=== PATIENT | male | born 1955 | race Caucasian/White ===

== ENCOUNTER → 2016-08-29 | Outpatient (CLI) | payer MEDICARE ==
[~2016-08-29] MED LIST: ALL100 PO; ALLO100T PO; AMOX500C3 PO; ASPI81TA28 PO; EPIPEN0.3 M1 IM; EPLE25TA3 PO; EPP3/2 IM; FRS/40 PO; FRS/80 PO; IPRA1AER2 INH; LSX80 PO; METO2.5T PO; METO25TA3 PO; MULTTAB5 PO; OXGN; OXYC1TAB3 PO; PANT40TA PO; POTA20TA13 PO; POTA20TA16 PO; PRT/40 PO; SENNTAB23 PO; SERT100T PO; SPIR25TA89 PO; SPIR50TA2 PO; TPRSR/25 PO; WARF5TAB7 PO; ZLF/100 PO; ZRX25 PO
[2016-08-29 18:08] LABS: BLOOD UREA NITROGEN 20 mg/dl (7-18); BUN/CREATININE RATIO 20.2 (10-20); CALCIUM 8.6 mg/dl (8.5-10.1); CARBON DIOXIDE 25 mmol/L (21-32); CHLORIDE 100 mmol/L (98-107); GLUCOSE 94 mg/dl (70-99); MAGNESIUM 2.3 mg/dl (1.8-2.4); POTASSIUM 3.7 mmol/L (3.5-5.1); SODIUM 136 mmol/L (136-145)
== END | disposition home or self-care (01) ==
LOC: C.LABPBG 11:38
PROVIDERS: ATTEND Internal Medicine Cardiovascular Disease
DX: I50.32 Chronic diastolic (congestive) heart failure (principal); I48.91 Unspecified atrial fibrillation; I71.2 Thoracic aortic aneurysm, without rupture; I27.2 Other secondary pulmonary hypertension; Q23.1 Congenital insufficiency of aortic valve; Z79.01 Long term (current) use of anticoagulants; Z51.81 Encounter for therapeutic drug level monitoring; E87.6 Hypokalemia

== ENCOUNTER 2016-10-23 11:53 | Emergency (ER) | payer MEDICARE ==
[~2016-10-23] VITALS: Ht 172.7 cm; Wt 114.0 kg
[~2016-10-23 11:53] MED LIST changes: -ALL100 PO; -AMOX500C3 PO; -ASPI81TA28 PO; -EPLE25TA3 PO; -EPP3/2 IM; -FRS/80 PO; -IPRA1AER2 INH; -LSX80 PO; -MULTTAB5 PO; -OXGN; -OXYC1TAB3 PO; -POTA20TA13 PO; -PRT/40 PO; -SENNTAB23 PO; -TPRSR/25 PO; -WARF5TAB7 PO; -ZLF/100 PO; -ZRX25 PO
[2016-10-23 12:02] VITALS: TEMP 36.7; Ht 172.7 cm; Wt 114.0 kg
[2016-10-23] MEDS ORDERED: OXYCODONE HCL IR 5 MG TAB (IMMEDIATE RELEASE) PO STA (12:31)
--- NOTE | 2016-10-23 13:00 | DIAGNOSTIC IMAGING REPORT ---
RIGHT SHOULDER MIN 2 VIEWS ROUTINE CLINICAL HISTORY: Right shoulder pain. Fall. COMPARISON: Chest CT August 06, 2015. FINDINGS: Alignment of the right acromioclavicular and glenohumeral joints is anatomic. There is no acute fracture. There is moderate AC joint arthrosis. Irregularity of the greater tuberosity is degenerative. There are several healed right rib fractures and an old right clavicular fracture. IMPRESSION: No acute fracture or dislocation of the right shoulder. Electronically signed by: Carlos Ngo M.D. 10/23/2016 12:58 PM Dictated Date/Time: 10/23/2016 12:56 PM
--- NOTE | 2016-10-23 13:26 | DIAGNOSTIC IMAGING REPORT ---
CT OF THE HEAD WITHOUT CONTRAST CLINICAL HISTORY: Trauma. COMPARISON STUDY: CT January 09, 2012. TECHNIQUE: Helical axial images of the head were obtained without IV contrast. Automated exposure control was utilized for the study. FINDINGS: No acute intracranial hemorrhage, midline shift or mass effect is present. Ventricular system is unremarkable for age. Basilar cisterns are patent. There are no extra-axial collections. No calvarial fracture is present. There is mild mucosal thickening of the sinuses. IMPRESSION: 1. No acute intracranial findings. 2. No calvarial fracture. Electronically signed by: Carlos Ngo M.D. 10/23/2016 1:25 PM Dictated Date/Time: 10/23/2016 1:23 PM
--- NOTE | 2016-10-23 13:40 | DIAGNOSTIC IMAGING REPORT ---
CT OF THE CERVICAL SPINE WITHOUT CONTRAST CLINICAL HISTORY: Neck pain. Fall. COMPARISON STUDY: No previous studies for comparison. TECHNIQUE: Helical axial images of the cervical spine were obtained without IV contrast. Sagittal and coronal reconstructions were viewed. FINDINGS: The craniocervical junction is intact. No acute cervical spine fracture is identified. The central canal and neural foramen are suboptimally assessed by CT. There is moderate to severe multilevel facet arthrosis. There is also mild multilevel disc space narrowing with moderate anterior osteophytosis of the cervical spine. There is no prevertebral edema. A healed right clavicular fracture is noted as well as an old fracture of the posterior right first rib. IMPRESSION: No acute cervical spine fracture or subluxation. Electronically signed by: Carlos Ngo M.D. 10/23/2016 1:39 PM Dictated Date/Time: 10/23/2016 1:35 PM
[2016-10-23] MEDS ORDERED: OXYC1TAB3 PO (14:24)
--- NOTE | 2016-10-23 14:26 | EMERGENCY ROOM VISIT NOTE ---
ED Visit Note First contact with patient: 12:06 CHIEF COMPLAINT: Neck and right shoulder pain after a fall yesterday HISTORY OF PRESENT ILLNESS: Patient is a 60-year-old white male who presents emergency department for evaluation of neck and shoulder pain after he fell yesterday. Patient reports that he had just washed his truck and was getting out of the vehicle in his garage. His shoes were wet and he slipped on the wet garage floor, falling backwards, striking the neck/upper back on the edge of the truck, then hitting the running board and then landing on the concrete garage floor. He did not strike his head and he did not lose consciousness. He was able to get up and went inside. He notes pain in the midline of his neck , that radiates slightly towards the right shoulder and right shoulder blade region. He denies any generalized headache. No lightheadedness, dizziness or vision changes, but he has been feeling slightly nauseous. He notes pain in the right shoulder that is worse with movement, particularly when he tries to work above shoulder height. He notes occasional tingling or weakness into the right hand, which he attributes to the pain. He did not take any medication for discomfort. He rates his pain a 6/10. He denies any anterior chest pain. No shortness of breath. He denies any rib pain or pain with deep breathing or coughing. No low back pain. He denies any difficulty urinating or hematuria. He has an extensive cardiovascular history and is chronically anticoagulated on Coumadin. His INR was 2.5 2 days ago. REVIEW OF SYSTEMS:Review of systems as per HPI. All other systems reviewed were negative. 10 systems reviewed. PMH: Electronic medical records are reviewed and summarized as above/below. See Problem List. SOCIAL HISTORY: Patient lives at home with his . Nonsmoker. PHYSICAL EXAM: Vital Signs: Reviewed Nurse's notes. GENERAL: Patient is a pleasant, well-appearing 60-year-old white male who is awake and alert and in no acute distress. HEENT: Head - normocephalic and atraumatic. Pupils are equal, round, and reactive to light. Extraocular eye muscles are intact and sclera are anicteric. Ears - bilaterally patent canals with no evidence of hemotympanum. Mouth - moist buccal mucosa with no trauma to the teeth or signs of malocclusion. Neck: The neck is supple. There is slight swelling noted over the lower aspect of the cervical spinous processes in the midline. This area slightly tender to palpation. No obvious step-offs or deformities. There is no JVD or tracheal deviation. Full cervical spine range of motion. He has some reproducible muscular tenderness in the right trapezius and in the right rhomboid distribution. Chest: There are no signs of deformities, contusions or abrasions to the chest wall. There is no obvious crepitus or paradoxical chest rise. Ribs are nontender. Heart: Irregular rate and rhythm. Mechanical heart valve sounds appreciated. Lungs: Breath sounds equal and clear to auscultation without wheezes, rales, or rhonchi heard. Abdomen: Soft, completely nontender, nondistended, with good bowel sounds. There is no sign of trauma such as contusions, abrasions or penetrations. There are no palpable pulsatile masses or hepatosplenomegaly. There is no guarding, rigidity, or rebound noted. Extremities: No obvious trauma, deformities, contusions, or edema. There are easily palpable peripheral pulses. Examination of the right shoulder does not show any obvious deformity. No ecchymosis or abrasions. He is tender over the distal clavicle and the acromioclavicular joint and over the proximal humerus, but possibly can be internally and externally rotated fully. He can abduct to 90, forward flex greater than 90 but has some discomfort. Neuro: The patient is awake and alert and easily able to follow commands. Muscle strength is 5 out of 5 in all 4 extremities. Equal oracle database manager strength bilaterally. Upper extremity DTRs are equal and symmetrical. Back: The entire thoracic, lumbar, and sacral spine were palpated. No discomfort over the thoracic spine and lumbar spine. There are no obvious step- offs or deformities noted. There are no obvious signs of trauma such as contusions abrasions penetrations noted to the back. ED course: The patient was seen and assessed as above. He was medicated with oxycodone 10 mg orally. Given his head/neck injury and Coumadin therapy, head and cervical spine CTs were obtained. Right shoulder x-rays were also performed. There is no evidence for acute intracranial bleed, skull fracture or cervical spine injury. No obvious fractures or dislocation of the right shoulder. The patient was reassured. He does not have any evidence for cervical spinal fracture or unstable ligamentous injury. He was encouraged to apply ice to the areas of soreness, and to perform gentle stretching and range of motion exercises as tolerated. He was given oxycodone to use for pain. They were educated on the worrisome signs or symptoms of a worsening headache injury for which they should return to the emergency department. Otherwise follow-up with family doctor or with orthopedics if his symptoms are not improving. The patient rated his discomfort a 4/10 at discharge. RIGHT SHOULDER MIN 2 VIEWS ROUTINE CLINICAL HISTORY: Right shoulder pain. Fall. COMPARISON: Chest CT August 06, 2015. FINDINGS: Alignment of the right acromioclavicular and glenohumeral joints is anatomic. There is no acute fracture. There is moderate AC joint arthrosis. Irregularity of the greater tuberosity is degenerative. There are several healed right rib fractures and an old right clavicular fracture. IMPRESSION: No acute fracture or dislocation of the right shoulder. CT OF THE CERVICAL SPINE WITHOUT CONTRAST CLINICAL HISTORY: Neck pain. Fall. COMPARISON STUDY: No previous studies for comparison. TECHNIQUE: Helical axial images of the cervical spine were obtained without IV contrast. Sagittal and coronal reconstructions were viewed. FINDINGS: The craniocervical junction is intact. No acute cervical spine fracture is identified. The central canal and neural foramen are suboptimally assessed by CT. There is moderate to severe multilevel facet arthrosis. There is also mild multilevel disc space narrowing with moderate anterior osteophytosis of the cervical spine. There is no prevertebral edema. A healed right clavicular fracture is noted as well as an old fracture of the posterior right first rib. IMPRESSION: No acute cervical spine fracture or subluxation. CT OF THE HEAD WITHOUT CONTRAST CLINICAL HISTORY: Trauma. COMPARISON STUDY: CT January 09, 2012. TECHNIQUE: Helical axial images of the head were obtained without IV contrast. Automated exposure control was utilized for the study. FINDINGS: No acute intracranial hemorrhage, midline shift or mass effect is present. Ventricular system is unremarkable for age. Basilar cisterns are patent. There are no extra-axial collections. No calvarial fracture is present. There is mild mucosal thickening of the sinuses. IMPRESSION: 1. No acute intracranial findings. 2. No calvarial fracture. 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 Surgical Problems: (1) Hx of CABG Status: Chronic (2) Mechanical heart valve present Status: Chronic Current/Historical Medications Scheduled Allopurinol (Zyloprim), 100 MG PO BID Amoxicillin (Amoxil), 4 TABS PO PRIOR TO DENTAL PROC Aspirin (Aspirin Ec), 81 MG PO QAM Eplerenone (Eplerenone), PO BID Furosemide (Lasix), 120 MG PO QAM Ipratropium-Albuterol (Combivent Respimat), 1 PUFF INH QAM Metolazone (Zaroxolyn), 2.5 MG PO DAILY Metoprolol Succ (Toprol Xl) (Toprol-Xl), 25 MG PO BID Multiple Vitamins W/ Minerals (Centrum), 1 TABLET PO QAM Oxygen (Oxygen), 2 LITERS NA HS Pantoprazole (Protonix), 40 MG PO DAILY Potassium Ext Rel (Klor-Con), 3 TAB PO QID Sennosides-Docusate Sodium (Stool Softener), 1 TAB PO QAM Sertraline Hcl (Zoloft), 100 MG PO QAM Warfarin Sod (Jantoven), 5 MG PO QPM Scheduled PRN , 0.3 MG IM UD PRN for ALLERGIC REACTION Furosemide (Lasix), 80 MG PO UD PRN for FLUID RET Oxycodone Ir (Roxicodone Ir), 1-2 TAB PO Q4H PRN for Severe Pain Allergies Coded Allergies: BEE STING (Verified Allergy, Severe, ANAPHYLAXIS, 05/09/16) NO KNOWN DRUG ALLERGIES (Verified Allergy, Unknown, ., 05/09/16) Vital Signs Date Time Temp Pulse Resp B/P Pulse Ox O2 Delivery O2 Flow Rate FiO2 10/23/16 14:40 88 16 147/69 96 10/23/16 12:02 36.7 88 16 168/61 96 Room Air Medications Administered Medications (Trade) Dose Ordered Sig/Adeline Route Start Time Stop Time Status Last Admin Dose Admin Oxycodone HCl (Roxicodone Immediate Rel Tab) 10 mg NOW STAT PO 10/23/16 12:31 10/23/16 12:33 DC 10/23/16 12:57 10 MG Departure Information Impression Primary Impression: Neck pain Additional Impressions: Right shoulder pain Fall Prescriptions Oxycodone Ir (Roxicodone Ir) 5 Mg Tab 1-2 TAB PO Q4H Y for Severe Pain, #20 TAB For Initial Treatment Prov: Sarah Romo PA 10/23/16 Referrals Sharon Winkler MD (PCP) Patient Instructions My [facility] Additional Instructions DO NOT drive, drink alcohol, operate machinery, or perform dangerous activities today. You were given medications in the ER that can affect your ability to safely function or operate a vehicle. Oxycodone (OxyIR) 5mg: Take 1-2 pills every four hours for breakthrough pain. Avoid alcohol, operating machinery or dangerous equipment, working on ladders or roofs, DRIVING, or situations where being under the influence may be dangerous. It is recommended to use an cwiz-ajq-nqcojmi stool softener such as Colace, 100mg twice daily while taking this medication to avoid constipation. Acetaminophen(Tylenol) may be used for fever or pain. Use 1000mg every six hours as needed. Avoid using more than 3000mg in a 24 hour period. This medication can be taken if you need to drive, work, or perform activities which may be dangerous when taking narcotic pain medication. Rest and avoid heavy lifting until your symptoms resolve and then gradually return to full activity. A good rule of thumb is if it hurts your back to perform a certain activity, then it should be avoided until you are healthy again. Ice to areas of pain. Continue current medications. FOLLOW UP INSTRUCTIONS: You should have a follow up with your family doctor or team physician in 3-5 days regarding your injury. If you had X-rays or CT scanning performed, our Radiologists will review the studies. If important additional findings are discovered you will be notified within 24-48 hours. Return to the emergency department immediately if you -Developed any chest pain or shortness of breath -Have a headache that suddenly gets worse. -Are very drowsy or cannot be woken up from sleep. -Can't recognize people or places. -Have repeated vomiting. -Behave unusually, seemed confused, or start acting irritable. -Have a seizure (arms and legs start jerking uncontrollably). -Have weak or numb arms or legs. -Are unsteady on your feet -Experience slurred speech or difficulty speaking. Problem Qualifiers
[2016-10-23 14:40] VITALS: BP 147/69; PULSE 88; O2SAT 96
--- NOTE | 2016-10-23 14:45 | EMERGENCY ROOM VISIT NOTE ---
ED Visit Note First contact with patient: 12:06 I have personally evaluated this patient examined her and reviewed the pertinent labs and data. I have discussed the case with Vidhya Romo, the physician fleet administrative assistant and agree with the plan. Please refer to the PA note This patient comes in after suffering a mechanical fall yesterday. He slipped after getting off of his truck and fell back and has some pain in the left lateral neck into the shoulder. Given the fact that he is on Coumadin, we did do a CAT scan of his head and neck been they're unremarkable. On my exam, the patient is awake and alert has a normal neurologic exam and looks well. He's had no abdominal pain or chest pain. He has full range of motion the shoulder and the neck. He will be discharged home and follow-up with his regular doctor.
[2017-01-01] MEDS ORDERED: MULTTAB5 PO (00:09)
[2017-01-01] MEDS ORDERED: SENNTAB23 PO (07:49)
[2017-01-01] MEDS ORDERED: AMOX500C3 PO (07:55)
[2017-01-01] MEDS ORDERED: OXGN (08:58)
[2017-01-01] MEDS ORDERED: WARF5TAB7 PO ×2 (14:20→18:52)
[2017-01-01] MEDS ORDERED: EPLE25TA3 PO ×2 (16:35→18:52)
[2017-01-01] MEDS ORDERED: IPRA1AER2 INH (18:08)
[2017-01-01] MEDS ORDERED: FRS/80 PO (18:08)
[2017-01-01] MEDS ORDERED: ASPI81TA28 PO (18:10)
[2017-01-01] MEDS ORDERED: PRT/40 PO (18:52)
== END 2016-10-23 14:41 | disposition home or self-care (01) ==
LOC: C.EDB 11:54 → C.EDD 14:41
DX: M54.2 Cervicalgia (principal); M25.511 Pain in right shoulder; W01.0XXA Fall on same level from slipping, tripping and stumbling without subsequent striking against object, initial encounter; I48.91 Unspecified atrial fibrillation; I10 Essential (primary) hypertension; I51.9 Heart disease, unspecified; J44.9 Chronic obstructive pulmonary disease, unspecified; Z95.0 Presence of cardiac pacemaker; Z95.1 Presence of aortocoronary bypass graft; Z95.2 Presence of prosthetic heart valve; Z79.01 Long term (current) use of anticoagulants; Z79.82 Long term (current) use of aspirin; Z79.899 Other long term (current) drug therapy; Z91.030 Bee allergy status

== ENCOUNTER → 2016-10-27 | Outpatient (CLI) | payer MEDICARE ==
[~2016-10-27] MED LIST changes: +ALL100 PO; +AMOX500C3 PO; +ASPI81TA28 PO; +EPLE25TA3 PO; +EPP3/2 IM; +FRS/80 PO; +IPRA1AER2 INH; +LSX80 PO; +MULTTAB5 PO; +OXGN; +OXYC1TAB3 PO; +POTA20TA13 PO; +PRT/40 PO; +SENNTAB23 PO; -SPIR25TA89 PO; -SPIR50TA2 PO; +TPRSR/25 PO; +WARF5TAB7 PO; +ZLF/100 PO; +ZRX25 PO
[2016-10-27 17:26] LABS: BLOOD UREA NITROGEN 22 mg/dl (7-18); BUN/CREATININE RATIO 24.4 (10-20); CALCIUM 8.5 mg/dl (8.5-10.1); CARBON DIOXIDE 27 mmol/L (21-32); CHLORIDE 99 mmol/L (98-107); GLUCOSE 124 mg/dl (70-99); POTASSIUM 3.2 mmol/L (3.5-5.1); SODIUM 134 mmol/L (136-145)
== END | disposition home or self-care (01) ==
LOC: C.LABPBG 11:28
PROVIDERS: ATTEND Internal Medicine Cardiovascular Disease
DX: E87.6 Hypokalemia (principal)

== ENCOUNTER → 2016-11-23 | Outpatient (CLI) | payer MEDICARE ==
[~2016-11-23] MED LIST changes: +PANT40TA2 PO; -PRT/40 PO
[2016-11-23 17:56] LABS: BLOOD UREA NITROGEN 27 mg/dl (7-18); BUN/CREATININE RATIO 24.4 (10-20); CARBON DIOXIDE 29 mmol/L (21-32); CHLORIDE 98 mmol/L (98-107); GLUCOSE 111 mg/dl (70-99); SODIUM 134 mmol/L (136-145)
== END | disposition home or self-care (01) ==
LOC: C.LABPBG 14:21
PROVIDERS: ATTEND Physician Assistant
DX: E87.6 Hypokalemia (principal)

== ENCOUNTER 2017-01-01 18:13 | Emergency (ER) | payer MEDICARE ==
[~2017-01-01] VITALS: Ht 170.2 cm; Wt 117.3 kg
[~2017-01-01 18:13] MED LIST changes: -ALL100 PO; -EPP3/2 IM; -LSX80 PO; -PANT40TA2 PO; -POTA20TA13 PO; -TPRSR/25 PO; -ZLF/100 PO; -ZRX25 PO
[2017-01-01 18:21] VITALS: TEMP 36.8; Ht 170.2 cm; Wt 117.3 kg
[2017-01-01] MEDS ORDERED: POTA20TA13 PO (18:52)
[2017-01-01] MEDS ORDERED: EPLE25TA3 PO (18:52)
[2017-01-01] MEDS ORDERED: TPRSR/25 PO (18:52)
[2017-01-01] MEDS ORDERED: EPP3/2 IM (18:52)
[2017-01-01] MEDS ORDERED: LSX80 PO (18:52)
[2017-01-01] MEDS ORDERED: PANT40TA2 PO (18:52)
[2017-01-01] MEDS ORDERED: ZLF/100 PO (18:52)
[2017-01-01] MEDS ORDERED: ALL100 PO (18:52)
[2017-01-01] MEDS ORDERED: WARF5TAB7 PO (18:52)
[2017-01-01] MEDS ORDERED: ZRX25 PO (18:52)
--- NOTE | 2017-01-01 18:59 | DIAGNOSTIC IMAGING REPORT ---
LEFT FOOT 3 VIEWS HISTORY: left foot injury COMPARISON: None. FINDINGS: There is no fracture or dislocation. Dorsal soft tissue swelling. Chronic calcification within the Achilles tendon with a calcaneal spur. No radiopaque foreign bodies. IMPRESSION: Dorsal soft tissue swelling within the forefoot. No fractures. Electronically signed by: Choco Villavicencio M.D. 01/01/2017 6:58 PM Dictated Date/Time: 01/01/2017 6:54 PM
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
--- NOTE | 2017-01-01 19:35 | EMERGENCY ROOM VISIT NOTE ---
ED Visit Note First contact with patient: 18:29 I have personally seen and evaluated the patient with the physician greenhouse assistant. I agree with the diagnostic/management decisions and have personally been involved in these decisions and agree with the diagnosis.
[2017-01-01 19:51] VITALS: BP 147/87; PULSE 74; O2SAT 99
== END 2017-01-01 19:51 | disposition home or self-care (01) ==
LOC: C.EDB 18:15 → C.EDD 19:51
DX: S99.922A Unspecified injury of left foot, initial encounter (principal); S90.32XA Contusion of left foot, initial encounter; M79.672 Pain in left foot; M79.89 Other specified soft tissue disorders; W22.8XXA Striking against or struck by other objects, initial encounter; Z79.01 Long term (current) use of anticoagulants; I48.2 Chronic atrial fibrillation; I10 Essential (primary) hypertension; Z95.1 Presence of aortocoronary bypass graft; Z79.899 Other long term (current) drug therapy

== ENCOUNTER → 2017-01-26 | Outpatient (CLI) | payer MEDICARE ==
[~2017-01-26] MED LIST changes: +ALL100 PO; -ALLO100T PO; -EPIPEN0.3 M1 IM; +EPP3/2 IM; -FRS/40 PO; +LSX80 PO; -METO2.5T PO; -METO25TA3 PO; -OXYC1TAB3 PO; -PANT40TA PO; +POTA20TA13 PO; -POTA20TA16 PO; +PRT/40 PO; -SERT100T PO; +TPRSR/25 PO; +ZLF/100 PO; +ZRX25 PO
[2017-01-26 12:33] LABS: BLOOD UREA NITROGEN 17 mg/dl (7-18); BUN/CREATININE RATIO 18.6 (10-20); CALCIUM 9.3 mg/dl (8.5-10.1); CARBON DIOXIDE 28 mmol/L (21-32); CHLORIDE 101 mmol/L (98-107); CREATININE 0.93 mg/dl (0.60-1.40); GLUCOSE 144 mg/dl (70-99); POTASSIUM 4.6 mmol/L (3.5-5.1); SODIUM 135 mmol/L (136-145)
[2017-01-26 12:38] LABS: MEAN CELL VOLUME 79.1 fL (80-100); MEAN CORPUSCULAR HEMOGLOBIN 25.4 pg (25-34); MEAN CORPUSCULAR HGB CONC 32.1 g/dl (32-36); MEAN PLATELET VOLUME 9.6 fL (7.4-10.4); PLATELET COUNT 218 K/uL (130-400); RED BLOOD COUNT 4.93 M/uL (4.7-6.1); WHITE BLOOD COUNT 10.05 K/uL (4.8-10.8)
== END | disposition home or self-care (01) ==
LOC: C.LABPBG 09:45
PROVIDERS: ATTEND Internal Medicine Cardiovascular Disease
DX: I50.32 Chronic diastolic (congestive) heart failure (principal); Z79.01 Long term (current) use of anticoagulants

== ENCOUNTER → 2017-02-17 | Outpatient (CLI) | payer MEDICARE ==
[2017-02-17 17:03] LABS: HEMATOCRIT 39.7 % (42-52); MEAN CELL VOLUME 80.9 fL (80-100); MEAN CORPUSCULAR HEMOGLOBIN 25.1 pg (25-34); MEAN PLATELET VOLUME 9.5 fL (7.4-10.4); PLATELET COUNT 261 K/uL (130-400); RED BLOOD COUNT 4.91 M/uL (4.7-6.1); WHITE BLOOD COUNT 9.49 K/uL (4.8-10.8)
[2017-02-17 17:23] LABS: BLOOD UREA NITROGEN 20 mg/dl (7-18); BUN/CREATININE RATIO 19.9 (10-20); CALCIUM 9.3 mg/dl (8.5-10.1); CARBON DIOXIDE 30 mmol/L (21-32); CHLORIDE 102 mmol/L (98-107); GLUCOSE 90 mg/dl (70-99); POTASSIUM 3.8 mmol/L (3.5-5.1); SODIUM 138 mmol/L (136-145)
[2017-02-17 17:28] LABS: COMPLETE YES; EOSINOPHIL % 7.1 %; LYMPH ABS # 1.18 K/uL (1.2-3.4); LYMPHOCYTE % 12.4 %; MYELOCYTE % 0.9 %; NEUTROPHILS % 74.3 %; POLYCHROMASIA 1+
[2017-02-18 07:20] LABS: ESTIMATED AVERAGE GLUCOSE 120 mg/dl; HA1C FLAG Normal (Normal)
== END | disposition home or self-care (01) ==
LOC: C.LABPBG 13:34
PROVIDERS: ATTEND Family Medicine
DX: I50.32 Chronic diastolic (congestive) heart failure (principal); D64.9 Anemia, unspecified; R73.9 Hyperglycemia, unspecified; E87.6 Hypokalemia

== ENCOUNTER → 2017-05-23 | Outpatient (CLI) | payer MEDICARE ==
[2017-05-23 12:54] LABS: BLOOD UREA NITROGEN 17 mg/dl (7-18); CALCIUM 9.3 mg/dl (8.5-10.1); CARBON DIOXIDE 29 mmol/L (21-32); CHLORIDE 94 mmol/L (98-107); CREATININE 1.08 mg/dl (0.60-1.40); GLUCOSE 107 mg/dl (70-99); POTASSIUM 2.9 mmol/L (3.5-5.1); SODIUM 132 mmol/L (136-145)
== END | disposition home or self-care (01) ==
LOC: C.LABPBG 09:49
PROVIDERS: ATTEND Physician Assistant
DX: I50.32 Chronic diastolic (congestive) heart failure (principal)

== ENCOUNTER → 2017-06-20 | Outpatient (CLI) | payer MEDICARE ==
[~2017-06-20] MED LIST changes: +PANT40TA2 PO; -PRT/40 PO
[2017-06-20 17:51] LABS: BLOOD UREA NITROGEN 24 mg/dl (7-18); CREATININE 0.91 mg/dl (0.60-1.40); GLUCOSE 124 mg/dl (70-99)
[2017-06-20 17:52] LABS: BUN/CREATININE RATIO 26.1 (10-20); CALCIUM 9.1 mg/dl (8.5-10.1); CARBON DIOXIDE 27 mmol/L (21-32); CHLORIDE 95 mmol/L (98-107); POTASSIUM 3.1 mmol/L (3.5-5.1); SODIUM 133 mmol/L (136-145)
== END | disposition home or self-care (01) ==
LOC: C.LABPBG 12:20
PROVIDERS: ATTEND Internal Medicine Cardiovascular Disease
DX: E87.6 Hypokalemia (principal)

== ENCOUNTER → 2017-07-26 | Outpatient (CLI) | payer MEDICARE ==
[2017-07-26 17:54] LABS: BLOOD UREA NITROGEN 26 mg/dl (7-18); CALCIUM 8.9 mg/dl (8.5-10.1); CARBON DIOXIDE 29 mmol/L (21-32); CREATININE 0.92 mg/dl (0.60-1.40); GLUCOSE 114 mg/dl (70-99); POTASSIUM 3.4 mmol/L (3.5-5.1); SODIUM 128 mmol/L (136-145)
== END | disposition home or self-care (01) ==
LOC: C.LABPBG 11:33
PROVIDERS: ATTEND Internal Medicine Cardiovascular Disease
DX: Z51.81 Encounter for therapeutic drug level monitoring (principal); I50.32 Chronic diastolic (congestive) heart failure; Z79.01 Long term (current) use of anticoagulants

== ENCOUNTER → 2017-08-21 | Outpatient (CLI) | payer MEDICARE ==
[2017-08-21 18:02] LABS: BLOOD UREA NITROGEN 23 mg/dl (7-18); CALCIUM 9.5 mg/dl (8.5-10.1); CARBON DIOXIDE 26 mmol/L (21-32); CREATININE 0.85 mg/dl (0.60-1.40); GLUCOSE 105 mg/dl (70-99); POTASSIUM 3.4 mmol/L (3.5-5.1); SODIUM 133 mmol/L (136-145)
== END | disposition home or self-care (01) ==
LOC: C.LABPBG 14:05
PROVIDERS: ATTEND Internal Medicine Cardiovascular Disease
DX: I50.32 Chronic diastolic (congestive) heart failure (principal)

== ENCOUNTER → 2017-08-24 | Outpatient (CLI) | payer MEDICARE ==
[2017-08-24 14:40] LABS: HEMATOCRIT 39.1 % (42-52); HEMOGLOBIN 12.2 g/dL (14.0-18.0); MEAN CELL VOLUME 76.5 fL (80-100); MEAN CORPUSCULAR HEMOGLOBIN 23.9 pg (25-34); MEAN CORPUSCULAR HGB CONC 31.2 g/dl (32-36); MEAN PLATELET VOLUME 8.9 fL (7.4-10.4); PLATELET COUNT 245 K/uL (130-400); RED CELL DISTRIBUTION WIDTH CV 17.2 % (11.5-14.5); RED CELL DISTRIBUTION WIDTH SD 47.7 fL (36.4-46.3); WHITE BLOOD COUNT 11.12 K/uL (4.8-10.8)
== END | disposition home or self-care (01) ==
LOC: C.LAB1850 13:59
PROVIDERS: ATTEND Physician Assistant
DX: D64.9 Anemia, unspecified (principal)

== ENCOUNTER → 2017-09-08 | Outpatient (CLI) | payer MEDICARE ==
[2017-09-08 13:06] LABS: BASO % 0.9 %; BASO ABS # 0.09 K/uL (0-0.2); EOS % 6.4 %; EOS ABS # 0.62 K/uL (0-0.5); HEMATOCRIT 40.5 % (42-52); IG# 0.09 K/uL (0.00-0.02); LYMPH % 14.8 %; LYMPH ABS # 1.44 K/uL (1.2-3.4); MEAN CORPUSCULAR HGB CONC 32.1 g/dl (32-36); MEAN PLATELET VOLUME 9.6 fL (7.4-10.4); MONO ABS # 0.97 K/uL (0.11-0.59); NEUT ABS # 6.49 K/uL (1.4-6.5); PLATELET COUNT 195 K/uL (130-400); RED CELL DISTRIBUTION WIDTH CV 22.1 % (11.5-14.5)
== END | disposition home or self-care (01) ==
LOC: C.LABPBG 09:26
PROVIDERS: ATTEND Family Medicine
DX: D50.9 Iron deficiency anemia, unspecified (principal)

== ENCOUNTER → 2017-10-26 | Outpatient (CLI) | payer MEDICARE ==
[2017-10-26 13:03] LABS: HEMATOCRIT 43.8 % (42-52); HEMOGLOBIN 15.5 g/dL (14.0-18.0); MEAN CELL VOLUME 85.4 fL (80-100); MEAN CORPUSCULAR HEMOGLOBIN 30.2 pg (25-34); MEAN CORPUSCULAR HGB CONC 35.4 g/dl (32-36); MEAN PLATELET VOLUME 9.1 fL (7.4-10.4); PLATELET COUNT 178 K/uL (130-400); RED CELL DISTRIBUTION WIDTH CV 20.5 % (11.5-14.5); RED CELL DISTRIBUTION WIDTH SD 63.7 fL (36.4-46.3); WHITE BLOOD COUNT 8.39 K/uL (4.8-10.8)
[2017-10-26 13:24] LABS: BLOOD UREA NITROGEN 24 mg/dl (7-18); CALCIUM 8.9 mg/dl (8.5-10.1); CARBON DIOXIDE 28 mmol/L (21-32); CHOLESTEROL 129 mg/dl (0-200); CREATININE 0.81 mg/dl (0.60-1.40); GLUCOSE 116 mg/dl (70-99); POTASSIUM 2.9 mmol/L (3.5-5.1); SODIUM 132 mmol/L (136-145)
[2017-10-26 13:28] LABS: LDL CHOLESTEROL CALCULATED 69 mg/dl
== END | disposition home or self-care (01) ==
LOC: C.LABPBG 09:28
PROVIDERS: ATTEND Internal Medicine Cardiovascular Disease
DX: I48.91 Unspecified atrial fibrillation (principal); D64.9 Anemia, unspecified; I50.32 Chronic diastolic (congestive) heart failure

== ENCOUNTER → 2017-11-07 | Outpatient (CLI) | payer MEDICARE ==
[2017-11-07 17:03] LABS: BLOOD UREA NITROGEN 24 mg/dl (7-18); CALCIUM 8.9 mg/dl (8.5-10.1); CARBON DIOXIDE 29 mmol/L (21-32); CREATININE 0.99 mg/dl (0.60-1.40); GLUCOSE 94 mg/dl (70-99); POTASSIUM 3.2 mmol/L (3.5-5.1); SODIUM 129 mmol/L (136-145)
== END | disposition home or self-care (01) ==
LOC: C.LABPBG 11:43
PROVIDERS: ATTEND Internal Medicine Cardiovascular Disease
DX: E87.6 Hypokalemia (principal)

== ENCOUNTER → 2018-03-06 | Outpatient (CLI) | payer MEDICARE ==
[2018-03-06 16:53] LABS: BLOOD UREA NITROGEN 17 mg/dl (7-18); CALCIUM 8.9 mg/dl (8.5-10.1); CARBON DIOXIDE 30 mmol/L (21-32); CREATININE 0.86 mg/dl (0.60-1.40); GLUCOSE 75 mg/dl (70-99); POTASSIUM 2.8 mmol/L (3.5-5.1); SODIUM 133 mmol/L (136-145)
== END | disposition home or self-care (01) ==
LOC: C.LABPBG 12:10
PROVIDERS: ATTEND Internal Medicine Cardiovascular Disease
DX: I50.32 Chronic diastolic (congestive) heart failure (principal); I48.91 Unspecified atrial fibrillation; I27.20 Pulmonary hypertension, unspecified; E87.6 Hypokalemia; I35.9 Nonrheumatic aortic valve disorder, unspecified

== ENCOUNTER → 2018-03-20 | Outpatient (CLI) | payer MEDICARE ==
[2018-03-20 17:14] LABS: BLOOD UREA NITROGEN 18 mg/dl (7-18); CALCIUM 9.6 mg/dl (8.5-10.1); CARBON DIOXIDE 30 mmol/L (21-32); CREATININE 0.94 mg/dl (0.60-1.40); GLUCOSE 84 mg/dl (70-99); POTASSIUM 3.3 mmol/L (3.5-5.1); SODIUM 135 mmol/L (136-145)
== END | disposition home or self-care (01) ==
LOC: C.LABPBG 11:50
PROVIDERS: ATTEND Physician Assistant
DX: I50.32 Chronic diastolic (congestive) heart failure (principal)

== ENCOUNTER 2018-08-16 09:43 | Inpatient (IN) ==
[2018-08-16 10:34] LABS: Basophils # (auto) 0.03 K/uL (0-0.2); Basophils % (auto) 0.2 %; Eosinophils # (auto) 0.11 K/uL (0-0.5); Eosinophils % (auto) 0.7 %; Hematocrit (blood only) 39.3 % (42-52); Hemoglobin 14.2 g/dL (14.0-18.0); Immature Granulocytes # (auto) 0.21 K/uL (0.00-0.02); Immature Granulocytes % (auto) 1.3 %; Lymphocytes # (auto) 0.83 K/uL (1.2-3.4); Lymphocytes % (auto) 5.2 %; Mean Corpuscular Hgb Conc 36.1 g/dL (32-36); Monocytes % (auto) 6.9 %; Neutrophils # (auto) 13.56 K/uL (1.4-6.5); Neutrophils % (auto) 85.7 %; Platelet Count 154 K/uL (130-400); RDW Coefficient of Variation 16.9 % (11.5-14.5); RDW Standard Deviation 52.1 fL (36.4-46.3); Red Blood Count 4.57 M/uL (4.7-6.1); White Blood Count 15.84 K/uL (4.8-10.8)
--- NOTE | 2018-08-16 10:40 | XRay Report ---
SINGLE VIEW CHEST CLINICAL HISTORY: Diarrheal illness. FINDINGS: An AP, portable, upright chest radiograph is compared to study dated 07/19/2018 and correla bernadine with chest CT dated 08/06/2015. The examination is degraded by portable technique and patient rotat ion. A 2-lead cardiac pacemaker is unchanged in position. The patient is status post midline sternoto my and cardiac valve surgery. The heart is enlarged and there is atherosclerotic calcification of the thoracic aorta. There is pulmonary vascular congestion and interstitial edema. There is a layering r ight pleural effusion with right basilar consolidation. No large pleural effusion is seen on the left . No pneumothorax is identified. The skeletal structures are osteopenic. The bony thorax is grossly i ntact. IMPRESSION: 1. Cardiomegaly with evidence of congestive failure and interstitial edema. 2. Right pleural effusion with associated right basilar consolidation. This likely represents atelect asis. Correlate clinically for evidence of superimposed pneumonia. Electronically signed by: Phil Santos M.D. 08/16/2018 10:39 AM
[2018-08-16 10:48] LABS: Partial Thromboplastin Ratio 1.6; Partial Thromboplastin Time 42.1 Seconds (21.0-31.0); Prothrombin Time 68.4 Seconds (9.0-12.0)
[2018-08-16 10:51] LABS: Albumin Level 2.9 gm/dl (3.4-5.0); BUN Creatinine Ratio 35.5 (10-20); Calcium 8.8 mg/dl (8.5-10.1); Creatinine Clr Calc Pharmacy 129.5 ml/min; Est GFR (Non-African American) 100.1; INR 7.6 (0.9-1.1); Potassium 3.8 mmol/L (3.5-5.1)
[2018-08-16] MEDS ORDERED: PHYTONADIONE 5 MG TAB PO STA (10:51)
[2018-08-16 10:53] LABS: Albumin Globulin Ratio 0.7 (0.9-2); Bilirubin,Total 1.8 mg/dl (0.2-1); Globulin 4.1 gm/dl (2.5-4.0)
[2018-08-16 11:41] LABS: Creatine Kinase MB 11.3 ng/ml (0.5-3.6); Troponin I 0.021 ng/ml (0-0.045)
[2018-08-16] MEDS ORDERED: metroNIDAZOLE 250 MG TAB PO STA (12:35)
[2018-08-16] MEDS ORDERED: IOVERSOL 100ml IV PRN (13:15)
--- NOTE | 2018-08-16 13:30 | CT Scan Report ---
CT abd pelvis IV con only CLINICAL HISTORY: Rectal bleeding COMPARISON STUDY: 07/05/2018 TECHNIQUE: The patient was scanned in a dynamic helical fashion during intravenous administration of 94 cc Optiray 320. A dose lowering technique was utilized adhering to the principles of ALARA. CT DOSE: 1199.85 mGycm FINDINGS: Lower chest: There is a moderate right pleural effusion. Right lower lobe airspace opacities, likely representing compressive atelectatic change. Liver: The liver has a nodular contour suggesting underlying cirrhosis. Gallbladder: There is suspected mild gallbladder wall thickening. No calculi are visualized. Spleen: Spleen is mildly enlarged measuring 13 cm in length. Pancreas: Unremarkable. Adrenal glands: There are bilateral adrenal myelolipoma is. Left lesion measures 40 mm. The right les ion measures 41 mm. Kidneys: There is a 31 mm right renal cyst. There is no hydronephrosis. Bowel: There are no transition zones indicate bowel obstruction. There is no evidence of acute divert iculitis. The appendix was not visualized with certainty. There are no findings to indicate acute reji endicitis. Peritoneum: There is mild ascites. There is no free air. There is rectus diastases. Vasculature: The abdominal aorta is normal in course and caliber. Adenopathy: Mildly enlarged aortocaval lymph nodes remain stable. There are also prominent retrocrura l lymph nodes, unchanged the preceding study. Pelvic viscera: The bladder, and pelvic viscera are unremarkable. Skeletal structures: No destructive osseous lesions are seen. IMPRESSION: 1. Persistent moderate right pleural effusion with right basilar airspace opacities, likely atelectat ic 2. Cirrhotic morphology of the liver 3. Mild ascites 4. Mild splenomegaly 5. Bilateral adrenal myelolipomas 6. No evidence of bowel obstruction. No evidence of free air 7. No evidence of acute diverticulitis. No evidence of acute appendicitis. 8. Mild retroperitoneal adenopathy unchanged the prior study Electronically signed by: Doron Sykes M.D. 08/16/2018 1:28 PM
--- NOTE | 2018-08-16 14:47 | History & Physical Report ---
Date of Service August 16, 2018 Assessment & Plan (1) C. difficile colitis: 62 y/o M hx CAD, diastolic CHF, pacer, chronic hyponatremia, recurrent cellulitis and chronic foot ulcer, paroxysmal AF, HTN, HLD, FARTUN, mechanical aortic valve on Coumadin. The pt was recently admitted for LE cellulitis and had completed a course of Levaquin and then Keflex one week ago. The pt presents with diarrhea which began 3 days ago in addition to bright blood in his stool beginning one day ago. He denies a fever, nausea or vomiting. It is noted that he is a poor historian however and he appears to be having some difficulty with word finding. Initial labs are notable for worsening hyponatremia and a sodium of 122, leukocytosis, an INR of 7.6. Stool is (+) for C diff. A CT abdomen did not show any significant acute findings. 1) C diff with bright blood MS. Placed on oral vanc. We are hoping that the blood is a result of diarrhea/colitis and Coumadin use. If this does not resolve, GI should be called. He does not have anemia on admission. Hb will be trended overnight. The pt's INR is 7.6 and he received 10mg K in the ER. 2) Hyponatremia - Placed on fluid restriction and NS. BMP will be trended Q4H. As this appears to be worsening and he has a history of CHF, he may be a candidate for Tolvaptan. we can contact nephrology if the Na does not show improvement in the short-term. 3) Altered speech - mild confusion. May be mutifactorial due to infection and hyponatremia. We will obtain a CT head as he is at risk of embolic and hemorrhagic CVA. 4) CHF - volume status bears monitoring as he is receiving IVF - he will remain on Bumex, eplerenone, and metoprolol. 5) Mechanical valve, AF, and is high risk for DVT - pt should be bridged with heparin if bleeding stops and his INR is subtherapeutic. 6) AF - rate controlled - paced rhythm 7) COPD - cont Combivent 8) LE ulcer - currently treated with topical wound care - wound care requested. 9) CPAP provided for FARTUN Full code - Coumadin anticoagulation Total time for this admit including review of labs, meds, records, imaging - discussion with pt, , ER attending - 49 min History of Present Illness Chief Complaint: LGI bleeding, diarrhea - C diff (+), hyponatremia Primary Care Provider: Sharon Winkler MD 62 y/o M hx CAD, diastolic CHF, pacer, chronic hyponatremia, recurrent cellulitis and chronic foot ulcer, paroxysmal AF, HTN, HLD, FARTUN, mechanical aortic valve on Coumadin. The pt was recently admitted for LE cellulitis and had completed a course of Levaquin and then Keflex one week ago. The pt presents with diarrhea which began 3 days ago in addition to bright blood in his stool beginning one day ago. He denies a fever, nausea or vomiting. It is noted that he is a poor historian however and he appears to be having some difficulty with word finding. Initial labs are notable for worsening hyponatremia and a sodium of 122, leukocytosis, an INR of 7.6. Stool is (+) for C diff. A CT abdomen did not show any significant acute findings. PMH: 1) Recurrent cellulitis and nonhealing foot wound 2) Chronic hyponatremia - (baseline Na ~130) 3) Chronic diastolic CHF 4) COPD 5) Mechanical aortic valve 6) Chronic pleural effusions 7) HTN 8) HLD 9) Morbidly obese 10) CAD 11) Paroxysmal AF - ablation x 2 12) Thoracic aortic dissection 13) FARTUN - CPAP 14) Cirrhosis per imaging - not treated 15) LBBB Surgical: 1) Thoracic aortic aneurysm repair 2) Aortic valve replacement 3) CABG 4) Pacemaker placement Social: Does not drink or smoke. Retired from [employer] business. Family: Was not familiar with parental history - 2 brothers with AF Allergies Allergy/AdvReac Type Severity Reaction Status Date / Time bee venom protein (honey bee) Allergy Severe ANAPHYLAXIS Verified 08/16/18 11:09 No Known Drug Allergies Allergy Unknown . Verified 08/16/18 11:09 Home Medications Home Medications Medication Instructions Recorded Confirmed Type allopurinol 100 mg tablet 100 mg PO BID 04/25/18 08/16/18 History aspirin 81 mg tablet,delayed 81 mg PO QAM 04/25/18 08/16/18 History release epinephrine 0.3 mg/0.3 mL 0.3 mg IM Q10M PRN 04/25/18 08/16/18 History injection, auto-injector eplerenone 50 mg tablet 50 mg PO BID tab 04/25/18 08/16/18 History multivitamin tablet 1 tab PO QAM 04/25/18 08/16/18 History pantoprazole 40 mg tablet,delayed 40 mg PO QAM 04/25/18 08/16/18 History release potassium chloride ER 20 mEq 60 meq PO TIDM tab 04/25/18 08/16/18 History tablet,extended release sertraline 100 mg tablet 100 mg PO QAM 04/25/18 08/16/18 History amoxicillin 500 mg capsule 2,000 mg PO DAILY PRN cap 06/20/18 08/16/18 History gabapentin 100 mg PO TIDM 07/05/18 08/16/18 History warfarin 2.5 mg PO 4XWK 07/05/18 08/16/18 History ipratropium-albuterol [Combivent 1 puff INHALATION QID 07/18/18 08/16/18 History Respimat] bumetanide 2 mg tablet 3 mg PO BID tab 08/09/18 08/16/18 History metolazone 2.5 mg tablet 2.5 mg PO WK tab 08/09/18 08/16/18 History metoprolol succinate ER 25 mg 50 mg PO BID tab 08/09/18 08/16/18 History tablet,extended release 24 hr warfarin [Coumadin] 5 mg PO 3XWK 08/16/18 08/16/18 History Past Med/Surg History Medical History Venous insufficiency (Chronic) Non-pressure chronic ulcer of left ankle with fat layer exposed (Acute) Dissection of aorta (Chronic) COPD (chronic obstructive pulmonary disease) (Chronic) Acute diastolic CHF (congestive heart failure) (Acute) Acute respiratory distress Anticoagulated on Coumadin (Acute) Cellulitis and abscess of leg (Acute) Epistaxis (Acute) Finger avulsion (Acute) GI bleeding 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) A-fib (Chronic) Anxiety (Chronic) CHF (congestive heart failure) (Chronic) COPD (chronic obstructive pulmonary disease) (Chronic) Hypertension (Chronic) Recent surgical procedure on lower extremity (Resolved) Surgical History Hx of CABG (Chronic) Mechanical heart valve present (Chronic) H/O aortic aneurysm repair (Resolved) H/O aortic valve repair (Resolved) Family History Other Cancer Diabetes Heart disease Lung disease Social History marital status: Current Living Situation: Spouse Other Information That Helps Us Care for You: No Feels Safe at Home: Yes Safety Concerns: Feels Safe At This Time Smoking Status: Never smoker Second Hand Exposure: No Hx Alcohol Use: No Hx Substance Use: No Beliefs That Will Affect Care: None Preferred Language: Estonian Communication Ability: Effective Review of Systems Poor historian - supplemented by Gen: Denies fevers, night sweats, rigors, fatigue, malaise, weight loss/gain ENT: Denies congestion, throat pain, hearing loss Eyes: Denies acute visual changes CV: Denies CP, palpitations Pulmonary: Denies SOB, cough, wheezing GI: Diarrhea and bright blood as per HPI Neuro: Denies acute or unilateral weakness, acute gait impairment, headache or acute visual changes - believes he has developed some stuttering speech over past 2 days which is consistent with exam Musculoskeletal: Denies joint pain, inflammation Endocrine: Denies polydipsia, polyuria Skin: Chronic LE stasis changes - LLE ulcer above heal which is chronic Physical Exam 2 Vital Signs (Past 24 Hours): Last Vital Signs Pulse 82 08/16/18 12:00 Resp 20 08/16/18 12:00 BP 124/71 08/16/18 12:00 Pulse Ox 96 08/16/18 11:06 Physical Exam: General: AAO - may be slightly confused - responds to command and questions and is fully alert ENT: No erythema or exudates, no thrush Eyes: CHRIS, EOMI Head and neck: Normocephalic, atraumatic, No JVD, neck is supple. Chest/heart: Nontender, S1,2, faint click Lungs: CTA - no air at lower bases Abdomen: Nontender, nondistended, BS+ Neuro: no motor deficits - may be exhibiting some confusion and difficulty initiating speech or with word finding Musculoskeletal: No joint inflammation, muscle tenderness, FROM Skin: Ulcer with clean margins on LLE - stg 3-4 - hyperpigmentation of LEs Extremities: Edema and stasis changes of LE Results & Data Diagnostic Findings CT abdomen: 1. Persistent moderate right pleural effusion with right basilar airspace opacities, likely atelectatic 2. Cirrhotic morphology of the liver 3. Mild ascites 4. Mild splenomegaly 5. Bilateral adrenal myelolipomas 6. No evidence of bowel obstruction. No evidence of free air 7. No evidence of acute diverticulitis. No evidence of acute appendicitis. 8. Mild retroperitoneal adenopathy unchanged the prior study EKG: AF LBBB - no change from prior
--- NOTE | 2018-08-16 15:08 | Emergency Department Note ---
Entered by Homa Cruz acting as a scribe for Donnell Sr MD History of Present Illness General Chief complaint: Rectal Bleed Stated complaint: PASSING BLOOD Time Seen by Provider: 08/16/18 09:54 Source: patient History of Present Illness Provider complaint: blood in stool Onset (ago): week(s) (yesterday) Location: buttocks Pain Consistency: + other (persistent) Quality: + other (blood in stool) Associated symptoms: + other (Associated symptoms: diarrhea. Denies: pain) The patient is a 62 year old male who presents to the Emergency Room with complaints of blood in stool beginning yesterday. He reports persistent diarrhea over the past few weeks, with episodes about once every hour. The patient denies any pain. His notes he fell last week. The patient takes Warfarin. His notes the patient was referred to the ED by a PA at Dr. Talley's office following an appointment this morning. Home Medications Home Medications Medication Instructions Recorded Confirmed Type allopurinol 100 mg tablet 100 mg PO BID 04/25/18 08/16/18 History aspirin 81 mg tablet,delayed 81 mg PO QAM 04/25/18 08/16/18 History release epinephrine 0.3 mg/0.3 mL 0.3 mg IM Q10M PRN 04/25/18 08/16/18 History injection, auto-injector eplerenone 50 mg tablet 50 mg PO BID tab 04/25/18 08/16/18 History multivitamin tablet 1 tab PO QAM 04/25/18 08/16/18 History pantoprazole 40 mg tablet,delayed 40 mg PO QAM 04/25/18 08/16/18 History release potassium chloride ER 20 mEq 60 meq PO TIDM tab 04/25/18 08/16/18 History tablet,extended release sertraline 100 mg tablet 100 mg PO QAM 04/25/18 08/16/18 History amoxicillin 500 mg capsule 2,000 mg PO DAILY PRN cap 06/20/18 08/16/18 History gabapentin 100 mg PO TIDM 07/05/18 08/16/18 History warfarin 2.5 mg PO 4XWK 07/05/18 08/16/18 History ipratropium-albuterol [Combivent 1 puff INHALATION QID 07/18/18 08/16/18 History Respimat] bumetanide 2 mg tablet 3 mg PO BID tab 08/09/18 08/16/18 History metolazone 2.5 mg tablet 2.5 mg PO WK tab 08/09/18 08/16/18 History metoprolol succinate ER 25 mg 50 mg PO BID tab 08/09/18 08/16/18 History tablet,extended release 24 hr warfarin [Coumadin] 5 mg PO 3XWK 08/16/18 08/16/18 History Allergies Allergy/AdvReac Type Severity Reaction Status Date / Time bee venom protein (honey bee) Allergy Severe ANAPHYLAXIS Verified 08/16/18 11:09 No Known Drug Allergies Allergy Unknown . 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) A-fib (Chronic) Anxiety (Chronic) CHF (congestive heart failure) (Chronic) COPD (chronic obstructive pulmonary disease) (Chronic) Hypertension (Chronic) Recent surgical procedure on lower extremity (Resolved) Surgical History Hx of CABG (Chronic) Mechanical heart valve present (Chronic) H/O aortic aneurysm repair (Resolved) H/O aortic valve repair (Resolved) Family History Other Cancer Diabetes Heart disease Lung disease Social History marital status: Current Living Situation: Spouse Other Information That Helps Us Care for You: No Feels Safe at Home: Yes Safety Concerns: Feels Safe At This Time Smoking Status: Never smoker Second Hand Exposure: No Hx Alcohol Use: No Hx Substance Use: No Beliefs That Will Affect Care: None Preferred Language: Vietnamese Communication Ability: Effective Review of Systems See HPI for pertinent positives & negatives. and A total of 10 systems reviewed and were otherwise negative Physical Exam Vital Signs Vital Signs - 24 hr 08/16/18 09:46 08/16/18 10:00 08/16/18 11:06 Sepsis Recent Fever Within 48 Hours No Sepsis New/Unexplained Change in Mental Status No Sepsis Action Taken by Nursing No Action Required Pulse Rate 78 Pulse Rate [Apical] 76 Respiratory Rate 20 18 Respiratory Effort / Characteristics Respiratory Depth Respiratory Pattern Blood Pressure 121/69 Blood Pressure [Left Arm] 107/65 Blood Pressure Mean 86 Blood Pressure Mean [Left Arm] 79 Blood Pressure Position [Left Arm] Sitting Pulse Oximetry 94 96 96 Oxygen Delivery Method Room Air Room Air 08/16/18 11:30 08/16/18 12:00 08/16/18 13:25 Sepsis Recent Fever Within 48 Hours Sepsis New/Unexplained Change in Mental Status Sepsis Action Taken by Nursing Pulse Rate 77 82 Pulse Rate [Apical] Respiratory Rate 19 20 Respiratory Effort / Characteristics Non-Labored Spontaneous Respiratory Depth Normal Respiratory Pattern Regular Blood Pressure 123/70 124/71 Blood Pressure [Left Arm] Blood Pressure Mean 87 88 Blood Pressure Mean [Left Arm] Blood Pressure Position [Left Arm] Pulse Oximetry Oxygen Delivery Method Room Air GENERAL: Awake, alert, well-appearing, in no distress HENT: Normocephalic, atraumatic. Oropharynx unremarkable. EYES: Normal conjunctiva. Sclera non-icteric. NECK: Supple. No nuchal rigidity. FROM. No masses. RESPIRATORY: Clear to auscultation. No wheezes. No rales. Normal respiratory effort. CARDIAC: Normal rate. Normal rhythm. No murmurs. No rubs. Extremities warm and well perfused. Pulses equal. No JVD. GI: Soft, non-distended. No tenderness to palpation. No rebound or guarding. No masses. RECTAL: Deferred. MUSCULOSKELETAL: Atraumatic. Chest examination reveals no tenderness. The back is symmetrical on inspection without obvious abnormality. There is no CVA tenderness to palpation. No joint edema. LOWER EXTREMITIES: Calves are equal size bilaterally and non-tender. No edema. No discoloration. RECTAL: Positive for bright red blood. NEURO: Normal sensorium. No sensory or motor deficits noted. SKIN: Chronic bruise present right side of abdomen. Chronic venous stasis change present bilateral legs. Course 0955: Past medical records reviewed. The patient was evaluated in room B5, and a complete history and physical examination were performed. 1052: I reevaluated the patient and discussed his test results. 1145: Upon reevaluation, the patient is resting. They verbalized agreement with the treatment plan. 1256: I reviewed the patient's case with Dr. Tenorio, [facility] hospitalist. He will evaluate the patient for further management. Consultations Consultation #1: I reviewed the patient's case with Dr. Tenorio [facility] hospitalist. He will evaluate the patient for further management. Time: 10:56 Administered Medications Ioversol (Optiray 320 100ml) 94 ml IV ONCE PRN PRN Reason: Interaction Checking Stop: 08/20/18 13:14 Last Admin: 08/16/18 13:16 Dose: 94 ml Discontinued Medications Metronidazole (Flagyl) 500 mg PO NOW STA Stop: 08/16/18 12:36 Last Admin: 08/16/18 13:38 Dose: 500 mg Phytonadione (Mephyton) 10 mg PO NOW STA Stop: 08/16/18 10:52 Last Admin: 08/16/18 11:13 Dose: 10 mg Medical Decision Making Differential Diagnosis Etiologies such as esophagitis, variceal bleed, Boerhaaves, Shoals-Cage tear , gastritis, peptic ulcer disease, AVM, inflammatory bowel disease, ischemia, diverticulosis, colitis, malignancy, coagulopathy, thrombocytopenia, fissure, hemorrhoid, epistaxis , as well as others were entertained. Medical Records Attestation: I reviewed the patient's medical records. Home Medications Current Medication List: was personally reviewed by me Laboratory Data Attestation: I reviewed the patient's lab results. Result diagrams: 08/16/18 10:10 08/16/18 10:10 Lab Results 08/16/18 08/16/18 08/16/18 Range/Units 10:10 10:10 10:10 WBC 15.84 H (4.8-10.8) K/uL RBC 4.57 L (4.7-6.1) M/uL Hgb 14.2 (14.0-18.0) g/dL Hct 39.3 L (42-52) % MCV 86.0 (80-100) fL MCH 31.1 (25-34) pg MCHC 36.1 H (32-36) g/dL RDW Std Deviation 52.1 H (36.4-46.3) fL RDW Coeff of Nic 16.9 H (11.5-14.5) % Plt Count 154 (130-400) K/uL MPV 9.0 (7.4-10.4) fL Immature Gran % (Auto) 1.3 % Neut % (Auto) 85.7 % Lymph % (Auto) 5.2 % [place] % (Auto) 6.9 % Eos % (Auto) 0.7 % Baso % (Auto) 0.2 % Immature Gran # (Auto) 0.21 H (0.00-0.02) K/uL Neut # (Auto) 13.56 H (1.4-6.5) K/uL Lymph # (Auto) 0.83 L (1.2-3.4) K/uL [place] # (Auto) 1.10 H (0.11-0.59) K/uL Eos # (Auto) 0.11 (0-0.5) K/uL Baso # (Auto) 0.03 (0-0.2) K/uL PT 68.4 H (9.0-12.0) Seconds INR 7.6 H* (0.9-1.1) APTT 42.1 H (21.0-31.0) Seconds PTT Ratio 1.6 Sodium 122 L (136-145) mmol/L Potassium 3.8 (3.5-5.1) mmol/L Chloride 90 L (98-107) mmol/L Carbon Dioxide 19 L (21-32) mmol/L Anion Gap 13.0 H (3-11) BUN 26 H (7-18) mg/dl Creatinine 0.73 (0.6-1.4) mg/dl Est Cr Clr Drug Dosing 129.5 ml/min Est GFR ( Amer) 116.0 Est GFR (Non-Af Amer) 100.1 BUN/Creatinine Ratio 35.5 H (10-20) Glucose 95 (70-99) mg/dl Calcium 8.8 (8.5-10.1) mg/dl Total Bilirubin 1.8 H (0.2-1) mg/dl AST 46 H (15-37) U/L ALT 30 (12-78) U/L Alkaline Phosphatase 127 H (45-117) U/L Total Creatine Kinase (39-308) U/L CK-MB (CK-2) (0.5-3.6) ng/ml CK/CKMB % Calc (0-3.0) Troponin I (0-0.045) ng/ml Total Protein 7.0 (6.4-8.2) gm/dl Albumin 2.9 L (3.4-5.0) gm/dl Globulin 4.1 H (2.5-4.0) gm/dl Albumin/Globulin Ratio 0.7 L (0.9-2) Stl C. diff Tox B Gene (Neg) Blood Type Antibody Screen 08/16/18 08/16/18 08/16/18 Range/Units 10:10 10:10 10:50 WBC (4.8-10.8) K/uL RBC (4.7-6.1) M/uL Hgb (14.0-18.0) g/dL Hct (42-52) % MCV (80-100) fL MCH (25-34) pg MCHC (32-36) g/dL RDW Std Deviation (36.4-46.3) fL RDW Coeff of Nic (11.5-14.5) % Plt Count (130-400) K/uL MPV (7.4-10.4) fL Immature Gran % (Auto) % Neut % (Auto) % Lymph % (Auto) % [place] % (Auto) % Eos % (Auto) % Baso % (Auto) % Immature Gran # (Auto) (0.00-0.02) K/uL Neut # (Auto) (1.4-6.5) K/uL Lymph # (Auto) (1.2-3.4) K/uL [place] # (Auto) (0.11-0.59) K/uL Eos # (Auto) (0-0.5) K/uL Baso # (Auto) (0-0.2) K/uL PT (9.0-12.0) Seconds INR (0.9-1.1) APTT (21.0-31.0) Seconds PTT Ratio Sodium (136-145) mmol/L Potassium (3.5-5.1) mmol/L Chloride (98-107) mmol/L Carbon Dioxide (21-32) mmol/L Anion Gap (3-11) BUN (7-18) mg/dl Creatinine (0.6-1.4) mg/dl Est Cr Clr Drug Dosing ml/min Est GFR ( Amer) Est GFR (Non-Af Amer) BUN/Creatinine Ratio (10-20) Glucose (70-99) mg/dl Calcium (8.5-10.1) mg/dl Total Bilirubin (0.2-1) mg/dl AST (15-37) U/L ALT (12-78) U/L Alkaline Phosphatase (45-117) U/L Total Creatine Kinase 137 (39-308) U/L CK-MB (CK-2) 11.3 H (0.5-3.6) ng/ml CK/CKMB % Calc 8.2 H (0-3.0) Troponin I 0.021 (0-0.045) ng/ml Total Protein (6.4-8.2) gm/dl Albumin (3.4-5.0) gm/dl Globulin (2.5-4.0) gm/dl Albumin/Globulin Ratio (0.9-2) Stl C. diff Tox B Gene Pos C.diff Toxin B A* (Neg) Blood Type A Negative Antibody Screen NEGATIVE Imaging Data Radiologist's Impression: Radiology results as stated below per my review and the radiologist's interpretation: SINGLE VIEW CHEST CLINICAL HISTORY: Diarrheal illness. FINDINGS: An AP, portable, upright chest radiograph is compared to study dated 07/19/2018 and correlated with chest CT dated 08/06/2015. The examination is degraded by portable technique and patient rotation. A 2-lead cardiac pacemaker is unchanged in position. The patient is status post midline sternotomy and cardiac valve surgery. The heart is enlarged and there is atherosclerotic calcification of the thoracic aorta. There is pulmonary vascular congestion and interstitial edema. There is a layering right pleural effusion with right basilar consolidation. No large pleural effusion is seen on the left. No pneumothorax is identified. The skeletal structures are osteopenic. The bony thorax is grossly intact. IMPRESSION: 1. Cardiomegaly with evidence of congestive failure and interstitial edema. 2. Right pleural effusion with associated right basilar consolidation. This likely represents atelectasis. Correlate clinically for evidence of superimposed pneumonia. Electronically signed by: Phil Santos M.D. 08/16/2018 10:39 AM ECG Data Attestation: I personally reviewed and interpreted this ECG as follows: Indication: other (passing blood) Rate (beats per minute): 79 Rhythm: normal sinus Findings: + LBBB and + PVC; no ST depression and no left axis deviation Blood Pressure Blood Pressure Findings: Normal blood pressure Blood Pressure Disposition: did not require urgent referral MDM Narrative This is a 62-year-old male who presents emergency department complaining of bloody diarrhea. The patient was on a recent bout of antibiotics and does have an elevation in his white blood cell count of 15,000. I strongly suspect that he has C. difficile. He was started on oral Flagyl here in the emergency department. I am concerned that the patient will not be able to keep up his fluids and in addition will note that he is hyponatremic which is been trending down. He was also found to have an INR 7.1. For this reason he was given vitamin K. I will note that the patient does have a stable hemoglobin. I did discuss the case with the hospitalist service who agreed to admit the patient. Patient was in agreement with the treatment plan. Impression & Plan GI bleeding Discharge Plan Visit Data Chief Complaint: Rectal Bleed Stated Complaint: PASSING BLOOD ED Provider: Donnell Sr Discharge Problem: GI bleeding Patient Disposition: Being Evaluated by Hospitalist Forms Stand Alone Forms: My [facility]Contact Prescriptions Prescriptions: No Action allopurinol 100 mg tablet 100 mg PO BID RF: 0 aspirin [Adult Low Dose Aspirin] 81 mg tablet,delayed release (DR/EC) 81 mg PO QAM RF: 0 epinephrine 0.3 mg/0.3 mL auto-injector 0.3 mg IM Q10M PRN (Reason: Allergic Reaction) RF: 0 eplerenone 50 mg tablet 50 mg PO BID RF: 0 multivitamin [Daily Multi-Vitamin] tablet 1 tab PO QAM RF: 0 pantoprazole 40 mg tablet,delayed release (DR/EC) 40 mg PO QAM RF: 0 potassium chloride 20 mEq tablet extended release 60 meq PO TIDM RF: 0 sertraline 100 mg tablet 100 mg PO QAM RF: 0 amoxicillin 500 mg capsule 2,000 mg PO DAILY PRN (Reason: DENTAL) RF: 0 bumetanide 2 mg tablet 3 mg PO BID RF: 0 metolazone 2.5 mg tablet 2.5 mg PO WK RF: 0 ipratropium-albuterol [Combivent Respimat] 20-100 mcg/actuation mist 1 puff Inhalation QID RF: 0 warfarin [Coumadin] 2.5 mg Tablet 5 mg PO 3XWK RF: 0 warfarin 2.5 mg Tablet 2.5 mg PO 4XWK RF: 0 gabapentin 100 mg capsule 100 mg PO TIDM RF: 0 metoprolol succinate 25 mg tablet extended release 24 hr 50 mg PO BID RF: 0 Referrals Referrals: Sharon Winkler MD [Primary Care Provider] - The scribe's documentation has been prepared under my direction and personally reviewed by me in its entirety. I confirm that the note above accurately reflects all work, treatment, procedures, and medical decision making performed by me.
--- NOTE | 2018-08-16 16:47 | CT Scan Report ---
HEAD CT NONCONTRAST CT DOSE: 1074.96 mGy.cm HISTORY: Stroke symptoms. TECHNIQUE: Multiaxial CT images of the head were performed without the use of intravenous contrast. A utomated exposure control was utilized for this study. A dose lowering technique was utilized adheri ng to the principles of ALARA. Comparison: Head CT 10/23/2016. Findings: The paranasal sinuses and mastoid air cells are clear. The calvarium and skull base are int act. The ventricles and sulci are within normal limits. There is no mass, hematoma, midline shift, or acute infarct. Of note, there is residual contrast within the brain from the recent same day abdomen and pelvis CT. Therefore, this results in suboptimal evaluation for intracranial hemorrhage or strok e. Impression: No definite acute intracranial abnormality. Electronically signed by: Choco Villavicencio M.D. 08/16/2018 4:46 PM
[2018-08-16] MEDS ORDERED: ONDANSETRON INJ 2 MG/ML 2 ML VIAL IV PRN (16:58)
[2018-08-16] MEDS ORDERED: ACETAMINOPHEN 325 MG TAB PO PRN (16:58)
[2018-08-16] MEDS ORDERED: ALUMINUM/MAGNESIUM SUSP 30 ML UDC PO PRN (16:58)
[2018-08-16] MEDS ORDERED: ZOLPIDEM TARTRATE 5 MG TAB PO PRN (16:58)
[2018-08-16] MEDS: SODIUM CHLORIDE 0.9% 1000ML 1,000 ML IV SCH (17:42)
[2018-08-16 17:50] LABS: BUN Creatinine Ratio 28.8 (10-20); Calcium 9.2 mg/dl (8.5-10.1); Creatinine Clr Calc Pharmacy 112.5 ml/min; Est GFR (African American) 109.5; Est GFR (Non-African American) 94.5; Potassium 3.9 mmol/L (3.5-5.1)
[2018-08-16] MEDS: RASPBERRY SYRUP 5 ML UDP PO SCH (18:25)
[2018-08-16] MEDS: VANCOMYCIN HCL 250 MG/5 ML SOLN PO SCH (18:25)
[2018-08-16] MEDS: POTASSIUM CHLORIDE 20 MEQ TABCR PO SCH (18:26)
[2018-08-16] MEDS: GABAPENTIN 100 MG CAP PO SCH (18:26)
[2018-08-16] MEDS: IPRATROPIUM BROMIDE/ALBUTEROL respimat INH INH SCH ×2 (18:27→19:42)
[2018-08-16] MEDS: BUMETANIDE 1 MG TAB PO SCH (19:42)
[2018-08-16] MEDS: METOPROLOL SUCC 50MG EXT REL TAB PO SCH (19:42)
[2018-08-16] MEDS: ALLOPURINOL 100 MG TAB PO SCH (19:43)
[2018-08-16 22:03] LABS: BUN Creatinine Ratio 32.5 (10-20); Calcium 8.8 mg/dl (8.5-10.1); Est GFR (African American) 114.8
[2018-08-17] MEDS: VANCOMYCIN HCL 250 MG/5 ML SOLN PO SCH ×5 (00:03→23:50)
[2018-08-17] MEDS: RASPBERRY SYRUP 5 ML UDP PO SCH ×5 (00:03→23:50)
[2018-08-17 01:13] LABS: BUN Creatinine Ratio 31.2 (10-20); Calcium 8.9 mg/dl (8.5-10.1); Creatinine Clr Calc Pharmacy 122.8 ml/min; Est GFR (African American) 113.5; Est GFR (Non-African American) 97.9; Potassium 3.9 mmol/L (3.5-5.1)
[2018-08-17] MEDS: SODIUM CHLORIDE 0.9% 1000ML 1,000 ML IV SCH (06:14)
[2018-08-17 07:17] LABS: Hematocrit (blood only) 41.7 % (42-52); Hemoglobin 14.9 g/dL (14.0-18.0); Mean Corpuscular Hgb Conc 35.7 g/dL (32-36); Mean Corpuscular Volume 88.3 fL (80-100); Mean Platelet Volume 9.1 fL (7.4-10.4); Platelet Count 163 K/uL (130-400); RDW Coefficient of Variation 17.3 % (11.5-14.5); Red Blood Count 4.72 M/uL (4.7-6.1); White Blood Count 24.35 K/uL (4.8-10.8)
[2018-08-17 07:21] LABS: Prothrombin Time 45.9 Seconds (9.0-12.0)
[2018-08-17 07:26] LABS: BUN Creatinine Ratio 27.9 (10-20); Creatinine Clr Calc Pharmacy 112.5 ml/min; Est GFR (African American) 109.5; Est GFR (Non-African American) 94.5; Magnesium 1.9 mg/dl (1.8-2.4); Potassium 4.1 mmol/L (3.5-5.1)
[2018-08-17 07:40] LABS: Anisocytosis Present; Basophils # (auto) 0.02 K/uL (0-0.2); Basophils % (auto) 0.1 %; Eosinophils # (auto) 0.08 K/uL (0-0.5); Eosinophils % (auto) 0.3 %; Immature Granulocytes # (auto) 0.14 K/uL (0.00-0.02); Immature Granulocytes % (auto) 0.6 %; Lymphocytes # (auto) 0.83 K/uL (1.2-3.4); Lymphocytes % (auto) 3.4 %; Monocytes # (auto) 1.46 K/uL (0.11-0.59); Neutrophils # (auto) 21.82 K/uL (1.4-6.5); Neutrophils % (auto) 89.6 %; Polychromasia 1+; Spherocytes 1+
[2018-08-17] MEDS: IPRATROPIUM BROMIDE/ALBUTEROL respimat INH INH SCH ×4 (08:04→21:31)
[2018-08-17] MEDS: PANTOprazole 40 MG TAB PO SCH (08:04)
[2018-08-17] MEDS: SERTRALINE HCL 100 MG TABLET PO SCH (08:04)
[2018-08-17] MEDS: POTASSIUM CHLORIDE 20 MEQ TABCR PO SCH ×3 (08:04→17:14)
[2018-08-17] MEDS: GABAPENTIN 100 MG CAP PO SCH ×3 (08:04→17:15)
[2018-08-17] MEDS: BUMETANIDE 1 MG TAB PO SCH ×2 (08:04→17:15)
[2018-08-17] MEDS: ALLOPURINOL 100 MG TAB PO SCH ×2 (08:05→21:29)
[2018-08-17] MEDS: METOPROLOL SUCC 50MG EXT REL TAB PO SCH ×2 (08:27→21:29)
[2018-08-17 13:23] LABS: BUN Creatinine Ratio 24.4 (10-20); Calcium 8.8 mg/dl (8.5-10.1); Est GFR (African American) 106.5; Est GFR (Non-African American) 91.9; Potassium 3.9 mmol/L (3.5-5.1)
[2018-08-17] MEDS: EPLERONONE 25 MG PO SCH (21:29)
--- NOTE | 2018-08-17 23:04 | Hospitalist Progress Note ---
Date of Service August 17, 2018 Assessment & Plan (1) C. difficile colitis: 62 y/o M hx CAD, diastolic CHF, pacer, chronic hyponatremia, recurrent cellulitis and chronic foot ulcer, paroxysmal AF, HTN, HLD, FARTUN, mechanical aortic valve on Coumadin. The pt was recently admitted for LE cellulitis and had completed a course of Levaquin and then Keflex one week ago. The pt presents with diarrhea which began 3 days ago in addition to bright blood in his stool beginning one day ago. He denies a fever, nausea or vomiting. It is noted that he is a poor historian however and he appears to be having some difficulty with word finding. Initial labs are notable for worsening hyponatremia and a sodium of 122, leukocytosis, an INR of 7.6. Stool is (+) for C diff. A CT abdomen did not show any significant acute findings. 1) C diff with bright blood [place]. His bowel movement have improved. Will continue to monitor. Placed on oral vanc. Continue on oral vanc. will recheck INR in AM 2) Hyponatremia Likely related to his diarrea. Patient placed on IVF. will continue for 2 liters. May consider to restart fluids in AM. 3) Altered speech - mild confusion. Likely acute metabolic encephalopathy present on admission. This appears to have resolved, likely secondary to problem 1 and 2. 4) CHF - volume status bears monitoring as he is receiving IVF - he will remain on Bumex, eplerenone, and metoprolol. 5) Mechanical valve, AF, and is high risk for DVT - pt should be bridged with heparin if bleeding stops and his INR is subtherapeutic. 6) AF - rate controlled - paced rhythm 7) COPD - cont Combivent 8) LE ulcer - currently treated with topical wound care - wound care requested. 9) CPAP provided for FARTUN Full code - Coumadin anticoagulation Spent 40 minutes in management of patient. Subjective Patient was seen in AM. Patient reports only having one bowel movement which was liquid. He denies any blood in his stools today. Patient denies any fever chills, nausea, vomiting. Physical Exam 2 Vital Signs (Past 24 Hours): Last Vital Signs Temp 36.3 C L 08/17/18 15:31 Pulse 77 08/17/18 15:31 Resp 18 08/17/18 15:31 BP 115/69 08/17/18 15:31 Pulse Ox 96 01/18/19 15:31 Physical Exam: General: Patient is awake and alert ENT: No erythema or exudates, no thrush Eyes: CHRIS, EOMI Head and neck: Normocephalic, atraumatic, No JVD, neck is supple. Chest/heart: Nontender, S1,2, faint click Lungs: CTA - no air at lower bases Abdomen: Nontender, nondistended, BS+ Neuro: no motor deficits -Patient is no longer experiencing confusion. He is able to communicate well. Musculoskeletal: No joint inflammation, muscle tenderness, FROM Skin: Ulcer with clean margins on LLE - stg 3-4 - hyperpigmentation of LEs Extremities: Edema and stasis changes of LE
[2018-08-18] MEDS: RASPBERRY SYRUP 5 ML UDP PO SCH ×4 (06:11→23:03)
[2018-08-18] MEDS: VANCOMYCIN HCL 250 MG/5 ML SOLN PO SCH ×4 (06:11→23:03)
[2018-08-18] MEDS: POTASSIUM CHLORIDE 20 MEQ TABCR PO SCH ×3 (08:08→17:40)
[2018-08-18] MEDS: GABAPENTIN 100 MG CAP PO SCH ×3 (08:09→17:41)
[2018-08-18] MEDS: BUMETANIDE 1 MG TAB PO SCH ×2 (08:09→17:39)
[2018-08-18] MEDS: IPRATROPIUM BROMIDE/ALBUTEROL respimat INH INH SCH ×4 (08:09→20:46)
[2018-08-18] MEDS: EPLERONONE 25 MG PO SCH ×2 (08:10→20:46)
[2018-08-18] MEDS: METOPROLOL SUCC 50MG EXT REL TAB PO SCH ×2 (08:10→20:45)
[2018-08-18] MEDS: PANTOprazole 40 MG TAB PO SCH (08:10)
[2018-08-18] MEDS: ALLOPURINOL 100 MG TAB PO SCH ×2 (08:11→20:45)
[2018-08-18] MEDS: SERTRALINE HCL 100 MG TABLET PO SCH (08:11)
[2018-08-18 11:35] LABS: Prothrombin Time 75.9 Seconds (9.0-12.0)
[2018-08-18 11:41] LABS: BUN Creatinine Ratio 21.2 (10-20); Calcium 8.4 mg/dl (8.5-10.1); Creatinine Clr Calc Pharmacy 113.9 ml/min; Est GFR (African American) 110.1; Potassium 3.8 mmol/L (3.5-5.1)
[2018-08-18 11:42] LABS: INR 8.5 (0.9-1.1)
[2018-08-18 12:02] LABS: Basophils # (auto) 0.04 K/uL (0-0.2); Basophils % (auto) 0.3 %; Eosinophils # (auto) 0.28 K/uL (0-0.5); Eosinophils % (auto) 2.1 %; Hematocrit (blood only) 39.3 % (42-52); Hemoglobin 13.7 g/dL (14.0-18.0); Immature Granulocytes # (auto) 0.18 K/uL (0.00-0.02); Immature Granulocytes % (auto) 1.3 %; Lymphocytes # (auto) 0.94 K/uL (1.2-3.4); Mean Corpuscular Hgb Conc 34.9 g/dL (32-36); Mean Corpuscular Volume 88.9 fL (80-100); Monocytes # (auto) 0.72 K/uL (0.11-0.59); Monocytes % (auto) 5.3 %; Neutrophils # (auto) 11.32 K/uL (1.4-6.5); Platelet Count 136 K/uL (130-400); RDW Coefficient of Variation 17.6 % (11.5-14.5); RDW Standard Deviation 55.8 fL (36.4-46.3); Red Blood Count 4.42 M/uL (4.7-6.1); White Blood Count 13.48 K/uL (4.8-10.8)
[2018-08-19] MEDS: VANCOMYCIN HCL 250 MG/5 ML SOLN PO SCH ×4 (06:39→23:14)
[2018-08-19] MEDS: RASPBERRY SYRUP 5 ML UDP PO SCH ×4 (06:39→23:14)
[2018-08-19] MEDS: METOPROLOL SUCC 50MG EXT REL TAB PO SCH ×2 (09:44→19:36)
[2018-08-19] MEDS: GABAPENTIN 100 MG CAP PO SCH ×3 (09:44→17:30)
[2018-08-19] MEDS: SERTRALINE HCL 100 MG TABLET PO SCH (09:44)
[2018-08-19] MEDS: PANTOprazole 40 MG TAB PO SCH (09:44)
[2018-08-19] MEDS: POTASSIUM CHLORIDE 20 MEQ TABCR PO SCH ×3 (09:45→17:31)
[2018-08-19] MEDS: ALLOPURINOL 100 MG TAB PO SCH ×2 (09:45→19:36)
[2018-08-19] MEDS: BUMETANIDE 1 MG TAB PO SCH ×2 (09:45→17:29)
[2018-08-19] MEDS: IPRATROPIUM BROMIDE/ALBUTEROL respimat INH INH SCH ×4 (09:46→19:36)
[2018-08-19] MEDS: EPLERONONE 25 MG PO SCH ×2 (09:47→19:36)
[2018-08-19 15:14] LABS: Basophils # (auto) 0.07 K/uL (0-0.2); Basophils % (auto) 0.7 %; Eosinophils # (auto) 0.39 K/uL (0-0.5); Eosinophils % (auto) 3.9 %; Hematocrit (blood only) 40.8 % (42-52); Immature Granulocytes # (auto) 0.37 K/uL (0.00-0.02); Immature Granulocytes % (auto) 3.7 %; Lymphocytes # (auto) 1.08 K/uL (1.2-3.4); Lymphocytes % (auto) 10.8 %; Mean Corpuscular Hgb Conc 34.3 g/dL (32-36); Mean Corpuscular Volume 90.3 fL (80-100); Mean Platelet Volume 9.4 fL (7.4-10.4); Monocytes # (auto) 1.08 K/uL (0.11-0.59); Monocytes % (auto) 10.8 %; Neutrophils # (auto) 6.99 K/uL (1.4-6.5); Neutrophils % (auto) 70.1 %; Platelet Count 145 K/uL (130-400); RDW Coefficient of Variation 17.8 % (11.5-14.5); Red Blood Count 4.52 M/uL (4.7-6.1); White Blood Count 9.98 K/uL (4.8-10.8)
[2018-08-19 15:22] LABS: BUN Creatinine Ratio 17.9 (10-20); Calcium 8.4 mg/dl (8.5-10.1); Creatinine Clr Calc Pharmacy 127.8 ml/min; Est GFR (African American) 115.4; Est GFR (Non-African American) 99.6; Potassium 3.8 mmol/L (3.5-5.1); Prothrombin Time > 100.0 Seconds (9.0-12.0)
[2018-08-19 15:24] LABS: INR > 11.0 (0.9-1.1)
[2018-08-19] MEDS ORDERED: PHYTONADIONE 5 MG TAB PO STA (15:41)
[2018-08-19 16:08] LABS: Albumin Level 2.9 gm/dl (3.4-5.0); Bilirubin Direct 0.8 mg/dl (0-0.2); Bilirubin,Total 1.4 mg/dl (0.2-1); Total Protein 7.2 gm/dl (6.4-8.2)
--- NOTE | 2018-08-19 16:25 | Hospitalist Progress Note ---
Date of Service August 18, 2018 Assessment & Plan (1) C. difficile colitis: 62 y/o M hx CAD, diastolic CHF, pacer, chronic hyponatremia, recurrent cellulitis and chronic foot ulcer, paroxysmal AF, HTN, HLD, FARTUN, mechanical aortic valve on Coumadin. The pt was recently admitted for LE cellulitis and had completed a course of Levaquin and then Keflex one week ago. The pt presents with diarrhea which began 3 days ago in addition to bright blood in his stool beginning one day ago. He denies a fever, nausea or vomiting. It is noted that he is a poor historian however and he appears to be having some difficulty with word finding. Initial labs are notable for worsening hyponatremia and a sodium of 122, leukocytosis, an INR of 7.6. Stool is (+) for C diff. A CT abdomen did not show any significant acute findings. 1) C diff with bright blood [place]. His bowel movement have improved. Will continue to monitor. Placed on oral vanc. Continue on oral vanc. WBC is improving. Will recheck in AM. 2) Hyponatremia Likely related to his diarrea. Patient placed on IVF. Obtained 2 liters. IVF is stopped. will recheck sodium. 126-127 in past day. 3) Altered speech - mild confusion. Likely acute metabolic encephalopathy present on admission. This appears to have resolved, likely secondary to problem 1 and 2. 4) CHF - volume status bears monitoring as he is receiving IVF - he will remain on Bumex, eplerenone, and metoprolol. 5) Mechanical valve, AF, and is high risk for DVT - pt should be bridged with heparin if bleeding stops and his INR is subtherapeutic. 6) AF - rate controlled - paced rhythm 7) COPD - cont Combivent 8) LE ulcer - currently treated with topical wound care - wound care requested. 9) CPAP provided for FARTUN Full code - Coumadin anticoagulation Spent 25 minutes in management of patient Subjective Patient was seen in AM. Patient continues to have loose stools. Discussed with nurse who states that he is having explosive diarrhea Patient hwoever states that his stools are improved. Patient denies any fever chills, nausea, vomiting. Physical Exam 2 Vital Signs (Past 24 Hours): Last Vital Signs Temp 36.7 C L 08/18/18 15:58 Pulse 76 08/18/18 15:58 Resp 20 08/18/18 15:58 BP 131/73 08/18/18 15:58 Pulse Ox 93 08/18/18 15:58 Physical Exam: General: Patient is awake and alert ENT: No erythema or exudates, no thrush Eyes: CHRIS, EOMI Head and neck: Normocephalic, atraumatic, No JVD, neck is supple. Chest/heart: Nontender, S1,2, faint click Lungs: CTA - no air at lower bases Abdomen: Nontender, nondistended, BS+ Neuro: no motor deficits -Patient is no longer experiencing confusion. He is able to communicate well. Musculoskeletal: No joint inflammation, muscle tenderness, FROM Skin: Ulcer with clean margins on LLE - stg 3-4 - hyperpigmentation of LEs Extremities: Edema and stasis changes of LE
--- NOTE | 2018-08-19 22:43 | Hospitalist Progress Note ---
Date of Service August 19, 2018 Assessment & Plan (1) C. difficile colitis: 62 y/o M hx CAD, diastolic CHF, pacer, chronic hyponatremia, recurrent cellulitis and chronic foot ulcer, paroxysmal AF, HTN, HLD, FARTUN, mechanical aortic valve on Coumadin. The pt was recently admitted for LE cellulitis and had completed a course of Levaquin and then Keflex one week ago. The pt presents with diarrhea which began 3 days ago in addition to bright blood in his stool beginning one day ago. He denies a fever, nausea or vomiting. It is noted that he is a poor historian however and he appears to be having some difficulty with word finding. Initial labs are notable for worsening hyponatremia and a sodium of 122, leukocytosis, an INR of 7.6. Stool is (+) for C diff. A CT abdomen did not show any significant acute findings. 1) C diff with bright blood IA. His bowel movement have improved. Will continue to monitor. Placed on oral vanc. Continue on oral vanc. WBC is improving. WBC is 9. 2) Hyponatremia Likely related to his diarrea. Patient received 2 liters of NSS. Na is now 128. Likely related to diarrhea. Possible liver cirrhosis may also be playing a role. 3) Altered speech - mild confusion. Likely acute metabolic encephalopathy present on admission. This appears to have resolved, likely secondary to problem 1 and 2. Patient continues to have some slurred speech, possible bells palsy on left. 4)Possible cirrhosis: INR remains elevated. Will give Vit K 5 mg PO. Will continue to hold warfarin. CT scan imaging is showing signs of liver cirrhosis. will do hepatitis panel, consult GI. recheck INR. check ammonia 5) CHF - volume status bears monitoring as he is receiving IVF - he will remain on Bumex, eplerenone, and metoprolol. 6) Mechanical valve, AF, and is high risk for DVT - pt should be bridged with heparin if bleeding stops and his INR is subtherapeutic. 7) AF - rate controlled - paced rhythm 8) COPD - cont Combivent 9) LE ulcer - currently treated with topical wound care - wound care requested. 10) CPAP provided for FARTUN Full code - Coumadin anticoagulation Spent 45 minutes in management of patient Subjective Patient reports that he continues to have loose stools, but they are less explosive and less frequent. He reports having about 3 BM at the time of the visit (16:30) Patient denies any blood in his stools. 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 His has noticed confusion and slurred speach for past 2 weeks at least. Physical Exam 2 Vital Signs (Past 24 Hours): Last Vital Signs Temp 36.4 C L 08/19/18 19:33 Pulse 73 08/19/18 19:33 Resp 18 08/19/18 15:45 BP 132/75 08/19/18 19:33 Pulse Ox 100 08/19/18 15:45 Physical Exam: General: Patient is awake and alert ENT: No erythema or exudates, no thrush Eyes: CHRIS, EOMI Head and neck: Normocephalic, atraumatic, No JVD, neck is supple. Chest/heart: Nontender, S1,2, faint click Lungs: CTA - no air at lower bases Abdomen: Nontender, distended,, BS+ Neuro: no motor deficits -left sided facial weakness (upper and lower quadrant) Musculoskeletal: No joint inflammation, muscle tenderness, FROM Skin: Ulcer with clean margins on LLE - stg 3-4 - hyperpigmentation of LEs Extremities: Edema and stasis changes of LE
[2018-08-20] MEDS: RASPBERRY SYRUP 5 ML UDP PO SCH ×4 (06:21→23:37)
[2018-08-20] MEDS: VANCOMYCIN HCL 250 MG/5 ML SOLN PO SCH ×4 (06:22→23:37)
[2018-08-20 06:46] LABS: Hemoglobin 14.3 g/dL (14.0-18.0); Mean Corpuscular Hgb Conc 34.9 g/dL (32-36); Mean Corpuscular Volume 89.9 fL (80-100); Mean Platelet Volume 9.2 fL (7.4-10.4); Platelet Count 157 K/uL (130-400); RDW Coefficient of Variation 17.9 % (11.5-14.5); RDW Standard Deviation 57.5 fL (36.4-46.3); Red Blood Count 4.56 M/uL (4.7-6.1); White Blood Count 10.52 K/uL (4.8-10.8)
--- NOTE | 2018-08-20 06:53 | Ultrasound Report ---
US liver HISTORY: 62 years-old Male elevated inr elevated bili acutely elevated LFTs COMPARISON: CT abdomen and pelvis 08/16/2018 TECHNIQUE: Multiple real-time sonographic images of the abdominal right upper quadrant were obtained assessing grayscale appearance and color flow FINDINGS: Visualized pancreas is unremarkable. Cirrhotic morphology of the liver with heterogeneously echogenic parenchyma. No focal hepatic mass lesions identified. No intrahepatic biliary ductal dilation. Small volume of right upper quadrant abdominal ascites. Common bile duct is normal, 4.5 mm. Echogenic focus with, to artifact involves the fundal gallbladder. Gallbladder wall is mildly thicken ed, 4 mm. No shadowing cholelithiasis. Sonographic Mcneal sign reported as negative. Cyst of the interpolar right kidney redemonstrated. Right adrenal myolipoma redemonstrated, 4.2 cm in greatest dimension. Right pleural effusion incidentally noted. IMPRESSION: 1. Cirrhotic morphology of the liver. 2. Adenomyomatosis of the fundal gallbladder. 3. No cholelithiasis or sonographic evidence of acute cholecystitis. 4. Mild ascites with right pleural effusion. 5. Right adrenal myolipoma. The above report was generated using voice recognition software. It may contain grammatical, syntax o r spelling errors. Electronically signed by: Guevara Georges M.D. 08/20/2018 6:52 AM
[2018-08-20 07:15] LABS: Albumin Level 3.1 gm/dl (3.4-5.0); BUN Creatinine Ratio 14.4 (10-20); Calcium 8.5 mg/dl (8.5-10.1); Creatinine Clr Calc Pharmacy 129.9 ml/min; Est GFR (Non-African American) 100.1; Potassium 4.7 mmol/L (3.5-5.1)
[2018-08-20 07:17] LABS: Albumin Globulin Ratio 0.7 (0.9-2); Bilirubin,Total 1.8 mg/dl (0.2-1); Globulin 4.2 gm/dl (2.5-4.0); Total Protein 7.3 gm/dl (6.4-8.2)
[2018-08-20 07:19] LABS: Prothrombin Time 77.3 Seconds (9.0-12.0)
[2018-08-20 07:23] LABS: INR 8.6 (0.9-1.1)
[2018-08-20 07:38] LABS: Basophils # (auto) 0.09 K/uL (0-0.2); Basophils % (auto) 0.9 %; Echinocytes 1+; Eosinophils # (auto) 0.35 K/uL (0-0.5); Eosinophils % (auto) 3.3 %; Immature Granulocytes # (auto) 0.63 K/uL (0.00-0.02); Lymphocytes # (auto) 1.16 K/uL (1.2-3.4); Monocytes # (auto) 0.94 K/uL (0.11-0.59); Monocytes % (auto) 8.9 %; Neutrophils # (auto) 7.35 K/uL (1.4-6.5); Neutrophils % (auto) 69.9 %
[2018-08-20] MEDS ORDERED: PHYTONADIONE 5 MG TAB PO STA (08:22)
[2018-08-20 08:58] LABS: Hepatitis B Surface Antigen Neg (Neg)
[2018-08-20] MEDS: POTASSIUM CHLORIDE 20 MEQ TABCR PO SCH ×3 (09:08→16:30)
[2018-08-20] MEDS: GABAPENTIN 100 MG CAP PO SCH ×3 (09:09→16:30)
[2018-08-20] MEDS: SERTRALINE HCL 100 MG TABLET PO SCH (09:09)
[2018-08-20] MEDS: METOPROLOL SUCC 50MG EXT REL TAB PO SCH ×2 (09:09→20:51)
[2018-08-20] MEDS: ALLOPURINOL 100 MG TAB PO SCH ×2 (09:09→20:52)
[2018-08-20] MEDS: BUMETANIDE 1 MG TAB PO SCH ×2 (09:09→16:30)
[2018-08-20] MEDS: EPLERONONE 25 MG PO SCH ×2 (09:10→20:50)
[2018-08-20] MEDS: IPRATROPIUM BROMIDE/ALBUTEROL respimat INH INH SCH ×4 (09:10→20:49)
[2018-08-20] MEDS: PANTOprazole 40 MG TAB PO SCH (09:10)
[2018-08-20 09:27] LABS: Hepatitis C IgG 13Yrs+Old_Rflx Neg (Neg)
--- NOTE | 2018-08-20 14:16 | Hospitalist Progress Note ---
Date of Service August 20, 2018 Assessment & Plan (1) C. difficile colitis: no abdominal pain, still with diarrhea but no further bleeding will continue Vancomycin PO, will need 14 days total treatment advance to regular diet add Questran to try to bulk up stools (2) Chronic diastolic heart failure: patient does examine volume overload but this is his baseline seen in the past, he always has some peripheral edema needs to be on fluid restriction, resume 1500mL restriction continue Bumex, Eplerenone (3) Hyponatremia: chronic problem going back several months since patient is volume overloaded, suspect this is due to heart failure, also some cirrhosis recommend volume restriction of 1500mL / day follow sodium level (4) Cirrhosis: based off of imaging on CT and liver US certainly has risk factors with heavy drinking in the past and long standing heart failure will ask Dr. Myers to see patient explained to patient and his family that the management for cirrhosis will be medications, outpatient will need to make sure he is up to day on EGD for varices screening Hepatitis B and C negative continue Bumex (had some ascites on CT) minimal elevation in Bilirubin, AST, Alk phos Cr and platelet count normal, ammonia only 30 INR elevated still at 8, unsure of reason given vitamin K (5) Supratherapeutic INR: unclear etiology, diet was stable as outpatient no new medications will repeat tomorrow, gave vitamin K today, 5mg PO no signs of bleeding (6) COPD (chronic obstructive pulmonary disease): stable, no wheezing (7) Atrial fibrillation: chronic, paced (8) Pleural effusion: chronic issue, was exudative in the past (April) has not been tapped again certainly would think this could be related to CHF and cirrhosis no plans for tap at this time per Dr. Castellanos (9) Hx of CABG: no chest pain (10) Mechanical heart valve present: on Coumadin, INR elevated at 8 Subjective patient sitting up in chair, tolerating liquids for lunch, requests solid food says he is still having diarrhea but definitely no more bleeding reviewed labs, INR still high at 8, but down from 11 Hb and Cr stable, minimal elevation in LFT discussed the imaging findings suggesting cirrhosis with patient and his family he again admits to a remote history of heavy drinking discussed that cirrhosis likely combination of alcohol abuse in the past but also heart failure he and family would like to see gastroenterology discussed that I would consult Dr. Myers to see him, but management would be outpatient Review of Systems All systems reviewed & are unremarkable except as noted in HPI & below Cardiovascular: + dyspnea on exertion and + edema Gastrointestinal: + diarrhea/loose stools; no abdominal pain, no nausea, no vomiting and no blood in stools Physical Exam 2 Vital Signs (Past 24 Hours): Last Vital Signs Temp 36.3 C L 08/20/18 06:45 Pulse 75 08/20/18 06:45 Resp 18 08/20/18 06:45 BP 132/85 08/20/18 06:45 Pulse Ox 97 08/20/18 06:45 Constitutional: WD/WN, vitals as above Eyes: PERRL, conjunctivae normal, anicteric sclerae ENMT: external ear and nose normal, oropharynx normal Neck: trachea midline, no thyromegaly Respiratory: normal respiratory effort; no respiratory distress Auscultation: + diminished lung sounds (right base); no crackles, no rales and no wheezes Cardiovascular: Rate/Rhythm: regular rate and regular rhythm Heart Sounds: normal S1 and normal S2 Extremities: + pedal edema (pitting, right > left) Gastrointestinal (Abdomen): normal bowel sounds, soft, nontender, no hepatosplenomegaly Musculoskeletal: no cyanosis or clubbing, extremities motor strength 5/5 Skin: no rashes, warm and dry (chronic venous stasis changes in legs) Neurologic: patellar DTR's 2+ bilat, sensation intact and PERRL, EOMI, accommodation nl, no face palsy, no dysarthria Psychiatric: A+Ox3, euthymic affect Lymphatic: no cervical or axillary lymphadenopathy Results & Data Laboratory Results Laboratory Results - last 24 hr 08/16/18 08/19/18 08/19/18 10:50 14:50 14:50 WBC 9.98 RBC 4.52 L Hgb 14.0 Hct 40.8 L MCV 90.3 MCH 31.0 MCHC 34.3 RDW Std Deviation 58.0 H RDW Coeff of Nic 17.8 H Plt Count 145 MPV 9.4 Immature Gran % (Auto) 3.7 Neut % (Auto) 70.1 Lymph % (Auto) 10.8 Catron % (Auto) 10.8 Eos % (Auto) 3.9 Baso % (Auto) 0.7 Immature Gran # (Auto) 0.37 H Neut # (Auto) 6.99 H Lymph # (Auto) 1.08 L Catron # (Auto) 1.08 H Eos # (Auto) 0.39 Baso # (Auto) 0.07 Echinocytes PT > 100.0 H INR > 11.0 H* Sodium Potassium Chloride Carbon Dioxide Anion Gap BUN Creatinine Est Cr Clr Drug Dosing Est GFR ( Amer) Est GFR (Non-Af Amer) BUN/Creatinine Ratio Glucose Calcium Total Bilirubin Direct Bilirubin AST ALT Alkaline Phosphatase Ammonia Total Protein Albumin Globulin Albumin/Globulin Ratio Hep Bs Antigen Hepatitis C Antibody Norovirus RNA (PCR) NOT DETECTED 08/19/18 08/20/18 08/20/18 14:50 06:35 06:36 WBC RBC Hgb Hct MCV MCH MCHC RDW Std Deviation RDW Coeff of Nic Plt Count MPV Immature Gran % (Auto) Neut % (Auto) Lymph % (Auto) Catron % (Auto) Eos % (Auto) Baso % (Auto) Immature Gran # (Auto) Neut # (Auto) Lymph # (Auto) Catron # (Auto) Eos # (Auto) Baso # (Auto) Echinocytes PT 77.3 H INR 8.6 H* Sodium 128 L Potassium 3.8 Chloride 96 L Carbon Dioxide 19 L Anion Gap 13.0 H BUN 13 Creatinine 0.74 Est Cr Clr Drug Dosing 127.8 Est GFR ( Amer) 115.4 Est GFR (Non-Af Amer) 99.6 BUN/Creatinine Ratio 17.9 Glucose 90 Calcium 8.4 L Total Bilirubin 1.4 H Direct Bilirubin 0.8 H AST 42 H ALT 30 Alkaline Phosphatase 118 H Ammonia 30.0 Total Protein 7.2 Albumin 2.9 L Globulin Albumin/Globulin Ratio Hep Bs Antigen Hepatitis C Antibody Norovirus RNA (PCR) 08/20/18 08/20/18 08/20/18 06:36 06:36 06:36 WBC 10.52 RBC 4.56 L Hgb 14.3 Hct 41.0 L MCV 89.9 MCH 31.4 MCHC 34.9 RDW Std Deviation 57.5 H RDW Coeff of Nic 17.9 H Plt Count 157 MPV 9.2 Immature Gran % (Auto) 6.0 Neut % (Auto) 69.9 Lymph % (Auto) 11.0 Catron % (Auto) 8.9 Eos % (Auto) 3.3 Baso % (Auto) 0.9 Immature Gran # (Auto) 0.63 H Neut # (Auto) 7.35 H Lymph # (Auto) 1.16 L Catron # (Auto) 0.94 H Eos # (Auto) 0.35 Baso # (Auto) 0.09 Echinocytes 1+ PT INR Sodium 126 L Potassium 4.7 D Chloride 95 L Carbon Dioxide 23 Anion Gap 8.0 BUN 11 Creatinine 0.73 Est Cr Clr Drug Dosing 129.9 Est GFR ( Amer) 116.0 Est GFR (Non-Af Amer) 100.1 BUN/Creatinine Ratio 14.4 Glucose 80 Calcium 8.5 Total Bilirubin 1.8 H Direct Bilirubin AST 43 H ALT 29 Alkaline Phosphatase 120 H Ammonia Total Protein 7.3 Albumin 3.1 L Globulin 4.2 H Albumin/Globulin Ratio 0.7 L Hep Bs Antigen Neg Hepatitis C Antibody Neg Norovirus RNA (PCR) Medications Administered Current Inpatient Medications Acetaminophen (Tylenol) 650 mg PO Q4H PRN PRN Reason: Pain or Fever Stop: 09/15/18 16:57 Al Hydrox/Mg Hydrox/Simethicone (Maalox) 15 ml PO Q4H PRN PRN Reason: Dyspepsia Stop: 09/15/18 16:57 Albuterol (Combivent Respimat) 1 puffs INH QID [facility] Stop: 09/15/18 16:59 Last Admin: 08/20/18 12:36 Dose: 1 puffs Allopurinol (Zyloprim) 100 mg PO BID [facility] Stop: 09/15/18 20:59 Last Admin: 08/20/18 09:09 Dose: 100 mg Bumetanide (Bumex) 3 mg PO BID17 [facility] Stop: 09/15/18 20:59 Last Admin: 08/20/18 09:09 Dose: 3 mg Cholestyramine Resin (Questran) 4 gm PO BID@1000,2200 [facility] Stop: 09/19/18 21:59 Gabapentin (Neurontin) 100 mg PO TIDM [facility] Stop: 09/15/18 16:59 Last Admin: 08/20/18 12:35 Dose: 100 mg Metoprolol Succinate (Toprol Xl) 50 mg PO BID [facility] Stop: 09/15/18 20:59 Last Admin: 08/20/18 09:09 Dose: 50 mg Epleronone 25 Mg - Non-Formulary Patient's Own Med 2 ea PO BID [facility] Stop: 09/16/18 20:59 Last Admin: 08/20/18 09:10 Dose: 2 tab Ondansetron HCl (Zofran) 4 mg IV Q6H PRN PRN Reason: Nausea Stop: 09/15/18 16:57 Pantoprazole Sodium (Protonix) 40 mg PO QAM [facility] Stop: 09/16/18 08:59 Last Admin: 08/20/18 09:10 Dose: 40 mg Potassium Chloride (Klor-Con M20) 60 meq PO TIDM [facility] Stop: 09/15/18 16:59 Last Admin: 08/20/18 12:35 Dose: 60 meq Raspberry (Raspberry) 5 ml PO Q6 [facility] Stop: 08/30/18 17:59 Last Admin: 08/20/18 12:33 Dose: 5 ml Sertraline HCl (Zoloft) 100 mg PO QAM [facility] Stop: 09/16/18 08:59 Last Admin: 08/20/18 09:09 Dose: 100 mg Vancomycin HCl (Vancomycin Hcl) 250 mg PO Q6 [facility] Stop: 08/26/18 17:59 Last Admin: 08/20/18 12:34 Dose: 250 mg Zolpidem Tartrate (Ambien) 5 mg PO HS PRN PRN Reason: Sleep Stop: 09/15/18 16:57 _ (1) COPD (chronic obstructive pulmonary disease) COPD type: unspecified COPD Chronic bronchitis type: Emphysema type: Qualified Code(s): J44.9 - Chronic obstructive pulmonary disease, unspecified (2) Atrial fibrillation Atrial fibrillation type: chronic Qualified Code(s): I48.2 - Chronic atrial fibrillation
[2018-08-20] MEDS: CHOLESTYRAMINE LIGHT 4 GM PKT PO SCH (20:52)
[2018-08-21] MEDS: VANCOMYCIN HCL 250 MG/5 ML SOLN PO SCH ×4 (05:50→23:34)
[2018-08-21] MEDS: RASPBERRY SYRUP 5 ML UDP PO SCH ×4 (05:50→23:34)
[2018-08-21 07:16] LABS: Hematocrit (blood only) 38.6 % (42-52); Hemoglobin 13.5 g/dL (14.0-18.0); Mean Corpuscular Volume 89.6 fL (80-100); Mean Platelet Volume 8.9 fL (7.4-10.4); Platelet Count 145 K/uL (130-400); RDW Coefficient of Variation 17.7 % (11.5-14.5); RDW Standard Deviation 57.3 fL (36.4-46.3); Red Blood Count 4.31 M/uL (4.7-6.1); White Blood Count 9.17 K/uL (4.8-10.8)
[2018-08-21 07:23] LABS: Prothrombin Time 28.7 Seconds (9.0-12.0)
[2018-08-21 07:52] LABS: Basophils # (auto) 0.07 K/uL (0-0.2); Basophils % (auto) 0.8 %; Echinocytes 2+; Eosinophils % (auto) 3.3 %; Immature Granulocytes % (auto) 5.5 %; Lymphocytes # (auto) 0.86 K/uL (1.2-3.4); Lymphocytes % (auto) 9.4 %; Monocytes # (auto) 1.12 K/uL (0.11-0.59); Monocytes % (auto) 12.2 %; Neutrophils # (auto) 6.32 K/uL (1.4-6.5); Neutrophils % (auto) 68.8 %
[2018-08-21 07:54] LABS: Albumin Level 2.9 gm/dl (3.4-5.0); BUN Creatinine Ratio 14.2 (10-20); Calcium 8.6 mg/dl (8.5-10.1); Creatinine Clr Calc Pharmacy 145.9 ml/min; Est GFR (African American) 121.7
[2018-08-21 07:57] LABS: Albumin Globulin Ratio 0.7 (0.9-2); Globulin 4.1 gm/dl (2.5-4.0)
[2018-08-21] MEDS: IPRATROPIUM BROMIDE/ALBUTEROL respimat INH INH SCH ×4 (08:44→20:22)
[2018-08-21] MEDS: SERTRALINE HCL 100 MG TABLET PO SCH (08:45)
[2018-08-21] MEDS: BUMETANIDE 1 MG TAB PO SCH ×3 (08:45→18:42)
[2018-08-21] MEDS: PANTOprazole 40 MG TAB PO SCH (08:45)
[2018-08-21] MEDS: GABAPENTIN 100 MG CAP PO SCH ×3 (08:45→17:21)
[2018-08-21] MEDS: POTASSIUM CHLORIDE 20 MEQ TABCR PO SCH ×3 (08:45→17:20)
[2018-08-21] MEDS: METOPROLOL SUCC 50MG EXT REL TAB PO SCH ×2 (08:45→20:24)
[2018-08-21] MEDS: ALLOPURINOL 100 MG TAB PO SCH ×2 (08:46→20:25)
[2018-08-21] MEDS: EPLERONONE 25 MG PO SCH ×2 (08:46→20:24)
--- NOTE | 2018-08-21 09:37 | Consultation Report ---
DATE OF CONSULTATION: 08/20/2018 RACE: ATTENDING PHYSICIAN: Dr. Steven Tenorio. CONSULTING PHYSICIAN: Dr. Erich Myers. REASON FOR CONSULTATION: Elevated liver enzymes. HISTORY OF PRESENT ILLNESS: Semaj Maldonado is a 62-year-old male who presented to the Department of Emergency Medicine on 08/16/2018 with extensive past medical history who had previously been admitted in June for lower extremity cellulitis and was subsequently found to have significant diarrhea over the 3 days prior to his admission. Upon arrival to the Department of Emergency Medicine, he underwent C. diff testing and was noted to be positive. A CT scan of the abdomen and pelvis did not show any other acute GI symptomatology. During the course of his hospitalization, he has been noted to have elevated liver panel with an elevated bilirubin of 1.8 today, an AST of 43, ALT of 29, and an alkaline phosphatase 120. Review of the patient's medical record does show that these elevations in his liver panel date back to at least April of 2018 and review of the patient's outpatient medical record shows elevations of his AST to December of 2015. He has had negative Hep B and hep C testing in the past. Right upper quadrant ultrasound on this hospitalization from this morning shows cirrhotic liver morphology as well as mild ascites with a right pleural effusion. The patient does have an extensive history of heavy alcohol use in the past, though states that he does not drink more than 1-2 drinks per week at this time. He does have a history of heart failure as well for which he sees Dr. Colmenares. He is on diuretic therapy per Dr. Colmenares for heart failure and is currently on vancomycin therapy for his C. diff. At the time that I saw the patient, he states that his stools have been more formed over the last few days and he is having less bowel movements and has had no bright red blood per rectum as he had previously had multiple episodes of bleeding with bowel movements, most likely related to his C. diff colitis. He has had a colonoscopy as recently as April of 2016, which showed 2 sessile polyps in the sigmoid and descending colons and some nonbleeding internal hemorrhoids. Recommendation was for the patient to have a repeat colonoscopy in 5 years for routine screening. He has never undergone an upper endoscopy. Currently, he denies any abdominal pain. He denies any fevers, chills, nausea, vomiting, hematemesis, melena or hematochezia. He further denies any jaundice, acholic stools, dark urine, or pruritus. He does state that he has been told his liver panel has been abnormal in the past, though has never been told that he has had cirrhosis in the past. His most recent echocardiogram from October of 2017 showed a left ventricular ejection fraction of 50% to 55%. He has no further complaints. PAST MEDICAL HISTORY: Extensive and includes recurrent cellulitis and nonhealing foot wound, chronic hyponatremia, diastolic heart failure, COPD, mechanical aortic valve, chronic pleural effusions, hypertension, hyperlipidemia, morbidly obese, coronary artery disease, paroxysmal atrial fibrillation status post ablation x2, history of a thoracic aortic dissection, obstructive sleep apnea on home CPAP, cirrhosis, left bundle branch block, C. diff colitis. PAST SURGICAL HISTORY: Includes thoracic aortic aneurysm repair, aortic valve replacement, CABG, pacemaker placement. ALLERGIES: BEE VENOM. There are no known drug allergies. MEDICATIONS: At present include Tylenol 650 mg p.o. q. 4 hours p.r.n. pain or fever, allopurinol 100 mg p.o. b.i.d., Maalox 15 mL p.o. q.4h. p.r.n. dyspepsia, Bumex 3 mg p.o. b.i.d., cholestyramine 4 grams p.o. b.i.d., gabapentin 100 mg p.o. t.i.d., DuoNeb 1 puff via inhaler q.i.d., metoprolol 50 mg p.o. b.i.d., Zofran 4 mg IV q.6h. p.r.n. nausea, Protonix 40 mg p.o. q.a.m., Zoloft 100 mg p.o. q.a.m., vancomycin 250 mg p.o. q. 6 hours, Ambien 5 mg p.o. at bedtime p.r.n. for sleep. SOCIAL HISTORY: The patient lives with his . Denies any tobacco or illicit drug use. Does have an occasional alcoholic beverage. FAMILY HISTORY: Negative for GI malignancy or inflammatory bowel disease. REVIEW OF SYSTEMS: Negative x12 system review other than pertinent positives listed in the HPI. PHYSICAL EXAMINATION: VITAL SIGNS: Temp 36.5, pulse 83, respirations 19, blood pressure 120/78, pulse ox 96% on room air. GENERAL: He is awake, cooperative, in no acute distress. He is chronic ill appearing. HEAD: Normocephalic, atraumatic. EYES: Pupils equal, round. Extraocular muscles are intact. Sclerae nonicteric. NECK: Soft, supple. No JVD or lymphadenopathy. CHEST: Decreased breath sounds bilateral bases. CARDIOVASCULAR SYSTEM: Regular rate and rhythm. ABDOMEN: Soft. Slightly distended. There are positive bowel sounds. There is no appreciable hepatosplenomegaly, though it is difficult to evaluate with an obese abdomen. EXTREMITIES: No clubbing, cyanosis, or edema. SKIN: Soft and pink. PSYCHIATRIC: Normal mood and affect. LABORATORY STUDIES AND IMAGING STUDIES: Reviewed in the HPI. IMPRESSION: A 62-year-old male with acute C. 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 PLAN: 1. In regards to patient's C. diff. I would recommend that he be continued on vancomycin 250 mg p.o. q. 6 hours to complete his therapy for at least 10 days. I would also recommend continuing the Questran 4 grams p.o. b.i.d. to aid in finding the C. diff toxin and to firm up his stools. 2. In regards to his cirrhosis with ascites and hepatic hydrothorax on the right side, I would recommend that he be on a 2 gram sodium reduced diet. I would also normally treat the patient with a combination of Lasix and Aldactone; however, due to the patient's heart failure, I would need to discuss this with Dr. Colmenares prior to initiating therapy. He is currently on Bumex already. Therefore, I will discuss the addition of Aldactone in this patient's therapy with him and make further recommendations at that time. He will need an upper endoscopy in the future for variceal screening and will need to undergo both a right upper quadrant ultrasound and an alpha-fetoprotein level every 6 months for hepatocellular carcinoma screening and will need further workup as an outpatient, though it is not urgent that it be done at this time. I will follow his clinical course and make further recommendations as needed. Once again, thank you for allowing me to participate in the care of this patient. If you have any further questions, please do not hesitate in contacting me.
[2018-08-21] MEDS: CHOLESTYRAMINE LIGHT 4 GM PKT PO SCH ×2 (09:58→22:02)
--- NOTE | 2018-08-21 10:20 | Gastroenterology Progress Note ---
Date of Service August 21, 2018 Assessment & Plan (1) C. difficile colitis: -Continue Vancomycin 250 mg four times daily for a total of 10 days. -Continue Cholestyramine to help form the stools. Present on Admission?: Yes (2) Cirrhosis: -Patient will need continued outpatient follow-up and HCC screening -Monitor respiratory status. Continue diuretics at present dosing (Bumex 3 mg po BID). If hepatic hydrothorax worsens, consider adding Aldactone & a thoracentesis, though patient seems to be improving -Continue 2 gm Na diet Present on Admission?: Yes Supervising Physician Co-Signing Physician Notes Agree with SADIE Lovett as above Abd: Soft, NT, slightly distended, +BS Continue current therapy Will need to followup with us as an outpatient for group home management of cirrhosis Subjective Patient is a 62 yo male with C diff, liver cirrhosis & hepatic hydrothorax. He reports he is feeling well this morning. He reports that his stool has begun to form up. He reports decreased frequency of bowel movements. He is presently on Vanco & Cholestyramine. He reports his breathing has significantly improved. He denies any physical complaints this morning. Constitutional: no fever and no chills Respiratory: + cough and + dyspnea on exertion Cardiovascular: no chest pain Gastrointestinal: no abdominal pain diarrhea improving to formed stool Physical Exam 2 Vital Signs (Past 24 Hours): Last Vital Signs Temp 36.3 C L 08/21/18 07:00 Pulse 68 08/21/18 07:00 Resp 16 08/21/18 07:00 BP 125/67 08/21/18 07:00 Pulse Ox 93 08/21/18 07:00 Constitutional: WD/WN, vitals as above Eyes: PERRL, conjunctivae normal, anicteric sclerae Respiratory: Auscultation: + crackles Cardiovascular: Rate/Rhythm: regular rate and regular rhythm Gastrointestinal (Abdomen): normal bowel sounds, soft, nontender, no hepatosplenomegaly _ (1) Cirrhosis Ascites presence: without ascites Hepatic cirrhosis type: unspecified hepatic cirrhosis Qualified Code(s): K74.60 - Unspecified cirrhosis of liver
--- NOTE | 2018-08-21 13:01 | Hospitalist Progress Note ---
Date of Service August 21, 2018 Assessment & Plan (1) C. difficile colitis: no abdominal pain, still with diarrhea but no further bleeding will continue Vancomycin PO, will need 10 days total treatment advance to regular diet, tolerating well, no nausea/vomiting add Questran to try to bulk up stools can follow up with GI outpatient (2) Chronic diastolic heart failure: patient does examine volume overload but this is his baseline seen in the past, he always has some peripheral edema needs to be on fluid restriction, resume 1500mL restriction continue Bumex, Eplerenone appears to have a little less edema today (3) Hyponatremia: chronic problem going back several months since patient is volume overloaded, suspect this is due to heart failure, also some cirrhosis recommend volume restriction of 1500mL / day sodium up to 130 today with fluid restriction will repeat tomorrow to assure stability (4) Cirrhosis: based off of imaging on CT and liver US certainly has risk factors with heavy drinking in the past and long standing heart failure will ask Dr. Myers to see patient explained to patient and his family that the management for cirrhosis will be medications, outpatient will need to make sure he is up to day on EGD for varices screening Hepatitis B and C negative continue Bumex (had some ascites on CT) minimal elevation in Bilirubin, AST, Alk phos, all stable today, not going up significantly Cr and platelet count normal, ammonia only 30 when it was checked INR down to 3.0 long talk with patient and family about importance of medication compliance explained that he is compensated reasonably well with his cirrhosis (5) Supratherapeutic INR: unclear etiology, diet was stable as outpatient no new medications perhaps due to cirrhotic changes? INR down to 3.0 today will resume coumadin at lower dose of 2.5mg daily follow INR (6) COPD (chronic obstructive pulmonary disease): stable, no wheezing (7) Atrial fibrillation: chronic, paced (8) Pleural effusion: chronic issue, was exudative in the past (April) has not been tapped again certainly would think this could be related to CHF and cirrhosis no plans for tap at this time per Dr. Castellanos could consider Aldactone if this continues to be an issue (9) Hx of CABG: no chest pain (10) Mechanical heart valve present: on Coumadin, INR 3.0 today plan to d/c to home with home health tomorrow Subjective patient feeling better, ambulated in the coates today with therapy says he feels fatigued from not doing anything for a week still with diarrhea, less frequent, no blood still reviewed labs, Na up to 130, Cr stable (<1) appreciated gastroenterology consult, discussed with Arely Michael updated patient and his son at the bedside discussed going home tomorrow afternoon, they agreed with plan son requested to get follow up appointments with PCP and gastroenterology prior to discharge Review of Systems All systems reviewed & are unremarkable except as noted in HPI & below Cardiovascular: + dyspnea on exertion and + edema Gastrointestinal: + diarrhea/loose stools Physical Exam 2 Vital Signs (Past 24 Hours): Last Vital Signs Temp 36.3 C L 08/21/18 07:00 Pulse 68 08/21/18 07:00 Resp 16 08/21/18 07:00 BP 125/67 08/21/18 07:00 Pulse Ox 93 08/21/18 07:00 Constitutional: WD/WN, vitals as above Eyes: PERRL, conjunctivae normal, anicteric sclerae ENMT: external ear and nose normal, oropharynx normal Neck: trachea midline, no thyromegaly Respiratory: normal respiratory effort; no respiratory distress Auscultation: + diminished lung sounds (right base); no crackles, no rales and no wheezes Cardiovascular: Rate/Rhythm: regular rate and regular rhythm Heart Sounds: normal S1 and normal S2 Extremities: + pedal edema (pitting, right > left) Gastrointestinal (Abdomen): normal bowel sounds, soft, nontender, no hepatosplenomegaly Musculoskeletal: no cyanosis or clubbing, extremities motor strength 5/5 Skin: no rashes, warm and dry (chronic venous stasis changes in legs) Neurologic: patellar DTR's 2+ bilat, sensation intact and PERRL, EOMI, accommodation nl, no face palsy, no dysarthria Psychiatric: A+Ox3, euthymic affect Lymphatic: no cervical or axillary lymphadenopathy Results & Data Laboratory Results Laboratory Results - last 24 hr 08/20/18 08/21/18 08/21/18 06:36 07:04 07:04 WBC 9.17 RBC 4.31 L Hgb 13.5 L Hct 38.6 L MCV 89.6 MCH 31.3 MCHC 35.0 RDW Std Deviation 57.3 H RDW Coeff of Nic 17.7 H Plt Count 145 MPV 8.9 Immature Gran % (Auto) 5.5 Neut % (Auto) 68.8 Lymph % (Auto) 9.4 [place] % (Auto) 12.2 Eos % (Auto) 3.3 Baso % (Auto) 0.8 Immature Gran # (Auto) 0.50 H Neut # (Auto) 6.32 Lymph # (Auto) 0.86 L [place] # (Auto) 1.12 H Eos # (Auto) 0.30 Baso # (Auto) 0.07 Echinocytes 2+ PT INR Sodium 130 L Potassium 4.0 Chloride 99 Carbon Dioxide 22 Anion Gap 9.0 BUN 9 Creatinine 0.65 Est Cr Clr Drug Dosing 145.9 Est GFR ( Amer) 121.7 Est GFR (Non-Af Amer) 105.0 BUN/Creatinine Ratio 14.2 Glucose 80 Calcium 8.6 Total Bilirubin 2.0 H AST 44 H ALT 29 Alkaline Phosphatase 117 Total Protein 7.0 Albumin 2.9 L Globulin 4.1 H Albumin/Globulin Ratio 0.7 L Hepatitis A IgM Ab NON-REACTIVE Hep B Core IgM Ab NON-REACTIVE 08/21/18 07:04 WBC RBC Hgb Hct MCV MCH MCHC RDW Std Deviation RDW Coeff of Nic Plt Count MPV Immature Gran % (Auto) Neut % (Auto) Lymph % (Auto) [place] % (Auto) Eos % (Auto) Baso % (Auto) Immature Gran # (Auto) Neut # (Auto) Lymph # (Auto) [place] # (Auto) Eos # (Auto) Baso # (Auto) Echinocytes PT 28.7 H INR 3.0 H Sodium Potassium Chloride Carbon Dioxide Anion Gap BUN Creatinine Est Cr Clr Drug Dosing Est GFR ( Amer) Est GFR (Non-Af Amer) BUN/Creatinine Ratio Glucose Calcium Total Bilirubin AST ALT Alkaline Phosphatase Total Protein Albumin Globulin Albumin/Globulin Ratio Hepatitis A IgM Ab Hep B Core IgM Ab Medications Administered Current Inpatient Medications Acetaminophen (Tylenol) 650 mg PO Q4H PRN PRN Reason: Pain or Fever Stop: 09/15/18 16:57 Al Hydrox/Mg Hydrox/Simethicone (Maalox) 15 ml PO Q4H PRN PRN Reason: Dyspepsia Stop: 09/15/18 16:57 Albuterol (Combivent Respimat) 1 puffs INH QID [facility] Stop: 09/15/18 16:59 Last Admin: 08/21/18 12:21 Dose: 1 puffs Allopurinol (Zyloprim) 100 mg PO BID [facility] Stop: 09/15/18 20:59 Last Admin: 08/21/18 08:46 Dose: 100 mg Bumetanide (Bumex) 3 mg PO BID17 [facility] Stop: 09/15/18 20:59 Last Admin: 08/21/18 08:45 Dose: 3 mg Cholestyramine Resin (Questran) 4 gm PO BID@1000,2200 [facility] Stop: 09/19/18 21:59 Last Admin: 08/21/18 09:58 Dose: 4 gm Gabapentin (Neurontin) 100 mg PO TIDM [facility] Stop: 09/15/18 16:59 Last Admin: 08/21/18 12:20 Dose: 100 mg Metoprolol Succinate (Toprol Xl) 50 mg PO BID [facility] Stop: 09/15/18 20:59 Last Admin: 08/21/18 08:45 Dose: 50 mg Epleronone 25 Mg - Non-Formulary Patient's Own Med 2 ea PO BID [facility] Stop: 09/16/18 20:59 Last Admin: 08/21/18 08:46 Dose: 1 tab Ondansetron HCl (Zofran) 4 mg IV Q6H PRN PRN Reason: Nausea Stop: 09/15/18 16:57 Pantoprazole Sodium (Protonix) 40 mg PO QAM [facility] Stop: 09/16/18 08:59 Last Admin: 08/21/18 08:45 Dose: 40 mg Potassium Chloride (Klor-Con M20) 60 meq PO TIDM [facility] Stop: 09/15/18 16:59 Last Admin: 08/21/18 12:19 Dose: 60 meq Raspberry (Raspberry) 5 ml PO Q6 [facility] Stop: 08/30/18 17:59 Last Admin: 08/21/18 12:19 Dose: 5 ml Sertraline HCl (Zoloft) 100 mg PO QAM [facility] Stop: 09/16/18 08:59 Last Admin: 08/21/18 08:45 Dose: 100 mg Vancomycin HCl (Vancomycin Hcl) 250 mg PO Q6 [facility] Stop: 08/26/18 17:59 Last Admin: 08/21/18 12:19 Dose: 250 mg Warfarin Sodium (Coumadin) 2.5 mg PO DAILY@1600 [facility] Stop: 09/20/18 15:59 Zolpidem Tartrate (Ambien) 5 mg PO HS PRN PRN Reason: Sleep Stop: 09/15/18 16:57 _ (1) Cirrhosis Hepatic cirrhosis type: unspecified hepatic cirrhosis Ascites presence: without ascites Qualified Code(s): K74.60 - Unspecified cirrhosis of liver (2) COPD (chronic obstructive pulmonary disease) COPD type: unspecified COPD Chronic bronchitis type: Emphysema type: Qualified Code(s): J44.9 - Chronic obstructive pulmonary disease, unspecified (3) Atrial fibrillation Atrial fibrillation type: chronic Qualified Code(s): I48.2 - Chronic atrial fibrillation
[2018-08-21] MEDS ORDERED: CHLOROTHIAZIDE SODIUM 250 MG in DEXTROSE 5% 50 ML IV ONE (17:14)
[2018-08-21] MEDS: WARFARIN SOD 2.5 MG TAB PO SCH (17:20)
--- NOTE | 2018-08-21 18:56 | Cardiology Consultation ---
Date of Consultation August 21, 2018 Assessment & Plan (1) Acute on chronic diastolic CHF (congestive heart failure): He appears significantly hypervolemic and is symptomatic. Will increase Bumex to 4 mg twice daily. Diuril 250 mg IV x1 now. He had been on large doses of Lasix as an outpatient but was using metolazone quite regularly and having more issues with hyponatremia and hypokalemia although noncompliance with potassium supplementation was likely playing a role. Strict I&Os recommended. Daily weights. Agree with fluid restriction. Low-sodium diet, less than 2000 mg daily. In the past, he did not tolerate spironolactone but has tolerated eplerenone, which has been used for potassium sparing diuretic affect. (2) Atrial fibrillation: Heart rate has been well controlled. Continue rate control strategy with metoprolol succinate 50 mg twice daily. Continue anticoagulation for stroke risk reduction if no contraindications. (3) Hypertension: Blood pressure well controlled. Continue current regimen. (4) Hyponatremia: Agree with fluid restriction. (5) Pleural effusion: [place] to be hepatic hydrothorax as per GI. Diuresis as above. (6) Cirrhosis: As per GI. (7) Mechanical heart valve present: Asymptomatic in this regard. Continue to monitor over time as an outpatient. Continue anticoagulation for stroke risk reduction. Disposition: Cardiology will continue to follow. Highly complex medical issues. Plan of care discussed with Dr. Wilde of the primary hospitalist service. Thank you for allowing me to participate in the care of your patient. Please call for any other questions or concerns. Sincerely, Tiago Colmenares M.D. History of Present Illness Reason for Consultation: Acute on chronic CHF Requesting Physician: Dr. Wilde Attending Physician: Fabio Wilde, History of Present Illness Mr. Maldondao is a pleasant 62-year-old gentleman with a history significant for bicuspid aortic valve with regurgitation status post mechanical aortic valve replacement, thoracic aortic aneurysm status post repair with a Salisbury-Kojo graft, atrial fibrillation status post ablation x2, dual chamber pacemaker placement ( [place]), diastolic CHF, and obstructive sleep apnea with CPAP at night. In 2008, he underwent thoracic aortic aneurysm repair with a Salisbury-Kojo graft and apparently had a complication requiring a return to the operating room. A pacemaker was also placed in 2008. His cardiology care was provided in [place], [place]. He reports having 2 ablation therapies for atrial fibrillation and has been on multiple anti rhythmic therapy such as amiodarone, flecainide, sotalol, and then once again amiodarone restarted on 10/15/2014 and discontinued in August of 2015 due to elevated transaminase levels. He has had multiple electrical cardioversions as well. He was hospitalized on 08/16/2018 with concern for hematochezia. He was ultimately found to have C diff. His diarrhea has improved but he continues to have approximately 3 episodes per day. He has not noted any further hematochezia. He was first seen today in the hallway walking with his . He had to stop every 20 feet or so to catch his breath. He said that he feels as though he is back to ground 0 in regards to his heart failure and overall health. During his first hospitalization for which cardiology care here was obtained, he was diuresed greater than 13 L due to significant hypervolemia and he feels similar to that time. He has noted increased lower extremity edema and also abdominal distention during this hospitalization. He does not believe that he has been urinating as much and admits that he was consuming large amounts of fluids. He was placed on a fluid restriction within the past day. He states that he has been maintaining a low-sodium diet. He admits to dyspnea with exertion. He also has orthopnea but denies PND. He denies chest pain, palpitations, syncope, near-syncope, nausea, abdominal pain, vomiting, fevers, or chills. He has been seen by GI. He has been diagnosed with cirrhosis and outpatient evaluation has been recommended. He has been diagnosed with hepatic hydrothorax and diuresis was recommended by GI. Review of systems: As above. Review of systems otherwise negative/ unremarkable. Social history: Denies tobacco or drug abuse. Occasional alcohol. He is and has 3 children. 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 He lives [place] [address] on [address] [facility] in [place], [place]. His is at the bedside. Family history: Two brothers with atrial fibrillation. Two daughters have been evaluated for bicuspid aortic valve, but his son has declined. No known premature CAD Allergies Allergy/AdvReac Type Severity Reaction Status Date / Time bee venom protein (honey bee) Allergy Severe ANAPHYLAXIS Verified 08/16/18 11:09 No Known Drug Allergies Allergy Unknown . Verified 08/16/18 11:09 Home Medications Home Medications Medication Instructions Recorded Confirmed Type allopurinol 100 mg tablet 100 mg PO BID 04/25/18 08/16/18 History aspirin 81 mg tablet,delayed 81 mg PO QAM 04/25/18 08/16/18 History release epinephrine 0.3 mg/0.3 mL 0.3 mg IM Q10M PRN 04/25/18 08/16/18 History injection, auto-injector eplerenone 50 mg tablet 50 mg PO BID tab 04/25/18 08/16/18 History multivitamin tablet 1 tab PO QAM 04/25/18 08/16/18 History pantoprazole 40 mg tablet,delayed 40 mg PO QAM 04/25/18 08/16/18 History release potassium chloride ER 20 mEq 60 meq PO TIDM tab 04/25/18 08/16/18 History tablet,extended release sertraline 100 mg tablet 100 mg PO QAM 04/25/18 08/16/18 History amoxicillin 500 mg capsule 2,000 mg PO DAILY PRN cap 06/20/18 08/16/18 History gabapentin 100 mg PO TIDM 07/05/18 08/16/18 History warfarin 2.5 mg PO 4XWK 07/05/18 08/16/18 History ipratropium-albuterol [Combivent 1 puff INHALATION QID 07/18/18 08/16/18 History Respimat] bumetanide 2 mg tablet 3 mg PO BID tab 08/09/18 08/16/18 History metolazone 2.5 mg tablet 2.5 mg PO WK tab 08/09/18 08/16/18 History metoprolol succinate ER 25 mg 50 mg PO BID tab 08/09/18 08/16/18 History tablet,extended release 24 hr warfarin [Coumadin] 5 mg PO 3XWK 08/16/18 08/16/18 History Patient History Medical History Venous insufficiency (Chronic) Non-pressure chronic ulcer of left ankle with fat layer exposed (Acute) Dissection of aorta (Chronic) COPD (chronic obstructive pulmonary disease) (Chronic) Acute diastolic CHF (congestive heart failure) (Acute) Acute respiratory distress Anticoagulated on Coumadin (Acute) Cellulitis and abscess of leg (Acute) Epistaxis (Acute) Finger avulsion (Acute) GI bleeding (Acute) 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) A-fib (Chronic) Anxiety (Chronic) CHF (congestive heart failure) (Chronic) COPD (chronic obstructive pulmonary disease) (Chronic) Hypertension (Chronic) Recent surgical procedure on lower extremity (Resolved) Surgical History Hx of CABG (Chronic) Mechanical heart valve present (Chronic) H/O aortic aneurysm repair (Resolved) H/O aortic valve repair (Resolved) Family History Other Cancer Diabetes Heart disease Lung disease Social History marital status: Current Living Situation: Spouse Other Information That Helps Us Care for You: No Feels Safe at Home: Yes Safety Concerns: Feels Safe At This Time Smoking Status: Never smoker Second Hand Exposure: No Hx Alcohol Use: No Hx Substance Use: No Beliefs That Will Affect Care: None Communication Ability: Effective Physical Exam 2 Vital Signs (Past 24 Hours): Last Vital Signs Temp 36.3 C L 08/21/18 16:00 Pulse 78 08/21/18 16:00 Resp 18 08/21/18 16:00 BP 132/87 08/21/18 16:00 Pulse Ox 95 08/21/18 16:00 Intake & Output 08/19/18 08/20/18 08/21/18 08/22/18 06:59 06:59 06:59 06:59 Intake Total 970 / 970 540 / 540 1500 / 1500 799 / 799 Output Total 705 / 705 1551 / 1551 529 / 529 575 / 575 Balance 265 / 265 -1011 / -1011 971 / 971 224 / 224 Weight 113.4 kg 113.5 kg Physical Exam: Gen.: No acute distress. Alert and oriented. HEENT: Anicteric sclera. Neck: JVD to the mandible sitting upright. No bruits. Normal carotid upstrokes bilaterally. Cardiac: PMI was nonpalpable. No ventricular heave. Irregularly irregular. Normal S1. [place] S2. 2/6 systolic ejection murmur. No rubs or gallops. Pulmonary: Diffuse bilateral expiratory wheezing. Abdomen: Distended. Nontender. Normoactive bowel sounds. No bruits noted. 1+ body wall abdominal pitting edema. Extremities: 2+ radial pulses bilaterally. 2+ posterior tibialis pulses bilaterally. 2+ tense pitting edema bilateral lower extremities to the hips. No cyanosis. Psychiatric: Affect appears appropriate. Results & Data Laboratory Results Laboratory Results - last 24 hr 08/20/18 08/21/18 08/21/18 06:36 07:04 07:04 WBC 9.17 RBC 4.31 L Hgb 13.5 L Hct 38.6 L MCV 89.6 MCH 31.3 MCHC 35.0 RDW Std Deviation 57.3 H RDW Coeff of Nic 17.7 H Plt Count 145 MPV 8.9 Immature Gran % (Auto) 5.5 Neut % (Auto) 68.8 Lymph % (Auto) 9.4 [place] % (Auto) 12.2 Eos % (Auto) 3.3 Baso % (Auto) 0.8 Immature Gran # (Auto) 0.50 H Neut # (Auto) 6.32 Lymph # (Auto) 0.86 L [place] # (Auto) 1.12 H Eos # (Auto) 0.30 Baso # (Auto) 0.07 Echinocytes 2+ PT INR Sodium 130 L Potassium 4.0 Chloride 99 Carbon Dioxide 22 Anion Gap 9.0 BUN 9 Creatinine 0.65 Est Cr Clr Drug Dosing 145.9 Est GFR ( Amer) 121.7 Est GFR (Non-Af Amer) 105.0 BUN/Creatinine Ratio 14.2 Glucose 80 Calcium 8.6 Total Bilirubin 2.0 H AST 44 H ALT 29 Alkaline Phosphatase 117 Total Protein 7.0 Albumin 2.9 L Globulin 4.1 H Albumin/Globulin Ratio 0.7 L Hepatitis A IgM Ab NON-REACTIVE Hep B Core IgM Ab NON-REACTIVE 08/21/18 07:04 WBC RBC Hgb Hct MCV MCH MCHC RDW Std Deviation RDW Coeff of Nic Plt Count MPV Immature Gran % (Auto) Neut % (Auto) Lymph % (Auto) [place] % (Auto) Eos % (Auto) Baso % (Auto) Immature Gran # (Auto) Neut # (Auto) Lymph # (Auto) [place] # (Auto) Eos # (Auto) Baso # (Auto) Echinocytes PT 28.7 H INR 3.0 H Sodium Potassium Chloride Carbon Dioxide Anion Gap BUN Creatinine Est Cr Clr Drug Dosing Est GFR ( Amer) Est GFR (Non-Af Amer) BUN/Creatinine Ratio Glucose Calcium Total Bilirubin AST ALT Alkaline Phosphatase Total Protein Albumin Globulin Albumin/Globulin Ratio Hepatitis A IgM Ab Hep B Core IgM Ab Diagnostic Findings ECG personally reviewed: ECG 08/16/2018 at 10:02 a.m.: Atrial fibrillation PVCs. LBBB. Chest x-ray 08/16/2018: Right pleural effusion with associated right basilar consolidation, likely representing atelectasis per Radiology. Interstitial D me a per Radiology. He has had the following studies/procedures: 1. Thoracic aortic aneurysm repair with Salisbury-Kojo graft February of 2009. Reported complication requiring immediate return to the OR. 2. Aortic valve replacement with mechanical aortic valve on 10/15/2014. 3. Echo 12/10/2014: Normal LV systolic function. EF 55-60%. Acceptable gradient across the mechanical aortic valve with trace regurgitation. Mild MR. Tissue Doppler suggests elevated left atrial pressure. 4. Electrical cardioversion 02/10/2015: Successful in converting him to sinus rhythm from atrial fibrillation. 5. Echo 04/17/2015: Normal LV systolic function. EF 60%. Appropriately functioning bioprosthetic aortic valve. Mild biatrial dilation. 6. Echo 08/27/2015: Normal LV wall motion with low-normal systolic function. EF 55%. Moderate to severe LVH. Mildly dilated RV with normal function. Moderate left atrial dilation. Mechanical aortic valve with mild regurgitation (cannot rule out perivalvular leak). No significant . RVSP 73 mmHg. 7. Echo 08/31/2015: EF 50-55%. RVSP 46 mmHg (after significant diuresis) 8. Echo 11/20/2017: Mildly dilated LV. Low-normal LV systolic function. EF 50 -55%. Normal wall motion. Mild LVH. Mild RV dilation with mildly reduced systolic function. Mild biatrial dilation. Appropriately functioning mechanical aortic valve. RVSP 38. Medications Administered Current Inpatient Medications Acetaminophen (Tylenol) 650 mg PO Q4H PRN PRN Reason: Pain or Fever Stop: 09/15/18 16:57 Al Hydrox/Mg Hydrox/Simethicone (Maalox) 15 ml PO Q4H PRN PRN Reason: Dyspepsia Stop: 09/15/18 16:57 Albuterol (Combivent Respimat) 1 puffs INH QID [facility] Stop: 09/15/18 16:59 Last Admin: 08/21/18 17:25 Dose: 1 puffs Allopurinol (Zyloprim) 100 mg PO BID [facility] Stop: 09/15/18 20:59 Last Admin: 08/21/18 08:46 Dose: 100 mg Bumetanide (Bumex) 4 mg PO BID17 [facility] Stop: 09/20/18 17:44 Last Admin: 08/21/18 18:42 Dose: 4 mg Cholestyramine Resin (Questran) 4 gm PO BID@1000,2200 [facility] Stop: 09/19/18 21:59 Last Admin: 08/21/18 09:58 Dose: 4 gm Gabapentin (Neurontin) 100 mg PO TIDM [facility] Stop: 09/15/18 16:59 Last Admin: 08/21/18 17:21 Dose: 100 mg Metoprolol Succinate (Toprol Xl) 50 mg PO BID [facility] Stop: 09/15/18 20:59 Last Admin: 08/21/18 08:45 Dose: 50 mg Epleronone 25 Mg - Non-Formulary Patient's Own Med 2 ea PO BID [facility] Stop: 09/16/18 20:59 Last Admin: 08/21/18 08:46 Dose: 1 tab Ondansetron HCl (Zofran) 4 mg IV Q6H PRN PRN Reason: Nausea Stop: 09/15/18 16:57 Pantoprazole Sodium (Protonix) 40 mg PO QAM [facility] Stop: 09/16/18 08:59 Last Admin: 08/21/18 08:45 Dose: 40 mg Potassium Chloride (Klor-Con M20) 60 meq PO TIDM [facility] Stop: 09/15/18 16:59 Last Admin: 08/21/18 17:20 Dose: 60 meq Raspberry (Raspberry) 5 ml PO Q6 [facility] Stop: 08/30/18 17:59 Last Admin: 08/21/18 18:43 Dose: 5 ml Sertraline HCl (Zoloft) 100 mg PO QAM [facility] Stop: 09/16/18 08:59 Last Admin: 08/21/18 08:45 Dose: 100 mg Vancomycin HCl (Vancomycin Hcl) 250 mg PO Q6 [facility] Stop: 08/26/18 17:59 Last Admin: 08/21/18 18:43 Dose: 250 mg Warfarin Sodium (Coumadin) 2.5 mg PO DAILY@1600 [facility] Stop: 09/20/18 15:59 Last Admin: 08/21/18 17:20 Dose: 2.5 mg Zolpidem Tartrate (Ambien) 5 mg PO HS PRN PRN Reason: Sleep Stop: 09/15/18 16:57 _ (1) Atrial fibrillation Atrial fibrillation type: chronic Qualified Code(s): I48.2 - Chronic atrial fibrillation (2) Hypertension Hypertension type: essential hypertension Qualified Code(s): I10 - Essential (primary) hypertension (3) Cirrhosis Hepatic cirrhosis type: unspecified hepatic cirrhosis Ascites presence: without ascites Qualified Code(s): K74.60 - Unspecified cirrhosis of liver
[2018-08-22] MEDS: VANCOMYCIN HCL 250 MG/5 ML SOLN PO SCH ×3 (06:11→16:55)
[2018-08-22] MEDS: RASPBERRY SYRUP 5 ML UDP PO SCH ×3 (06:11→16:54)
[2018-08-22 06:32] LABS: Hematocrit (blood only) 37.8 % (42-52); Hemoglobin 12.8 g/dL (14.0-18.0); Mean Corpuscular Hgb Conc 33.9 g/dL (32-36); Mean Corpuscular Volume 89.8 fL (80-100); Mean Platelet Volume 9.1 fL (7.4-10.4); Platelet Count 147 K/uL (130-400); RDW Coefficient of Variation 17.8 % (11.5-14.5); RDW Standard Deviation 57.3 fL (36.4-46.3); Red Blood Count 4.21 M/uL (4.7-6.1); White Blood Count 7.64 K/uL (4.8-10.8)
[2018-08-22 06:50] LABS: INR 2.2 (0.9-1.1); Prothrombin Time 21.2 Seconds (9.0-12.0)
[2018-08-22 07:07] LABS: Albumin Level 2.8 gm/dl (3.4-5.0); BUN Creatinine Ratio 17.1 (10-20); Calcium 8.2 mg/dl (8.5-10.1); Creatinine Clr Calc Pharmacy 165.5 ml/min; Est GFR (African American) 128.5; Est GFR (Non-African American) 110.8; Potassium 3.4 mmol/L (3.5-5.1)
[2018-08-22 07:08] LABS: Albumin Globulin Ratio 0.8 (0.9-2); Bilirubin,Total 2.2 mg/dl (0.2-1); Globulin 3.6 gm/dl (2.5-4.0); Total Protein 6.4 gm/dl (6.4-8.2)
[2018-08-22] MEDS: BUMETANIDE 1 MG TAB PO SCH ×2 (08:25→16:52)
[2018-08-22] MEDS: IPRATROPIUM BROMIDE/ALBUTEROL respimat INH INH SCH ×4 (08:25→20:29)
[2018-08-22] MEDS: ALLOPURINOL 100 MG TAB PO SCH ×2 (08:26→20:28)
[2018-08-22] MEDS: EPLERONONE 25 MG PO SCH ×2 (08:26→20:28)
[2018-08-22] MEDS: POTASSIUM CHLORIDE 20 MEQ TABCR PO SCH ×3 (08:26→16:52)
[2018-08-22] MEDS: GABAPENTIN 100 MG CAP PO SCH ×3 (08:26→16:53)
[2018-08-22] MEDS: METOPROLOL SUCC 50MG EXT REL TAB PO SCH ×2 (08:27→20:28)
[2018-08-22] MEDS: PANTOprazole 40 MG TAB PO SCH (08:27)
[2018-08-22] MEDS: SERTRALINE HCL 100 MG TABLET PO SCH (08:27)
--- NOTE | 2018-08-22 09:52 | Cardiology Progress Note ---
Date of Service August 22, 2018 Assessment & Plan (1) Acute on chronic diastolic CHF (congestive heart failure): Volume status has improved and he has also improved symptomatically but remains significantly hypervolemic. Continue Bumex 4 mg twice daily. Diuril 250 mg IV x1 this morning. He responded well to last evening's dose. He had been on large doses of Lasix as an outpatient but was using metolazone quite regularly and having more issues with hyponatremia and hypokalemia although noncompliance with potassium supplementation was likely playing a role. Strict I&Os recommended. Daily weights. Agree with fluid restriction. Low-sodium diet, less than 2000 mg daily. In the past, he did not tolerate spironolactone but has tolerated eplerenone, which has been used for potassium sparing diuretic affect. (2) Atrial fibrillation: Heart rate has been well controlled. Continue rate control strategy with metoprolol succinate 50 mg twice daily. Continue anticoagulation for stroke risk reduction if no contraindications. INR was supratherapeutic upon presentation but warfarin was restarted yesterday. (3) Hypertension: Blood pressure remains well controlled. Continue current medications. (4) Hyponatremia: Agree with fluid restriction. 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 Diuresis as above. (6) Cirrhosis: As per GI. (7) Mechanical heart valve present: Asymptomatic in this regard. Continue to monitor over time as an outpatient. Continue anticoagulation for stroke risk reduction. Disposition: He likely has several days of diuresis necessary prior to discharge. Cardiology will continue to follow. Subjective He feels much better today. His breathing has improved significantly. He denies any orthopnea. He is able to lift his legs onto his bed, which was difficult for him yesterday. His abdomen is less distended and he feels as though his edema has improved. His breathing is not yet back to baseline. He denies chest pain, palpitations, syncope, near syncope. He denies bleeding such as melena, hematochezia, or hematuria. He continues to have intermittent diarrhea. Review of systems: As above. Physical Exam 2 Vital Signs (Past 24 Hours): Last Vital Signs Temp 36.5 C 08/22/18 07:46 Pulse 75 08/22/18 07:46 Resp 18 08/22/18 07:46 BP 105/56 L 08/22/18 07:46 Pulse Ox 96 08/22/18 07:46 Intake & Output 08/20/18 08/21/18 08/22/18 08/23/18 06:59 06:59 06:59 06:59 Intake Total 540 / 540 1500 / 1500 1299 / 1299 Output Total 1551 / 1551 529 / 529 2075 / 2075 Balance -1011 / -1011 971 / 971 -776 / -776 Weight 113.4 kg 112.4 kg Physical Exam: Gen.: No acute distress. Alert and oriented. HEENT: Anicteric sclera. Neck: JVD to the mandible sitting upright. Cardiac: Irregularly irregular. Normal S1. [place] S2. 1/6 systolic ejection murmur. Pulmonary: Clear to auscultation bilaterally without wheezes, rales, or rhonchi. Decreased breath sounds at the right base. Abdomen: Abdomen is less distended. Nontender. Normoactive bowel sounds. No bruits noted. Trace to 1+ body wall edema. Extremities: 1-2+ bilateral lower extremity pitting edema to the hips. Edema is less tense today. No cyanosis. Psychiatric: Affect appears appropriate. Results & Data Laboratory Results Laboratory Results - last 24 hr 08/22/18 08/22/18 08/22/18 06:04 06:04 06:04 WBC 7.64 RBC 4.21 L Hgb 12.8 L Hct 37.8 L MCV 89.8 MCH 30.4 MCHC 33.9 RDW Std Deviation 57.3 H RDW Coeff of Nic 17.8 H Plt Count 147 MPV 9.1 PT 21.2 H INR 2.2 H Sodium 132 L Potassium 3.4 L Chloride 100 Carbon Dioxide 23 Anion Gap 9.0 BUN 10 Creatinine 0.57 L Est Cr Clr Drug Dosing 165.5 Est GFR ( Amer) 128.5 Est GFR (Non-Af Amer) 110.8 BUN/Creatinine Ratio 17.1 Glucose 84 Calcium 8.2 L Total Bilirubin 2.2 H AST 41 H ALT 25 Alkaline Phosphatase 104 Total Protein 6.4 Albumin 2.8 L Globulin 3.6 Albumin/Globulin Ratio 0.8 L Medications Administered Current Inpatient Medications Acetaminophen (Tylenol) 650 mg PO Q4H PRN PRN Reason: Pain or Fever Stop: 09/15/18 16:57 Al Hydrox/Mg Hydrox/Simethicone (Maalox) 15 ml PO Q4H PRN PRN Reason: Dyspepsia Stop: 09/15/18 16:57 Albuterol (Combivent Respimat) 1 puffs INH QID [facility] Stop: 09/15/18 16:59 Last Admin: 08/22/18 08:25 Dose: 1 puffs Allopurinol (Zyloprim) 100 mg PO BID [facility] Stop: 09/15/18 20:59 Last Admin: 08/22/18 08:26 Dose: 100 mg Bumetanide (Bumex) 4 mg PO BID17 [facility] Stop: 09/20/18 17:44 Last Admin: 08/22/18 08:25 Dose: 4 mg Cholestyramine Resin (Questran) 4 gm PO BID@1000,2200 [facility] Stop: 09/19/18 21:59 Last Admin: 08/21/18 22:02 Dose: 4 gm Gabapentin (Neurontin) 100 mg PO TIDM [facility] Stop: 09/15/18 16:59 Last Admin: 08/22/18 08:26 Dose: 100 mg Chlorothiazide Sodium 250 mg/ (Dextrose) 59 mls @ 200 mls/hr IV ONE ONE Stop: 08/22/18 10:05 Metoprolol Succinate (Toprol Xl) 50 mg PO BID [facility] Stop: 09/15/18 20:59 Last Admin: 08/22/18 08:27 Dose: 50 mg Epleronone 25 Mg - Non-Formulary Patient's Own Med 2 ea PO BID [facility] Stop: 09/16/18 20:59 Last Admin: 08/22/18 08:26 Dose: 2 tab Ondansetron HCl (Zofran) 4 mg IV Q6H PRN PRN Reason: Nausea Stop: 09/15/18 16:57 Pantoprazole Sodium (Protonix) 40 mg PO QAM [facility] Stop: 09/16/18 08:59 Last Admin: 08/22/18 08:27 Dose: 40 mg Potassium Chloride (Klor-Con M20) 60 meq PO TIDM [facility] Stop: 09/15/18 16:59 Last Admin: 08/22/18 08:26 Dose: 60 meq Potassium Chloride (Klor-Con M10) 40 meq PO NOW ONE Stop: 08/22/18 09:51 Raspberry (Raspberry) 5 ml PO Q6 [facility] Stop: 08/30/18 17:59 Last Admin: 08/22/18 06:11 Dose: 5 ml Sertraline HCl (Zoloft) 100 mg PO QAM [facility] Stop: 09/16/18 08:59 Last Admin: 08/22/18 08:27 Dose: 100 mg Vancomycin HCl (Vancomycin Hcl) 250 mg PO Q6 [facility] Stop: 08/26/18 17:59 Last Admin: 08/22/18 06:11 Dose: 250 mg Warfarin Sodium (Coumadin) 2.5 mg PO DAILY@1600 [facility] Stop: 09/20/18 15:59 Last Admin: 08/21/18 17:20 Dose: 2.5 mg Zolpidem Tartrate (Ambien) 5 mg PO HS PRN PRN Reason: Sleep Stop: 09/15/18 16:57 _ (1) Atrial fibrillation Atrial fibrillation type: chronic Qualified Code(s): I48.2 - Chronic atrial fibrillation (2) Hypertension Hypertension type: essential hypertension Qualified Code(s): I10 - Essential (primary) hypertension (3) Cirrhosis Hepatic cirrhosis type: unspecified hepatic cirrhosis Ascites presence: without ascites Qualified Code(s): K74.60 - Unspecified cirrhosis of liver
[2018-08-22] MEDS: CHOLESTYRAMINE LIGHT 4 GM PKT PO SCH ×2 (10:02→21:55)
[2018-08-22] MEDS ORDERED: POTASSIUM CHLORIDE 10 MEQ TABCR PO ONE (10:15)
[2018-08-22] MEDS ORDERED: CHLOROTHIAZIDE SODIUM 250 MG in DEXTROSE 5% 50 ML IV ONE (10:30)
--- NOTE | 2018-08-22 13:33 | Hospitalist Progress Note ---
Date of Service August 22, 2018 Assessment & Plan (1) C. difficile colitis: no abdominal pain, still with diarrhea but no further bleeding will continue Vancomycin PO, will need 10 days total treatment admitted 08/16, today would be 6th day advance to regular diet, tolerating well, no nausea/vomiting add Questran to try to bulk up stools can follow up with GI outpatient (2) Chronic diastolic heart failure: acute on chronic diastolic heart failure cardiology now seeing increase Bumex to 4mg BID and use Diuril IV daily excellent response, Cr holding at 0.5 likely here another two days for diuresis needs to be on fluid restriction, resume 1500mL restriction continue Eplerenone edema improving slowly, follow weights, today his weight is 112kg (3) Hyponatremia: chronic problem going back several months since patient is volume overloaded, suspect this is due to heart failure, also some cirrhosis recommend volume restriction of 1500mL / day sodium up to 132 today with fluid restriction this confirms that it was all due to volume overload (4) Cirrhosis: based off of imaging on CT and liver US certainly has risk factors with heavy drinking in the past and long standing heart failure will ask Dr. Myers to see patient explained to patient and his family that the management for cirrhosis will be medications, outpatient will need to make sure he is up to day on EGD for varices screening Hepatitis B and C negative continue Bumex (had some ascites on CT) minimal elevation in Bilirubin, AST, Alk phos, all stable today, trending down slightly Cr and platelet count normal, ammonia only 30 when it was checked INR down to 2.2 long talk with patient and family about importance of medication compliance explained that he is compensated reasonably well with his cirrhosis (5) Supratherapeutic INR: unclear etiology, diet was stable as outpatient no new medications perhaps due to cirrhotic changes? INR down to 2.2 today continue coumadin at lower dose of 2.5mg daily, started on 08/21 follow INR daily (6) COPD (chronic obstructive pulmonary disease): stable, no wheezing (7) Atrial fibrillation: chronic, paced (8) Pleural effusion: chronic issue, was exudative in the past (April) has not been tapped again certainly would think this could be related to CHF and cirrhosis no plans for tap at this time per Dr. Castellanos (9) Hx of CABG: no chest pain (10) Mechanical heart valve present: on Coumadin, INR 2.2 today, repeat tomorrow hold on planned discharge need to diurese further with Diuril IV repeat labs in the AM likely home on Thursday 08/24 Subjective patient says he feels a lot better since getting Diuril last night and increasing bumex to 4mg BID urinated a lot over night, swelling down in legs but still a lot of edema left his breathing is markedly better diarrhea slowing down, still loose and not solid, no blood reviewed labs, INR 2.2 Na up to 132, K 3.4 and Cr is 0.[address] Colmenares, will plan to keep inpatient to diruese further hopeful to d/c home in 48 hours Review of Systems All systems reviewed & are unremarkable except as noted in HPI & below Respiratory: + dyspnea on exertion (less than yesterday) Cardiovascular: + edema; no chest pain and no dyspnea at rest Gastrointestinal: + diarrhea/loose stools; no abdominal pain, no nausea, no vomiting and no blood in stools Physical Exam 2 Vital Signs (Past 24 Hours): Last Vital Signs Temp 36.5 C 08/22/18 07:46 Pulse 75 08/22/18 07:46 Resp 18 08/22/18 07:46 BP 105/56 L 08/22/18 07:46 Pulse Ox 96 08/22/18 07:46 Constitutional: WD/WN, vitals as above Eyes: PERRL, conjunctivae normal, anicteric sclerae ENMT: external ear and nose normal, oropharynx normal Neck: trachea midline, no thyromegaly Respiratory: normal respiratory effort; no respiratory distress Auscultation: + diminished lung sounds (right base); no crackles, no rales and no wheezes Cardiovascular: Rate/Rhythm: regular rate and regular rhythm Heart Sounds: normal S1 and normal S2 Extremities: + pedal edema (pitting, overall improved but still marked edema, especially in thighs) Gastrointestinal (Abdomen): normal bowel sounds, soft, nontender, no hepatosplenomegaly Musculoskeletal: no cyanosis or clubbing, extremities motor strength 5/5 Skin: no rashes, warm and dry (chronic venous stasis changes in legs) Neurologic: patellar DTR's 2+ bilat, sensation intact and PERRL, EOMI, accommodation nl, no face palsy, no dysarthria Psychiatric: A+Ox3, euthymic affect Lymphatic: no cervical or axillary lymphadenopathy Results & Data Laboratory Results Laboratory Results - last 24 hr 08/22/18 08/22/18 08/22/18 06:04 06:04 06:04 WBC 7.64 RBC 4.21 L Hgb 12.8 L Hct 37.8 L MCV 89.8 MCH 30.4 MCHC 33.9 RDW Std Deviation 57.3 H RDW Coeff of Nic 17.8 H Plt Count 147 MPV 9.1 PT 21.2 H INR 2.2 H Sodium 132 L Potassium 3.4 L Chloride 100 Carbon Dioxide 23 Anion Gap 9.0 BUN 10 Creatinine 0.57 L Est Cr Clr Drug Dosing 165.5 Est GFR ( Amer) 128.5 Est GFR (Non-Af Amer) 110.8 BUN/Creatinine Ratio 17.1 Glucose 84 Calcium 8.2 L Total Bilirubin 2.2 H AST 41 H ALT 25 Alkaline Phosphatase 104 Total Protein 6.4 Albumin 2.8 L Globulin 3.6 Albumin/Globulin Ratio 0.8 L Medications Administered Current Inpatient Medications Acetaminophen (Tylenol) 650 mg PO Q4H PRN PRN Reason: Pain or Fever Stop: 09/15/18 16:57 Al Hydrox/Mg Hydrox/Simethicone (Maalox) 15 ml PO Q4H PRN PRN Reason: Dyspepsia Stop: 09/15/18 16:57 Albuterol (Combivent Respimat) 1 puffs INH QID [facility] Stop: 09/15/18 16:59 Last Admin: 08/22/18 08:25 Dose: 1 puffs Allopurinol (Zyloprim) 100 mg PO BID [facility] Stop: 09/15/18 20:59 Last Admin: 08/22/18 08:26 Dose: 100 mg Bumetanide (Bumex) 4 mg PO BID17 [facility] Stop: 09/20/18 17:44 Last Admin: 08/22/18 08:25 Dose: 4 mg Cholestyramine Resin (Questran) 4 gm PO BID@1000,2200 [facility] Stop: 09/19/18 21:59 Last Admin: 08/22/18 10:02 Dose: 4 gm Gabapentin (Neurontin) 100 mg PO TIDM [facility] Stop: 09/15/18 16:59 Last Admin: 08/22/18 12:59 Dose: 100 mg Metoprolol Succinate (Toprol Xl) 50 mg PO BID [facility] Stop: 09/15/18 20:59 Last Admin: 08/22/18 08:27 Dose: 50 mg Epleronone 25 Mg - Non-Formulary Patient's Own Med 2 ea PO BID [facility] Stop: 09/16/18 20:59 Last Admin: 08/22/18 08:26 Dose: 2 tab Ondansetron HCl (Zofran) 4 mg IV Q6H PRN PRN Reason: Nausea Stop: 09/15/18 16:57 Pantoprazole Sodium (Protonix) 40 mg PO QAM [facility] Stop: 09/16/18 08:59 Last Admin: 08/22/18 08:27 Dose: 40 mg Potassium Chloride (Klor-Con M20) 60 meq PO TIDM [facility] Stop: 09/15/18 16:59 Last Admin: 08/22/18 13:06 Dose: Not Given Raspberry (Raspberry) 5 ml PO Q6 [facility] Stop: 08/30/18 17:59 Last Admin: 08/22/18 12:59 Dose: 5 ml Sertraline HCl (Zoloft) 100 mg PO QAM [facility] Stop: 09/16/18 08:59 Last Admin: 08/22/18 08:27 Dose: 100 mg Vancomycin HCl (Vancomycin Hcl) 250 mg PO Q6 [facility] Stop: 08/26/18 17:59 Last Admin: 08/22/18 13:05 Dose: 250 mg Warfarin Sodium (Coumadin) 2.5 mg PO DAILY@1600 [facility] Stop: 09/20/18 15:59 Last Admin: 08/21/18 17:20 Dose: 2.5 mg Zolpidem Tartrate (Ambien) 5 mg PO HS PRN PRN Reason: Sleep Stop: 09/15/18 16:57 _ (1) Cirrhosis Hepatic cirrhosis type: unspecified hepatic cirrhosis Ascites presence: without ascites Qualified Code(s): K74.60 - Unspecified cirrhosis of liver (2) COPD (chronic obstructive pulmonary disease) COPD type: unspecified COPD Chronic bronchitis type: Emphysema type: Qualified Code(s): J44.9 - Chronic obstructive pulmonary disease, unspecified (3) Atrial fibrillation Atrial fibrillation type: chronic Qualified Code(s): I48.2 - Chronic atrial fibrillation
[2018-08-22] MEDS: WARFARIN SOD 2.5 MG TAB PO SCH (16:50)
[2018-08-23] MEDS: VANCOMYCIN HCL 250 MG/5 ML SOLN PO SCH ×5 (00:01→23:29)
[2018-08-23] MEDS: RASPBERRY SYRUP 5 ML UDP PO SCH ×5 (00:01→23:29)
[2018-08-23 06:43] LABS: INR 2.1 (0.9-1.1); Prothrombin Time 20.7 Seconds (9.0-12.0)
[2018-08-23 06:59] LABS: BUN Creatinine Ratio 17.9 (10-20); Calcium 8.1 mg/dl (8.5-10.1); Creatinine Clr Calc Pharmacy 134.8 ml/min; Est GFR (African American) 118.1; Est GFR (Non-African American) 101.9; Magnesium 1.8 mg/dl (1.8-2.4); Potassium 3.7 mmol/L (3.5-5.1)
[2018-08-23] MEDS: BUMETANIDE 1 MG TAB PO SCH ×2 (07:36→17:31)
[2018-08-23] MEDS: POTASSIUM CHLORIDE 20 MEQ TABCR PO SCH ×3 (07:36→17:32)
[2018-08-23] MEDS: GABAPENTIN 100 MG CAP PO SCH ×3 (07:36→17:32)
[2018-08-23] MEDS: EPLERONONE 25 MG PO SCH ×2 (07:37→20:36)
[2018-08-23] MEDS: IPRATROPIUM BROMIDE/ALBUTEROL respimat INH INH SCH ×4 (07:37→20:36)
[2018-08-23] MEDS: METOPROLOL SUCC 50MG EXT REL TAB PO SCH ×2 (07:38→20:36)
[2018-08-23] MEDS: PANTOprazole 40 MG TAB PO SCH (07:38)
[2018-08-23] MEDS: ALLOPURINOL 100 MG TAB PO SCH ×2 (07:39→20:36)
[2018-08-23] MEDS: SERTRALINE HCL 100 MG TABLET PO SCH (07:39)
[2018-08-23] MEDS: CHOLESTYRAMINE LIGHT 4 GM PKT PO SCH ×2 (11:10→20:36)
[2018-08-23] MEDS ORDERED: CHLOROTHIAZIDE SODIUM 250 MG in DEXTROSE 5% 50 ML IV ONE (14:15)
--- NOTE | 2018-08-23 14:31 | Cardiology Progress Note ---
Date of Service August 23, 2018 Assessment & Plan (1) Acute on chronic diastolic CHF (congestive heart failure): Volume status has improved and he has also improved symptomatically but remains significantly hypervolemic. Continue Bumex 4 mg twice daily. Diuril 250 mg IV now and then daily for the next few days. He had been on large doses of Lasix as an outpatient but was using metolazone quite regularly and having more issues with hyponatremia and hypokalemia although noncompliance with potassium supplementation was likely playing a role. Strict I&Os recommended. Daily weights. Agree with fluid restriction. Low-sodium diet, less than 2000 mg daily. In the past, he did not tolerate spironolactone but has tolerated eplerenone, which has been used for potassium sparing diuretic affect. (2) Atrial fibrillation: Heart rate has been well controlled. Continue rate control strategy with metoprolol succinate 50 mg twice daily. Continue anticoagulation for stroke risk reduction if no contraindications. INR was supratherapeutic upon presentation but warfarin was restarted yesterday. Goal INR 2.5-3.5. (discussed with Dr. Wilde) (3) Hypertension: Blood pressure remains well controlled. Continue current medications. (4) Hyponatremia: Agree with fluid restriction. 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 Diuresis as above. (6) Cirrhosis: As per GI. (7) Mechanical heart valve present: Asymptomatic in this regard. Continue to monitor over time as an outpatient. Continue anticoagulation for stroke risk reduction. Resume ASA 81 mg po qam. Disposition: He likely has several days of diuresis necessary prior to discharge. Cardiology will continue to follow. Plan of care discussed with Dr. Wilde of primary service. Subjective He feels better today than he did yesterday. He denies orthopnea, PND, chest pain, palpitations, or bleeding. He continues to have edema. He went for a walk in the hallway and felt less dyspnea than he did yesterday however he still had to stop to catch his breath. Review of systems: As above. Physical Exam 2 Vital Signs (Past 24 Hours): Last Vital Signs Temp 36.3 C L 08/22/18 23:53 Pulse 78 08/22/18 23:53 Resp 20 08/22/18 23:53 BP 128/68 08/22/18 23:53 Pulse Ox 93 08/22/18 23:53 Intake & Output 08/21/18 08/22/18 08/23/18 08/24/18 06:59 06:59 06:59 06:59 Intake Total 1500 / 1500 1299 / 1299 759 / 759 580 / 580 Output Total 529 / 529 2075 / 2075 3650 / 3650 425 / 425 Balance 971 / 971 -776 / -776 -2891 / -2891 155 / 155 Weight 112.4 kg 112.2 kg Physical Exam: Gen.: No acute distress. Alert and oriented. HEENT: Anicteric sclera. Neck: JVD to the mandible sitting upright. Cardiac: Irregularly irregular. Normal S1. [place] S2. 2/6 Systolic ejection murmur. Pulmonary: Clear to auscultation bilaterally without wheezes, rales, or rhonchi. Abdomen: Soft, nontender, nondistended, with normoactive bowel sounds. No bruits noted. 1+ body wall edema. Extremities: 2+ pitting edema to the hips bilaterally. No cyanosis. Psychiatric: Affect appears appropriate. Results & Data Laboratory Results Laboratory Results - last 24 hr 08/23/18 08/23/18 06:06 06:06 PT 20.7 H INR 2.1 H Sodium 130 L Potassium 3.7 Chloride 95 L Carbon Dioxide 26 Anion Gap 9.0 BUN 13 Creatinine 0.70 Est Cr Clr Drug Dosing 134.8 Est GFR ( Amer) 118.1 Est GFR (Non-Af Amer) 101.9 BUN/Creatinine Ratio 17.9 Glucose 77 Calcium 8.1 L Magnesium 1.8 Medications Administered Current Inpatient Medications Acetaminophen (Tylenol) 650 mg PO Q4H PRN PRN Reason: Pain or Fever Stop: 09/15/18 16:57 Al Hydrox/Mg Hydrox/Simethicone (Maalox) 15 ml PO Q4H PRN PRN Reason: Dyspepsia Stop: 09/15/18 16:57 Albuterol (Combivent Respimat) 1 puffs INH QID [facility] Stop: 09/15/18 16:59 Last Admin: 08/23/18 11:12 Dose: 1 puffs Allopurinol (Zyloprim) 100 mg PO BID [facility] Stop: 09/15/18 20:59 Last Admin: 08/23/18 07:39 Dose: 100 mg Bumetanide (Bumex) 4 mg PO BID17 [facility] Stop: 09/20/18 17:44 Last Admin: 08/23/18 07:36 Dose: 4 mg Cholestyramine Resin (Questran) 4 gm PO BID@1000,2200 [facility] Stop: 09/19/18 21:59 Last Admin: 08/23/18 11:10 Dose: 4 gm Gabapentin (Neurontin) 100 mg PO TIDM [facility] Stop: 09/15/18 16:59 Last Admin: 08/23/18 11:11 Dose: 100 mg Chlorothiazide Sodium 250 mg/ (Dextrose) 59 mls @ 200 mls/hr IV 1415 ONE Stop: 08/23/18 14:32 Metoprolol Succinate (Toprol Xl) 50 mg PO BID [facility] Stop: 09/15/18 20:59 Last Admin: 08/23/18 07:38 Dose: 50 mg Epleronone 25 Mg - Non-Formulary Patient's Own Med 2 ea PO BID [facility] Stop: 09/16/18 20:59 Last Admin: 08/23/18 07:37 Dose: 2 tab Ondansetron HCl (Zofran) 4 mg IV Q6H PRN PRN Reason: Nausea Stop: 09/15/18 16:57 Pantoprazole Sodium (Protonix) 40 mg PO QAM [facility] Stop: 09/16/18 08:59 Last Admin: 08/23/18 07:38 Dose: 40 mg Potassium Chloride (Klor-Con M20) 60 meq PO TIDM [facility] Stop: 09/15/18 16:59 Last Admin: 08/23/18 11:10 Dose: 60 meq Raspberry (Raspberry) 5 ml PO Q6 [facility] Stop: 08/30/18 17:59 Last Admin: 08/23/18 11:11 Dose: 5 ml Sertraline HCl (Zoloft) 100 mg PO QAM [facility] Stop: 09/16/18 08:59 Last Admin: 08/23/18 07:39 Dose: 100 mg Vancomycin HCl (Vancomycin Hcl) 250 mg PO Q6 [facility] Stop: 08/26/18 17:59 Last Admin: 08/23/18 11:11 Dose: 250 mg Warfarin Sodium (Coumadin) 2.5 mg PO DAILY@1600 [facility] Stop: 09/20/18 15:59 Last Admin: 08/22/18 16:50 Dose: 2.5 mg Zolpidem Tartrate (Ambien) 5 mg PO HS PRN PRN Reason: Sleep Stop: 09/15/18 16:57 _ (1) Atrial fibrillation Atrial fibrillation type: chronic Qualified Code(s): I48.2 - Chronic atrial fibrillation (2) Hypertension Hypertension type: essential hypertension Qualified Code(s): I10 - Essential (primary) hypertension (3) Cirrhosis Hepatic cirrhosis type: unspecified hepatic cirrhosis Ascites presence: without ascites Qualified Code(s): K74.60 - Unspecified cirrhosis of liver
[2018-08-23] MEDS: WARFARIN SOD 2.5 MG TAB PO SCH (15:29)
[2018-08-23] MEDS: ASPIRIN 81 MG ECTAB PO SCH (15:30)
--- NOTE | 2018-08-23 16:18 | Hospitalist Progress Note ---
Date of Service August 23, 2018 Assessment & Plan (1) C. difficile colitis: no abdominal pain, still with diarrhea but no further bleeding will continue Vancomycin PO admitted 08/16, today would be day would extend treatment to 14 days since he is still having loose stools tolerating regular diet, no nausea/vomiting continue Questran to try to bulk up stools can follow up with GI outpatient (2) Chronic diastolic heart failure: acute on chronic diastolic heart failure cardiology now seeing continue Bumex 4mg BID and use Diuril 250mg IV daily excellent response, Cr holding at 0.7 likely here until next week for diuresis needs to be on fluid restriction, resume 1500mL restriction continue Eplerenone edema improving slowly, unsure how accurate weights have been, still 112kg weight one week ago was 112.8kg and today is 112.2, does not make sense (3) Hyponatremia: chronic problem going back several months since patient is volume overloaded, suspect this is due to heart failure, also some cirrhosis recommend volume restriction of 1500mL / day sodium stable at 130 with fluid restriction this confirms that it was all due to volume overload (4) Cirrhosis: based off of imaging on CT and liver US certainly has risk factors with heavy drinking in the past and long standing heart failure will ask Dr. Myers to see patient explained to patient and his family that the management for cirrhosis will be medications, outpatient will need to make sure he is up to day on EGD for varices screening Hepatitis B and C negative continue Bumex (had some ascites on CT) minimal elevation in Bilirubin, AST, Alk phos, all stable today, trending down slightly Cr and platelet count normal, ammonia only 30 when it was checked INR 2.1 long talk with patient and family about importance of medication compliance explained that he is compensated reasonably well with his cirrhosis (5) Supratherapeutic INR: unclear etiology, diet was stable as outpatient no new medications perhaps due to cirrhotic changes? INR down to 2.1 today continue coumadin at lower dose of 2.5mg daily, started on 08/21 follow INR daily (6) COPD (chronic obstructive pulmonary disease): stable, no wheezing (7) Atrial fibrillation: chronic, paced (8) Pleural effusion: chronic issue, was exudative in the past (April) has not been tapped again certainly would think this could be related to CHF and cirrhosis no plans for tap at this time per Dr. Castellanos (9) Hx of CABG: no chest pain (10) Mechanical heart valve present: on Coumadin, INR 2.1 today, repeat tomorrow, need to get to 2.5 if not therapeutic tomorrow then give Lovenox hold on planned discharge need to diurese further with Diuril IV likely here through next week Subjective patient says he is making more urine in response to Bumex and Diuril however, reviewing chart there is not much evidence of diuresis weight has been consistently 112kg, even though he was negative 2.5 liters yesterday diarrhea is better, no blood, some solid components but still loose no abdominal pain, eating really well, every meal, no nausea or vomiting discussed case with Dr. Colmenares today, he feels that patient needs to stay in hospital until next week need to diurese to near dry weight to prevent him from coming back to hospital reviewed labs, Cr holding with increased diuretics, K is 3.7 INR 2.1 but needs to be 2.5 with his valve Review of Systems All systems reviewed & are unremarkable except as noted in HPI & below Respiratory: + dyspnea on exertion (less than the day before) Cardiovascular: + edema Gastrointestinal: + diarrhea/loose stools Physical Exam 2 Vital Signs (Past 24 Hours): Last Vital Signs Temp 36.5 C 08/23/18 14:49 Pulse 79 08/23/18 14:49 Resp 20 08/23/18 14:49 BP 123/65 08/23/18 14:49 Pulse Ox 99 08/23/18 14:49 Constitutional: WD/WN, vitals as above Eyes: PERRL, conjunctivae normal, anicteric sclerae ENMT: external ear and nose normal, oropharynx normal Neck: trachea midline, no thyromegaly Respiratory: normal respiratory effort; no respiratory distress Auscultation: + diminished lung sounds (right base); no crackles, no rales and no wheezes Cardiovascular: Rate/Rhythm: regular rate and regular rhythm Heart Sounds: normal S1 and normal S2 Extremities: + pedal edema (still with 2+ pitting edema in thighs and lower legs) Gastrointestinal (Abdomen): normal bowel sounds, soft, nontender, no hepatosplenomegaly Musculoskeletal: no cyanosis or clubbing, extremities motor strength 5/5 Skin: no rashes, warm and dry (chronic venous stasis changes in legs) Neurologic: patellar DTR's 2+ bilat, sensation intact and PERRL, EOMI, accommodation nl, no face palsy, no dysarthria Psychiatric: A+Ox3, euthymic affect Lymphatic: no cervical or axillary lymphadenopathy Results & Data Laboratory Results Laboratory Results - last 24 hr 08/23/18 08/23/18 06:06 06:06 PT 20.7 H INR 2.1 H Sodium 130 L Potassium 3.7 Chloride 95 L Carbon Dioxide 26 Anion Gap 9.0 BUN 13 Creatinine 0.70 Est Cr Clr Drug Dosing 134.8 Est GFR ( Amer) 118.1 Est GFR (Non-Af Amer) 101.9 BUN/Creatinine Ratio 17.9 Glucose 77 Calcium 8.1 L Magnesium 1.8 Medications Administered Current Inpatient Medications Acetaminophen (Tylenol) 650 mg PO Q4H PRN PRN Reason: Pain or Fever Stop: 09/15/18 16:57 Al Hydrox/Mg Hydrox/Simethicone (Maalox) 15 ml PO Q4H PRN PRN Reason: Dyspepsia Stop: 09/15/18 16:57 Albuterol (Combivent Respimat) 1 puffs INH QID [facility] Stop: 09/15/18 16:59 Last Admin: 08/23/18 11:12 Dose: 1 puffs Allopurinol (Zyloprim) 100 mg PO BID [facility] Stop: 09/15/18 20:59 Last Admin: 08/23/18 07:39 Dose: 100 mg Aspirin (Ecotrin Ectab) 81 mg PO QAM [facility] Stop: 09/22/18 14:44 Last Admin: 08/23/18 15:30 Dose: 81 mg Bumetanide (Bumex) 4 mg PO BID17 [facility] Stop: 09/20/18 17:44 Last Admin: 08/23/18 07:36 Dose: 4 mg Cholestyramine Resin (Questran) 4 gm PO BID@1000,2200 [facility] Stop: 09/19/18 21:59 Last Admin: 08/23/18 11:10 Dose: 4 gm Gabapentin (Neurontin) 100 mg PO TIDM [facility] Stop: 09/15/18 16:59 Last Admin: 08/23/18 11:11 Dose: 100 mg Chlorothiazide Sodium 250 mg/ (Dextrose) 59 mls @ 200 mls/hr IV QAM [facility] Stop: 09/23/18 08:59 Metoprolol Succinate (Toprol Xl) 50 mg PO BID [facility] Stop: 09/15/18 20:59 Last Admin: 08/23/18 07:38 Dose: 50 mg Epleronone 25 Mg - Non-Formulary Patient's Own Med 2 ea PO BID [facility] Stop: 09/16/18 20:59 Last Admin: 08/23/18 07:37 Dose: 2 tab Ondansetron HCl (Zofran) 4 mg IV Q6H PRN PRN Reason: Nausea Stop: 09/15/18 16:57 Pantoprazole Sodium (Protonix) 40 mg PO QAM [facility] Stop: 09/16/18 08:59 Last Admin: 08/23/18 07:38 Dose: 40 mg Potassium Chloride (Klor-Con M20) 60 meq PO TIDM [facility] Stop: 09/15/18 16:59 Last Admin: 08/23/18 11:10 Dose: 60 meq Raspberry (Raspberry) 5 ml PO Q6 [facility] Stop: 08/30/18 17:59 Last Admin: 08/23/18 11:11 Dose: 5 ml Sertraline HCl (Zoloft) 100 mg PO QAM [facility] Stop: 09/16/18 08:59 Last Admin: 08/23/18 07:39 Dose: 100 mg Vancomycin HCl (Vancomycin Hcl) 250 mg PO Q6 [facility] Stop: 08/26/18 17:59 Last Admin: 08/23/18 11:11 Dose: 250 mg Warfarin Sodium (Coumadin) 2.5 mg PO DAILY@1600 [facility] Stop: 09/20/18 15:59 Last Admin: 08/23/18 15:29 Dose: 2.5 mg Zolpidem Tartrate (Ambien) 5 mg PO HS PRN PRN Reason: Sleep Stop: 09/15/18 16:57 _ (1) Atrial fibrillation Atrial fibrillation type: chronic Qualified Code(s): I48.2 - Chronic atrial fibrillation (2) Cirrhosis Ascites presence: without ascites Hepatic cirrhosis type: unspecified hepatic cirrhosis Qualified Code(s): K74.60 - Unspecified cirrhosis of liver (3) COPD (chronic obstructive pulmonary disease) COPD type: unspecified COPD Chronic bronchitis type: Emphysema type: Qualified Code(s): J44.9 - Chronic obstructive pulmonary disease, unspecified
[2018-08-24] MEDS: VANCOMYCIN HCL 250 MG/5 ML SOLN PO SCH ×3 (05:45→17:41)
[2018-08-24] MEDS: RASPBERRY SYRUP 5 ML UDP PO SCH ×3 (05:45→17:41)
[2018-08-24 06:50] LABS: INR 2.2 (0.9-1.1); Prothrombin Time 20.9 Seconds (9.0-12.0)
[2018-08-24 07:01] LABS: BUN Creatinine Ratio 18.1 (10-20); Calcium 8.7 mg/dl (8.5-10.1); Est GFR (African American) 120.2; Est GFR (Non-African American) 103.7; Potassium 3.9 mmol/L (3.5-5.1)
[2018-08-24] MEDS: GABAPENTIN 100 MG CAP PO SCH ×3 (07:48→16:49)
[2018-08-24] MEDS: BUMETANIDE 1 MG TAB PO SCH ×2 (07:48→16:46)
[2018-08-24] MEDS: IPRATROPIUM BROMIDE/ALBUTEROL respimat INH INH SCH ×4 (07:48→20:25)
[2018-08-24] MEDS: POTASSIUM CHLORIDE 20 MEQ TABCR PO SCH ×3 (07:48→16:48)
[2018-08-24] MEDS: PANTOprazole 40 MG TAB PO SCH (07:49)
[2018-08-24] MEDS: SERTRALINE HCL 100 MG TABLET PO SCH (07:49)
[2018-08-24] MEDS: METOPROLOL SUCC 50MG EXT REL TAB PO SCH ×2 (07:49→20:25)
[2018-08-24] MEDS: ALLOPURINOL 100 MG TAB PO SCH ×2 (07:49→20:39)
[2018-08-24] MEDS: ASPIRIN 81 MG ECTAB PO SCH (07:49)
[2018-08-24] MEDS ORDERED: CHLOROTHIAZIDE SODIUM 250 MG in DEXTROSE 5% 50 ML IV SCH (09:00)
[2018-08-24] MEDS: ENOXAPARIN INJ 120 MG/0.8 ML SYR SQ SCH ×2 (10:20→20:33)
[2018-08-24] MEDS: CHOLESTYRAMINE LIGHT 4 GM PKT PO SCH ×2 (10:22→21:50)
[2018-08-24] MEDS: EPLERONONE 25 MG PO SCH ×2 (12:51→20:40)
--- NOTE | 2018-08-24 15:54 | Cardiology Progress Note ---
Date of Service August 24, 2018 Assessment & Plan (1) Acute on chronic diastolic CHF (congestive heart failure): He continues to be hypervolemic. He is diuresing quite nicely today. For some reason his weight is not decreasing. He states he is compliant with fluid restriction. Continue Bumex 4 mg twice daily. Diuril 250 mg IV will be increased to twice daily. Monitor renal function electro lites closely. He had been on large doses of Lasix as an outpatient but was using metolazone quite regularly and having more issues with hyponatremia and hypokalemia although noncompliance with potassium supplementation was likely playing a role. Strict I&Os recommended. Daily weights. Agree with fluid restriction. Low-sodium diet, less than 2000 mg daily. In the past, he did not tolerate spironolactone but has tolerated eplerenone, which has been used for potassium sparing diuretic affect. (2) Atrial fibrillation: Heart rate has been well controlled. Continue rate control strategy with metoprolol succinate 50 mg twice daily. Continue anticoagulation for stroke risk reduction if no contraindications. INR was supratherapeutic upon presentation but warfarin was restarted yesterday. Goal INR 2.5-3.5. Will increase Coumadin to 3 mg daily as his INR is subtherapeutic. He received a dose of Lovenox as per primary service. (3) Hypertension: Blood pressure is well controlled. No changes made today. (4) Hyponatremia: Agree with fluid restriction. 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 Diuresis as above. (6) Cirrhosis: As per GI. (7) Mechanical heart valve present: Asymptomatic in this regard. Continue to monitor over time as an outpatient. Continue anticoagulation for stroke risk reduction. Resume ASA 81 mg po qam. Disposition: He will likely require several more days of diuretic therapy. I will be away from the hospital for the next 2 days. Please call on-call erosion control coordinator, Dr. Ny, for any questions or concerns. Plan of care has been discussed with Dr. Wilde of the primary hospitalist service. Subjective He continues to feel better on a daily basis however his weight is not decreasing. He denies chest pain, shortness of breath at rest, orthopnea, PND, syncope, near syncope, palpitations. He believes his edema is improving. He did not yet ambulate the hallways today. There was noted today by Ms. Alejandra Mane MCCRACKEN that not all of his urine is being collected as there was some spillage. He admits that yesterday he may have gone a few times without being able to collected due to the urgency of the situation. He states that he is maintaining his fluid restriction. Review of systems: As above. Physical Exam 2 Vital Signs (Past 24 Hours): Last Vital Signs Temp 36.5 C 08/24/18 14:31 Pulse 76 08/24/18 14:31 Resp 20 08/24/18 14:31 BP 128/71 08/24/18 14:31 Pulse Ox 96 08/24/18 14:31 Intake & Output 08/22/18 08/23/18 08/24/18 08/25/18 06:59 06:59 06:59 06:59 Intake Total 1299 / 1299 759 / 759 979 / 979 519 / 519 Output Total 2074 / 2074 3650 / 3650 1850 / 1850 2600 / 2600 Balance -776 / -776 -2891 / -2891 -871 / -871 -2080 / -2080 Weight 112.4 kg 112.7 kg Physical Exam: Gen.: No acute distress. Alert and oriented. HEENT: Anicteric sclera. Neck: JVD to the mandible sitting upright. Cardiac: Irregularly irregular but rate controlled. Normal S1. [place] S2. 1/6 systolic murmur. Pulmonary: Clear to auscultation bilaterally without wheezes, rales, or rhonchi. Abdomen: Soft, nontender, nondistended, with normoactive bowel sounds. No bruits noted. Trace to 1+ body wall edema. Extremities: 2+ bilateral lower extremity pitting edema to the hips. No cyanosis. Psychiatric: Affect appears appropriate. Results & Data Laboratory Results Laboratory Results - last 24 hr 08/24/18 08/24/18 05:55 05:55 PT 20.9 H INR 2.2 H Sodium 130 L Potassium 3.9 Chloride 98 Carbon Dioxide 25 Anion Gap 7.0 BUN 12 Creatinine 0.67 Est Cr Clr Drug Dosing 141.0 Est GFR ( Amer) 120.2 Est GFR (Non-Af Amer) 103.7 BUN/Creatinine Ratio 18.1 Glucose 82 Calcium 8.7 Medications Administered Current Inpatient Medications Acetaminophen (Tylenol) 650 mg PO Q4H PRN PRN Reason: Pain or Fever Stop: 09/15/18 16:57 Al Hydrox/Mg Hydrox/Simethicone (Maalox) 15 ml PO Q4H PRN PRN Reason: Dyspepsia Stop: 09/15/18 16:57 Albuterol (Combivent Respimat) 1 puffs INH QID [facility] Stop: 09/15/18 16:59 Last Admin: 08/24/18 12:03 Dose: 1 puffs Allopurinol (Zyloprim) 100 mg PO BID [facility] Stop: 09/15/18 20:59 Last Admin: 08/24/18 07:49 Dose: 100 mg Aspirin (Ecotrin Ectab) 81 mg PO QAM [facility] Stop: 09/22/18 14:44 Last Admin: 08/24/18 07:49 Dose: 81 mg Bumetanide (Bumex) 4 mg PO BID17 [facility] Stop: 09/20/18 17:44 Last Admin: 08/24/18 07:48 Dose: 4 mg Cholestyramine Resin (Questran) 4 gm PO BID@1000,2200 [facility] Stop: 09/19/18 21:59 Last Admin: 08/24/18 10:22 Dose: 4 gm Enoxaparin Sodium (Lovenox) 111 mg SQ Q12H [facility] Stop: 09/23/18 08:59 Last Admin: 08/24/18 10:20 Dose: 111 mg Gabapentin (Neurontin) 100 mg PO TIDM [facility] Stop: 09/15/18 16:59 Last Admin: 08/24/18 12:02 Dose: 100 mg Chlorothiazide Sodium 250 mg/ (Dextrose) 59 mls @ 200 mls/hr IV BID17 [facility] Stop: 09/23/18 16:59 Metoprolol Succinate (Toprol Xl) 50 mg PO BID [facility] Stop: 09/15/18 20:59 Last Admin: 08/24/18 07:49 Dose: 50 mg Epleronone 25 Mg - Non-Formulary Patient's Own Med 2 ea PO BID [facility] Stop: 09/16/18 20:59 Last Admin: 08/24/18 12:51 Dose: Not Given Ondansetron HCl (Zofran) 4 mg IV Q6H PRN PRN Reason: Nausea Stop: 09/15/18 16:57 Pantoprazole Sodium (Protonix) 40 mg PO QAM [facility] Stop: 09/16/18 08:59 Last Admin: 08/24/18 07:49 Dose: 40 mg Potassium Chloride (Klor-Con M20) 60 meq PO TIDM [facility] Stop: 09/15/18 16:59 Last Admin: 08/24/18 12:02 Dose: 60 meq Raspberry (Raspberry) 5 ml PO Q6 [facility] Stop: 08/30/18 17:59 Last Admin: 08/24/18 12:01 Dose: 5 ml Sertraline HCl (Zoloft) 100 mg PO QAM [facility] Stop: 09/16/18 08:59 Last Admin: 08/24/18 07:49 Dose: 100 mg Vancomycin HCl (Vancomycin Hcl) 250 mg PO Q6 [facility] Stop: 08/26/18 17:59 Last Admin: 08/24/18 12:01 Dose: 250 mg Warfarin Sodium (Coumadin) 2.5 mg PO DAILY@1600 [facility] Stop: 09/20/18 15:59 Last Admin: 08/23/18 15:29 Dose: 2.5 mg Zolpidem Tartrate (Ambien) 5 mg PO HS PRN PRN Reason: Sleep Stop: 09/15/18 16:57 _ (1) Atrial fibrillation Atrial fibrillation type: chronic Qualified Code(s): I48.2 - Chronic atrial fibrillation (2) Hypertension Hypertension type: essential hypertension Qualified Code(s): I10 - Essential (primary) hypertension (3) Cirrhosis Hepatic cirrhosis type: unspecified hepatic cirrhosis Ascites presence: without ascites Qualified Code(s): K74.60 - Unspecified cirrhosis of liver
--- NOTE | 2018-08-24 15:59 | Hospitalist Progress Note ---
Date of Service August 24, 2018 Assessment & Plan (1) C. difficile colitis: no abdominal pain, still with diarrhea but no further bleeding will continue Vancomycin PO admitted 08/16, today would be 8th day would extend treatment to 14 days since he is still having loose stools tolerating regular diet, no nausea/vomiting continue Questran to try to bulk up stools some solid components to stool can follow up with GI outpatient (2) Chronic diastolic heart failure: acute on chronic diastolic heart failure cardiology now seeing continue Bumex 4mg BID and increase Diuril 250mg IV BID excellent response, Cr holding, below 1 likely here until next week for diuresis needs to be on fluid restriction, resume 1500mL restriction continue Eplerenone edema improving negative 4400mL today, but weight going up? (3) Hyponatremia: chronic problem going back several months since patient is volume overloaded, suspect this is due to heart failure, also some cirrhosis recommend volume restriction of 1500mL / day sodium stable at 130 with fluid restriction this confirms that it was all due to volume overload (4) Cirrhosis: based off of imaging on CT and liver US certainly has risk factors with heavy drinking in the past and long standing heart failure will ask Dr. Myers to see patient explained to patient and his family that the management for cirrhosis will be medications, outpatient will need to make sure he is up to day on EGD for varices screening Hepatitis B and C negative continue Bumex (had some ascites on CT) minimal elevation in Bilirubin, AST, Alk phos, all stable today, trending down slightly Cr and platelet count normal, ammonia only 30 when it was checked INR 2.1 long talk with patient and family about importance of medication compliance explained that he is compensated reasonably well with his cirrhosis (5) Supratherapeutic INR: unclear etiology, diet was stable as outpatient no new medications perhaps due to cirrhotic changes? INR up slightly to 2.2 today continue coumadin at lower dose of 2.5mg daily, started on 08/21 follow INR daily (6) COPD (chronic obstructive pulmonary disease): stable, no wheezing (7) Atrial fibrillation: chronic, paced (8) Pleural effusion: chronic issue, was exudative in the past (April) has not been tapped again certainly would think this could be related to CHF and cirrhosis no plans for tap at this time per Dr. Castellanos (9) Hx of CABG: no chest pain (10) Mechanical heart valve present: on Coumadin, INR 2.2 today, repeat tomorrow, need to get to 2.5 start Lovenox 1mg/kg q12 need to diurese further with Diuril IV likely here through next week Subjective patient continues to make a lot of urine, concerned that measurements were not accurate got better results today, negative 4400mL weight actually going up slightly which makes no sense, will continue to monitor discussed twice today with Dr. Colmenares, he will increase Diuril to twice a day patient says his diarrhea is better, some solid components, definitely no blood reviewed labs, INR up to 2.2 but goal is 2.5, started on Lovenox due to valve Cr is stable, < 1, electrolytes stable, Hb stable updated patient's at the bedside patient says he feels like legs are less edematous, able to walk much further without getting short of breath Review of Systems All systems reviewed & are unremarkable except as noted in HPI & below Respiratory: + dyspnea on exertion (can walk much further prior to getting SOB) ; no cough Cardiovascular: + dyspnea on exertion and + edema; no chest pain Gastrointestinal: + diarrhea/loose stools; no abdominal pain, no nausea and no vomiting Physical Exam 2 Vital Signs (Past 24 Hours): Last Vital Signs Temp 36.5 C 08/24/18 14:31 Pulse 76 08/24/18 14:31 Resp 20 08/24/18 14:31 BP 128/71 08/24/18 14:31 Pulse Ox 96 08/24/18 14:31 Constitutional: WD/WN, vitals as above Eyes: PERRL, conjunctivae normal, anicteric sclerae ENMT: external ear and nose normal, oropharynx normal Neck: trachea midline, no thyromegaly Respiratory: normal respiratory effort; no respiratory distress Auscultation: + diminished lung sounds (right base); no crackles, no rales and no wheezes Cardiovascular: Rate/Rhythm: regular rate and regular rhythm Heart Sounds: normal S1 and normal S2 Extremities: + pedal edema (slightly less edema today ) Gastrointestinal (Abdomen): normal bowel sounds, soft, nontender, no hepatosplenomegaly Musculoskeletal: no cyanosis or clubbing, extremities motor strength 5/5 Skin: no rashes, warm and dry (chronic venous stasis changes in legs) Neurologic: patellar DTR's 2+ bilat, sensation intact and PERRL, EOMI, accommodation nl, no face palsy, no dysarthria Psychiatric: A+Ox3, euthymic affect Lymphatic: no cervical or axillary lymphadenopathy Results & Data Laboratory Results Laboratory Results - last 24 hr 08/24/18 08/24/18 05:55 05:55 PT 20.9 H INR 2.2 H Sodium 130 L Potassium 3.9 Chloride 98 Carbon Dioxide 25 Anion Gap 7.0 BUN 12 Creatinine 0.67 Est Cr Clr Drug Dosing 141.0 Est GFR ( Amer) 120.2 Est GFR (Non-Af Amer) 103.7 BUN/Creatinine Ratio 18.1 Glucose 82 Calcium 8.7 Medications Administered Current Inpatient Medications Acetaminophen (Tylenol) 650 mg PO Q4H PRN PRN Reason: Pain or Fever Stop: 09/15/18 16:57 Al Hydrox/Mg Hydrox/Simethicone (Maalox) 15 ml PO Q4H PRN PRN Reason: Dyspepsia Stop: 09/15/18 16:57 Albuterol (Combivent Respimat) 1 puffs INH QID [facility] Stop: 09/15/18 16:59 Last Admin: 08/24/18 12:03 Dose: 1 puffs Allopurinol (Zyloprim) 100 mg PO BID [facility] Stop: 09/15/18 20:59 Last Admin: 08/24/18 07:49 Dose: 100 mg Aspirin (Ecotrin Ectab) 81 mg PO QAM [facility] Stop: 09/22/18 14:44 Last Admin: 08/24/18 07:49 Dose: 81 mg Bumetanide (Bumex) 4 mg PO BID17 [facility] Stop: 09/20/18 17:44 Last Admin: 08/24/18 07:48 Dose: 4 mg Cholestyramine Resin (Questran) 4 gm PO BID@1000,2200 [facility] Stop: 09/19/18 21:59 Last Admin: 08/24/18 10:22 Dose: 4 gm Enoxaparin Sodium (Lovenox) 111 mg SQ Q12H [facility] Stop: 09/23/18 08:59 Last Admin: 08/24/18 10:20 Dose: 111 mg Gabapentin (Neurontin) 100 mg PO TIDM [facility] Stop: 09/15/18 16:59 Last Admin: 08/24/18 12:02 Dose: 100 mg Chlorothiazide Sodium 250 mg/ (Dextrose) 59 mls @ 200 mls/hr IV BID17 [facility] Stop: 09/23/18 16:59 Metoprolol Succinate (Toprol Xl) 50 mg PO BID [facility] Stop: 09/15/18 20:59 Last Admin: 08/24/18 07:49 Dose: 50 mg Epleronone 25 Mg - Non-Formulary Patient's Own Med 2 ea PO BID [facility] Stop: 09/16/18 20:59 Last Admin: 08/24/18 12:51 Dose: Not Given Ondansetron HCl (Zofran) 4 mg IV Q6H PRN PRN Reason: Nausea Stop: 09/15/18 16:57 Pantoprazole Sodium (Protonix) 40 mg PO QAM [facility] Stop: 09/16/18 08:59 Last Admin: 08/24/18 07:49 Dose: 40 mg Potassium Chloride (Klor-Con M20) 60 meq PO TIDM [facility] Stop: 09/15/18 16:59 Last Admin: 08/24/18 12:02 Dose: 60 meq Raspberry (Raspberry) 5 ml PO Q6 [facility] Stop: 08/30/18 17:59 Last Admin: 08/24/18 12:01 Dose: 5 ml Sertraline HCl (Zoloft) 100 mg PO QAM [facility] Stop: 09/16/18 08:59 Last Admin: 08/24/18 07:49 Dose: 100 mg Vancomycin HCl (Vancomycin Hcl) 250 mg PO Q6 [facility] Stop: 08/26/18 17:59 Last Admin: 08/24/18 12:01 Dose: 250 mg Warfarin Sodium (Coumadin) 3 mg PO DAILY@1600 [facility] Stop: 09/23/18 15:59 Zolpidem Tartrate (Ambien) 5 mg PO HS PRN PRN Reason: Sleep Stop: 09/15/18 16:57 _ (1) Atrial fibrillation Atrial fibrillation type: chronic Qualified Code(s): I48.2 - Chronic atrial fibrillation (2) Cirrhosis Ascites presence: without ascites Hepatic cirrhosis type: unspecified hepatic cirrhosis Qualified Code(s): K74.60 - Unspecified cirrhosis of liver (3) COPD (chronic obstructive pulmonary disease) COPD type: unspecified COPD Chronic bronchitis type: Emphysema type: Qualified Code(s): J44.9 - Chronic obstructive pulmonary disease, unspecified
[2018-08-24] MEDS: WARFARIN SOD 3 MG TAB PO SCH (16:45)
[2018-08-24] MEDS: CHLOROTHIAZIDE SODIUM 250 MG in DEXTROSE 5% 50 ML IV SCH (16:47)
[2018-08-25] MEDS: RASPBERRY SYRUP 5 ML UDP PO SCH ×5 (00:12→23:22)
[2018-08-25] MEDS: VANCOMYCIN HCL 250 MG/5 ML SOLN PO SCH ×5 (00:12→23:22)
[2018-08-25 06:55] LABS: BUN Creatinine Ratio 18.6 (10-20); Calcium 8.7 mg/dl (8.5-10.1); Est GFR (African American) 114.8; Potassium 3.1 mmol/L (3.5-5.1)
[2018-08-25] MEDS: ASPIRIN 81 MG ECTAB PO SCH (09:28)
[2018-08-25] MEDS: IPRATROPIUM BROMIDE/ALBUTEROL respimat INH INH SCH ×4 (09:28→20:46)
[2018-08-25] MEDS: GABAPENTIN 100 MG CAP PO SCH ×3 (09:28→17:29)
[2018-08-25] MEDS: BUMETANIDE 1 MG TAB PO SCH ×2 (09:29→17:29)
[2018-08-25] MEDS: PANTOprazole 40 MG TAB PO SCH (09:29)
[2018-08-25] MEDS: METOPROLOL SUCC 50MG EXT REL TAB PO SCH ×2 (09:30→20:50)
[2018-08-25] MEDS: ALLOPURINOL 100 MG TAB PO SCH ×2 (09:30→20:50)
[2018-08-25] MEDS: POTASSIUM CHLORIDE 20 MEQ TABCR PO SCH ×4 (09:30→20:47)
[2018-08-25] MEDS: SERTRALINE HCL 100 MG TABLET PO SCH (09:32)
[2018-08-25] MEDS: EPLERONONE 25 MG PO SCH ×2 (09:33→20:49)
[2018-08-25] MEDS: ENOXAPARIN INJ 120 MG/0.8 ML SYR SQ SCH ×2 (09:34→20:48)
[2018-08-25] MEDS: CHLOROTHIAZIDE SODIUM 250 MG in DEXTROSE 5% 50 ML IV SCH (09:42)
[2018-08-25] MEDS: CHOLESTYRAMINE LIGHT 4 GM PKT PO SCH ×2 (11:04→20:51)
--- NOTE | 2018-08-25 14:45 | Hospitalist Progress Note ---
Date of Service August 25, 2018 Assessment & Plan (1) C. difficile colitis: no abdominal pain, still with diarrhea but no further bleeding will continue Vancomycin PO admitted 08/16, today would be 9 day would extend treatment to 14 days since he was slow to respond tolerating regular diet, no nausea/vomiting continue Questran to try to bulk up stools some solid components to stool can follow up with GI outpatient (2) Chronic diastolic heart failure: acute on chronic diastolic heart failure cardiology now seeing continue Bumex 4mg BID and increase Diuril 250mg IV BID excellent response, Cr holding, below 1 likely here until next week for diuresis will hold Diuril dose this evening due to marked hypokalemia needs to be on fluid restriction, resume 1500mL restriction continue Eplerenone edema improving negative 3000mL today, weight going down by 2Kg (3) Hypokalemia: will treat by increasing 60 TID supplementation to QID hold evening dose of Diuril (4) Hyponatremia: chronic problem going back several months since patient is volume overloaded, suspect this is due to heart failure, also some cirrhosis recommend volume restriction of 1500mL / day sodium stable with fluid restriction this confirms that it was all due to volume overload (5) Cirrhosis: based off of imaging on CT and liver US certainly has risk factors with heavy drinking in the past and long standing heart failure will ask Dr. Myers to see patient explained to patient and his family that the management for cirrhosis will be medications, outpatient will need to make sure he is up to day on EGD for varices screening Hepatitis B and C negative continue Bumex (had some ascites on CT) minimal elevation in Bilirubin, AST, Alk phos, all stable today, trending down slightly Cr and platelet count normal, ammonia only 30 when it was checked INR 3.2 long talk with patient and family about importance of medication compliance explained that he is compensated reasonably well with his cirrhosis (6) Supratherapeutic INR: unclear etiology, diet was stable as outpatient no new medications perhaps due to cirrhotic changes? INR up to 3.2 today continue coumadin at lower dose of 2.5mg daily, started on 08/21 follow INR daily (7) COPD (chronic obstructive pulmonary disease): stable, no wheezing (8) Atrial fibrillation: chronic, paced (9) Pleural effusion: chronic issue, was exudative in the past (April) has not been tapped again certainly would think this could be related to CHF and cirrhosis no plans for tap at this time per Dr. Castellanos (10) Hx of CABG: no chest pain (11) Mechanical heart valve present: on Coumadin, INR 2.2 today, repeat tomorrow, need to get to 2.5 start Lovenox 1mg/kg q12 need to diurese further with Diuril IV likely here through next week Subjective patient's weight actually going down by over 2kg today, making a lot more urine with the Diuril BID eating well, stools becoming more solid no GI bleeding no chest pain, no dyspnea on exertion like he was having reviewed labs, Cr stable but K down to 3.1, increased supplementation repeat K was down to 2.5 gave RN verbal too hold the evening dose of Diuril Review of Systems All systems reviewed & are unremarkable except as noted in HPI & below Respiratory: + dyspnea on exertion, + pain on inspiration and + pain with cough Cardiovascular: + edema (pitting in thighs) Gastrointestinal: + diarrhea/loose stools Physical Exam 2 Vital Signs (Past 24 Hours): Last Vital Signs Temp 36.5 C 08/25/18 11:20 Pulse 78 08/25/18 11:20 Resp 18 08/25/18 11:20 BP 130/78 08/25/18 11:20 Pulse Ox 99 08/25/18 11:20 Constitutional: WD/WN, vitals as above Eyes: PERRL, conjunctivae normal, anicteric sclerae ENMT: external ear and nose normal, oropharynx normal Neck: trachea midline, no thyromegaly Respiratory: normal respiratory effort; no respiratory distress Auscultation: no crackles, no rales and no wheezes Cardiovascular: Rate/Rhythm: regular rate and regular rhythm Heart Sounds: normal S1 and normal S2 Extremities: + pedal edema (less edema today) Gastrointestinal (Abdomen): normal bowel sounds, soft, nontender, no hepatosplenomegaly Musculoskeletal: no cyanosis or clubbing, extremities motor strength 5/5 Skin: no rashes, warm and dry (chronic venous stasis changes in legs) Neurologic: patellar DTR's 2+ bilat, sensation intact and PERRL, EOMI, accommodation nl, no face palsy, no dysarthria Psychiatric: A+Ox3, euthymic affect Lymphatic: no cervical or axillary lymphadenopathy Results & Data Laboratory Results Laboratory Results - last 24 hr 08/25/18 06:03 Sodium 131 L Potassium 3.1 L D Chloride 95 L Carbon Dioxide 27 Anion Gap 9.0 BUN 14 Creatinine 0.75 Est Cr Clr Drug Dosing 126.0 Est GFR ( Amer) 114.8 Est GFR (Non-Af Amer) 99.0 BUN/Creatinine Ratio 18.6 Glucose 82 Calcium 8.7 Medications Administered Current Inpatient Medications Acetaminophen (Tylenol) 650 mg PO Q4H PRN PRN Reason: Pain or Fever Stop: 09/15/18 16:57 Al Hydrox/Mg Hydrox/Simethicone (Maalox) 15 ml PO Q4H PRN PRN Reason: Dyspepsia Stop: 09/15/18 16:57 Albuterol (Combivent Respimat) 1 puffs INH QID [facility] Stop: 09/15/18 16:59 Last Admin: 08/25/18 13:24 Dose: 1 puffs Allopurinol (Zyloprim) 100 mg PO BID [facility] Stop: 09/15/18 20:59 Last Admin: 08/25/18 09:30 Dose: 100 mg Aspirin (Ecotrin Ectab) 81 mg PO QAM [facility] Stop: 09/22/18 14:44 Last Admin: 08/25/18 09:28 Dose: 81 mg Bumetanide (Bumex) 4 mg PO BID17 [facility] Stop: 09/20/18 17:44 Last Admin: 08/25/18 09:29 Dose: 4 mg Cholestyramine Resin (Questran) 4 gm PO BID@1000,2200 [facility] Stop: 09/19/18 21:59 Last Admin: 08/25/18 11:04 Dose: 4 gm Enoxaparin Sodium (Lovenox) 111 mg SQ Q12H [facility] Stop: 09/23/18 08:59 Last Admin: 08/25/18 09:34 Dose: 111 mg Gabapentin (Neurontin) 100 mg PO TIDM [facility] Stop: 09/15/18 16:59 Last Admin: 08/25/18 13:23 Dose: 100 mg Chlorothiazide Sodium 250 mg/ (Dextrose) 59 mls @ 200 mls/hr IV BID17 [facility] Stop: 09/23/18 16:59 Last Infusion: 08/25/18 11:39 Dose: Infused Metoprolol Succinate (Toprol Xl) 50 mg PO BID [facility] Stop: 09/15/18 20:59 Last Admin: 08/25/18 09:30 Dose: 50 mg Epleronone 25 Mg - Non-Formulary Patient's Own Med 2 ea PO BID [facility] Stop: 09/16/18 20:59 Last Admin: 08/25/18 09:33 Dose: 2 tab Ondansetron HCl (Zofran) 4 mg IV Q6H PRN PRN Reason: Nausea Stop: 09/15/18 16:57 Pantoprazole Sodium (Protonix) 40 mg PO QAM [facility] Stop: 09/16/18 08:59 Last Admin: 08/25/18 09:29 Dose: 40 mg Potassium Chloride (Klor-Con M20) 60 meq PO QID [facility] Stop: 09/24/18 08:59 Last Admin: 08/25/18 13:23 Dose: 60 meq Raspberry (Raspberry) 5 ml PO Q6 [facility] Stop: 08/30/18 17:59 Last Admin: 08/25/18 13:23 Dose: 5 ml Sertraline HCl (Zoloft) 100 mg PO QAM [facility] Stop: 09/16/18 08:59 Last Admin: 08/25/18 09:32 Dose: 100 mg Vancomycin HCl (Vancomycin Hcl) 250 mg PO Q6 [facility] Stop: 08/26/18 17:59 Last Admin: 08/25/18 13:22 Dose: 250 mg Warfarin Sodium (Coumadin) 3 mg PO DAILY@1600 [facility] Stop: 09/23/18 15:59 Last Admin: 08/24/18 16:45 Dose: 3 mg Zolpidem Tartrate (Ambien) 5 mg PO HS PRN PRN Reason: Sleep Stop: 09/15/18 16:57 _ (1) Atrial fibrillation Atrial fibrillation type: chronic Qualified Code(s): I48.2 - Chronic atrial fibrillation (2) Cirrhosis Ascites presence: without ascites Hepatic cirrhosis type: unspecified hepatic cirrhosis Qualified Code(s): K74.60 - Unspecified cirrhosis of liver (3) COPD (chronic obstructive pulmonary disease) COPD type: unspecified COPD Chronic bronchitis type: Emphysema type: Qualified Code(s): J44.9 - Chronic obstructive pulmonary disease, unspecified
[2018-08-25 14:50] LABS: INR 3.2 (0.9-1.1); Prothrombin Time 30.3 Seconds (9.0-12.0)
[2018-08-25] MEDS ORDERED: Nursing to Pharmacy Communication ONE (15:04)
[2018-08-25] MEDS: WARFARIN SOD 3 MG TAB PO SCH (16:12)
[2018-08-26] MEDS: VANCOMYCIN HCL 250 MG/5 ML SOLN PO SCH ×4 (05:18→23:10)
[2018-08-26] MEDS: RASPBERRY SYRUP 5 ML UDP PO SCH ×4 (05:18→23:10)
[2018-08-26 06:30] LABS: INR 3.4 (0.9-1.1); Prothrombin Time 32.2 Seconds (9.0-12.0)
[2018-08-26 06:47] LABS: BUN Creatinine Ratio 17.2 (10-20); Calcium 8.9 mg/dl (8.5-10.1); Creatinine Clr Calc Pharmacy 128.1 ml/min; Est GFR (Non-African American) 100.1; Potassium 3.8 mmol/L (3.5-5.1)
[2018-08-26] MEDS: METOPROLOL SUCC 50MG EXT REL TAB PO SCH ×2 (08:11→19:58)
[2018-08-26] MEDS: PANTOprazole 40 MG TAB PO SCH (08:11)
[2018-08-26] MEDS: SERTRALINE HCL 100 MG TABLET PO SCH (08:11)
[2018-08-26] MEDS: BUMETANIDE 1 MG TAB PO SCH ×2 (08:11→16:19)
[2018-08-26] MEDS: ASPIRIN 81 MG ECTAB PO SCH (08:12)
[2018-08-26] MEDS: GABAPENTIN 100 MG CAP PO SCH ×3 (08:12→16:20)
[2018-08-26] MEDS: ALLOPURINOL 100 MG TAB PO SCH ×2 (08:12→19:59)
[2018-08-26] MEDS: POTASSIUM CHLORIDE 20 MEQ TABCR PO SCH ×4 (08:13→19:57)
[2018-08-26] MEDS: EPLERONONE 25 MG PO SCH ×2 (08:13→19:58)
[2018-08-26] MEDS: IPRATROPIUM BROMIDE/ALBUTEROL respimat INH INH SCH ×4 (08:14→19:56)
[2018-08-26] MEDS: CHLOROTHIAZIDE SODIUM 250 MG in DEXTROSE 5% 50 ML IV SCH ×2 (08:21→16:30)
[2018-08-26] MEDS: CHOLESTYRAMINE LIGHT 4 GM PKT PO SCH (09:58)
--- NOTE | 2018-08-26 13:41 | Hospitalist Progress Note ---
Date of Service August 26, 2018 Assessment & Plan (1) C. 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 continue Bumex 4mg BID and continue Diuril 250mg IV BID excellent response, Cr holding, below 1 likely here until mid week for diuresis needs to be on fluid restriction, continue 1500mL restriction even on discharge continue Eplerenone edema improving every day making 4-5 liters of urine a day weight same as yesterday at 110kg, unsure if accurate (3) Hypokalemia: continue KCl 60 QID K is 3.8 repeat tomorrow (4) Hyponatremia: chronic problem going back several months since patient is volume overloaded, suspect this is due to heart failure, also some cirrhosis recommend volume restriction of 1500mL / day sodium stable with fluid restriction this confirms that it was all due to volume overload (5) Cirrhosis: based off of imaging on CT and liver US certainly has risk factors with heavy drinking in the past and long standing heart failure will ask Dr. Myers to see patient explained to patient and his family that the management for cirrhosis will be medications, outpatient will need to make sure he is up to day on EGD for varices screening Hepatitis B and C negative continue Bumex (had some ascites on CT) minimal elevation in Bilirubin, AST, Alk phos, all stable today, trending down slightly Cr and platelet count normal, ammonia only 30 when it was checked INR 3.4 long talk with patient and family about importance of medication compliance explained that he is compensated reasonably well with his cirrhosis he should follow up with Dr. Myers / Arely Michael in 2 weeks (6) Supratherapeutic INR: present on admission unclear etiology, diet was stable as outpatient no new medications perhaps due to cirrhotic changes? INR up to 3.4 today lower Coumadin to 2mg daily from 3mg daily follow INR daily (7) COPD (chronic obstructive pulmonary disease): stable, no wheezing (8) Atrial fibrillation: chronic, paced (9) Pleural effusion: chronic issue, was exudative in the past (April) has not been tapped again certainly would think this could be related to CHF and cirrhosis no plans for tap at this time per Dr. Castellanos (10) Hx of CABG: no chest pain (11) Mechanical heart valve present: on Coumadin, INR 3.4 today need to diurese further with Diuril IV likely here through mid week discuss with Dr. Colmenares tomorrow, determine timing of discharge and follow up make sure patient takes Vancomycin until 08/30 for C diff should follow up with Dr. Myers for both the C diff and cirrhosis should follow up with heart failure clinic within one week of discharge Subjective patient feeling well, breathing well, no dyspnea on exertion stools are completely formed, no more diarrhea eating well edema slowly improving, making a lot of clear urine on Diuril, 2L out already today reviewed labs, K up to 3.8, Cr is stable discussed discharge timing, he clearly has more edema to lose in his thighs and buttocks will have cardiology see him tomorrow could theoretically continue Bumex outpatient and fluid restriction would need close follow up with heart failure clinic INR is 3.4, up from 3.2, will decrease Coumadin dose Review of Systems All systems reviewed & are unremarkable except as noted in HPI & below Cardiovascular: + edema Gastrointestinal: no abdominal pain, no nausea, no vomiting, no constipation, no diarrhea/loose stools and no blood in stools Physical Exam 2 Vital Signs (Past 24 Hours): Last Vital Signs Temp 36.3 C L 08/26/18 07:14 Pulse 72 08/26/18 07:14 Resp 16 08/26/18 07:14 BP 118/66 08/26/18 07:14 Pulse Ox 94 08/26/18 07:14 Constitutional: WD/WN, vitals as above Eyes: PERRL, conjunctivae normal, anicteric sclerae ENMT: external ear and nose normal, oropharynx normal Neck: trachea midline, no thyromegaly Respiratory: normal respiratory effort; no respiratory distress Auscultation: + diminished lung sounds (right base); no crackles, no rales and no wheezes Cardiovascular: Rate/Rhythm: regular rate and regular rhythm Heart Sounds: normal S1 and normal S2 Extremities: + pedal edema (less edema today) Gastrointestinal (Abdomen): normal bowel sounds, soft, nontender, no hepatosplenomegaly Musculoskeletal: no cyanosis or clubbing, extremities motor strength 5/5 Skin: no rashes, warm and dry (chronic venous stasis changes in legs) Neurologic: patellar DTR's 2+ bilat, sensation intact and PERRL, EOMI, accommodation nl, no face palsy, no dysarthria Psychiatric: A+Ox3, euthymic affect Lymphatic: no cervical or axillary lymphadenopathy Results & Data Laboratory Results Laboratory Results - last 24 hr 08/25/18 08/25/18 08/26/18 14:06 14:06 05:54 PT 30.3 H INR 3.2 H Sodium 131 L Potassium 2.5 L* D 3.8 D Chloride 97 L Carbon Dioxide 29 Anion Gap 5.0 BUN 13 Creatinine 0.73 Est Cr Clr Drug Dosing 128.1 Est GFR ( Amer) 116.0 Est GFR (Non-Af Amer) 100.1 BUN/Creatinine Ratio 17.2 Glucose 94 Calcium 8.9 08/26/18 05:54 PT 32.2 H INR 3.4 H Sodium Potassium Chloride Carbon Dioxide Anion Gap BUN Creatinine Est Cr Clr Drug Dosing Est GFR ( Amer) Est GFR (Non-Af Amer) BUN/Creatinine Ratio Glucose Calcium Medications Administered Current Inpatient Medications Acetaminophen (Tylenol) 650 mg PO Q4H PRN PRN Reason: Pain or Fever Stop: 09/15/18 16:57 Al Hydrox/Mg Hydrox/Simethicone (Maalox) 15 ml PO Q4H PRN PRN Reason: Dyspepsia Stop: 09/15/18 16:57 Albuterol (Combivent Respimat) 1 puffs INH QID [facility] Stop: 09/15/18 16:59 Last Admin: 08/26/18 12:12 Dose: 1 puffs Allopurinol (Zyloprim) 100 mg PO BID [facility] Stop: 09/15/18 20:59 Last Admin: 08/26/18 08:12 Dose: 100 mg Aspirin (Ecotrin Ectab) 81 mg PO QAM [facility] Stop: 09/22/18 14:44 Last Admin: 08/26/18 08:12 Dose: 81 mg Bumetanide (Bumex) 4 mg PO BID17 [facility] Stop: 09/20/18 17:44 Last Admin: 08/26/18 08:11 Dose: 4 mg Cholestyramine Resin (Questran) 4 gm PO BID@1000,2200 [facility] Stop: 09/19/18 21:59 Last Admin: 08/26/18 09:58 Dose: 4 gm Gabapentin (Neurontin) 100 mg PO TIDM [facility] Stop: 09/15/18 16:59 Last Admin: 08/26/18 12:11 Dose: 100 mg Chlorothiazide Sodium 250 mg/ (Dextrose) 59 mls @ 200 mls/hr IV BID17 [facility] Stop: 09/23/18 16:59 Last Infusion: 08/26/18 08:39 Dose: Infused Metoprolol Succinate (Toprol Xl) 50 mg PO BID [facility] Stop: 09/15/18 20:59 Last Admin: 08/26/18 08:11 Dose: 50 mg Epleronone 25 Mg - Non-Formulary Patient's Own Med 2 ea PO BID [facility] Stop: 09/16/18 20:59 Last Admin: 08/26/18 08:13 Dose: 2 tab Ondansetron HCl (Zofran) 4 mg IV Q6H PRN PRN Reason: Nausea Stop: 09/15/18 16:57 Pantoprazole Sodium (Protonix) 40 mg PO QAM [facility] Stop: 09/16/18 08:59 Last Admin: 08/26/18 08:11 Dose: 40 mg Potassium Chloride (Klor-Con M20) 60 meq PO QID [facility] Stop: 09/24/18 08:59 Last Admin: 08/26/18 12:10 Dose: 60 meq Raspberry (Raspberry) 5 ml PO Q6 [facility] Stop: 08/30/18 17:59 Last Admin: 08/26/18 12:10 Dose: 5 ml Sertraline HCl (Zoloft) 100 mg PO QAM [facility] Stop: 09/16/18 08:59 Last Admin: 08/26/18 08:11 Dose: 100 mg Vancomycin HCl (Vancomycin Hcl) 250 mg PO Q6 [facility] Stop: 08/26/18 17:59 Last Admin: 08/26/18 12:10 Dose: 250 mg Warfarin Sodium (Coumadin) 2 mg PO DAILY@1600 [facility] Stop: 09/25/18 15:59 Zolpidem Tartrate (Ambien) 5 mg PO HS PRN PRN Reason: Sleep Stop: 02/16/19 16:57 _ (1) Cirrhosis Hepatic cirrhosis type: unspecified hepatic cirrhosis Ascites presence: without ascites Qualified Code(s): K74.60 - Unspecified cirrhosis of liver (2) COPD (chronic obstructive pulmonary disease) COPD type: unspecified COPD Chronic bronchitis type: Emphysema type: Qualified Code(s): J44.9 - Chronic obstructive pulmonary disease, unspecified (3) Atrial fibrillation Atrial fibrillation type: chronic Qualified Code(s): I48.2 - Chronic atrial fibrillation
[2018-08-26] MEDS ORDERED: SODIUM CHLORIDE 0.65% NA SOLN 45 ML (OCEAN) PRN (14:53)
[2018-08-26] MEDS: WARFARIN SOD 2 MG TAB PO SCH (16:20)
[2018-08-27] MEDS: RASPBERRY SYRUP 5 ML UDP PO SCH ×4 (06:01→23:40)
[2018-08-27] MEDS: VANCOMYCIN HCL 250 MG/5 ML SOLN PO SCH ×4 (06:01→23:40)
[2018-08-27 07:11] LABS: Hematocrit (blood only) 39.5 % (42-52); Hemoglobin 13.4 g/dL (14.0-18.0); Mean Corpuscular Hgb Conc 33.9 g/dL (32-36); Mean Corpuscular Volume 92.1 fL (80-100); Platelet Count 140 K/uL (130-400); RDW Coefficient of Variation 17.7 % (11.5-14.5); RDW Standard Deviation 58.7 fL (36.4-46.3); Red Blood Count 4.29 M/uL (4.7-6.1); White Blood Count 7.48 K/uL (4.8-10.8)
[2018-08-27 07:28] LABS: INR 4.1 (0.9-1.1); Prothrombin Time 38.6 Seconds (9.0-12.0)
[2018-08-27 07:40] LABS: BUN Creatinine Ratio 19.9 (10-20); Calcium 8.6 mg/dl (8.5-10.1); Est GFR (African American) 120.9; Est GFR (Non-African American) 104.3; Potassium 3.4 mmol/L (3.5-5.1)
[2018-08-27] MEDS: GABAPENTIN 100 MG CAP PO SCH ×3 (07:59→16:39)
[2018-08-27] MEDS: BUMETANIDE 1 MG TAB PO SCH ×2 (07:59→16:38)
[2018-08-27] MEDS: ASPIRIN 81 MG ECTAB PO SCH (08:00)
[2018-08-27] MEDS: IPRATROPIUM BROMIDE/ALBUTEROL respimat INH INH SCH ×4 (08:00→20:47)
[2018-08-27] MEDS: ALLOPURINOL 100 MG TAB PO SCH ×2 (08:01→20:48)
[2018-08-27] MEDS: POTASSIUM CHLORIDE 20 MEQ TABCR PO SCH ×4 (08:01→20:46)
[2018-08-27] MEDS: PANTOprazole 40 MG TAB PO SCH (08:01)
[2018-08-27] MEDS: SERTRALINE HCL 100 MG TABLET PO SCH (08:01)
[2018-08-27] MEDS: METOPROLOL SUCC 50MG EXT REL TAB PO SCH ×2 (08:01→20:48)
[2018-08-27] MEDS: EPLERONONE 25 MG PO SCH ×2 (08:02→20:47)
[2018-08-27] MEDS: CHLOROTHIAZIDE SODIUM 250 MG in DEXTROSE 5% 50 ML IV SCH ×2 (09:13→16:36)
--- NOTE | 2018-08-27 15:18 | Cardiology Progress Note ---
Date of Service August 27, 2018 Assessment & Plan (1) Acute on chronic diastolic CHF (congestive heart failure): He remains hypervolemic but has improved significantly and is diuresing well. Continue Bumex 4 mg twice daily with Diuril 250 mg IV twice daily. He had been on large doses of Lasix as an outpatient but was using metolazone quite regularly and having more issues with hyponatremia and hypokalemia although noncompliance with potassium supplementation was likely playing a role. Strict I&Os recommended. Daily weights. Agree with fluid restriction. Low-sodium diet, less than 2000 mg daily. In the past, he did not tolerate spironolactone but has tolerated eplerenone, which has been used for potassium sparing diuretic affect. (2) Atrial fibrillation: Heart rate has been well controlled. Continue rate control strategy with metoprolol succinate 50 mg twice daily. Continue anticoagulation for stroke risk reduction if no contraindications. Goal INR is 2.5-3.5. INR supratherapeutic today. (3) Hypertension: Blood pressure Remains well controlled. Continue current regimen. (4) Hyponatremia: Agree with fluid restriction. 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 Diuresis as above. (6) Cirrhosis: As per GI. (7) Mechanical heart valve present: Asymptomatic in this regard. Continue to monitor over time as an outpatient. Continue anticoagulation for stroke risk reduction. Continue ASA 81 mg po qam. Disposition: He is diuresing well but remains hypervolemic. Continue current plan. He will still likely require a few more days of diuresis. I will be away from the hospital tomorrow but [facility] Flanagan round on him from a heart failure perspective. Subjective He feels much better. His edema has improved over the weekend. He is able to walk in the hallway now without stopping for dyspnea. He denies shortness of breath, orthopnea, chest pain, palpitations, syncope, or melena, hematochezia, hematuria. He does have some intermittent small amounts of epistaxis. Review of systems: As above. Physical Exam 2 Vital Signs (Past 24 Hours): Last Vital Signs Temp 36.3 C L 08/27/18 07:33 Pulse 69 08/27/18 07:33 Resp 18 08/27/18 07:33 BP 111/65 08/27/18 07:33 Pulse Ox 98 01/28/19 07:33 Intake & Output 08/25/18 08/26/18 08/27/18 08/28/18 06:59 06:59 06:59 06:59 Intake Total 698 / 698 701 / 701 973 / 973 639 / 639 Output Total 4850 / 4850 3251 / 3251 4000 / 4000 1750 / 1750 Balance -4152 / -4152 -2550 / -2550 -3027 / -3027 -1111 / -1111 Weight 110.4 kg 110 kg 109.5 kg Physical Exam: Gen.: No acute distress. Alert and oriented. HEENT: Anicteric sclera. Neck: JVD detention to the mandible sitting upright. Cardiac: Irregularly irregular. Normal S1-S2. No audible murmurs, rubs, or gallops. Pulmonary: Decreased breath sounds right base. Clear to auscultation bilaterally without wheezes, rales, or rhonchi. Trace body wall edema. Abdomen: Soft, nontender, nondistended, with normoactive bowel sounds. No bruits noted. Extremities: 1 to 2+ bilateral lower extremity pitting edema to the hips. No cyanosis. Psychiatric: Affect appears appropriate. Results & Data Laboratory Results Laboratory Results - last 24 hr 08/27/18 08/27/18 08/27/18 06:54 06:54 06:54 WBC 7.48 RBC 4.29 L Hgb 13.4 L Hct 39.5 L MCV 92.1 MCH 31.2 MCHC 33.9 RDW Std Deviation 58.7 H RDW Coeff of Nic 17.7 H Plt Count 140 MPV 9.0 PT 38.6 H INR 4.1 H Sodium 128 L Potassium 3.4 L Chloride 93 L Carbon Dioxide 30 Anion Gap 5.0 BUN 13 Creatinine 0.66 Est Cr Clr Drug Dosing 141.0 Est GFR ( Amer) 120.9 Est GFR (Non-Af Amer) 104.3 BUN/Creatinine Ratio 19.9 Glucose 71 Calcium 8.6 Medications Administered Current Inpatient Medications Acetaminophen (Tylenol) 650 mg PO Q4H PRN PRN Reason: Pain or Fever Stop: 09/15/18 16:57 Al Hydrox/Mg Hydrox/Simethicone (Maalox) 15 ml PO Q4H PRN PRN Reason: Dyspepsia Stop: 09/15/18 16:57 Albuterol (Combivent Respimat) 1 puffs INH QID [facility] Stop: 09/15/18 16:59 Last Admin: 08/27/18 12:08 Dose: 1 puffs Allopurinol (Zyloprim) 100 mg PO BID [facility] Stop: 09/15/18 20:59 Last Admin: 08/27/18 08:01 Dose: 100 mg Aspirin (Ecotrin Ectab) 81 mg PO QAM [facility] Stop: 09/22/18 14:44 Last Admin: 08/27/18 08:00 Dose: 81 mg Bumetanide (Bumex) 4 mg PO BID17 [facility] Stop: 09/20/18 17:44 Last Admin: 08/27/18 07:59 Dose: 4 mg Gabapentin (Neurontin) 100 mg PO TIDM [facility] Stop: 09/15/18 16:59 Last Admin: 08/27/18 12:09 Dose: 100 mg Chlorothiazide Sodium 250 mg/ (Dextrose) 59 mls @ 200 mls/hr IV BID17 [facility] Stop: 09/23/18 16:59 Last Infusion: 08/27/18 10:00 Dose: Infused Metoprolol Succinate (Toprol Xl) 50 mg PO BID [facility] Stop: 09/15/18 20:59 Last Admin: 08/27/18 08:01 Dose: 50 mg Epleronone 25 Mg - Non-Formulary Patient's Own Med 2 ea PO BID [facility] Stop: 09/16/18 20:59 Last Admin: 08/27/18 08:02 Dose: 2 tab Ondansetron HCl (Zofran) 4 mg IV Q6H PRN PRN Reason: Nausea Stop: 09/15/18 16:57 Pantoprazole Sodium (Protonix) 40 mg PO QAM [facility] Stop: 09/16/18 08:59 Last Admin: 08/27/18 08:01 Dose: 40 mg Potassium Chloride (Klor-Con M20) 60 meq PO QID [facility] Stop: 09/24/18 08:59 Last Admin: 08/27/18 12:09 Dose: 60 meq Raspberry (Raspberry) 5 ml PO Q6 [facility] Stop: 08/30/18 17:59 Last Admin: 08/27/18 12:07 Dose: 5 ml Sertraline HCl (Zoloft) 100 mg PO QAM [facility] Stop: 09/16/18 08:59 Last Admin: 08/27/18 08:01 Dose: 100 mg Sodium Chloride ([place] Nasal) 2 sprays NA Q2H PRN PRN Reason: Dryness Stop: 09/25/18 14:52 Last Admin: 08/26/18 16:21 Dose: 2 sprays Vancomycin HCl (Vancomycin Hcl) 250 mg PO Q6 [facility] Stop: 08/30/18 17:59 Last Admin: 08/27/18 12:08 Dose: 250 mg Warfarin Sodium (Coumadin) 2 mg PO DAILY@1600 [facility] Stop: 09/25/18 15:59 Last Admin: 08/26/18 16:20 Dose: 2 mg Zolpidem Tartrate (Ambien) 5 mg PO HS PRN PRN Reason: Sleep Stop: 09/15/18 16:57 _ (1) Atrial fibrillation Atrial fibrillation type: chronic Qualified Code(s): I48.2 - Chronic atrial fibrillation (2) Hypertension Hypertension type: essential hypertension Qualified Code(s): I10 - Essential (primary) hypertension (3) Cirrhosis Hepatic cirrhosis type: unspecified hepatic cirrhosis Ascites presence: without ascites Qualified Code(s): K74.60 - Unspecified cirrhosis of liver
[2018-08-27] MEDS: WARFARIN SOD 2 MG TAB PO SCH (16:36)
--- NOTE | 2018-08-27 21:47 | Hospitalist Progress Note ---
Date of Service August 27, 2018 Assessment & Plan (1) C. 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 Continue Bumex 4 mg twice daily with Diuril 250 mg IV twice daily. As per cardiology noncompliance with potassium supplementation was likely playing a role in hypokalemia. Strict I&Os recommended. Daily weights. Continue low-sodium diet, less than 2000 mg daily. excellent response, Cr holding, below 1 likely here until mid week for diuresis continue 1500mL restriction even on discharge continue Eplerenone edema improving every day making 4-5 liters of urine a day weight same as yesterday at 110kg, unsure if accurate Lost about 12 liters daily. (3) Hypokalemia: continue KCl 60 QID K is 3.4 repeat tomorrow (4) Hyponatremia: chronic problem going back several months since patient is volume overloaded, suspect this is due to heart failure, also some cirrhosis recommend volume restriction of 1500mL / day sodium stable with fluid restriction this confirms that it was all due to volume overload (5) Cirrhosis: based off of imaging on CT and liver US certainly has risk factors with heavy drinking in the past and long standing heart failure Dr. Myers has seen patient. explained to patient and his family that the management for cirrhosis will be medications, outpatient will need to make sure he is up to day on EGD for varices screening Hepatitis B and C negative continue Bumex (had some ascites on CT) minimal elevation in Bilirubin, AST, Alk phos, all stable today, trending down slightly Cr and platelet count normal, ammonia only 30 when it was checked INR 3.4 long talk with patient and family about importance of medication compliance explained that he is compensated reasonably well with his cirrhosis he should follow up with Dr. Myers / Arely Michael in 2 weeks (6) Supratherapeutic INR: present on admission unclear etiology, diet was stable as outpatient no new medications perhaps due to cirrhotic changes? INR up to 4.1 today will hold warfarin today. follow INR daily (7) COPD (chronic obstructive pulmonary disease): stable, no wheezing (8) Atrial fibrillation: chronic, paced (9) Pleural effusion: chronic issue, was exudative in the past (April) has not been tapped again certainly would think this could be related to CHF and cirrhosis no plans for tap at this time per Dr. Castellanos (10) Hx of CABG: no chest pain (11) Mechanical heart valve present: INR as noted above. need to diurese further with Diuril IV likely here through mid week make sure patient takes Vancomycin until 08/30 for C diff should follow up with Dr. Myers for both the C diff and cirrhosis should follow up with heart failure clinic within one week of discharge Spent 40 minutes in management of patient Subjective Patient currently is breathing well, with no dyspnea on exertion. Patient is having small stools he states are shaped as tadpools. He is no longer having diarrhea and is eating well. Patient notices a decrease in his edema. reviewed labs, K up to 3.8, Cr is stable Respiratory: + dyspnea on exertion, + pain on inspiration and + pain with cough Cardiovascular: + edema Physical Exam 2 Vital Signs (Past 24 Hours): Last Vital Signs Temp 36.2 C L 08/27/18 15:21 Pulse 75 08/27/18 20:51 Resp 18 08/27/18 15:21 BP 110/66 08/27/18 20:51 Pulse Ox 97 08/27/18 15:21 Physical Exam: Constitutional: WD/WN, vitals as above Eyes: PERRL, conjunctivae normal, anicteric sclerae ENMT: external ear and nose normal, oropharynx normal Neck: trachea midline, no thyromegaly Respiratory: normal respiratory effort; no respiratory distress Auscultation: + diminished lung sounds (right base); no crackles, no rales and no wheezes Cardiovascular: Rate/Rhythm: regular rate and regular rhythm Heart Sounds: normal S1 and normal S2 Extremities: + pedal edema (less edema today) Gastrointestinal (Abdomen): normal bowel sounds, soft, nontender, no hepatosplenomegaly Musculoskeletal: no cyanosis or clubbing, extremities motor strength 5/5 Skin: no rashes, warm and dry (chronic venous stasis changes in legs) Neurologic: patellar DTR's 2+ bilat, sensation intact and PERRL, EOMI, accommodation nl, no face palsy, no dysarthria Psychiatric: A+Ox3, euthymic affect Lymphatic: no cervical or axillary lymphadenopathy _ (1) Atrial fibrillation Atrial fibrillation type: chronic Qualified Code(s): I48.2 - Chronic atrial fibrillation (2) Cirrhosis Ascites presence: without ascites Hepatic cirrhosis type: unspecified hepatic cirrhosis Qualified Code(s): K74.60 - Unspecified cirrhosis of liver (3) COPD (chronic obstructive pulmonary disease) COPD type: unspecified COPD Chronic bronchitis type: Emphysema type: Qualified Code(s): J44.9 - Chronic obstructive pulmonary disease, unspecified
[2018-08-28] MEDS: VANCOMYCIN HCL 250 MG/5 ML SOLN PO SCH ×4 (05:34→23:35)
[2018-08-28] MEDS: RASPBERRY SYRUP 5 ML UDP PO SCH ×4 (05:34→23:35)
[2018-08-28] MEDS: GABAPENTIN 100 MG CAP PO SCH ×3 (07:43→17:00)
[2018-08-28] MEDS: METOPROLOL SUCC 50MG EXT REL TAB PO SCH ×2 (07:43→19:54)
[2018-08-28] MEDS: SERTRALINE HCL 100 MG TABLET PO SCH (07:43)
[2018-08-28] MEDS: PANTOprazole 40 MG TAB PO SCH (07:43)
[2018-08-28] MEDS: IPRATROPIUM BROMIDE/ALBUTEROL respimat INH INH SCH ×4 (07:43→19:56)
[2018-08-28] MEDS: ALLOPURINOL 100 MG TAB PO SCH ×2 (07:43→19:55)
[2018-08-28] MEDS: ASPIRIN 81 MG ECTAB PO SCH (07:44)
[2018-08-28] MEDS: POTASSIUM CHLORIDE 20 MEQ TABCR PO SCH ×4 (07:44→19:54)
[2018-08-28] MEDS: BUMETANIDE 1 MG TAB PO SCH ×2 (07:44→17:01)
[2018-08-28] MEDS: EPLERONONE 25 MG PO SCH ×2 (07:45→19:53)
[2018-08-28] MEDS: CHLOROTHIAZIDE SODIUM 250 MG in DEXTROSE 5% 50 ML IV SCH ×2 (07:57→16:59)
[2018-08-28 08:01] LABS: INR 3.6 (0.9-1.1); Prothrombin Time 33.9 Seconds (9.0-12.0)
[2018-08-28 09:09] LABS: BUN Creatinine Ratio 21.9 (10-20); Calcium 9.2 mg/dl (8.5-10.1); Est GFR (African American) 118.8; Est GFR (Non-African American) 102.5; Potassium 4.1 mmol/L (3.5-5.1)
--- NOTE | 2018-08-28 10:11 | Cardiology Progress Note ---
Date of Service August 28, 2018 Assessment & Plan (1) Acute on chronic diastolic CHF (congestive heart failure): He remains hypervolemic but has improved significantly and continues to diurese well. Continue Bumex 4 mg twice daily with Diuril 250 mg IV twice daily with a net goal of negative 2-3 L per day. His renal function remains normal at this time. He had been on large doses of Lasix as an outpatient but was using metolazone quite regularly and having more issues with hyponatremia and hypokalemia although noncompliance with potassium supplementation was likely playing a role. Strict I&Os recommended. Daily weights. Agree with fluid restriction, < 1500ml/day. Low-sodium diet, less than 2000 mg daily. In the past, he did not tolerate spironolactone but has tolerated eplerenone, which has been used for potassium sparing diuretic affect. (2) Atrial fibrillation: Heart rate has been well controlled. Continue rate control strategy with metoprolol succinate 50 mg twice daily. Continue anticoagulation for stroke risk reduction if no contraindications. Goal INR is 2.5-3.5. INR supratherapeutic today. (3) Hypertension: Blood pressure Remains well controlled. Continue current regimen. (4) Hyponatremia: Agree with fluid restriction. 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 Diuresis as above. (6) Cirrhosis: As per GI. (7) Mechanical heart valve present: Asymptomatic in this regard. Continue to monitor over time as an outpatient. Continue anticoagulation for stroke risk reduction. Continue ASA 81 mg po daily. Disposition: He is diuresing well but remains hypervolemic. Continue current plan. He will still likely require a few more days of diuresis. Dr. Colmenares will return tomorrow. He will continue to follow with the heart failure program. Anticipate aggressive follow up care post-discharge. Subjective He continues to improve each day. His edema has improved but remains significant. He is able to walk in the hallway now without stopping for dyspnea. He denies shortness of breath, orthopnea, chest pain, palpitations, syncope, or melena, hematochezia, hematuria. He also states his stools have been more formed. Review of systems: As above. Physical Exam 2 Vital Signs (Past 24 Hours): Last Vital Signs Temp 36.2 C L 08/28/18 07:15 Pulse 75 01/29/19 07:15 Resp 16 08/28/18 07:15 BP 111/68 08/28/18 07:15 Pulse Ox 96 08/28/18 07:15 Physical Exam: Constitutional: Alert, cooperative and in no distress. HEENT: Unremarkable Neck: Mild JVD midway to the jawline sitting upright, carotid pulses are normal and equal bilaterally without bruits. Pulmonary: Bilateral crackles at the bases, otherwise clear to auscultation bilaterally. Cardiac: Regular rhythm with no murmur, gallop or rub. Abdomen: Soft, nontender with normal bowel sounds. Extremities: +2 distal pulses intact. 2+ edema extending up through the thighs bilaterally Neurologic: No focal findings. Gait is steady. Skin: No rash, ecchymoses or petechiae. _ (1) Atrial fibrillation Atrial fibrillation type: chronic Qualified Code(s): I48.2 - Chronic atrial fibrillation (2) Cirrhosis Ascites presence: without ascites Hepatic cirrhosis type: unspecified hepatic cirrhosis Qualified Code(s): K74.60 - Unspecified cirrhosis of liver (3) Hypertension Hypertension type: essential hypertension Qualified Code(s): I10 - Essential (primary) hypertension
[2018-08-28] MEDS: WARFARIN SOD 2 MG TAB PO SCH (16:46)
--- NOTE | 2018-08-28 22:37 | Hospitalist Progress Note ---
Date of Service August 28, 2018 Assessment & Plan (1) C. 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 Continue Bumex 4 mg twice daily with Diuril 250 mg IV twice daily. As per cardiology noncompliance with potassium supplementation was likely playing a role in hypokalemia. Strict I&Os recommended. Daily weights. Continue low-sodium diet, less than 2000 mg daily. excellent response, Cr holding, below 1 likely here until mid week for diuresis continue 1500mL restriction even on discharge continue Eplerenone edema improving every day making 4-5 liters of urine a day weight same as yesterday at 110kg, unsure if accurate Lost about 15 liters daily. (3) Hypokalemia: continue KCl 60 QID K is 4.1 (4) Hyponatremia: chronic problem going back several months since patient is volume overloaded, suspect this is due to heart failure, also some cirrhosis recommend volume restriction of 1500mL / day sodium stable with fluid restriction this confirms that it was all due to volume overload (5) Cirrhosis: based off of imaging on CT and liver US certainly has risk factors with heavy drinking in the past and long standing heart failure Dr. Myers has seen patient. explained to patient and his family that the management for cirrhosis will be medications, outpatient will need to make sure he is up to day on EGD for varices screening Hepatitis B and C negative continue Bumex (had some ascites on CT) minimal elevation in Bilirubin, AST, Alk phos, all stable today, trending down slightly Cr and platelet count normal, ammonia only 30 when it was checked long talk with patient and family about importance of medication compliance explained that he is compensated reasonably well with his cirrhosis he should follow up with Dr. Myers / Arely Michael in 2 weeks (6) Supratherapeutic INR: present on admission unclear etiology, diet was stable as outpatient no new medications perhaps due to cirrhotic changes? INR is 3.6 will hold warfarin today. follow INR daily (7) COPD (chronic obstructive pulmonary disease): stable, no wheezing (8) Atrial fibrillation: chronic, paced (9) Pleural effusion: chronic issue, was exudative in the past (April) has not been tapped again certainly would think this could be related to CHF and cirrhosis no plans for tap at this time per Dr. Castellanos (10) Hx of CABG: no chest pain (11) Mechanical heart valve present: INR as noted above. need to diurese further with Diuril IV likely here through mid week make sure patient takes Vancomycin until 08/30 for C diff should follow up with Dr. Myers for both the C diff and cirrhosis should follow up with heart failure clinic within one week of discharge Spent 35 minutes in management of patient Subjective Patient currently is breathing well, with no dyspnea on exertion. Patient states that he is no longer having diarrhea and is eating well. Patient continues to notice a decrease in his edema. Respiratory: + dyspnea on exertion, + pain on inspiration and + pain with cough Cardiovascular: + edema Physical Exam 2 Vital Signs (Past 24 Hours): Last Vital Signs Temp 36.1 C L 08/28/18 15:10 Pulse 74 08/28/18 15:10 Resp 20 08/28/18 15:10 BP 115/68 08/28/18 15:10 Pulse Ox 93 08/28/18 15:10 Physical Exam: Constitutional: WD/WN, vitals as above Eyes: PERRL, conjunctivae normal, anicteric sclerae ENMT: external ear and nose normal, oropharynx normal Neck: trachea midline, no thyromegaly Respiratory: normal respiratory effort; no respiratory distress Auscultation: + diminished lung sounds (right base); no crackles, no rales and no wheezes Cardiovascular: Rate/Rhythm: regular rate and regular rhythm Heart Sounds: normal S1 and normal S2 Extremities: + pedal edema (less edema today) Gastrointestinal (Abdomen): normal bowel sounds, soft, nontender, no hepatosplenomegaly Musculoskeletal: no cyanosis or clubbing, extremities motor strength 5/5 Skin: no rashes, warm and dry (chronic venous stasis changes in legs) Neurologic: patellar DTR's 2+ bilat, sensation intact and PERRL, EOMI, accommodation nl, no face palsy, no dysarthria Psychiatric: A+Ox3, euthymic affect Lymphatic: no cervical or axillary lymphadenopathy _ (1) Atrial fibrillation Atrial fibrillation type: chronic Qualified Code(s): I48.2 - Chronic atrial fibrillation (2) Cirrhosis Ascites presence: without ascites Hepatic cirrhosis type: unspecified hepatic cirrhosis Qualified Code(s): K74.60 - Unspecified cirrhosis of liver (3) COPD (chronic obstructive pulmonary disease) COPD type: unspecified COPD Chronic bronchitis type: Emphysema type: Qualified Code(s): J44.9 - Chronic obstructive pulmonary disease, unspecified
[2018-08-29] MEDS: VANCOMYCIN HCL 250 MG/5 ML SOLN PO SCH ×4 (05:06→23:50)
[2018-08-29] MEDS: RASPBERRY SYRUP 5 ML UDP PO SCH ×4 (05:06→23:50)
[2018-08-29 07:21] LABS: INR 2.5 (0.9-1.1); Prothrombin Time 24.1 Seconds (9.0-12.0)
[2018-08-29] MEDS: CHLOROTHIAZIDE SODIUM 250 MG in DEXTROSE 5% 50 ML IV SCH ×2 (07:39→16:19)
[2018-08-29] MEDS: IPRATROPIUM BROMIDE/ALBUTEROL respimat INH INH SCH ×4 (07:43→19:49)
[2018-08-29] MEDS: BUMETANIDE 1 MG TAB PO SCH ×2 (07:43→16:19)
[2018-08-29] MEDS: GABAPENTIN 100 MG CAP PO SCH ×3 (07:43→16:21)
[2018-08-29] MEDS: EPLERONONE 25 MG PO SCH ×2 (07:44→19:50)
[2018-08-29] MEDS: METOPROLOL SUCC 50MG EXT REL TAB PO SCH ×2 (07:44→19:50)
[2018-08-29] MEDS: POTASSIUM CHLORIDE 20 MEQ TABCR PO SCH ×5 (07:44→19:49)
[2018-08-29] MEDS: ASPIRIN 81 MG ECTAB PO SCH (07:44)
[2018-08-29] MEDS: PANTOprazole 40 MG TAB PO SCH (07:44)
[2018-08-29] MEDS: ALLOPURINOL 100 MG TAB PO SCH ×2 (07:45→19:52)
[2018-08-29] MEDS: SERTRALINE HCL 100 MG TABLET PO SCH (07:45)
--- NOTE | 2018-08-29 09:13 | Cardiology Progress Note ---
Date of Service August 29, 2018 Assessment & Plan (1) Acute on chronic diastolic CHF (congestive heart failure): He continues to improve and is diuresing quite nicely. Continue Bumex 4 mg twice daily with Diuril 250 mg IV twice daily. Continue eplerenone. Strict I&Os recommended. Daily weights. Agree with fluid restriction, < 1500ml/day. Low-sodium diet, less than 2000 mg daily. (2) Atrial fibrillation: He is tolerating rate control strategy. Continue metoprolol succinate 50 mg twice daily. Continue Coumadin with a goal INR 2.5-3.5. (3) Hypertension: Continue current medications. Blood pressure has been reasonably controlled. (4) Hyponatremia: Agree with fluid restriction. Hyponatremia is likely secondary to CHF and cirrhosis. 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 Heart failure could also be playing a role. Diuresis as above. (6) Cirrhosis: As per GI. (7) Mechanical heart valve present: Asymptomatic in this regard. Continue to monitor over time as an outpatient. Continue anticoagulation for stroke risk reduction. Continue ASA 81 mg po daily. Disposition: Continue intravenous diuretic therapy. He would like to go home by the weekend and therefore we have discussed potential discharge on Monday. Cardiology will continue to follow. Subjective He was able to walk around the nursing station over 2 times and denies any shortness of breath. He denies orthopnea, shortness of breath at rest, syncope , near-syncope, palpitations, or bleeding. He believes his edema continues to improve. He would like to go home by the weekend. Review of systems: As above. Physical Exam 2 Vital Signs (Past 24 Hours): Last Vital Signs Temp 36.3 C L 08/29/18 07:07 Pulse 69 08/29/18 07:07 Resp 20 08/29/18 07:07 BP 108/65 08/29/18 07:07 Pulse Ox 94 08/29/18 07:07 Intake & Output 08/27/18 08/28/18 08/29/18 08/30/18 06:59 06:59 06:59 06:59 Intake Total 973 / 973 1338 / 1338 1278 / 1278 59 / 59 Output Total 4000 / 4000 4225 / 4225 2300 / 2300 Balance -3027 / -3027 -2887 / -2887 -1022 / -1022 Weight 110 kg 109.7 kg 109 kg Physical Exam: Gen.: No acute distress. Alert and oriented. HEENT: Anicteric sclera. Neck: Mild JVD. Cardiac: Irregularly irregular. Normal S1-S2. 2/6 systolic ejection murmur. Pulmonary: Clear to auscultation bilaterally without wheezes, rales, or rhonchi. Abdomen: Soft, nontender, nondistended, with normoactive bowel sounds. No bruits noted. Extremities: 1+ bilateral lower extremity edema to the hips. No cyanosis. Psychiatric: Affect appears appropriate. Results & Data Laboratory Results Laboratory Results - last 24 hr 08/29/18 06:40 PT 24.1 H INR 2.5 H Medications Administered Current Inpatient Medications Acetaminophen (Tylenol) 650 mg PO Q4H PRN PRN Reason: Pain or Fever Stop: 09/15/18 16:57 Al Hydrox/Mg Hydrox/Simethicone (Maalox) 15 ml PO Q4H PRN PRN Reason: Dyspepsia Stop: 09/15/18 16:57 Albuterol (Combivent Respimat) 1 puffs INH QID [facility] Stop: 09/15/18 16:59 Last Admin: 08/29/18 07:43 Dose: 1 puffs Allopurinol (Zyloprim) 100 mg PO BID [facility] Stop: 09/15/18 20:59 Last Admin: 08/29/18 07:45 Dose: 100 mg Aspirin (Ecotrin Ectab) 81 mg PO QAM [facility] Stop: 09/22/18 14:44 Last Admin: 08/29/18 07:44 Dose: 81 mg Bumetanide (Bumex) 4 mg PO BID17 [facility] Stop: 09/20/18 17:44 Last Admin: 08/29/18 07:43 Dose: 4 mg Gabapentin (Neurontin) 100 mg PO TIDM [facility] Stop: 09/15/18 16:59 Last Admin: 08/29/18 07:43 Dose: 100 mg Chlorothiazide Sodium 250 mg/ (Dextrose) 59 mls @ 200 mls/hr IV BID17 [facility] Stop: 09/23/18 16:59 Last Infusion: 08/29/18 08:19 Dose: Infused Metoprolol Succinate (Toprol Xl) 50 mg PO BID [facility] Stop: 09/15/18 20:59 Last Admin: 08/29/18 07:44 Dose: 50 mg Epleronone 25 Mg - Non-Formulary Patient's Own Med 2 ea PO BID [facility] Stop: 09/16/18 20:59 Last Admin: 08/29/18 07:44 Dose: 2 tab Ondansetron HCl (Zofran) 4 mg IV Q6H PRN PRN Reason: Nausea Stop: 09/15/18 16:57 Pantoprazole Sodium (Protonix) 40 mg PO QAM [facility] Stop: 09/16/18 08:59 Last Admin: 08/29/18 07:44 Dose: 40 mg Potassium Chloride (Klor-Con M20) 60 meq PO QID [facility] Stop: 09/24/18 08:59 Last Admin: 08/29/18 07:44 Dose: 60 meq Raspberry (Raspberry) 5 ml PO Q6 [facility] Stop: 08/30/18 17:59 Last Admin: 08/29/18 05:06 Dose: 5 ml Sertraline HCl (Zoloft) 100 mg PO QAM [facility] Stop: 09/16/18 08:59 Last Admin: 08/29/18 07:45 Dose: 100 mg Sodium Chloride ([place] Nasal) 2 sprays NA Q2H PRN PRN Reason: Dryness Stop: 09/25/18 14:52 Last Admin: 08/26/18 16:21 Dose: 2 sprays Vancomycin HCl (Vancomycin Hcl) 250 mg PO Q6 [facility] Stop: 08/30/18 17:59 Last Admin: 08/29/18 05:06 Dose: 250 mg Warfarin Sodium (Coumadin) 2 mg PO DAILY@1600 [facility] Stop: 09/25/18 15:59 Last Admin: 08/28/18 16:46 Dose: Not Given Zolpidem Tartrate (Ambien) 5 mg PO HS PRN PRN Reason: Sleep Stop: 09/15/18 16:57 _ (1) Atrial fibrillation Atrial fibrillation type: chronic Qualified Code(s): I48.2 - Chronic atrial fibrillation (2) Hypertension Hypertension type: essential hypertension Qualified Code(s): I10 - Essential (primary) hypertension (3) Cirrhosis Hepatic cirrhosis type: unspecified hepatic cirrhosis Ascites presence: without ascites Qualified Code(s): K74.60 - Unspecified cirrhosis of liver
[2018-08-29] MEDS ORDERED: WARFARIN SOD 2.5 MG TAB PO ONE (11:02)
[2018-08-30] MEDS: VANCOMYCIN HCL 250 MG/5 ML SOLN PO SCH ×2 (05:42→12:03)
[2018-08-30] MEDS: RASPBERRY SYRUP 5 ML UDP PO SCH ×2 (05:43→12:03)
[2018-08-30 06:40] LABS: Hematocrit (blood only) 37.4 % (42-52); Hemoglobin 12.8 g/dL (14.0-18.0); Mean Corpuscular Hgb Conc 34.2 g/dL (32-36); Mean Corpuscular Volume 92.1 fL (80-100); Mean Platelet Volume 9.4 fL (7.4-10.4); Platelet Count 144 K/uL (130-400); RDW Standard Deviation 59.6 fL (36.4-46.3); Red Blood Count 4.06 M/uL (4.7-6.1); White Blood Count 7.42 K/uL (4.8-10.8)
[2018-08-30 06:47] LABS: INR 2.2 (0.9-1.1); Prothrombin Time 21.4 Seconds (9.0-12.0)
[2018-08-30 07:16] LABS: BUN Creatinine Ratio 28.1 (10-20); Calcium 9.2 mg/dl (8.5-10.1); Creatinine Clr Calc Pharmacy 127.2 ml/min; Est GFR (Non-African American) 100.1; Potassium 4.3 mmol/L (3.5-5.1)
[2018-08-30] MEDS: METOPROLOL SUCC 50MG EXT REL TAB PO SCH ×2 (07:50→21:12)
[2018-08-30] MEDS: GABAPENTIN 100 MG CAP PO SCH ×3 (07:50→16:48)
[2018-08-30] MEDS: ALLOPURINOL 100 MG TAB PO SCH ×2 (07:50→21:10)
[2018-08-30] MEDS: PANTOprazole 40 MG TAB PO SCH (07:51)
[2018-08-30] MEDS: BUMETANIDE 1 MG TAB PO SCH ×2 (07:51→16:46)
[2018-08-30] MEDS: POTASSIUM CHLORIDE 20 MEQ TABCR PO SCH ×4 (07:51→21:11)
[2018-08-30] MEDS: ASPIRIN 81 MG ECTAB PO SCH (07:51)
[2018-08-30] MEDS: SERTRALINE HCL 100 MG TABLET PO SCH (07:52)
[2018-08-30] MEDS: EPLERONONE 25 MG PO SCH ×2 (07:52→21:12)
[2018-08-30] MEDS: IPRATROPIUM BROMIDE/ALBUTEROL respimat INH INH SCH ×4 (07:53→21:13)
[2018-08-30] MEDS: CHLOROTHIAZIDE SODIUM 250 MG in DEXTROSE 5% 50 ML IV SCH ×2 (07:53→16:53)
--- NOTE | 2018-08-30 09:28 | Cardiology Progress Note ---
Date of Service August 30, 2018 Assessment & Plan (1) Acute on chronic diastolic CHF (congestive heart failure): He is diuresing well each day. Unfortunately, his weights do not correlate well with negative fluid balance. He assures us that he is maintaining the fluid restriction. Continue Bumex 4 mg twice daily with Diuril 250 mg IV twice daily. Continue eplerenone. Strict I&Os recommended. Daily weights. Agree with fluid restriction, < 1500ml/day. Low-sodium diet, less than 2000 mg daily. Upon discharge, recommend Bumex 4 mg twice daily with metolazone as needed. Close follow-up with heart failure program on discharge. (2) Atrial fibrillation: He is tolerating rate control strategy. Continue metoprolol succinate 50 mg twice daily. Continue Coumadin with a goal INR 2.5-3.5. Coumadin is being managed by hospitalist service. (3) Hypertension: Continue current medications. Blood pressure has been reasonably controlled. (4) Hyponatremia: Agree with fluid restriction. Hyponatremia is likely secondary to CHF and cirrhosis. (5) Pleural effusion: [place] to be hepatic hydrothorax as per GI. Heart failure could also be playing a role. Diuresis as above. (6) Cirrhosis: As per GI. (7) Mechanical heart valve present: Asymptomatic in this regard. Continue to monitor over time as an outpatient. Continue anticoagulation for stroke risk reduction. Continue ASA 81 mg po daily. Disposition: Continue intravenous diuretic therapy. He would like to go home by the weekend and therefore we have discussed potential discharge on Monday. Cardiology will continue to follow. Patient care discussed with Dr. Lacey of the hospitalist service. Subjective He denies shortness of breath. He states that he feels "great. " He walks in the hallway without dyspnea. He denies orthopnea. He denies syncope, near- syncope, palpitations, chest pain. He states that he is keeping with a fluid restriction. We discussed with nursing staff fluid restriction when he goes home and she will make him a copy of the current guide that they are using to manage his fluid intake while hospitalized so that he can use this as a template at home. He also was encouraged to use his [facility] mug, which has mL markings so that he can accurately measure at home. Review of systems: As above. Physical Exam 2 Vital Signs (Past 24 Hours): Last Vital Signs Temp 36.4 C L 08/30/18 07:12 Pulse 77 08/30/18 07:12 Resp 20 08/30/18 07:12 BP 117/67 08/30/18 07:12 Pulse Ox 93 08/30/18 07:12 Intake & Output 08/28/18 08/29/18 08/30/18 08/31/18 06:59 06:59 06:59 06:59 Intake Total 1338 / 1338 1278 / 1278 1318 / 1318 59 59 Output Total 4225 / 4225 2300 / 2300 3300 / 3300 Balance -2887 / -2887 -1021 / -102 -1981 / 59 Weight 109.7 kg 109 kg 108.9 kg Physical Exam: Gen.: No acute distress. Alert and oriented. HEENT: Anicteric sclera. Neck: Mild JVD. Cardiac: irregularly irregular. Normal S1. [place] S2. 1/6 systolic murmur. No rubs, or gallops. Pulmonary: Clear to auscultation bilaterally without wheezes, rales, or rhonchi. Abdomen: Soft, nontender, nondistended, with normoactive bowel sounds. No bruits noted. Extremities: 1+ bilateral lower extremity edema. No cyanosis. Psychiatric: Affect appears appropriate. Results & Data Laboratory Results Laboratory Results - last 24 hr 08/30/18 08/30/18 08/30/18 06:29 06:29 06:29 WBC 7.42 RBC 4.06 L Hgb 12.8 L Hct 37.4 L MCV 92.1 MCH 31.5 MCHC 34.2 RDW Std Deviation 59.6 H RDW Coeff of Nic 18.0 H Plt Count 144 MPV 9.4 PT 21.4 H INR 2.2 H Sodium 127 L Potassium 4.3 Chloride 92 L Carbon Dioxide 28 Anion Gap 7.0 BUN 20 H Creatinine 0.73 Est Cr Clr Drug Dosing 127.2 Est GFR ( Amer) 116.0 Est GFR (Non-Af Amer) 100.1 BUN/Creatinine Ratio 28.1 H Glucose 94 Calcium 9.2 Medications Administered Current Inpatient Medications Acetaminophen (Tylenol) 650 mg PO Q4H PRN PRN Reason: Pain or Fever Stop: 09/15/18 16:57 Al Hydrox/Mg Hydrox/Simethicone (Maalox) 15 ml PO Q4H PRN PRN Reason: Dyspepsia Stop: 09/15/18 16:57 Albuterol (Combivent Respimat) 1 puffs INH QID [facility], [facility]1983 Stop: 09/15/18 16:59 Last Admin: 08/30/18 07:53 Dose: 1 puffs Allopurinol (Zyloprim) 100 mg PO BID [facility]1983 Stop: 09/15/18 20:59 Last Admin: 08/30/18 07:50 Dose: 100 mg Aspirin (Ecotrin Ectab) 81 mg PO QAM [facility]1983 Stop: 09/22/18 14:44 Last Admin: 08/30/18 07:51 Dose: 81 mg Bumetanide (Bumex) 4 mg PO BID17 [facility]1983 Stop: 09/20/18 17:44 Last Admin: 08/30/18 07:51 Dose: 4 mg Gabapentin (Neurontin) 100 mg PO TIDM [facility]1983 Stop: 09/15/18 16:59 Last Admin: 08/30/18 07:50 Dose: 100 mg Chlorothiazide Sodium 250 mg/ (Dextrose) 59 mls @ 200 mls/hr IV BID17 [facility]1983 Stop: 09/23/18 16:59 Last Infusion: 08/30/18 08:11 Dose: Infused Metoprolol Succinate (Toprol Xl) 50 mg PO BID [facility]1983 Stop: 09/15/18 20:59 Last Admin: 08/30/18 07:50 Dose: 50 mg Epleronone 25 Mg - Non-Formulary Patient's Own Med 2 ea PO BID [facility] Stop: 09/16/18 20:59 Last Admin: 08/30/18 07:52 Dose: 2 tab Ondansetron HCl (Zofran) 4 mg IV Q6H PRN PRN Reason: Nausea Stop: 09/15/18 16:57 Pantoprazole Sodium (Protonix) 40 mg PO QAM [facility] Stop: 09/16/18 08:59 Last Admin: 08/30/18 07:51 Dose: 40 mg Potassium Chloride (Klor-Con M20) 60 meq PO QID [facility] Stop: 09/24/18 08:59 Last Admin: 08/30/18 07:51 Dose: 60 meq Raspberry (Raspberry) 5 ml PO Q6 [facility] Stop: 08/30/18 17:59 Last Admin: 08/30/18 05:43 Dose: 5 ml Sertraline HCl (Zoloft) 100 mg PO QAM [facility] Stop: 09/16/18 08:59 Last Admin: 08/30/18 07:52 Dose: 100 mg Sodium Chloride ([place] Nasal) 2 sprays NA Q2H PRN PRN Reason: Dryness Stop: 09/25/18 14:52 Last Admin: 08/26/18 16:21 Dose: 2 sprays Vancomycin HCl (Vancomycin Hcl) 250 mg PO Q6 [facility] Stop: 08/30/18 17:59 Last Admin: 08/30/18 05:42 Dose: 250 mg Warfarin Sodium (Coumadin) 2 mg PO DAILY@1600 [facility] Stop: 09/25/18 15:59 Last Admin: 08/28/18 16:46 Dose: Not Given Zolpidem Tartrate (Ambien) 5 mg PO HS PRN PRN Reason: Sleep Stop: 09/15/18 16:57 _ (1) Atrial fibrillation Atrial fibrillation type: chronic Qualified Code(s): I48.2 - Chronic atrial fibrillation (2) Hypertension Hypertension type: essential hypertension Qualified Code(s): I10 - Essential (primary) hypertension (3) Cirrhosis Hepatic cirrhosis type: unspecified hepatic cirrhosis Ascites presence: without ascites Qualified Code(s): K74.60 - Unspecified cirrhosis of liver
--- NOTE | 2018-08-30 10:39 | Hospitalist Progress Note ---
Date of Service August 29, 2018 Assessment & Plan (1) C. 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 Continue Bumex 4 mg twice daily with Diuril 250 mg IV twice daily. As per cardiology noncompliance with potassium supplementation was likely playing a role in hypokalemia. Strict I&Os recommended. Daily weights. Continue low-sodium diet, less than 2000 mg daily. excellent response, Cr holding, below 1 likely here until mid week for diuresis continue 1500mL restriction even on discharge continue Eplerenone edema improving every day making 4-5 liters of urine a day weight at 109kg Lost about 18 liters in total. (3) Hypokalemia: continue KCl 60 QID K is 4.1 (4) Hyponatremia: chronic problem going back several months since patient is volume overloaded, suspect this is due to heart failure, also some cirrhosis recommend volume restriction of 1500mL / day sodium stable with fluid restriction this confirms that it was all due to volume overload (5) Cirrhosis: based off of imaging on CT and liver US certainly has risk factors with heavy drinking in the past and long standing heart failure Dr. Myers has seen patient. explained to patient and his family that the management for cirrhosis will be medications, outpatient will need to make sure he is up to day on EGD for varices screening Hepatitis B and C negative continue Bumex (had some ascites on CT) minimal elevation in Bilirubin, AST, Alk phos, all stable today, trending down slightly Cr and platelet count normal, ammonia only 30 when it was checked long talk with patient and family about importance of medication compliance explained that he is compensated reasonably well with his cirrhosis he should follow up with Dr. Myers / Arely Michael in 2 weeks (6) Supratherapeutic INR: present on admission unclear etiology, diet was stable as outpatient no new medications perhaps due to cirrhotic changes? INR is at goal. will resume warfarin today. follow INR daily (7) COPD (chronic obstructive pulmonary disease): stable, no wheezing (8) Atrial fibrillation: chronic, paced (9) Pleural effusion: chronic issue, was exudative in the past (April) has not been tapped again certainly would think this could be related to CHF and cirrhosis no plans for tap at this time per Dr. Castellanos (10) Hx of CABG: no chest pain (11) Mechanical heart valve present: INR as noted above. need to diurese further with Diuril IV make sure patient takes Vancomycin until 08/30 for C diff should follow up with Dr. Myers for both the C diff and cirrhosis should follow up with heart failure clinic within one week of discharge Spent 25 minutes in management of patient Subjective Patient reports feeling better. He continues to notice improvement in his lower extemity swelling. Physical Exam 2 Vital Signs (Past 24 Hours): Last Vital Signs Temp 36.3 C L 08/29/18 07:07 Pulse 69 08/29/18 07:07 Resp 20 08/29/18 07:07 BP 108/65 08/29/18 07:07 Pulse Ox 94 08/29/18 07:07 Physical Exam: Constitutional: WD/WN, vitals as above Eyes: PERRL, conjunctivae normal, anicteric sclerae ENMT: external ear and nose normal, oropharynx normal Neck: trachea midline, no thyromegaly Respiratory: normal respiratory effort; no respiratory distress Auscultation: + diminished lung sounds (right base); no crackles, no rales and no wheezes Cardiovascular: Rate/Rhythm: regular rate and regular rhythm Heart Sounds: normal S1 and normal S2 Extremities: + pedal edema (less edema today) Gastrointestinal (Abdomen): normal bowel sounds, soft, nontender, no hepatosplenomegaly Musculoskeletal: no cyanosis or clubbing, extremities motor strength 5/5 Skin: no rashes, warm and dry (chronic venous stasis changes in legs) Neurologic: patellar DTR's 2+ bilat, sensation intact and PERRL, EOMI, accommodation nl, no face palsy, no dysarthria Psychiatric: A+Ox3, euthymic affect Lymphatic: no cervical or axillary lymphadenopathy _ (1) Atrial fibrillation Atrial fibrillation type: chronic Qualified Code(s): I48.2 - Chronic atrial fibrillation (2) Cirrhosis Ascites presence: without ascites Hepatic cirrhosis type: unspecified hepatic cirrhosis Qualified Code(s): K74.60 - Unspecified cirrhosis of liver (3) COPD (chronic obstructive pulmonary disease) COPD type: unspecified COPD Chronic bronchitis type: Emphysema type: Qualified Code(s): J44.9 - Chronic obstructive pulmonary disease, unspecified
[2018-08-30] MEDS ORDERED: WARFARIN SOD 2.5 MG TAB PO SCH (11:00)
--- NOTE | 2018-08-30 23:31 | Hospitalist Progress Note ---
Date of Service August 30, 2018 Assessment & Plan (1) C. difficile colitis: Patient currently has no abdominal pain, diarrhea has now stopped, solid stools (since 08/27) will continue Vancomycin PO admitted 08/16, today would be 12th day (08/28) would extend treatment to 14 days since he was slow to respond last day would be 08/30/18. Will stop medicine. 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 Continue Bumex 4 mg twice daily with Diuril 250 mg IV twice daily. As per cardiology noncompliance with potassium supplementation was likely playing a role in hypokalemia. Strict I&Os recommended. Daily weights. Continue low-sodium diet, less than 2000 mg daily. excellent response, Cr holding, below 1 likely here until mid week for diuresis continue 1500mL restriction even on discharge continue Eplerenone edema improving every day making 4-5 liters of urine a day weight at 109kg Lost about 19 liters in total. (3) Hypokalemia: continue KCl 60 QID K is 4.3 (4) Hyponatremia: chronic problem going back several months since patient is volume overloaded, suspect this is due to heart failure, also some cirrhosis recommend volume restriction of 1500mL / day sodium stable with fluid restriction Currently 127. this confirms that it was all due to volume overload (5) Cirrhosis: based off of imaging on CT and liver US certainly has risk factors with heavy drinking in the past and long standing heart failure Dr. Myers has seen patient. explained to patient and his family that the management for cirrhosis will be medications, outpatient will need to make sure he is up to day on EGD for varices screening Hepatitis B and C negative continue Bumex (had some ascites on CT) minimal elevation in Bilirubin, AST, Alk phos, all stable today, trending down slightly Cr and platelet count normal, ammonia only 30 when it was checked long talk with patient and family about importance of medication compliance explained that he is compensated reasonably well with his cirrhosis he should follow up with Dr. Myers / Arely Michael in 2 weeks (6) Supratherapeutic INR: present on admission unclear etiology, diet was stable as outpatient no new medications perhaps due to cirrhotic changes? INR is at goal. will resume warfarin today. follow INR daily (7) COPD (chronic obstructive pulmonary disease): stable, no wheezing (8) Atrial fibrillation: chronic, paced (9) Pleural effusion: chronic issue, was exudative in the past (April) has not been tapped again certainly would think this could be related to CHF and cirrhosis no plans for tap at this time per Dr. Castellanos (10) Hx of CABG: no chest pain (11) Mechanical heart valve present: INR as noted above. need to diurese further with Diuril IV make sure patient takes Vancomycin until 08/30 for C diff should follow up with Dr. Myers for both the C diff and cirrhosis should follow up with heart failure clinic within one week of discharge Spent 25 minutes in management of patient Subjective Patient reports feeling better. He has no new complaints and is looking to be discharged in AM. He continues to notice improvement in his lower extemity swelling. Respiratory: + dyspnea on exertion, + pain on inspiration and + pain with cough Cardiovascular: + edema Physical Exam 2 Vital Signs (Past 24 Hours): Last Vital Signs Temp 36.4 C L 08/30/18 15:00 Pulse 76 08/30/18 21:09 Resp 18 08/30/18 15:00 BP 120/62 08/30/18 21:09 Pulse Ox 95 08/30/18 15:00 Physical Exam: Constitutional: WD/WN, vitals as above Eyes: PERRL, conjunctivae normal, anicteric sclerae ENMT: external ear and nose normal, oropharynx normal Neck: trachea midline, no thyromegaly Respiratory: normal respiratory effort; no respiratory distress Auscultation: + diminished lung sounds (right base); no crackles, no rales and no wheezes Cardiovascular: Rate/Rhythm: regular rate and regular rhythm Heart Sounds: normal S1 and normal S2 Extremities: + pedal edema (less edema today) Gastrointestinal (Abdomen): normal bowel sounds, soft, nontender, no hepatosplenomegaly Musculoskeletal: no cyanosis or clubbing, extremities motor strength 5/5 Skin: no rashes, warm and dry (chronic venous stasis changes in legs) Neurologic: patellar DTR's 2+ bilat, sensation intact and PERRL, EOMI, accommodation nl, no face palsy, no dysarthria Psychiatric: A+Ox3, euthymic affect Lymphatic: no cervical or axillary lymphadenopathy _ (1) Atrial fibrillation Atrial fibrillation type: chronic Qualified Code(s): I48.2 - Chronic atrial fibrillation (2) Cirrhosis Ascites presence: without ascites Hepatic cirrhosis type: unspecified hepatic cirrhosis Qualified Code(s): K74.60 - Unspecified cirrhosis of liver (3) COPD (chronic obstructive pulmonary disease) COPD type: unspecified COPD Chronic bronchitis type: Emphysema type: Qualified Code(s): J44.9 - Chronic obstructive pulmonary disease, unspecified
[2018-08-31 07:10] LABS: BUN Creatinine Ratio 32.3 (10-20); Calcium 9.2 mg/dl (8.5-10.1); Creatinine Clr Calc Pharmacy 142.2 ml/min; Est GFR (African American) 121.7; Potassium 4.1 mmol/L (3.5-5.1)
[2018-08-31 08:23] LABS: INR 1.9 (0.9-1.1); Prothrombin Time 18.7 Seconds (9.0-12.0)
[2018-08-31] MEDS: PANTOprazole 40 MG TAB PO SCH (08:26)
[2018-08-31] MEDS: SERTRALINE HCL 100 MG TABLET PO SCH (08:26)
[2018-08-31] MEDS: METOPROLOL SUCC 50MG EXT REL TAB PO SCH (08:26)
[2018-08-31] MEDS: POTASSIUM CHLORIDE 20 MEQ TABCR PO SCH ×2 (08:27→12:08)
[2018-08-31] MEDS: BUMETANIDE 1 MG TAB PO SCH (08:27)
[2018-08-31] MEDS: ALLOPURINOL 100 MG TAB PO SCH (08:27)
[2018-08-31] MEDS: EPLERONONE 25 MG PO SCH (08:28)
[2018-08-31] MEDS: IPRATROPIUM BROMIDE/ALBUTEROL respimat INH INH SCH ×2 (08:28→12:07)
[2018-08-31] MEDS: CHLOROTHIAZIDE SODIUM 250 MG in DEXTROSE 5% 50 ML IV SCH (08:28)
[2018-08-31] MEDS: ASPIRIN 81 MG ECTAB PO SCH (08:29)
[2018-08-31] MEDS: GABAPENTIN 100 MG CAP PO SCH ×2 (08:29→12:07)
[2018-08-31] MEDS ORDERED: WARFARIN SOD 3 MG TAB PO ONE (10:31)
[2018-08-31] MEDS ORDERED: ENOXAPARIN 150 MG/ML SYR SQ ONE (10:45)
--- NOTE | 2018-08-31 12:46 | Cardiology Progress Note ---
Date of Service August 31, 2018 Assessment & Plan (1) Acute on chronic diastolic CHF (congestive heart failure): He is diuresing well each day. Unfortunately, his weights do not correlate well with negative fluid balance. He assures us that he is maintaining the fluid restriction. Continue Bumex 4 mg twice daily with Diuril 250 mg IV twice daily. Continue eplerenone. Strict I&Os recommended. Daily weights. Agree with fluid restriction, < 1500ml/day. Low-sodium diet, less than 2000 mg daily. From a heart failure standpoint, patient is stable for discharge, recommend Bumex 4 mg twice daily, eplerenone, and metolazone as needed. Close follow-up with heart failure program on discharge. He is scheduled for next Monday. (2) Atrial fibrillation: He is tolerating rate control strategy. Continue metoprolol succinate 50 mg twice daily. Continue Coumadin with a goal INR 2.5-3.5. Coumadin is being managed by hospitalist service. (3) Hypertension: Continue current medications. Blood pressure has been reasonably controlled. (4) Hyponatremia: Agree with fluid restriction. Hyponatremia is likely secondary to CHF and cirrhosis. (5) Pleural effusion: [place] to be hepatic hydrothorax as per GI. Heart failure could also be playing a role. Diuresis as above. (6) Cirrhosis: As per GI. (7) Mechanical heart valve present: Asymptomatic in this regard. Continue to monitor over time as an outpatient. Continue anticoagulation for stroke risk reduction. Continue ASA 81 mg po daily. Disposition: Patient is for discharge today. Anticipate close follow up with the heart failure program. Patient care discussed with Dr. Lacey of the hospitalist service. Subjective Patient continues to improve. He is feeling well. He walks in the hallway without dyspnea. He denies orthopnea. He denies syncope, near-syncope, palpitations, chest pain. He states that he is keeping with a fluid restriction. Nursing has gone over this with him and he has literature for home use. We discussed his fluid restriction again in detail. He also was encouraged to use his [facility] mug, which has mL markings so that he can accurately measure at home. He has diuresed for a net negative of >20 L but only a 4 lb weight loss. Review of systems: As above. Physical Exam 2 Vital Signs (Past 24 Hours): Last Vital Signs Temp 36.5 C 08/31/18 07:19 Pulse 74 08/31/18 07:19 Resp 16 08/31/18 07:19 BP 118/66 08/31/18 07:19 Pulse Ox 96 08/31/18 07:19 Physical Exam: Gen.: No acute distress. Alert and oriented. HEENT: Anicteric sclera. Neck: Mild JVD. Cardiac: irregularly irregular. Normal S1. [place] S2. 1/6 systolic murmur. No rubs, or gallops. Pulmonary: Clear to auscultation bilaterally without wheezes, rales, or rhonchi. Abdomen: Soft, nontender, nondistended, with normoactive bowel sounds. No bruits noted. Extremities: 1+ bilateral lower extremity edema extending up to the thighs. No cyanosis. Psychiatric: Affect appears appropriate. _ (1) Atrial fibrillation Atrial fibrillation type: chronic Qualified Code(s): I48.2 - Chronic atrial fibrillation (2) Cirrhosis Ascites presence: without ascites Hepatic cirrhosis type: unspecified hepatic cirrhosis Qualified Code(s): K74.60 - Unspecified cirrhosis of liver (3) Hypertension Hypertension type: essential hypertension Qualified Code(s): I10 - Essential (primary) hypertension
--- NOTE | 2018-09-05 07:32 | Discharge Summary ---
Date of Service August 31, 2018 Admission HPI Per Admitting Provider 62 y/o M hx CAD, diastolic CHF, pacer, chronic hyponatremia, recurrent cellulitis and chronic foot ulcer, paroxysmal AF, HTN, HLD, FARTUN, mechanical aortic valve on Coumadin. The pt was recently admitted for LE cellulitis and had completed a course of Levaquin and then Keflex one week ago. The pt presents with diarrhea which began 3 days ago in addition to bright blood in his stool beginning one day ago. He denies a fever, nausea or vomiting. It is noted that he is a poor historian however and he appears to be having some difficulty with word finding. Initial labs are notable for worsening hyponatremia and a sodium of 122, leukocytosis, an INR of 7.6. Stool is (+) for C diff. A CT abdomen did not show any significant acute findings. PMH: 1) Recurrent cellulitis and nonhealing foot wound 2) Chronic hyponatremia - (baseline Na ~130) 3) Chronic diastolic CHF 4) COPD 5) Mechanical aortic valve 6) Chronic pleural effusions 7) HTN 8) HLD 9) Morbidly obese 10) CAD 11) Paroxysmal AF - ablation x 2 12) Thoracic aortic dissection 13) FARTUN - CPAP 14) Cirrhosis per imaging - not treated 15) LBBB Surgical: 1) Thoracic aortic aneurysm repair 2) Aortic valve replacement 3) CABG 4) Pacemaker placement Social: Does not drink or smoke. Retired from [employer]. Family: Was not familiar with parental history - 2 brothers with AF Principal Diagnosis c. diff colitis Discharge Exam Constitutional: WD/WN, vitals as above Eyes: PERRL, conjunctivae normal, anicteric sclerae ENMT: external ear and nose normal, oropharynx normal Neck: trachea midline, no thyromegaly Respiratory: normal respiratory effort; no respiratory distress Auscultation: + diminished lung sounds (right base); no crackles, no rales and no wheezes Cardiovascular: Rate/Rhythm: regular rate and regular rhythm Heart Sounds: normal S1 and normal S2 Extremities: + pedal edema (less edema today) Gastrointestinal (Abdomen): normal bowel sounds, soft, nontender, no hepatosplenomegaly Musculoskeletal: no cyanosis or clubbing, extremities motor strength 5/5 Skin: no rashes, warm and dry (chronic venous stasis changes in legs) Neurologic: patellar DTR's 2+ bilat, sensation intact and PERRL, EOMI, accommodation nl, no face palsy, no dysarthria Psychiatric: A+Ox3, euthymic affect Lymphatic: no cervical or axillary lymphadenopathy Discharge Data Allergies Allergy/AdvReac Type Severity Reaction Status Date / Time bee venom protein (honey bee) Allergy Severe ANAPHYLAXIS Verified 08/16/18 11:09 No Known Drug Allergies Allergy Unknown . Verified 08/16/18 11:09 Consultations 08/16/18 12:22 ED Decision to Admit Stat 08/20/18 13:07 Consult Gastroenterology Routine 08/21/18 17:12 Consult Cardiology Routine Ordered Studies 08/16/18 11:48 CT abd pelvis IV con only Stat 08/16/18 15:47 CT head/brain wo con Stat 08/20/18 US liver Routine Hospital Course (1) C. difficile colitis: Patient currently has no abdominal pain, diarrhea has now stopped, solid stools (since 08/27) will continue Vancomycin PO admitted 08/16, would extend treatment to 14 days since he was slow to respond last day was08/30/18. 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 Continue Bumex 4 mg twice daily with Diuril 250 mg IV twice daily. As per cardiology noncompliance with potassium supplementation was likely playing a role in hypokalemia. Strict I&Os recommended. Daily weights. Continue low-sodium diet, less than 2000 mg daily. excellent response, Cr holding, below 1 likely here until mid week for diuresis continue 1500mL restriction even on discharge continue Eplerenone edema improving every day making 4-5 liters of urine a day weight at 108kg Lost about 20.5 liters in total. Patient reports feeling well. Patient will be discharged today. (3) Hypokalemia: continue KCl 60 QID K is 4.1 will recheck labs within 1 week after discharge (4) Hyponatremia: chronic problem going back several months since patient is volume overloaded, suspect this is due to heart failure, also some cirrhosis recommend volume restriction of 1500mL / day sodium stable with fluid restriction Currently 129. (5) Cirrhosis: based off of imaging on CT and liver US certainly has risk factors with heavy drinking in the past and long standing heart failure Dr. Myers has seen patient. explained to patient and his family that the management for cirrhosis will be medications, outpatient will need to make sure he is up to day on EGD for varices screening Hepatitis B and C negative continue Bumex (had some ascites on CT) minimal elevation in Bilirubin, AST, Alk phos, all stable today, trending down slightly Cr and platelet count normal, ammonia only 30 when it was checked long talk with patient and family about importance of medication compliance explained that he is compensated reasonably well with his cirrhosis he should follow up with Dr. Myers / Arely Michael in 2 weeks (6) Supratherapeutic INR: present on admission unclear etiology, diet was stable as outpatient no new medications perhaps due to cirrhotic changes? INR is 1.9 today Warfarin was held on 08/27 and 08/28 as they were above 3.5 08/28 INR was 3.6 on 08/29 and 08/30: 2.5 mg was given. INR was 2.5 and 2.2 respectively. On 08/31 INR was 1.9 and 3 mg was given with lovenox subq. (7) COPD (chronic obstructive pulmonary disease): stable, no wheezing (8) Atrial fibrillation: chronic, paced (9) Pleural effusion: chronic issue, was exudative in the past (April) has not been tapped again certainly would think this could be related to CHF and cirrhosis no plans for tap at this time per Dr. Castellanos (10) Hx of CABG: no chest pain (11) Mechanical heart valve present: INR as noted above. Patient should followup with Dr. Myers for both the C diff and cirrhosis should follow up with heart failure clinic within one week of discharge Total Time Total Time Spent Total Time Spent (In Minutes): 34 Discharge Plan Discharge Items Patient Disposition: Home - Home Health Services Reason For Visit: C DIFF,GI BLEEDING,CELLULITIS Discharge Diagnosis: C. diff, Cirrhosis Discharge Goals: Decrease discomfort Activity: Resume your previous activity Non-emergency contact: Primary Care Provider and Supply Chain Buyer Call non-emergency contact if: you have any medication questions and your symptoms worsen Follow-up/Referrals: Arely Michael PA-C [Physician Geoscience Technician] - 09/11/18 3:15 pm (Please, follow up at [facility] Gastro[facility]ology Office with Arely Michael PA-C on MondaySeptember 11 at 3:15 pm. *This office is located at [address] in [facility]). If you need to change this appointment, call the office at [phone].) Sharon Winkler MD [Primary Care Provider] - 09/04/18 10:20 am (Please, follow up with Dr. Winkler on MondaySeptember 04 at 10:20 am. *If you need to change this appointment, call the office at [phone].) Comfort Gilliam PA-C [Physician] - 09/05/18 10:00 am ( Appointment with Cardiology- 08/29/2018 at 10:00 am This office is located in [address] of [facility] - big building next to this hospital. If you need to change this appointment, call the office at [phone].) Diet: Heart Healthy and Low Sodium (2gm) Fluids: 1500ml (6 cups) Addtl Provider Instructions: Daily weights. Continue low-sodium diet, less than 2000 mg daily. continue 1500mL restriction of fluid (1.5 liters) Call your Primary Care doctor if any of the following symptoms or problems start or get worse: * Shortness of breath or difficulty breathing * Wake up at night short of breath * Chest pain * Cough * Swelling of your hands, feet, or legs * More fatigued or tired with your normal activity * Palpitations - sudden fast heart beats WEIGHT * Weigh yourself every morning after using the bathroom. * Use the same scale. * Wear the same amount of clothing. * Write your weight down on a chart. * Call your Primary Care doctor if you gain more than 2-3 pounds in 1-2 days. MEDICATIONS * Use this discharge instruction sheet for medication instructions. * Take your medications at the time your doctor ordered. * Do not skip a dose of your medicines. * If you miss a dose of medicine, take it as soon as possible, but DO NOT DOUBLE A DOSE. * Read your medicine information when you get home. * Know all of the side effects of your medicine. If in doubt, ask your pharmacist * Call your Primary Care doctor's office if you have any side effects. * Be sure all of your doctors know what medicine and herbs you take (including cold, flu, and herbal medicine). Take the following with you to your follow-up doctor appointments: * Weight Chart * Medication List * List of questions Do not drink excessive alcohol, beer or wine. Prescriptions: New aspirin [Ecotrin Low Strength] 81 mg Tablet,Delayed Release (Dr/Ec) 81 mg PO QAM Qty: 0 RF: 0 bumetanide 1 mg Tablet 4 mg PO [id number] Qty: 240 RF: 0 warfarin [Coumadin] 3 mg tablet 3 mg PO 4XWK Qty: 30 RF: 0 Continue allopurinol 100 mg tablet 100 mg PO BID RF: 0 aspirin [Adult Low Dose Aspirin] 81 mg tablet,delayed release (DR/EC) 81 mg PO QAM RF: 0 epinephrine 0.3 mg/0.3 mL auto-injector 0.3 mg IM Q10M PRN (Reason: Allergic Reaction) RF: 0 eplerenone 50 mg tablet 50 mg PO BID RF: 0 multivitamin [Daily Multi-Vitamin] tablet 1 tab PO QAM RF: 0 pantoprazole 40 mg tablet,delayed release (DR/EC) 40 mg PO QAM RF: 0 potassium chloride 20 mEq tablet extended release 60 meq PO TIDM RF: 0 sertraline 100 mg tablet 100 mg PO QAM RF: 0 amoxicillin 500 mg capsule 2,000 mg PO DAILY PRN (Reason: DENTAL) RF: 0 metolazone 2.5 mg tablet 2.5 mg PO WK RF: 0 ipratropium-albuterol 20-100 mcg/actuation mist 1 puff Inhalation QID RF: 0 gabapentin 100 mg capsule 100 mg PO TIDM RF: 0 metoprolol succinate 25 mg tablet extended release 24 hr 50 mg PO BID RF: 0 Changed warfarin 2.5 mg Tablet 2.5 mg PO 3XWK Qty: 0 RF: 0 Discontinued bumetanide 2 mg tablet 3 mg PO BID RF: 0 warfarin [Coumadin] 2.5 mg Tablet 5 mg PO 3XWK RF: 0 Stand-Alone Forms: [facility]/Other Patient Handouts: Clostridium Difficile Toxin Stool, Infec Clostridium Difficile Discharge Orders: Discharge Order (Routine); Ordered 08/31/18 Ordered By: Eric Lacey Admission Data Admit Date/Time: 08/16/18 15:00 Attending Provider: Eric Lacey Admit Provider: Steven Tenorio Primary Care Provider: Sharon Winkler Other Providers: Steven Tenorio ; Erich Myers ; Huber Colmenares Service: Medical Other Interventions: Discharge Summary Assessment (RN) Last Done: 08/31/18 13:05 DC Date/Time DO NOT enter until pt leaves facility: 08/31/18 14:49
== END 2018-08-31 14:49 | disposition home health service (06) | DRG 371 ==
LOC: ED 09:43 → 2S 15:00 → SUATTDRO 15:00 → 2S 15:59 → 4E 08-17 09:25

== ENCOUNTER 2018-10-04 16:06 | Inpatient (IN) ==
[2018-10-04] MEDS ORDERED: BUMETANIDE 2 MG in SYRINGE 0 ML IV ONE (16:26)
[2018-10-04] MEDS ORDERED: ALBUT/IPRATROP 3MG/0.5MG NEB 3 ML VIAL NEB STA (16:26)
[2018-10-04] MEDS ORDERED: BUMETANIDE SOLN 1 MG/4 ML VIAL IV ONE (17:00)
[2018-10-04 17:08] LABS: Basophils # (auto) 0.01 K/uL (0-0.2); Basophils % (auto) 0.1 %; Eosinophils # (auto) 0.16 K/uL (0-0.5); Hematocrit (blood only) 39.5 % (42-52); Hemoglobin 13.5 g/dL (14.0-18.0); Immature Granulocytes % (auto) 1.2 %; Lymphocytes # (auto) 0.68 K/uL (1.2-3.4); Lymphocytes % (auto) 8.4 %; Mean Corpuscular Hgb Conc 34.2 g/dL (32-36); Mean Corpuscular Volume 93.4 fL (80-100); Mean Platelet Volume 9.6 fL (7.4-10.4); Monocytes # (auto) 0.82 K/uL (0.11-0.59); Monocytes % (auto) 10.1 %; Neutrophils # (auto) 6.36 K/uL (1.4-6.5); Neutrophils % (auto) 78.2 %; Platelet Count 133 K/uL (130-400); RDW Coefficient of Variation 19.2 % (11.5-14.5); RDW Standard Deviation 64.7 fL (36.4-46.3); Red Blood Count 4.23 M/uL (4.7-6.1); White Blood Count 8.13 K/uL (4.8-10.8)
[2018-10-04 17:11] LABS: Appearance Urine Clear (Clear); Bilirubin Urine Negative (Negative); Blood Urine Negative (Negative); Color Urine Yellow; Glucose Urine UA Negative (Negative); Ketones Urine Negative (Negative); Leukocyte Esterase Urine Negative (Negative); Nitrite Urine Negative (Negative); Protein Urine Negative (Negative); Urobilinogen Urine Negative (Negative); pH Urine 5.5 (4.5-7.5)
--- NOTE | 2018-10-04 17:11 | XRay Report ---
XR chest 1V portable HISTORY: weakness COMPARISON: Chest 08/16/2018. FINDINGS: No pneumothorax. Moderate right pleural effusion and the mild interstitial pulmonary edema has slightly improved. Postoperative changes and cardiac valve prosthesis are again noted. Left-sided dual-chamber pacemaker. Right basilar densities favor subsegmental atelectasis from the pleural effu [place]. This remains unchanged. IMPRESSION: Slight improvement in the mild interstitial pulmonary edema and moderate right pleural effusion. Electronically signed by: Choco Villavicencio M.D. 10/04/2018 5:09 PM
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
[2018-10-04 17:24] LABS: Alanine Aminotransferase 27 U/L (12-78); Albumin Level 3.2 gm/dl (3.4-5.0); Aspartate Aminotransferase 52 U/L (15-37); BUN Creatinine Ratio 28.7 (10-20); Blood Urea Nitrogen 30 mg/dl (7-18); Calcium 9.3 mg/dl (8.5-10.1); Carbon Dioxide 27 mmol/L (21-32); Chloride 90 mmol/L (98-107); Est GFR (African American) 87.4; Est GFR (Non-African American) 75.4; Glucose 85 mg/dl (70-99); Magnesium 1.7 mg/dl (1.8-2.4); Potassium 3.7 mmol/L (3.5-5.1); Sodium 126 mmol/L (136-145)
[2018-10-04 17:29] LABS: Albumin Globulin Ratio 0.8 (0.9-2); Alkaline Phosphatase 127 U/L (45-117); Bilirubin,Total 2.3 mg/dl (0.2-1); Globulin 4.2 gm/dl (2.5-4.0); Total Protein 7.4 gm/dl (6.4-8.2); Troponin I 0.019 ng/ml (0-0.045)
[2018-10-04] MEDS ORDERED: MAGNESIUM SULFATE / D5W 1 GM/100 ML BAG IV ONE (17:53)
--- NOTE | 2018-10-04 17:58 | Ultrasound Report ---
BILATERAL LOWER EXTREMITY VENOUS DOPPLER HISTORY: Lower extremity edema, discoloration COMPARISON STUDY: None. FINDINGS: There is normal compressibility, flow, and augmentation within the bilateral lower extremit y deep venous systems. IMPRESSION: No DVT within the right or left lower extremity. Electronically signed by: Choco Villavicencio M.D. 10/04/2018 5:57 PM
[2018-10-04 18:35] LABS: INR 2.9 (0.9-1.1); Partial Thromboplastin Ratio 1.3; Prothrombin Time 27.2 Seconds (9.0-12.0)
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
[2018-10-04] MEDS ORDERED: ONDANSETRON INJ 2 MG/ML 2 ML VIAL IV PRN (21:21)
[2018-10-04] MEDS: IPRATROPIUM BROMIDE/ALBUTEROL respimat INH INH SCH (22:39)
[2018-10-04] MEDS: ALLOPURINOL 100 MG TAB PO SCH (22:41)
[2018-10-04] MEDS: MAGNESIUM OXIDE 400 MG TAB PO SCH (22:41)
[2018-10-04] MEDS: RASPBERRY SYRUP 5 ML UDP PO SCH (22:41)
[2018-10-04] MEDS: VANCOMYCIN HCL 125 MG/2.5ML SOLN PO SCH (22:41)
[2018-10-04] MEDS: METOPROLOL SUCC 50MG EXT REL TAB PO SCH (22:41)
[2018-10-04] MEDS ORDERED: WARFARIN SOD 0.5 MG TAB PO ONE (23:00)
[2018-10-05 05:18] LABS: Eosinophils # (auto) 0.11 K/uL (0-0.5); Eosinophils % (auto) 1.6 %; Hemoglobin 12.6 g/dL (14.0-18.0); Immature Granulocytes # (auto) 0.04 K/uL (0.00-0.02); Immature Granulocytes % (auto) 0.6 %; Lymphocytes # (auto) 0.49 K/uL (1.2-3.4); Lymphocytes % (auto) 7.2 %; Mean Corpuscular Hgb Conc 34.1 g/dL (32-36); Mean Corpuscular Volume 93.4 fL (80-100); Mean Platelet Volume 9.7 fL (7.4-10.4); Monocytes % (auto) 13.2 %; Neutrophils # (auto) 5.27 K/uL (1.4-6.5); Neutrophils % (auto) 77.4 %; Platelet Count 116 K/uL (130-400); RDW Coefficient of Variation 19.2 % (11.5-14.5); RDW Standard Deviation 65.2 fL (36.4-46.3); Red Blood Count 3.96 M/uL (4.7-6.1); White Blood Count 6.81 K/uL (4.8-10.8)
[2018-10-05 05:28] LABS: INR 2.7 (0.9-1.1); Partial Thromboplastin Ratio 1.4; Partial Thromboplastin Time 36.6 Seconds (21.0-31.0); Prothrombin Time 25.7 Seconds (9.0-12.0)
[2018-10-05 05:51] LABS: Albumin Globulin Ratio 0.7 (0.9-2); Albumin Level 2.9 gm/dl (3.4-5.0); BUN Creatinine Ratio 29.4 (10-20); Bilirubin,Total 2.2 mg/dl (0.2-1); Calcium 8.4 mg/dl (8.5-10.1); Creatinine Clr Calc Pharmacy 92.6 ml/min; Est GFR (African American) 92.6; Est GFR (Non-African American) 79.9; Globulin 3.9 gm/dl (2.5-4.0); Total Protein 6.8 gm/dl (6.4-8.2)
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
[2018-10-05] MEDS: LACTOBACILLUS ACIDOPHILUS (FLORANEX) TAB PO SCH ×4 (08:05→20:02)
[2018-10-05] MEDS: POTASSIUM CHLORIDE 20 MEQ TABCR PO SCH ×5 (08:06→20:06)
[2018-10-05] MEDS: GABAPENTIN 100 MG CAP PO SCH ×3 (08:07→16:52)
[2018-10-05] MEDS: BUMETANIDE 4 MG in SYRINGE 0 ML IV SCH ×2 (08:07→16:50)
[2018-10-05] MEDS: IPRATROPIUM BROMIDE/ALBUTEROL respimat INH INH SCH ×4 (08:07→20:02)
[2018-10-05] MEDS: ASPIRIN 81 MG ECTAB PO SCH (08:08)
[2018-10-05] MEDS: MAGNESIUM OXIDE 400 MG TAB PO SCH (08:09)
[2018-10-05] MEDS: MULTIVITAMIN TAB PO SCH (08:09)
[2018-10-05] MEDS: PANTOprazole 40 MG TAB PO SCH (08:09)
[2018-10-05] MEDS: METOPROLOL SUCC 50MG EXT REL TAB PO SCH ×2 (08:10→20:07)
[2018-10-05] MEDS: RASPBERRY SYRUP 5 ML UDP PO SCH ×2 (08:10→20:01)
[2018-10-05] MEDS: ALLOPURINOL 100 MG TAB PO SCH ×2 (08:10→20:07)
[2018-10-05] MEDS: SERTRALINE HCL 100 MG TABLET PO SCH (08:10)
[2018-10-05] MEDS: VANCOMYCIN HCL 125 MG/2.5ML SOLN PO SCH ×2 (08:17→20:01)
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
[2018-10-05] MEDS ORDERED: PIPERACILL/TAZOBAC CONSULT ACTIVE PRN (11:54)
[2018-10-05] MEDS: POTASSIUM CHLORIDE 10 MEQ / 100ML WTR IV SCH ×2 (11:55→11:56)
[2018-10-05] MEDS: levoFLOXacin 500 MG TAB PO SCH (11:56)
[2018-10-05] MEDS ORDERED: PIPERACILLIN/TAZOBACTAM 3.375 GM in DEXTROSE 5% 100 ML IV ONE (12:00)
[2018-10-05] MEDS: CHLOROTHIAZIDE SODIUM 250 MG in DEXTROSE 5% 50 ML IV SCH (14:44)
[2018-10-05] MEDS ORDERED: SODIUM CHLORIDE 0.65% NA SOLN 45 ML (OCEAN) ONE (14:52)
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
--- NOTE | 2018-10-05 15:06 | XRay Report ---
SINGLE VIEW CHEST CLINICAL HISTORY: Status post thoracentesis. FINDINGS: An AP, portable, upright chest radiograph is compared to study dated 10/04/2018 and correlate d with chest CT dated 08/06/2015. The examination is degraded by portable technique and apical lordotic positioning. A 2-lead cardiac pacemaker is unchanged in position. The patient is status post midline sternotomy and cardiac valve surgery. Epicardial pacing leads are noted. The heart is enlarged and t here is atherosclerotic calcification of the thoracic aorta. Mild pulmonary vascular congestion persi sts. A right pleural effusion has decreased in size from previous. No pneumothorax is identified post procedure. There is bibasilar atelectasis. No pneumothorax is seen. The skeletal structures are oste openic. The bony thorax is grossly intact. IMPRESSION: 1. No pneumothorax is identified post procedure. 2. A right pleural effusion has decreased in size from yesterday. 3. Cardiomegaly and cardiac pacemaker. Mild pulmonary vascular congestion persists. This has improved from yesterday. Electronically signed by: Phil Santos M.D. 10/05/2018 3:05 PM
[2018-10-05 15:54] LABS: Glucose Pleural Fluid 105 mg/dl
[2018-10-05] MEDS ORDERED: WARFARIN SOD 2.5 MG TAB PO SCH (16:00)
[2018-10-05 16:03] LABS: Amylase Pleural Fluid 26 U/L; LDH Pleural Fluid 161 U/L; Total Protein Pleural Fluid 3.4 g/dl
[2018-10-05 16:33] LABS: Appearance Pleural Fluid BLOODY; Color Pleural Fluid RED; Mononuclear WBC Pleural 43.9 %; Polynuclear WBC Pleural 56.1 %; RBC Pleural Fluid (A) 40000 /uL; Source Pleural Fluid RIGHT LUNG; WBC Pleural Fluid (A) 63 /uL
[2018-10-05] MEDS: PIPERACILLIN/TAZOBACTAM 3.375 GM in DEXTROSE 5% 100 ML IV SCH (16:45)
[2018-10-05] MEDS: WARFARIN SOD 1 MG TAB PO SCH (16:49)
[2018-10-05 17:49] LABS: INR 2.8 (0.9-1.1); Prothrombin Time 26.4 Seconds (9.0-12.0)
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
--- NOTE | 2018-10-05 23:20 | Operative Report ---
DATE OF OPERATION: 10/05/2018 PREOPERATIVE DIAGNOSIS: Recurrent right pleural effusion. POSTOPERATIVE DIAGNOSIS: Recurrent right pleural effusion. PROCEDURE PERFORMED: Ultrasound-guided right thoracentesis at bedside. SURGEON: Ernie Castellanos MD STAGE MANAGER: Ye Aviles. ANESTHESIA: Local with sedation. DESCRIPTION OF PROCEDURE: After discussion with the patient's , we elected to proceed with a right thoracentesis. The patient sitting upright on the side of bed, ultrasound was used to find a spot in his right lateral lower chest posteriorly, which was a good window. He was prepped and draped in usual sterile fashion in this area, which had been marked and was anesthetized with 25-gauge needle, 1% Xylocaine after appropriate timeout have been called. A large bore needle was used to anesthetize deeper tissues. We got free-flowing rust colored fluid. A guidewire was inserted through the needle and the needle removed. A dilator was gently slid over the guidewire and then removed and then a triple lumen catheter was slid over the guidewire and the guidewire removed. Rust colored fluid of 2100 mL was drained. We did not drain all of his fluid. He did have some reexpansion coughing with mild discomfort and we stopped. We had no bleeding after we removed this. Antimicrobial dressing was removed. He tolerated it well. Chest x-ray is pending at this time. The pH of the fluid is 7.39. I attest to the content of the Intraoperative Record and any orders documented therein. Any exception s are noted below.
[2018-10-06] MEDS: PIPERACILLIN/TAZOBACTAM 3.375 GM in DEXTROSE 5% 100 ML IV SCH ×3 (00:06→17:11)
[2018-10-06 05:48] LABS: Eosinophils # (auto) 0.14 K/uL (0-0.5); Eosinophils % (auto) 1.5 %; Hematocrit (blood only) 36.9 % (42-52); Hemoglobin 12.5 g/dL (14.0-18.0); Immature Granulocytes # (auto) 0.03 K/uL (0.00-0.02); Immature Granulocytes % (auto) 0.3 %; Lymphocytes # (auto) 0.48 K/uL (1.2-3.4); Lymphocytes % (auto) 5.1 %; Mean Corpuscular Hgb Conc 33.9 g/dL (32-36); Mean Corpuscular Volume 93.7 fL (80-100); Mean Platelet Volume 9.7 fL (7.4-10.4); Monocytes # (auto) 1.25 K/uL (0.11-0.59); Monocytes % (auto) 13.2 %; Neutrophils # (auto) 7.59 K/uL (1.4-6.5); Neutrophils % (auto) 79.9 %; Platelet Count 117 K/uL (130-400); RDW Standard Deviation 65.2 fL (36.4-46.3); Red Blood Count 3.94 M/uL (4.7-6.1); White Blood Count 9.49 K/uL (4.8-10.8)
[2018-10-06 05:59] LABS: INR 2.6 (0.9-1.1); Prothrombin Time 25.2 Seconds (9.0-12.0)
[2018-10-06 06:12] LABS: Albumin Level 2.7 gm/dl (3.4-5.0); BUN Creatinine Ratio 30.2 (10-20); Calcium 8.5 mg/dl (8.5-10.1); Est GFR (African American) 97.3; Est GFR (Non-African American) 83.9; Magnesium 1.9 mg/dl (1.8-2.4); Potassium 3.6 mmol/L (3.5-5.1)
[2018-10-06 06:47] LABS: Albumin Globulin Ratio 0.7 (0.9-2); Globulin 3.9 gm/dl (2.5-4.0); Total Protein 6.6 gm/dl (6.4-8.2)
[2018-10-06] MEDS: CHLOROTHIAZIDE SODIUM 250 MG in DEXTROSE 5% 50 ML IV SCH (08:00)
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
[2018-10-06] MEDS: LACTOBACILLUS ACIDOPHILUS (FLORANEX) TAB PO SCH ×4 (08:05→20:43)
[2018-10-06] MEDS: POTASSIUM CHLORIDE 20 MEQ TABCR PO SCH ×3 (08:06→17:13)
[2018-10-06] MEDS: GABAPENTIN 100 MG CAP PO SCH ×3 (08:06→17:14)
[2018-10-06] MEDS: IPRATROPIUM BROMIDE/ALBUTEROL respimat INH INH SCH ×4 (08:07→20:42)
[2018-10-06] MEDS: BUMETANIDE 4 MG in SYRINGE 0 ML IV SCH ×2 (08:07→17:12)
[2018-10-06] MEDS: MAGNESIUM OXIDE 400 MG TAB PO SCH (08:08)
[2018-10-06] MEDS: ASPIRIN 81 MG ECTAB PO SCH (08:08)
[2018-10-06] MEDS: PANTOprazole 40 MG TAB PO SCH (08:09)
[2018-10-06] MEDS: RASPBERRY SYRUP 5 ML UDP PO SCH ×2 (08:09→20:42)
[2018-10-06] MEDS: VANCOMYCIN HCL 125 MG/2.5ML SOLN PO SCH ×2 (08:09→20:42)
[2018-10-06] MEDS: SERTRALINE HCL 100 MG TABLET PO SCH (08:09)
[2018-10-06] MEDS: MULTIVITAMIN TAB PO SCH (08:09)
[2018-10-06] MEDS: ALLOPURINOL 100 MG TAB PO SCH ×2 (08:10→20:42)
[2018-10-06] MEDS: METOPROLOL SUCC 50MG EXT REL TAB PO SCH ×2 (08:10→20:42)
--- NOTE | 2018-10-06 10:31 | Progress Note ---
DATE: 10/06/2018 Mr. Maldonado was seen today, one day status post a thoracentesis for 2100 mL of a serous fluid. The laboratory analysis of this showed this to be a transudate. The LDH was 161, but his serum LDH was 352. The Gram stain showed no evidence of organisms. He feels much better today. Swelling in his legs and his abdomen is better. He states he is ready to ambulate. He slept all night long. His x-ray showed almost total resolution of the fluid yesterday. His white count this morning is 9490 with hemoglobin of 12.5. His mildly elevated liver functions are improving. ASSESSMENT AND PLAN: Postop day #1 status post thoracentesis. With all the open wounds and apparent cellulitis of his lower extremities, I am hesitant to insert an indwelling pleural catheter. At this point, I would like to let him continue to defervesce and be discharged. I will see him in the office. We will discuss an elective PleurX catheter insertion at that time. It took him a while to reaccumulate this fluid from our last thoracentesis. KATIE
[2018-10-06] MEDS: levoFLOXacin 500 MG TAB PO SCH (11:44)
[2018-10-06] MEDS: WARFARIN SOD 1 MG TAB PO SCH (17:10)
[2018-10-07] MEDS: PIPERACILLIN/TAZOBACTAM 3.375 GM in DEXTROSE 5% 100 ML IV SCH ×3 (01:43→17:21)
[2018-10-07 06:05] LABS: Hematocrit (blood only) 34.1 % (42-52); Hemoglobin 11.7 g/dL (14.0-18.0); Mean Corpuscular Hgb Conc 34.3 g/dL (32-36); Mean Corpuscular Volume 92.7 fL (80-100); RDW Standard Deviation 64.4 fL (36.4-46.3); Red Blood Count 3.68 M/uL (4.7-6.1)
[2018-10-07 06:24] LABS: Eosinophils # (auto) 0.22 K/uL (0-0.5); Eosinophils % (auto) 2.9 %; INR 2.6 (0.9-1.1); Immature Granulocytes # (auto) 0.05 K/uL (0.00-0.02); Immature Granulocytes % (auto) 0.6 %; Lymphocytes # (auto) 0.52 K/uL (1.2-3.4); Lymphocytes % (auto) 6.8 %; Monocytes # (auto) 1.02 K/uL (0.11-0.59); Monocytes % (auto) 13.2 %; Neutrophils # (auto) 5.89 K/uL (1.4-6.5); Neutrophils % (auto) 76.5 %; Platelet Count 94 K/uL (130-400); Prothrombin Time 24.8 Seconds (9.0-12.0)
[2018-10-07 06:32] LABS: Albumin Level 2.6 gm/dl (3.4-5.0); BUN Creatinine Ratio 33.2 (10-20); Calcium 8.4 mg/dl (8.5-10.1); Creatinine Clr Calc Pharmacy 108.8 ml/min; Est GFR (African American) 108.5; Est GFR (Non-African American) 93.6; Magnesium 1.9 mg/dl (1.8-2.4); Potassium 3.4 mmol/L (3.5-5.1)
[2018-10-07 06:34] LABS: Albumin Globulin Ratio 0.7 (0.9-2); Bilirubin,Total 1.7 mg/dl (0.2-1); Globulin 3.7 gm/dl (2.5-4.0); Total Protein 6.3 gm/dl (6.4-8.2)
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
[2018-10-07] MEDS: BUMETANIDE 4 MG in SYRINGE 0 ML IV SCH ×2 (08:30→17:21)
[2018-10-07] MEDS: POTASSIUM CHLORIDE 20 MEQ TABCR PO SCH ×3 (08:31→17:24)
[2018-10-07] MEDS: LACTOBACILLUS ACIDOPHILUS (FLORANEX) TAB PO SCH ×4 (08:31→21:46)
[2018-10-07] MEDS: CHLOROTHIAZIDE SODIUM 250 MG in DEXTROSE 5% 50 ML IV SCH (08:33)
[2018-10-07] MEDS: GABAPENTIN 100 MG CAP PO SCH ×3 (08:33→17:25)
[2018-10-07] MEDS: IPRATROPIUM BROMIDE/ALBUTEROL respimat INH INH SCH ×4 (08:34→21:45)
[2018-10-07] MEDS: ASPIRIN 81 MG ECTAB PO SCH (08:34)
[2018-10-07] MEDS: MAGNESIUM OXIDE 400 MG TAB PO SCH (08:35)
[2018-10-07] MEDS: PANTOprazole 40 MG TAB PO SCH (08:35)
[2018-10-07] MEDS: MULTIVITAMIN TAB PO SCH (08:35)
[2018-10-07] MEDS: SERTRALINE HCL 100 MG TABLET PO SCH (08:36)
[2018-10-07] MEDS: VANCOMYCIN HCL 125 MG/2.5ML SOLN PO SCH ×2 (08:36→21:45)
[2018-10-07] MEDS: RASPBERRY SYRUP 5 ML UDP PO SCH ×2 (08:36→21:45)
[2018-10-07] MEDS: METOPROLOL SUCC 50MG EXT REL TAB PO SCH ×2 (08:36→21:44)
[2018-10-07] MEDS: ALLOPURINOL 100 MG TAB PO SCH ×2 (08:37→21:44)
[2018-10-07] MEDS: levoFLOXacin 500 MG TAB PO SCH (11:42)
[2018-10-07] MEDS ORDERED: POTASSIUM CHLORIDE 10 MEQ TABCR PO STA (12:17)
[2018-10-07] MEDS ORDERED: BUMETANIDE 4 MG in SYRINGE 0 ML IV ONE (12:30)
[2018-10-07] MEDS: WARFARIN SOD 1 MG TAB PO SCH (17:22)
[2018-10-08] MEDS: PIPERACILLIN/TAZOBACTAM 3.375 GM in DEXTROSE 5% 100 ML IV SCH ×3 (00:55→16:23)
[2018-10-08 06:16] LABS: INR 2.4 (0.9-1.1); Prothrombin Time 23.2 Seconds (9.0-12.0)
[2018-10-08] MEDS: LACTOBACILLUS ACIDOPHILUS (FLORANEX) TAB PO SCH ×4 (07:34→21:24)
[2018-10-08] MEDS: POTASSIUM CHLORIDE 20 MEQ TABCR PO SCH ×3 (07:35→17:45)
[2018-10-08] MEDS: PANTOprazole 40 MG TAB PO SCH (07:35)
[2018-10-08] MEDS: SERTRALINE HCL 100 MG TABLET PO SCH (07:35)
[2018-10-08] MEDS: MULTIVITAMIN TAB PO SCH (07:35)
[2018-10-08] MEDS: ALLOPURINOL 100 MG TAB PO SCH ×2 (07:36→21:26)
[2018-10-08] MEDS: MAGNESIUM OXIDE 400 MG TAB PO SCH (07:37)
[2018-10-08] MEDS: ASPIRIN 81 MG ECTAB PO SCH (07:37)
[2018-10-08] MEDS: IPRATROPIUM BROMIDE/ALBUTEROL respimat INH INH SCH ×4 (07:38→21:24)
[2018-10-08] MEDS: BUMETANIDE 4 MG in SYRINGE 0 ML IV SCH ×2 (07:38→17:44)
[2018-10-08] MEDS: GABAPENTIN 100 MG CAP PO SCH ×3 (07:38→17:45)
[2018-10-08] MEDS: METOPROLOL SUCC 50MG EXT REL TAB PO SCH ×2 (07:39→21:25)
[2018-10-08] MEDS: RASPBERRY SYRUP 5 ML UDP PO SCH ×2 (07:39→21:42)
[2018-10-08] MEDS: VANCOMYCIN HCL 125 MG/2.5ML SOLN PO SCH ×2 (07:43→21:42)
[2018-10-08] MEDS: CHLOROTHIAZIDE SODIUM 250 MG in DEXTROSE 5% 50 ML IV SCH (07:43)
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
[2018-10-08 11:31] LABS: Albumin Level 2.4 gm/dl (3.4-5.0); BUN Creatinine Ratio 30.8 (10-20); Calcium 8.3 mg/dl (8.5-10.1); Creatinine Clr Calc Pharmacy 108.8 ml/min; Est GFR (African American) 108.5; Est GFR (Non-African American) 93.6; Potassium 3.5 mmol/L (3.5-5.1)
[2018-10-08 11:35] LABS: Hematocrit (blood only) 33.4 % (42-52); Hemoglobin 11.3 g/dL (14.0-18.0); Mean Corpuscular Hgb Conc 33.8 g/dL (32-36); Mean Corpuscular Volume 93.3 fL (80-100); Red Blood Count 3.58 M/uL (4.7-6.1); White Blood Count 7.38 K/uL (4.8-10.8)
[2018-10-08 11:36] LABS: Albumin Globulin Ratio 0.6 (0.9-2); Bilirubin,Total 1.6 mg/dl (0.2-1); Globulin 3.9 gm/dl (2.5-4.0); Total Protein 6.3 gm/dl (6.4-8.2)
[2018-10-08 11:38] LABS: Mean Platelet Volume 9.3 fL (7.4-10.4); Platelet Count 97 K/uL (130-400)
--- NOTE | 2018-10-08 11:42 | XRay Report ---
TWO VIEW CHEST CLINICAL HISTORY: Decreased breath sounds. FINDINGS: AP and lateral chest radiographs are compared to study dated 10/05/2018 and correlated with c hest CT dated 08/06/2015. The AP views are degraded by patient rotation. A 2-lead cardiac pacemaker is unchanged in position. The patient is status post midline sternotomy and cardiac valve surgery. Epica rdial pacing leads are noted. The heart is enlarged and there is atherosclerotic calcification of the thoracic aorta. There is pulmonary vascular congestion and mild interstitial edema. A moderate right pleural effusion has increased in size from previous. A small pleural effusion is seen on the left. No pneumothorax is identified. There is bibasilar atelectasis. No pneumothorax is seen. The skeletal structures are osteopenic. The bony thorax is grossly intact. IMPRESSION: 1. Cardiomegaly and cardiac pacemaker with evidence of congestive failure and mild interstitial edema . This has worsened from 10/05/2018. 2. A moderate right pleural effusion has increased in size from previous. Electronically signed by: Phil Santos M.D. 10/08/2018 11:41 AM
[2018-10-08] MEDS: levoFLOXacin 500 MG TAB PO SCH (13:17)
--- NOTE | 2018-10-08 13:20 | Cardiology Progress Note ---
Date of Service October 08, 2018 Assessment & Plan (1) Acute on chronic diastolic CHF (congestive heart failure): He has long-standing congestive heart failure and has been difficult to manage as an outpatient. A lot of it may be due to dietary noncompliance, although he also has a lot of cardiac problems although not severe left ventricular dysfunction. He does have diastolic dysfunction as well as the atrial fibrillation and a wide left bundle branch block pattern. (2) Atrial fibrillation: His atrial fibrillation overall appears well controlled on his regimen of metoprolol succinate 50 mg twice daily. I would continue that. (3) Hypertension: His blood pressure is somewhat labile, but certainly not high here in the hospital. (4) LBBB (left bundle branch block): He has a left bundle branch block pattern with a very wide complex. This almost certainly is leading to some element of dyssynchrony affecting cardiac performance. Dyssynchrony and atrial fibrillation can lead to left ventricular dysfunction. He may have a slight decrease in left ventricular function, if it becomes clinically significant we should consider biventricular pacing with ei ther aggressive rate control to minimize intrinsic conduction or ablation of the AV node. At the moment he does not have indication for this. (5) Cardiomyopathy: He may have developed a mild cardiomyopathy. He has had low normal function for some time, his current echocardiogram is read that way but the number is slightly less than his prior echocardiograms. It is very unlikely this is due to ischemic heart disease with a normal catheterization in 2015 (he did not have any coronary disease identified). More likely if he has developed a cardiomyopathy is nonischemic due to atrial fibrillation and dyssynchrony from left bundle branch block. I would not be inclined to evaluate him for ischemia at this time. Subjective He is in good spirits and is feeling quite well. He is feeling considerably better than when he came into the hospital. Physical Exam Vital Signs (Past 24 Hours): Last Vital Signs Temp 36.7 C 10/08/18 12:45 Pulse 79 10/08/18 12:45 Resp 22 10/08/18 12:45 BP 96/51 L 10/08/18 12:45 Pulse Ox 100 10/08/18 12:45 Physical Exam: Constitutional: Alert, cooperative and in no distress. Pulmonary: Clear to auscultation bilaterally. Cardiac: Irregular rhythm with no murmur, gallop or rub. Abdomen: Soft, nontender with normal bowel sounds. Extremities: +1-2 pre-tibial bilateral edema. Skin: No rash, ecchymoses or petechiae. Results & Data Diagnostic Findings Telemetry: Atrial fibrillation with a controlled ventricular response Echocardiogram this admission: Slightly reduced left ventricular overall systolic function, valve working well. Diastolic dysfunction and LVH. Not a lot different than prior echocardiograms. (1) Atrial fibrillation Atrial fibrillation type: chronic Qualified Code(s): I48.2 - Chronic atrial fibrillation (2) Hypertension Hypertension type: essential hypertension Qualified Code(s): I10 - Essential (primary) hypertension
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
[2018-10-08] MEDS: WARFARIN SOD 1 MG TAB PO SCH (16:25)
--- NOTE | 2018-10-08 19:17 | Progress Note ---
DATE: 10/08/2018 Mr. Maldonado was seen today. He continues to improve. His pulse oximetry today was 94% on room air at rest. His sodium is 130, BUN and creatinine are 29.0 and 0.86. His breath sounds are a bit decreased in the right base. His puncture site was clean. An x-ray was done today and shows that he is reaccumulating this fluid. I am worried about putting a PleurX catheter in this patient. I think he is set up for infection and I believe that an empyema could prove fatal in this patient. I would like to see how he does clinically and get him over this acute process now.
[2018-10-09] MEDS: PIPERACILLIN/TAZOBACTAM 3.375 GM in DEXTROSE 5% 100 ML IV SCH ×4 (00:33→23:27)
[2018-10-09] MEDS: IPRATROPIUM BROMIDE/ALBUTEROL respimat INH INH SCH ×4 (09:13→20:38)
[2018-10-09] MEDS: MAGNESIUM OXIDE 400 MG TAB PO SCH (09:14)
[2018-10-09] MEDS: ALLOPURINOL 100 MG TAB PO SCH ×2 (09:14→20:41)
[2018-10-09] MEDS: SERTRALINE HCL 100 MG TABLET PO SCH (09:16)
[2018-10-09] MEDS: PANTOprazole 40 MG TAB PO SCH (09:16)
[2018-10-09] MEDS: METOPROLOL SUCC 50MG EXT REL TAB PO SCH ×2 (09:16→20:38)
[2018-10-09] MEDS: LACTOBACILLUS ACIDOPHILUS (FLORANEX) TAB PO SCH ×4 (09:16→20:38)
[2018-10-09] MEDS: MULTIVITAMIN TAB PO SCH (09:17)
[2018-10-09] MEDS: POTASSIUM CHLORIDE 20 MEQ TABCR PO SCH ×3 (09:17→18:06)
[2018-10-09] MEDS: GABAPENTIN 100 MG CAP PO SCH ×3 (09:18→18:06)
[2018-10-09] MEDS: ASPIRIN 81 MG ECTAB PO SCH (09:18)
[2018-10-09] MEDS: VANCOMYCIN HCL 125 MG/2.5ML SOLN PO SCH ×2 (09:26→20:43)
[2018-10-09] MEDS: CHLOROTHIAZIDE SODIUM 250 MG in DEXTROSE 5% 50 ML IV SCH (09:26)
[2018-10-09] MEDS: BUMETANIDE 4 MG in SYRINGE 0 ML IV SCH ×2 (09:26→18:05)
[2018-10-09] MEDS: RASPBERRY SYRUP 5 ML UDP PO SCH ×2 (09:26→20:43)
[2018-10-09 09:36] LABS: Hematocrit (blood only) 33.8 % (42-52); Hemoglobin 11.3 g/dL (14.0-18.0); Mean Corpuscular Hgb Conc 33.4 g/dL (32-36); Mean Corpuscular Volume 95.5 fL (80-100); Mean Platelet Volume 8.9 fL (7.4-10.4); Platelet Count 108 K/uL (130-400); RDW Coefficient of Variation 19.1 % (11.5-14.5); RDW Standard Deviation 66.8 fL (36.4-46.3); Red Blood Count 3.54 M/uL (4.7-6.1); White Blood Count 7.47 K/uL (4.8-10.8)
[2018-10-09 09:46] LABS: INR 2.2 (0.9-1.1); Prothrombin Time 20.9 Seconds (9.0-12.0)
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
[2018-10-09 10:36] LABS: BUN Creatinine Ratio 27.2 (10-20); Calcium 8.9 mg/dl (8.5-10.1); Creatinine Clr Calc Pharmacy 96.7 ml/min; Est GFR (African American) 97.3; Est GFR (Non-African American) 83.9; Potassium 4.1 mmol/L (3.5-5.1)
[2018-10-09] MEDS: levoFLOXacin 500 MG TAB PO SCH (13:22)
--- NOTE | 2018-10-09 14:40 | Cardiology Progress Note ---
Date of Service October 09, 2018 Assessment & Plan (1) Acute on chronic diastolic CHF (congestive heart failure): He has long-standing congestive heart failure and has been difficult to manage as an outpatient. A lot of it may be due to dietary noncompliance and fluid intake at home, although he also has a lot of cardiac problems although not severe left ventricular dysfunction. He does have diastolic dysfunction as well as the atrial fibrillation and a wide left bundle branch block pattern. He continues to net 1-2 L negative each day. His weight has not changed but the patient states they have not had him on a standing scale? Continue Bumex 4 mg IV BID until his creatinine increases. Continue Diuril 250 mg IV daily. His eplerenone 50 mg BID has been ordered but was apparently non-formulary and not available via our pharmacy. Patient or his family were not notified to bring this from home so he has not been getting it. I spoke to his this afternoon and she will bring it tomorrow. Continue potassium 60 mew TID and additional supplementation as needed. (2) Atrial fibrillation: His atrial fibrillation overall appears well controlled on his regimen of metoprolol succinate 50 mg twice daily. I would continue that. (3) Hypertension: Well controlled. Continue current medical therapy. (4) LBBB (left bundle branch block): He has a left bundle branch block pattern with a very wide complex. This almost certainly is leading to some element of dyssynchrony affecting cardiac performance. Dyssynchrony and atrial fibrillation can lead to left ventricular dysfunction. He may have a slight decrease in left ventricular function, if it becomes clinically significant we should consider biventricular pacing with either aggressive rate control to minimize intrinsic conduction or ablation of the AV node. At the moment he does not have indication for this. (5) Cardiomyopathy: He may have developed a mild cardiomyopathy. He has had low normal function for some time, his current echocardiogram (45-50%) is read that way but the number is slightly less than his prior echocardiograms (50-55%). It is very unlikely this is due to ischemic heart disease with a normal catheterization in 2015 (he did not have any coronary disease identified). He denies any current chest pain or anginal symptoms. More likely if he has developed a cardiomyopathy is nonischemic due to atrial fibrillation and dyssynchrony from left bundle branch block. I would not be inclined to evaluate him for ischemia at this time . (6) Hematuria: This does not seem to be improving and he now has clot formation in the tubing. Will notify urology team to further recommendations. Supervising Physician Co-Signing Physician Notes Patient seen and examined, case reviewed with Comfort. Agree with above. Subjective He is in good spirits and is feeling quite well. He is sitting up in a chair at the bedside. He continues to feel considerably better. He denies any further drainage from the thighs. Physical Exam Vital Signs (Past 24 Hours): Last Vital Signs Temp 36.5 C 10/09/18 08:09 Pulse 76 10/09/18 08:09 Resp 17 10/09/18 08:09 BP 116/61 10/09/18 08:09 Pulse Ox 87 L 10/09/18 11:09 Constitutional: Alert, cooperative and in no distress. Neck: Supple, JVD noted 1/2 way to the mandible sitting upright. Pulmonary: Decreased breath sounds on the right compared to the left. Crackles at the left base, otherwise clear to auscultation. Cardiac: Irregular rhythm with no murmur, gallop or rub. Abdomen: Soft, nontender with normal bowel sounds. Extremities: 1-2+ pitting edema extending up to the thighs. Overall seems improved from previous exam. Less induration noted today. No seeping. Extremities: +1-2 pre-tibial bilateral edema. Skin: No rash, ecchymoses or petechiae. (1) Atrial fibrillation Atrial fibrillation type: chronic Qualified Code(s): I48.2 - Chronic atrial fibrillation (2) Hypertension Hypertension type: essential hypertension Qualified Code(s): I10 - Essential (primary) hypertension
[2018-10-09] MEDS: WARFARIN SOD 1 MG TAB PO SCH (15:54)
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
[2018-10-10 06:44] LABS: INR 2.1 (0.9-1.1); Prothrombin Time 20.3 Seconds (9.0-12.0)
[2018-10-10] MEDS: SERTRALINE HCL 100 MG TABLET PO SCH (07:48)
[2018-10-10] MEDS: PIPERACILLIN/TAZOBACTAM 3.375 GM in DEXTROSE 5% 100 ML IV SCH (07:48)
[2018-10-10] MEDS: ALLOPURINOL 100 MG TAB PO SCH ×2 (07:49→20:28)
[2018-10-10] MEDS: ASPIRIN 81 MG ECTAB PO SCH (07:49)
[2018-10-10] MEDS: MAGNESIUM OXIDE 400 MG TAB PO SCH (07:49)
[2018-10-10] MEDS: POTASSIUM CHLORIDE 20 MEQ TABCR PO SCH ×3 (07:49→16:52)
[2018-10-10] MEDS: MULTIVITAMIN TAB PO SCH (07:49)
[2018-10-10] MEDS: LACTOBACILLUS ACIDOPHILUS (FLORANEX) TAB PO SCH ×4 (07:50→20:27)
[2018-10-10] MEDS: METOPROLOL SUCC 50MG EXT REL TAB PO SCH ×2 (07:51→20:28)
[2018-10-10] MEDS: GABAPENTIN 100 MG CAP PO SCH ×3 (07:51→16:53)
[2018-10-10] MEDS: PANTOprazole 40 MG TAB PO SCH (07:51)
[2018-10-10] MEDS: RASPBERRY SYRUP 5 ML UDP PO SCH ×2 (07:52→20:28)
[2018-10-10] MEDS: IPRATROPIUM BROMIDE/ALBUTEROL respimat INH INH SCH ×4 (07:52→20:27)
[2018-10-10] MEDS: VANCOMYCIN HCL 125 MG/2.5ML SOLN PO SCH ×2 (07:53→20:28)
[2018-10-10] MEDS: BUMETANIDE 4 MG in SYRINGE 0 ML IV SCH ×2 (08:05→16:52)
--- NOTE | 2018-10-10 10:50 | Urology Progress Note ---
Date of Service October 10, 2018 Assessment & Plan (1) Hematuria: Hematuria persisting. Recent CT without acute explanation of bleeding, negative UC&S. No clot, catheter draining without difficulty. Patient appears to be feeling better overall today. Recommend trial of void when Herring no longer necessary from cardiac standpoint. Will coordinate close outpatient follow up including cystoscopy & incontinence management. Thank you for allowing us to participate in the care of this patient. Please contact our service with additional questions/concerns. Subjective 62 YO male with hematuria s/p Herring insertion. Unfortunately hematuria is persisting. Urine appears light red without clot. Herring draining without difficulty. Patient denies flank and abdominal pain. States that catheter is not bothersome. Denies fever/chills. Denies nausea/vomiting. Review of Systems All systems reviewed & are unremarkable except as noted in HPI & below Physical Exam Vital Signs (Past 24 Hours): Last Vital Signs Temp 36.5 C 10/10/18 07:29 Pulse 65 10/10/18 07:29 Resp 18 10/10/18 07:29 BP 116/63 10/10/18 07:29 Pulse Ox 98 10/10/18 07:29 Physical Exam: NAD. No JVD. No resp distress. Abd soft/nontender. A&O x 3, appropriate affect.
[2018-10-10] MEDS: CHLOROTHIAZIDE SODIUM 250 MG in DEXTROSE 5% 50 ML IV SCH (12:02)
[2018-10-10] MEDS: levoFLOXacin 500 MG TAB PO SCH (12:08)
[2018-10-10] MEDS: WARFARIN SOD 1 MG TAB PO SCH (15:41)
--- NOTE | 2018-10-10 16:23 | Heart Failure Progress Note ---
Date of Service October 10, 2018 Assessment & Plan (1) Acute on chronic diastolic CHF (congestive heart failure): He has long-standing congestive heart failure and has been difficult to manage as an outpatient. A lot of it may be due to dietary noncompliance and fluid intake at home, although he also has a lot of cardiac problems although not severe left ventricular dysfunction. He does have diastolic dysfunction as well as the atrial fibrillation and a wide left bundle branch block pattern. He continues to net 1-2 L negative each day. His weight has not changed but the patient states they have not had him on a standing scale? I have asked nursing today to make sure this is being done each morning. Continue Bumex 4 mg IV BID until his creatinine increases. Continue Diuril 250 mg IV daily. His eplerenone 50 mg BID has been ordered but was apparently non-formulary and not available via our pharmacy. Patient or his family were not notified to bring this from home so he has not been getting it. His brought in his home med today. It has not yet gone down to pharmacy, again asked nursing staff to ensure he this is addressed in time for the PM dose.. Continue potassium 60 mew TID and additional supplementation as needed. is questioning LLE wound care. Will follow up. (2) Cardiomyopathy: He may have developed a mild cardiomyopathy. He has had low normal function for some time, his current echocardiogram (45-50%) is read that way but the number is slightly less than his prior echocardiograms (50-55%). It is very unlikely this is due to ischemic heart disease with a normal catheterization in 2015 (he did not have any coronary disease identified). He denies any current chest pain or anginal symptoms. More likely if he has developed a cardiomyopathy is nonischemic due to atrial fibrillation and dyssynchrony from left bundle branch block. I would not be inclined to evaluate him for ischemia at this time. (3) Hematuria: Urology is following. Can attempt voiding trial once I&O's less critical. He will likely further outpatient evaluation, possible uroscopy. Supervising Physician Co-Signing Physician Notes Patient seen and examined. See separate documentation. Agree with above. Subjective He is in good spirits and is feeling quite well. He is sitting up in a chair at the bedside. He continues to feel considerably better. He denies any further drainage from the thighs. His is in the room with him today. She brought in his Eplerenone from home but it hasn't gone down to pharmacy yet. She also states she changed his LLE dressing earlier today. He is negative 8.6 L this admission. He has not been weighed in days according to the patient. Physical Exam Vital Signs (Past 24 Hours): Last Vital Signs Temp 36.4 C L 10/10/18 15:18 Pulse 78 10/10/18 15:18 Resp 20 10/10/18 15:18 BP 106/59 L 10/10/18 15:18 Pulse Ox 100 10/10/18 15:18 Constitutional: Alert, cooperative and in no distress. Neck: Supple, JVD noted 1/2 way to the mandible sitting upright. Pulmonary: Decreased breath sounds on the right compared to the left. Crackles at the left base, otherwise clear to auscultation. Cardiac: Irregular rhythm with no murmur, gallop or rub. Abdomen: Soft, nontender with normal bowel sounds. Extremities: 1-2+ pitting edema extending up to the thighs. Overall seems imp roved from previous exam. Less induration noted today. No seeping. Extremities: +1-2 pre-tibial bilateral edema. Skin: No rash, ecchymoses or petechiae.
--- NOTE | 2018-10-10 16:50 | Cardiology Progress Note ---
Date of Service October 10, 2018 Assessment & Plan (1) Acute on chronic diastolic CHF (congestive heart failure): His weight has remained relatively stable recently while in the hospital. We may be making some progress on diuresis currently. I believe he still has some fluid that it would be helpful to eliminate, hopefully that would help keep him out of the hospital. Agree with current diuretic strategy. (2) Cardiomyopathy: He may have developed a mild cardiomyopathy. He has had low normal function for some time, his current echocardiogram (45-50%) is read that way but the number is slightly less than his prior echocardiograms (50-55%). It is very unlikely this is due to ischemic heart disease with a normal catheterization in 2015 (he did not have any coronary disease identified). He denies any current chest pain or anginal symptoms. More likely if he has developed a cardiomyopathy is nonischemic due to atrial fibrillation and dyssynchrony from left bundle branch block. I would not be inclined to evaluate him for ischemia at this time. Subjective Today he seems to be in good spirits. He feels that he has lost a good deal of fluid from his legs, although by weight he is not. Physical Exam Vital Signs (Past 24 Hours): Last Vital Signs Temp 36.4 C L 10/10/18 15:18 Pulse 78 10/10/18 15:18 Resp 20 10/10/18 15:18 BP 106/59 L 10/10/18 15:18 Pulse Ox 100 10/10/18 15:18
[2018-10-10] MEDS: AMOXICILLIN/CLAVULANATE 875 MG TAB PO SCH (16:53)
--- NOTE | 2018-10-10 19:43 | Progress Note ---
DATE: 10/10/2018 Mr. Maldonado is seen today. He is on oxygen and his fluid has reaccumulated. I had a very long conversation with the patient. He asked me to "drain it out again." I told him that repeated thoracentesis for an effusion of this size is not really a good option. It has very short-acting effects before the fluid reaccumulates. We did discuss a PleurX catheter. As I stated, I am not enthusiastic about placing this as the patient has cirrhosis and the ensuing drainage could be problematic on a daily basis. We do not really have a good option for Mr. Maldonado. My feeling is that we should probably simply let this get back to where he achieves a steady state and see how he does. If he requires no oxygen or low-dose oxygen, I would probably consider leaving the fluid alone. It is important to understand that he is not a good operative risk and a pleurectomy may not be helpful in a patient with hepatic hydrothorax. A PleurX catheter is not indicated in this patient.
[2018-10-10] MEDS: EPLERENONE PO SCH (22:36)
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
[2018-10-11] MEDS: MULTIVITAMIN TAB PO SCH (08:23)
[2018-10-11] MEDS: MAGNESIUM OXIDE 400 MG TAB PO SCH (08:23)
[2018-10-11] MEDS: ALLOPURINOL 100 MG TAB PO SCH ×2 (08:23→20:44)
[2018-10-11] MEDS: PANTOprazole 40 MG TAB PO SCH (08:23)
[2018-10-11] MEDS: AMOXICILLIN/CLAVULANATE 875 MG TAB PO SCH ×2 (08:23→18:01)
[2018-10-11] MEDS: VANCOMYCIN HCL 125 MG/2.5ML SOLN PO SCH ×2 (08:23→20:44)
[2018-10-11] MEDS: RASPBERRY SYRUP 5 ML UDP PO SCH ×2 (08:23→20:44)
[2018-10-11] MEDS: ASPIRIN 81 MG ECTAB PO SCH (08:23)
[2018-10-11] MEDS: SERTRALINE HCL 100 MG TABLET PO SCH (08:23)
[2018-10-11] MEDS: LACTOBACILLUS ACIDOPHILUS (FLORANEX) TAB PO SCH ×4 (08:23→20:42)
[2018-10-11] MEDS: GABAPENTIN 100 MG CAP PO SCH ×3 (08:24→18:03)
[2018-10-11] MEDS: POTASSIUM CHLORIDE 20 MEQ TABCR PO SCH ×3 (08:24→18:03)
[2018-10-11] MEDS: IPRATROPIUM BROMIDE/ALBUTEROL respimat INH INH SCH ×4 (08:24→20:42)
[2018-10-11] MEDS: EPLERENONE PO SCH ×2 (08:24→20:43)
[2018-10-11 09:08] LABS: Hematocrit (blood only) 33.4 % (42-52); Hemoglobin 11.1 g/dL (14.0-18.0); Mean Corpuscular Hgb Conc 33.2 g/dL (32-36); Mean Corpuscular Volume 95.7 fL (80-100); Mean Platelet Volume 9.3 fL (7.4-10.4); Platelet Count 104 K/uL (130-400); RDW Coefficient of Variation 18.8 % (11.5-14.5); RDW Standard Deviation 65.1 fL (36.4-46.3); Red Blood Count 3.49 M/uL (4.7-6.1); White Blood Count 7.31 K/uL (4.8-10.8)
[2018-10-11 09:13] LABS: INR 2.3 (0.9-1.1); Prothrombin Time 22.4 Seconds (9.0-12.0)
[2018-10-11] MEDS: CHLOROTHIAZIDE SODIUM 250 MG in DEXTROSE 5% 50 ML IV SCH (09:30)
[2018-10-11] MEDS: BUMETANIDE 4 MG in SYRINGE 0 ML IV SCH ×2 (09:31→18:01)
[2018-10-11] MEDS: METOPROLOL SUCC 50MG EXT REL TAB PO SCH ×2 (09:31→20:44)
[2018-10-11 09:47] LABS: Albumin Level 2.6 gm/dl (3.4-5.0); BUN Creatinine Ratio 30.7 (10-20); Calcium 8.5 mg/dl (8.5-10.1); Creatinine Clr Calc Pharmacy 121.7 ml/min; Est GFR (African American) 114.1; Est GFR (Non-African American) 98.5; Potassium 4.3 mmol/L (3.5-5.1)
[2018-10-11 09:50] LABS: Albumin Globulin Ratio 0.6 (0.9-2); Bilirubin,Total 1.6 mg/dl (0.2-1); Globulin 4.3 gm/dl (2.5-4.0); Total Protein 6.9 gm/dl (6.4-8.2)
[2018-10-11] MEDS: levoFLOXacin 500 MG TAB PO SCH (12:28)
[2018-10-11] MEDS ORDERED: SODIUM CHLORIDE 0.65% NA SOLN 45 ML (OCEAN) ONE (14:18)
[2018-10-11] MEDS: WARFARIN SOD 1 MG TAB PO SCH (16:50)
--- NOTE | 2018-10-11 20:55 | Heart Failure Progress Note ---
Date of Service October 11, 2018 Assessment & Plan (1) Acute on chronic diastolic CHF (congestive heart failure): His weight has dropped 3 kg, but that is a standing weight vs bed weight that was done prior to yesterday. We may be making some progress on diuresis currently. I believe he still has some fluid that it would be helpful to eliminate, hopefully that would help keep him out of the hospital. He has long- standing congestive heart failure and has been difficult to manage as an out patient. A lot of it may be due to dietary noncompliance and fluid intake at home, although he also has a lot of cardiac problems although not severe left ventricular dysfunction. He does have diastolic dysfunction as well as the atrial fibrillation and a wide left bundle branch block pattern. He continues to net 1-2 L negative each day which is a reasonable goal as long as his creatinine is stable. His current volume status is as good as he's been in some time. He is reaccumulating his pleural effusion but he is not a candidate for PleurX catheter and serial thoracentesis is not a good option either per Dr. Castellanos. Continue to monitor. Case manangement to address his portable O2 needs. Continue Bumex 4 mg IV BID until his creatinine increases, may consider transition to PO soon as he is likely reaching discharge status. Continue Diuril 250 mg IV daily. Continue eplerenone 50 mg BID which was just started today. Continue potassium 60 mew TID and additional supplementation as needed. It's reasonable at this point to discontinue his calvo catheter and proceed an independent voiding trial. If his hematuria continues he will need outpatient follow up with urology. Patient requesting referral to inpatient rehab facility upon discharge for overall conditioning and strengthening. PT/OT consults are in. Will defer to case management and primary service. Will likely be stable for discharge from a volume standpoint in 1-2 days. (2) Cardiomyopathy: He may have developed a mild cardiomyopathy. He has had low normal function for some time, his current echocardiogram (45-50%) is read that way but the number is slightly less than his prior echocardiograms (50-55%). It is very unlikely this is due to ischemic heart disease with a normal catheterization in 2015 (he did not have any coronary disease identified). He denies any current chest pain or anginal symptoms. More likely if he has developed a cardiomyopathy is nonischemic due to atrial fibrillation and dyssynchrony from left bundle branch block. I would not be inclined to evaluate him for ischemia at this time. Supervising Physician Co-Signing Physician Notes Agree with above. Subjective He is in good spirits and is feeling quite well. He is sitting up in a chair at the bedside. He continues to feel considerably better. He denies any further drainage from the thighs. His is in the room with him today. She brought in his Eplerenone from home and he has received it as of today. He is negative 10 L this admission, averaging between 1-2 L per day. He did have a standing weight this morning at 104 kg, down 3 kg.. Physical Exam Vital Signs (Past 24 Hours): Last Vital Signs Temp 36.4 C L 10/11/18 15:00 Pulse 72 10/11/18 15:00 Resp 18 10/11/18 15:00 BP 114/68 10/11/18 15:00 Pulse Ox 100 10/11/18 15:00
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
[2018-10-12 07:22] LABS: INR 2.1 (0.9-1.1); Prothrombin Time 20.5 Seconds (9.0-12.0)
[2018-10-12] MEDS: BUMETANIDE 4 MG in SYRINGE 0 ML IV SCH ×2 (08:25→16:31)
[2018-10-12] MEDS: RASPBERRY SYRUP 5 ML UDP PO SCH ×2 (08:25→20:51)
[2018-10-12] MEDS: VANCOMYCIN HCL 125 MG/2.5ML SOLN PO SCH ×2 (08:25→20:55)
[2018-10-12] MEDS: POTASSIUM CHLORIDE 20 MEQ TABCR PO SCH ×3 (08:26→16:44)
[2018-10-12] MEDS: PANTOprazole 40 MG TAB PO SCH (08:26)
[2018-10-12] MEDS: METOPROLOL SUCC 50MG EXT REL TAB PO SCH ×2 (08:26→20:51)
[2018-10-12] MEDS: GABAPENTIN 100 MG CAP PO SCH ×3 (08:26→16:50)
[2018-10-12] MEDS: SERTRALINE HCL 100 MG TABLET PO SCH (08:26)
[2018-10-12] MEDS: MAGNESIUM OXIDE 400 MG TAB PO SCH (08:26)
[2018-10-12] MEDS: ALLOPURINOL 100 MG TAB PO SCH ×2 (08:26→20:51)
[2018-10-12] MEDS: ASPIRIN 81 MG ECTAB PO SCH (08:26)
[2018-10-12] MEDS: MULTIVITAMIN TAB PO SCH (08:26)
[2018-10-12] MEDS: LACTOBACILLUS ACIDOPHILUS (FLORANEX) TAB PO SCH ×4 (08:26→20:49)
[2018-10-12] MEDS: AMOXICILLIN/CLAVULANATE 875 MG TAB PO SCH ×2 (08:26→16:43)
[2018-10-12] MEDS: EPLERENONE PO SCH ×2 (08:27→20:50)
[2018-10-12] MEDS: IPRATROPIUM BROMIDE/ALBUTEROL respimat INH INH SCH ×4 (08:27→20:49)
[2018-10-12] MEDS: CHLOROTHIAZIDE SODIUM 250 MG in DEXTROSE 5% 50 ML IV SCH (08:27)
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
--- NOTE | 2018-10-12 15:31 | Heart Failure Progress Note ---
Date of Service October 12, 2018 Assessment & Plan (1) Acute on chronic diastolic CHF (congestive heart failure): We continue be making some progress on diuresis currently. He remains significantly hypervolemic despite aggressive and successfull diuresis. It would be more beneficial to eliminate as much as possible during admission, hopefully that would help keep him out of the hospital. He has long-standing congestive heart failure and has been difficult to manage as an outpatient. A lot of it may be due to dietary noncompliance and fluid intake at home, although he also has a lot of cardiac problems although not severe left ventricular dysfunction. He does have diastolic dysfunction as well as the atrial fibrillation and a wide left bundle branch block pattern. He continues to net 1-2 L negative each day which is a reasonable goal as long as his creatinine is stable. His current volume status is as good as he's been in some time. He is reaccumulating his pleural effusion but he is not a candidate for PleurX catheter and serial thoracentesis is not a good option either per Dr. Castellanos. Continue to monitor his oxygenation. Case manangement to address his continuous portable O2 needs. May consider repeat 2 step during this admission Continue Bumex 4 mg IV BID until his creatinine increases. Continue Diuril 250 mg IV daily- could consider BID dosing. Continue eplerenone 50 mg BID. Continue potassium 60 mew TID and additional supplementation as needed. Continue fluid restriction, low sodium diet, and daily standing weights. It's reasonable at this point to discontinue his calvo catheter and proceed an independent voiding trial. If his hematuria continues he will need outpatient follow up with urology. Patient requesting referral to inpatient rehab facility upon discharge for overall conditioning and strengthening. PT/OT consults are in. Will defer to case management and primary service. Will likely be stable for discharge from a volume standpoint in a few days. Dr. Colmenares, his primary clam dredger, will return on Monday. (2) Cardiomyopathy: He may have developed a mild cardiomyopathy. He has had low normal function for some time, his current echocardiogram (45-50%) is read that way but the number is slightly less than his prior echocardiograms (50-55%). It is very unlikely this is due to ischemic heart disease with a normal catheterization in 2014 (he did not have any coronary disease identified). He denies any current chest pain or anginal symptoms. More likely if he has developed a cardiomyopathy is nonischemic due to atrial fibrillation and dyssynchrony from left bundle branch block. I would not be inclined to evaluate him for ischemia at this time. Supervising Physician Co-Signing Physician Notes Agree with above. Subjective He is in good spirits and is feeling quite well. He is sitting up in a chair at the bedside alongside his . He continues to feel fatigue. He did ambulate down one side of the coates today for the first time. He denies any further drainage from the thighs. He is negative 12 L this admission, averaging between 1-2 L per day. His weight is up 1 kg today. Physical Exam Vital Signs (Past 24 Hours): Last Vital Signs Temp 36.5 C 10/12/18 07:52 Pulse 67 10/12/18 15:00 Resp 21 10/12/18 15:00 BP 89/50 L 10/12/18 15:00 Pulse Ox 100 10/12/18 15:00 Constitutional: Alert, cooperative and in no distress. Neck: Supple, JVD noted more than 1/2 way to the mandible sitting upright. Pulmonary: Decreased breath sounds on the right up to mid lung field compared to the left. Crackles at the left base, otherwise clear to auscultation. Cardiac: Irregular rhythm with no murmur, gallop or rub. Abdomen: Soft, nontender with normal bowel sounds. Extremities: 2+ pitting edema extending up to the thighs. More pitting noted today in the lower legs whereas they were more tense previously. Less induration in the thighs. No seeping. Skin: No rash, ecchymoses or petechiae. Neuro: A&O x 3
[2018-10-12] MEDS: WARFARIN SOD 1 MG TAB PO SCH (16:41)
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
[2018-10-13 07:14] LABS: INR 2.1 (0.9-1.1); Prothrombin Time 20.8 Seconds (9.0-12.0)
[2018-10-13] MEDS: AMOXICILLIN/CLAVULANATE 875 MG TAB PO SCH ×2 (07:53→16:39)
[2018-10-13] MEDS: MAGNESIUM OXIDE 400 MG TAB PO SCH (07:53)
[2018-10-13] MEDS: POTASSIUM CHLORIDE 20 MEQ TABCR PO SCH ×3 (07:54→16:43)
[2018-10-13] MEDS: LACTOBACILLUS ACIDOPHILUS (FLORANEX) TAB PO SCH ×4 (07:54→20:50)
[2018-10-13] MEDS: BUMETANIDE 1 MG TAB PO SCH ×2 (07:55→16:41)
[2018-10-13] MEDS: ASPIRIN 81 MG ECTAB PO SCH (07:55)
[2018-10-13] MEDS: IPRATROPIUM BROMIDE/ALBUTEROL respimat INH INH SCH ×4 (07:58→20:50)
[2018-10-13] MEDS: METOPROLOL SUCC 50MG EXT REL TAB PO SCH ×2 (07:59→21:38)
[2018-10-13] MEDS: PANTOprazole 40 MG TAB PO SCH (08:00)
[2018-10-13] MEDS: EPLERENONE PO SCH ×2 (08:00→20:51)
[2018-10-13] MEDS: SERTRALINE HCL 100 MG TABLET PO SCH (08:01)
[2018-10-13] MEDS: ALLOPURINOL 100 MG TAB PO SCH ×2 (08:01→20:53)
[2018-10-13] MEDS: MULTIVITAMIN TAB PO SCH (08:01)
[2018-10-13] MEDS: RASPBERRY SYRUP 5 ML UDP PO SCH ×2 (08:03→20:52)
[2018-10-13] MEDS: VANCOMYCIN HCL 125 MG/2.5ML SOLN PO SCH ×2 (08:03→20:57)
[2018-10-13] MEDS: GABAPENTIN 100 MG CAP PO SCH ×3 (08:14→16:43)
[2018-10-13] MEDS: CHLOROTHIAZIDE SODIUM 250 MG in DEXTROSE 5% 50 ML IV SCH (09:14)
[2018-10-13] MEDS: WARFARIN SOD 1 MG TAB PO SCH (16:39)
[2018-10-14 07:06] LABS: Prothrombin Time 19.7 Seconds (9.0-12.0)
[2018-10-14] MEDS: SERTRALINE HCL 100 MG TABLET PO SCH (08:47)
[2018-10-14] MEDS: LACTOBACILLUS ACIDOPHILUS (FLORANEX) TAB PO SCH ×4 (08:47→21:22)
[2018-10-14] MEDS: PANTOprazole 40 MG TAB PO SCH (08:47)
[2018-10-14] MEDS: BUMETANIDE 1 MG TAB PO SCH ×2 (08:47→16:57)
[2018-10-14] MEDS: MULTIVITAMIN TAB PO SCH (08:47)
[2018-10-14] MEDS: MAGNESIUM OXIDE 400 MG TAB PO SCH (08:48)
[2018-10-14] MEDS: POTASSIUM CHLORIDE 20 MEQ TABCR PO SCH ×3 (08:48→16:58)
[2018-10-14] MEDS: METOPROLOL SUCC 50MG EXT REL TAB PO SCH ×2 (08:48→21:23)
[2018-10-14] MEDS: IPRATROPIUM BROMIDE/ALBUTEROL respimat INH INH SCH ×4 (08:48→21:16)
[2018-10-14] MEDS: ALLOPURINOL 100 MG TAB PO SCH ×2 (08:48→21:23)
[2018-10-14] MEDS: ASPIRIN 81 MG ECTAB PO SCH (08:49)
[2018-10-14] MEDS: GABAPENTIN 100 MG CAP PO SCH ×3 (08:49→16:58)
[2018-10-14] MEDS: AMOXICILLIN/CLAVULANATE 875 MG TAB PO SCH ×2 (08:49→16:57)
[2018-10-14] MEDS: EPLERENONE PO SCH ×2 (08:50→21:22)
[2018-10-14] MEDS: CHLOROTHIAZIDE SODIUM 250 MG in DEXTROSE 5% 50 ML IV SCH (08:57)
[2018-10-14] MEDS: VANCOMYCIN HCL 125 MG/2.5ML SOLN PO SCH ×2 (08:57→21:26)
[2018-10-14] MEDS: RASPBERRY SYRUP 5 ML UDP PO SCH ×2 (08:57→21:23)
--- NOTE | 2018-10-14 09:35 | Progress Note ---
DATE: 10/14/2018 Mr. Maldonado was seen this morning. He is up walking with his walker. He states that he feels "good," although he is still concerned about his hematuria. The patient is still requiring oxygen, at 3.5 liters, he is 100% saturations, so I think he should be weaned down. He of course has decreased breath sounds in his right base. He does look better overall to me. It is a problematic case. I will continue to keep an eye on him. We may tap him just for simply symptomatic reasons. We will continue to follow. KATIE
[2018-10-14] MEDS: WARFARIN SOD 1 MG TAB PO SCH (15:58)
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
--- NOTE | 2018-10-14 23:56 | Hospitalist Progress Note ---
Date of Service October 14, 2018 Assessment & Plan (1) Acute on chronic diastolic CHF (congestive heart failure): Acute on chronic diastolic CHF/atrial fibrillation/mechanical heart valve/history aortic valve repair/history aortic aneurysm,dissection repair/pacemaker/history cardiac radiofrequency ablation/hypertension-- recent echo shows also decreased systolic function, therefore likely also acute systolic failure , cardiology has seen and agrees with diuresis adding iv diuril D/W cardio, at this time, no further ischemic eval is warranted. Bumex 4 mg IV bid. has had stable renal function. Calvo catheter for accurate I's and O's. Each day patient has had over one liter of negative net fluid loss. He has about negative 13.5 liters during hospital stay. Will continue patient here until patient is euvolemic. It appears that he may be reaching that point however as his blood pressure has been gradually decreasing. Continue aspirin 81 mg daily, eplerenone 50 mg p.o. twice daily, metoprolol succinate ER 50 mg p.o. twice daily, potassium chloride ER 60 mEq p.o. 3 times daily. Continue warfarin 1 mg p.o. daily. inr therapeutic on admission follow Echo: EF: 45-50% As noted above, on bumex oral BID. On chlorthiazide IV daily. Continuing to make significant output: 13.5 liters negative (2) Cirrhosis: Cirrhosis/history of mild ascites--possible also passive hepatic congestion patient feels his abdominal girth is gone down Last CT on 08/16/18. Last ultrasound on 08/20/18. Patient reports no significant change in abdominal girth and weight. Has been on metoprolol succinate, Bumex, and eplerenone. Bili is elevated but coming down 1.6 was last total bilirrubin. (from 10/11) (3) C. difficile colitis: History of C. difficile colitis, not an active infection at this time no current diarrhea at this time. Continue vancomycin 125 mg p.o. twice daily as prophylaxis. (4) Hyponatremia: Associated with fluid overload. Continues improving daily (5) Hypertension: Controlled (6) Pleural effusion on right: thoracentesis consult Dr. Castellanos.; pleural effusion appears worse, despite thoracocenthesis which was done earlier, Thoracic surgery does not want to put pleruex cath or chest tube due to risk of infection, nor repeated thoracocenthesis. Patient appears comfortable despite fluid in lung. will monitor for now. (7) Mechanical heart valve present: Continue with warfarin target INR is 2.5-3.5, therapeutic INR , restarted low dose coumadin given liver issues follow daily continues to be therapeutic. (8) COPD (chronic obstructive pulmonary disease): Continue usual inhalers of ipratropium/albuterol, 1 inhalation 4 times daily. plus DuoNeb prn no shortness of breath breathing is improved since thoracentesis (9) Cellulitis and abscess of leg: Cellulitis and abscess of left leg/multiple areas of rai-- Following with infectious disease Dr. Yun and wound care in the outpatient setting. Court was instituted Zosyn therapy, with oral vancomycin as noted. now on augmentin. (10/12) (10) Burn: As above. Local wound care (11) Depression: Continue sertraline (12) Peripheral neuropathy: Continue gabapentin (13) Hematuria: Patient is hematuria since Calvo catheter was inserted his aspirin was reduced to 81 his INR is therapeutic certainly trauma could be undertaken given his Calvo insertion urine culture negative for infection consulted urology Removed calvo on 10/12 Subjective Patient reports feeling well. Patient denies any new symptoms. Patient reports hematuria is improving as blood is more clear. ROS: well nourished well developed. Morbidly obese No double vision blurry vision No problems with speech or swallowing No palpitations, chest pain or pressure lower extremity edema to thighs No Wheezing some dyspnea with exertion No abdominal pain nausea vomiting diarrhea changes in appetite or weight No burning urine has hematuria in his Calvo bag Diffuse lower extremity muscle pain and joint pain which is mild but usual for him More changes to lower extremities including chronic venous stasis dermatitis No focused back pain or numbness or loss of strength No changes in memory or confusion Physical Exam Vital Signs (Past 24 Hours): Last Vital Signs Temp 36.3 C L 10/14/18 16:05 Pulse 83 10/14/18 21:21 Resp 20 10/14/18 16:05 BP 115/59 L 10/14/18 21:21 Pulse Ox 92 10/14/18 21:21 Physical Exam: The patient appeared well nourished and normally developed. Patient is in no distress. Vital signs as documented. Head exam is unremarkable. normocephalic, atraumatic Neck is without jugular venous distension, or lymphademopathy Lungs continue to have decreased breath sound of right lower base. No change from yesterday. Cardiac exam reveals irregularly irregular rhythm, systolic ejection murmur. First and second heart sounds normal. Abdominal exam reveals normal bowel sounds, no masses, no organomegaly Extremities are moderately edematous (has decreased) and both pedal pulses are present Neurologic exam is A&Ox3, no focal deficits, strength is equal bilateral Psychologically seems neither anxious or depressed Skin no longer is red; changes as described chronically (1) Cirrhosis Hepatic cirrhosis type: unspecified hepatic cirrhosis Ascites presence: without ascites Qualified Code(s): K74.60 - Unspecified cirrhosis of liver (2) Hypertension Hypertension type: essential hypertension Qualified Code(s): I10 - Essential (primary) hypertension (3) COPD (chronic obstructive pulmonary disease) COPD type: unspecified COPD Qualified Code(s): J44.9 - Chronic obstructive pulmonary disease, unspecified
[2018-10-15] MEDS: VANCOMYCIN HCL 125 MG/2.5ML SOLN PO SCH ×2 (07:36→21:55)
[2018-10-15] MEDS: ASPIRIN 81 MG ECTAB PO SCH (07:36)
[2018-10-15] MEDS: ALLOPURINOL 100 MG TAB PO SCH ×2 (07:36→21:55)
[2018-10-15] MEDS: AMOXICILLIN/CLAVULANATE 875 MG TAB PO SCH ×2 (07:36→16:49)
[2018-10-15] MEDS: RASPBERRY SYRUP 5 ML UDP PO SCH ×2 (07:36→21:55)
[2018-10-15] MEDS: METOPROLOL SUCC 50MG EXT REL TAB PO SCH ×2 (07:37→21:58)
[2018-10-15] MEDS: PANTOprazole 40 MG TAB PO SCH (07:37)
[2018-10-15] MEDS: LACTOBACILLUS ACIDOPHILUS (FLORANEX) TAB PO SCH ×4 (07:37→21:55)
[2018-10-15] MEDS: MAGNESIUM OXIDE 400 MG TAB PO SCH (07:37)
[2018-10-15] MEDS: POTASSIUM CHLORIDE 20 MEQ TABCR PO SCH ×3 (07:37→16:49)
[2018-10-15] MEDS: GABAPENTIN 100 MG CAP PO SCH ×3 (07:37→16:49)
[2018-10-15] MEDS: BUMETANIDE 1 MG TAB PO SCH (07:37)
[2018-10-15] MEDS: MULTIVITAMIN TAB PO SCH (07:37)
[2018-10-15] MEDS: SERTRALINE HCL 100 MG TABLET PO SCH (07:37)
[2018-10-15] MEDS: IPRATROPIUM BROMIDE/ALBUTEROL respimat INH INH SCH ×4 (07:38→21:51)
[2018-10-15] MEDS: EPLERENONE PO SCH ×2 (07:38→21:54)
[2018-10-15] MEDS: CHLOROTHIAZIDE SODIUM 250 MG in DEXTROSE 5% 50 ML IV SCH (08:26)
[2018-10-15 08:51] LABS: INR 1.9 (0.9-1.1); Prothrombin Time 18.6 Seconds (9.0-12.0)
[2018-10-15 09:18] LABS: Mean Corpuscular Hgb Conc 33.3 g/dL (32-36); Mean Corpuscular Volume 96.2 fL (80-100); Platelet Count 151 K/uL (130-400); RDW Coefficient of Variation 18.6 % (11.5-14.5); RDW Standard Deviation 65.8 fL (36.4-46.3); Red Blood Count 3.43 M/uL (4.7-6.1); White Blood Count 7.83 K/uL (4.8-10.8)
[2018-10-15 09:27] LABS: BUN Creatinine Ratio 32.7 (10-20); Calcium 8.6 mg/dl (8.5-10.1); Creatinine Clr Calc Pharmacy 111.3 ml/min; Est GFR (African American) 109.5; Est GFR (Non-African American) 94.5; Potassium 4.8 mmol/L (3.5-5.1)
--- NOTE | 2018-10-15 09:46 | Cardiology Progress Note ---
Date of Service October 15, 2018 Assessment & Plan (1) Acute on chronic diastolic CHF (congestive heart failure): He appears to be significantly hypervolemic. LV systolic function is not significantly reduced. Would recommend more aggressive diuretic therapy as his creatinine remains normal. His heart failure has been much more difficult to control over the past several months. He also now has cirrhosis which is likely playing a role in the change of his volume status and the fact that things are more difficult to control now. Low-sodium diet. Fluid restriction recommended, less than 1.5 L per day. Recommend Bumex drip with daily Diuril. We discussed the fact that we would not be able to cure his issue but hopefully improve his quality of life with more aggressive therapy. Strict I&Os and daily weights recommended. (2) Edema: He has chronic CHF but also has hypoalbuminemia in the setting of cirrhosis, which is likely playing a role to his edema. Would recommend aggressive diuretic therapy until he shows evidence of azotemia. (3) Atrial fibrillation: Heart rate is adequately controlled. Continue beta-olive. Continue anticoagulation for stroke risk reduction. (4) Mechanical heart valve present: Continue anticoagulation for stroke risk reduction. Continue aspirin 81 mg daily. INR was supratherapeutic for many days as an outpatient despite holding warfarin. This was likely secondary to antibiotic therapy and also underlying cirrhosis. He is now on a much lower dose of warfarin than he had been on in the past. (5) Cirrhosis: He has been seen by GI . This may be playing a role in the fact that his volume status has been more difficult to control over the past few months as he has had hypoalbuminemia and worsening edema overall. (6) Pacemaker: Followed by EP. Disposition: Cardiology will continue to follow. Plan of care discussed with Dr. Wilde of the primary hospitalist service. He follows up with heart failure program as an outpatient. He is high risk for readmission. He did ask if we could "beat this. " We discussed the fact that he has multiple organ involvement with his volume status and that we will not likely be able to cure him but hopefully improve his quality of life with medical therapy. He was reminded however that he has been declining overall in this regard over the past few months, despite regular follow-up. Subjective He denies shortness of breath sitting in a chair but does have orthopnea. He denies chest pain, syncope, near-syncope, palpitations. He continues to have lower extremity edema. He states that his hematuria has improved. He denies other bleeding. There was no family present at the bedside but his will be in later today. He was asked to notify the nursing staff when she arrives and that I would be happy to come meet with her if possible at that time. His evening dose of Bumex was held by nursing staff on 10/14/2018 for hold parameters according to chart. During this hospitalization he had an echocardiogram done. His left ventricular systolic function was low normal. His right ventricle appeared to be dilated. Review of systems: As above. Physical Exam Vital Signs (Past 24 Hours): Last Vital Signs Temp 36.3 C L 10/15/18 07:04 Pulse 73 10/15/18 07:04 Resp 18 10/15/18 07:04 BP 101/52 L 10/15/18 07:04 Pulse Ox 92 10/15/18 07:04 Intake & Output 10/13/18 10/14/18 10/15/18 10/16/18 06:59 06:59 06:59 06:59 Intake Total 539 / 539 834 / 834 1179 / 1179 59 / 59 Output Total 1450 / 1450 2727 / 2727 1475 / 1475 Balance -911 / -911 -1893 / -1893 -296 / -296 59 / 59 Weight 106.1 kg 106.3 kg 107.7 kg 107 kg Physical Exam: Gen.: No acute distress. Alert and oriented. HEENT: Anicteric sclera. Neck: JVD to the mandible. Cardiac: Irregularly irregular. Normal S1 . [place]uthrie S2. No audible murmurs, rub s, or gallops. Pulmonary: There were significantly decreased breath sounds in the right lung from base to mid. Otherwise, lungs were clear. Abdomen: Soft, nontender, nondistended, with normoactive bowel sounds. No bruits noted. Pitting edema noted [facility] to the chest. Extremities: 2 to 3+ bilateral lower extremity pitting edema to the hips. No cyanosis. Psychiatric: Affect appears appropriate. Results & Data Laboratory Results Laboratory Results - last 24 hr 10/15/18 10/15/18 10/15/18 08:18 08:18 08:18 WBC 7.83 RBC 3.43 L Hgb 11.0 L Hct 33.0 L MCV 96.2 MCH 32.1 MCHC 33.3 RDW Std Deviation 65.8 H RDW Coeff of Nic 18.6 H Plt Count 151 MPV 9.0 PT 18.6 H INR 1.9 H Sodium 131 L Potassium 4.8 Chloride 98 Carbon Dioxide 29 Anion Gap 5.0 BUN 27 H Creatinine 0.84 Est Cr Clr Drug Dosing 111.3 Est GFR ( Amer) 109.5 Est GFR (Non-Af Amer) 94.5 BUN/Creatinine Ratio 32.7 H Glucose 87 Calcium 8.6 Diagnostic Findings echocardiogram images personally reviewed from 10/05/2018. Left ventricular systolic function low-normal. Septal motion consistent with pacing. Right ventricle appeared dilated. Medications Administered Current Inpatient Medications Albuterol (Combivent Respimat) 1 puffs INH QID [facility] Stop: 11/03/18 22:59 Last Admin: 10/15/18 07:38 Dose: 1 puffs Documented by: Allopurinol (Zyloprim) 100 mg PO BID [facility] Stop: 11/03/18 21:59 Last Admin: 10/15/18 07:36 Dose: 100 mg Documented by: Amoxicillin/Clavulanate Potassium (Augmentin 875mg) 1 tab PO BIDM [facility]; Protocol Stop: 10/19/18 16:59 Last Admin: 10/15/18 07:36 Dose: 1 tab Documented by: Aspirin (Ecotrin Ectab) 81 mg PO QAM [facility] Stop: 11/04/18 08:59 Last Admin: 10/15/18 07:36 Dose: 81 mg Documented by: Bumetanide (Bumex) 4 mg PO BID17 [facility] Stop: 11/12/18 08:59 Last Admin: 10/15/18 07:37 Dose: 4 mg Documented by: Gabapentin (Neurontin) 100 mg PO TIDM [facility] Stop: 11/04/18 07:59 Last Admin: 10/15/18 07:37 Dose: 100 mg Documented by: Bumetanide 4 mg/ Syringe 16 mls @ 4 mls/min IV DAILY@0900,1700 [facility] Stop: 11/04/18 08:59 Last Admin: 10/12/18 16:31 Dose: Not Given Documented by: Chlorothiazide Sodium 250 mg/ (Dextrose) 59 mls @ 200 mls/hr IV DAILY@0830 [facility] Stop: 11/04/18 14:29 Last Infusion: 10/15/18 08:44 Dose: Infused Documented by: Lactobacillus Acidophilus (Floranex) 4 tab PO QIDM [facility] Stop: 11/04/18 07:59 Last Admin: 10/15/18 07:37 Dose: 4 tab Documented by: Magnesium Oxide (Mag-Ox) 200 mg PO DAILY [facility] Stop: 11/03/18 21:59 Last Admin: 10/15/18 07:37 Dose: 200 mg Documented by: Metoprolol Succinate (Toprol Xl) 50 mg PO BID [facility] Stop: 11/03/18 21:20 Last Admin: 10/15/18 07:37 Dose: 50 mg Documented by: Multivitamins (Multivitamin Tab) 1 tab PO QAM [facility] Stop: 11/04/18 08:59 Last Admin: 10/15/18 07:37 Dose: 1 tab Documented by: ~~Eplerenone~~Non- Formulary Patient's Own Med 2 ea PO BID [facility] Stop: 11/09/18 20:59 Last Admin: 10/15/18 07:38 Dose: 2 tabs Documented by: Ondansetron HCl (Zofran) 4 mg IV Q6H PRN PRN Reason: NAUSEA/VOMITING Stop: 11/03/18 21:20 Pantoprazole Sodium (Protonix) 40 mg PO QAM [facility] Stop: 11/04/18 08:59 Last Admin: 10/15/18 07:37 Dose: 40 mg Documented by: Potassium Chloride (Klor-Con M20) 60 meq PO TIDM [facility] Stop: 11/04/18 07:59 Last Admin: 10/15/18 07:37 Dose: 60 meq Documented by: Raspberry (Raspberry) 5 ml PO BID [facility] Stop: 10/18/18 22:59 Last Admin: 10/15/18 07:36 Dose: 5 ml Documented by: Sertraline HCl (Zoloft) 100 mg PO QAM [facility] Stop: 11/04/18 08:59 Last Admin: 10/15/18 07:37 Dose: 100 mg Documented by: Vancomycin HCl (Vancomycin Hcl) 125 mg PO BID [facility] Stop: 11/03/18 22:59 Last Admin: 10/15/18 07:36 Dose: 125 mg Documented by: Warfarin Sodium (Coumadin) 1 mg PO DAILY@1600 [facility] Stop: 11/04/18 15:59 Last Admin: 10/14/18 15:58 Dose: 1 mg Documented by: (1) Edema Edema type: unspecified Qualified Code(s): R60.9 - Edema, unspecified (2) Atrial fibrillation Atrial fibrillation type: chronic Qualified Code(s): I48.2 - Chronic atrial fibrillation
--- NOTE | 2018-10-15 09:56 | XRay Report ---
XR chest 2V routine CLINICAL HISTORY: Right pleural effusion. COMPARISON STUDY: Chest radiograph October 08, 2018. FINDINGS: A moderate to large right pleural effusion is similar to prior exam. There is a trace left pleural effusion. Mild pleural edema persists but has improved. There are median sternotomy wires, du al lead left subclavian pacer and prosthetic cardiac valve. IMPRESSION: 1. No significant change in a moderate to large right pleural effusion. Trace left pleural effusion. 2. Mild pulmonary edema, slightly improved since prior exam. Electronically signed by: Carlos Ngo M.D. 10/15/2018 9:54 AM
[2018-10-15] MEDS: BUMETANIDE 10 MG in DEXTROSE 5% 10 ML IV SCH (10:56)
[2018-10-15] MEDS: WARFARIN SOD 1 MG TAB PO SCH (15:42)
[2018-10-15 16:41] LABS: BUN Creatinine Ratio 34.7 (10-20); Creatinine Clr Calc Pharmacy 121.4 ml/min; Est GFR (African American) 113.5; Est GFR (Non-African American) 97.9; Potassium 3.4 mmol/L (3.5-5.1)
--- NOTE | 2018-10-15 20:52 | Hospitalist Progress Note ---
Date of Service October 15, 2018 Assessment & Plan (1) Acute on chronic diastolic CHF (congestive heart failure): - The acute component of his fluid overload is likely multifactorial between his CHF, cirrhosis, and hypoalbuminemia - Echo with EF 45-50% with borderline global hypokinesis of LV; grade II diastolic dysfunction - slightly decreased EF from previous but still rather low normal - Currently at a negative fluid balance of 14.1 L - Continues to diurese well but clinically still hypervolemic - remains on supplemental O2 but review of saturations he can likely wean down further - He did undergo thoracentesis however CXR supports reaccumulation - Was started on a Bumex gtt and Chlorothiazide IV daily and will monitor effectiveness - renal function staying stable and BP stable - continue I&Os - Continue ASA 81 mg daily, Metoprolol 50 mg BID; Potassium 60 mEq TID - Cardiology following - discussed with Dr. Colmenares at patient bedside - plan as above and monitor for good diuresis response Present on Admission?: Yes (2) Cirrhosis: - Likely multifactorial - follows with Dr. Myers - may benefit from trial paralegal referral as outpatient - Likely also contributing with hepatic congestion from CHF/maybe medication induced/prior ETOH use Present on Admission?: Yes (3) C. difficile colitis: - No active infection at this time - On Abx for skin rai and continues on Vancomycin 125 mg BID for prophylaxis - follows with Dr. Yun and will need outpatient F/U Present on Admission?: No (4) Hypertension: - STABLE - Treatment as above and monitor with diuresis Present on Admission?: Yes (5) Pleural effusion on right: - S/P Thoracentesis for approx. 2 L fluid but CXR shows reaccumulation - No plan on repeat thoracentesis or Pleur-X at this time - could consider repeat tap for symptom improvement - CT Surg following - appreciate input Present on Admission?: Yes (6) Mechanical heart valve present: - Continue warfarin 1 mg daily but INR has been subtherapeutic. Will check in AM and likely increase to dose given the mechanical valve - Will have to monitor closely as he tends to get supratherapeutic and a slow response to correct given his liver dysfunction; goal INR range is 2.5-3.5 due to mechanical valve - INR daily Present on Admission?: Yes (7) COPD (chronic obstructive pulmonary disease): - No current signs of exacerbation - Continue Albuterol Present on Admission?: Yes (8) Cellulitis and abscess of leg: - Cellulitis and abscess of left leg/multiple areas of rai -- improving - Following with infectious disease Dr. Yun and wound care in the outpatient setting. - Currently on Augmentin BID with plans to D/C around 10/19 Present on Admission?: Yes (9) Burn: - As above. Local wound care Present on Admission?: Yes (10) Depression: - Continue Sertraline 100 mg daily Present on Admission?: Yes (11) Peripheral neuropathy: - Continue Gabapentin 100 mg TID Present on Admission?: Yes (12) Hematuria: Patient is hematuria since Calvo catheter was inserted his aspirin was reduced to 81 his INR is therapeutic certainly trauma could be undertaken given his Calvo insertion urine culture negative for infection consulted urology Removed calvo on 10/12 (13) DVT prophylaxis: - Coumadin Disposition: Continue to await adequate diuresis which may take a few more days; planning on acute rehab when medically optimal Subjective Reports feeling okay today. Still with significant edema and just feeling generally tired. Had a long conversation with Dr. Colmenares, patient, and about ongoing plan. Patient's goal is to get back to being able to function better with better breathing control and fluid control. He continues to diurese and was started on a Bumex gtt Constitutional: + fatigue; no fever and no chills Respiratory: + dyspnea on exertion; no cough and no dyspnea Cardiovascular: + orthopnea and + edema; no chest pain Gastrointestinal: no abdominal pain, no nausea, no vomiting, no constipation and no diarrhea/loose stools Genitourinary (Male): + hematuria (resolving); no dysuria Integumentary: + wounds (healing 2nd degree rai of hands/abdomen/back) Physical Exam Vital Signs (Past 24 Hours): Last Vital Signs Temp 36.3 C L 10/15/18 16:06 Pulse 72 10/15/18 16:06 Resp 18 10/15/18 16:06 BP 113/66 10/15/18 16:06 Pulse Ox 97 10/15/18 16:06 Constitutional: + acute distress and + ill appearing Eyes: + anicteric sclerae ENMT: Throat: uvula midline Neck: trachea midline Respiratory: normal respiratory effort Auscultation: + diminished lung sounds and + crackles Cardiovascular: Rate/Rhythm: regular rate and regular rhythm Gastrointestinal (Abdomen): Inspection/Auscultation: normal bowel sounds Percussion/Palpation: abdomen soft; abdomen nontender Musculoskeletal: Head/Neck/Chest: normocephalic, head atraumatic and neck supple well healed rai of b/l palms Skin: weeping lower extremities due to swelling Neurologic: moves all extremities Psychiatric: A+Ox3, euthymic affect (1) Cirrhosis Hepatic cirrhosis type: unspecified hepatic cirrhosis Ascites presence: without ascites Qualified Code(s): K74.60 - Unspecified cirrhosis of liver (2) Hypertension Hypertension type: essential hypertension Qualified Code(s): I10 - Essential (primary) hypertension (3) COPD (chronic obstructive pulmonary disease) COPD type: unspecified COPD Qualified Code(s): J44.9 - Chronic obstructive pulmonary disease, unspecified
[2018-10-16] MEDS: BUMETANIDE 10 MG in DEXTROSE 5% 10 ML IV SCH ×3 (05:14→23:58)
[2018-10-16 06:29] LABS: Prothrombin Time 19.1 Seconds (9.0-12.0)
[2018-10-16 06:43] LABS: BUN Creatinine Ratio 35.7 (10-20); Calcium 8.2 mg/dl (8.5-10.1); Creatinine Clr Calc Pharmacy 133.6 ml/min; Est GFR (African American) 118.1; Est GFR (Non-African American) 101.9; Potassium 3.8 mmol/L (3.5-5.1)
--- NOTE | 2018-10-16 07:32 | XRay Report ---
XR chest 1V portable CLINICAL HISTORY: effusion COMPARISON STUDY: 10/15/2017 FINDINGS: Mild decrease in volume of right effusion. Pulmonary edema slightly improved. Left lung is grossly clear. There is a permanent bipolar cardiac pacemaker. There has been a prior median sternoto my and valve replacement. IMPRESSION: Mild improvement of right effusion. Study is otherwise stable. The above report was generated using voice recognition software. It may contain grammatical, syntax or spelling errors. Electronically signed by: Pelon Mariano M.D. 10/16/2018 7:30 AM
--- NOTE | 2018-10-16 08:19 | Cardiology Progress Note ---
Date of Service October 16, 2018 Assessment & Plan (1) Acute on chronic diastolic CHF (congestive heart failure): He remains hypervolemic but had improved diuresis on Bumex drip. Will increase Bumex trip to 1 milligram/hour. LV systolic function is not significantly reduced. Monitor renal function and electrolytes closely. His heart failure has been much more difficult to control over the past several months , which may be due to his cirrhosis. Low-sodium diet. Fluid restriction recommended, less than 1.5 L per day. Recommend Bumex drip with daily Diuril. Strict I&Os and daily weights recommended. (2) Edema: He has chronic CHF but also has hypoalbuminemia in the setting of cirrhosis, which is likely playing a role to his edema. Would recommend aggressive diuretic therapy until he shows evidence of azotemia. (3) Atrial fibrillation: Heart rate remains reasonably controlled. Continue beta-olive. Continue anticoagulation for stroke risk reduction. (4) Mechanical heart valve present: Continue anticoagulation for stroke risk reduction. Continue aspirin 81 mg daily. INR was supratherapeutic for many days as an outpatient despite h olding warfarin. This was likely secondary to antibiotic therapy and also underlying cirrhosis. He is now on a much lower dose of warfarin than he had been on in the past. continue to monitor. (5) Cirrhosis: He has been seen by GI . This may be playing a role in the fact that his volume status has been more difficult to control over the past few months as he has had hypoalbuminemia and worsening edema overall. (6) Pacemaker: Followed by EP. Disposition: He expressed interest in being discharged soon but states that he is willing to stay the remainder of the week. Bumex trip adjusted as above. Cardiology will continue to follow. Subjective He believes shortness of breath may have improved mildly. He still has some degree of orthopnea however. He was found this morning sitting in a chair with his CPAP on. He denies chest pain, palpitations, syncope, near-syncope, or bleeding. He tolerated Bumex drip at 0.5 milligrams/hour. His net fluid balance improved compared to previous days. Review of systems: As above. Physical Exam Vital Signs (Past 24 Hours): Last Vital Signs Temp 36.6 C 10/16/18 06:48 Pulse 86 10/16/18 06:48 Resp 18 10/16/18 06:48 BP 112/72 10/16/18 06:48 Pulse Ox 96 10/16/18 06:48 Intake & Output 10/14/18 10/15/18 10/16/18 10/17/18 06:59 06:59 06:59 06:59 Intake Total 834 / 834 1179 / 1179 719.75 / 719.75 Output Total 2727 / 2727 1475 / 1475 2950 / 2950 Balance -1893 / -1893 -296 / -296 -2230.25 / -2230.2 5 Weight 106.3 kg 107.7 kg 107 kg 106.5 kg Physical Exam: Gen.: No acute distress. Alert and oriented. HEENT: Anicteric sclera. Neck: Elevated JVD. Cardiac: Irregularly irregular. Normal S1-S2. 1/6 systolic murmur. No rubs, or gallops. Pulmonary: Decreased breath sounds base to mid right lung field, otherwise clear. Abdomen: Soft, nontender, nondistended, with normoactive bowel sounds. No bruits noted. Trace to 1+ body wall edema in the lower to mid abdomen. Extremities: Two to 3+ bilateral lower extremity edema to the hips. No cyanosis. Psychiatric: Affect appears appropriate. Results & Data Laboratory Results Laboratory Results - last 24 hr 10/15/18 10/15/18 10/15/18 08:18 08:18 08:18 WBC 7.83 RBC 3.43 L Hgb 11.0 L Hct 33.0 L MCV 96.2 MCH 32.1 MCHC 33.3 RDW Std Deviation 65.8 H RDW Coeff of Nic 18.6 H Plt Count 151 MPV 9.0 PT 18.6 H INR 1.9 H Sodium 131 L Potassium 4.8 Chloride 98 Carbon Dioxide 29 Anion Gap 5.0 BUN 27 H Creatinine 0.84 Est Cr Clr Drug Dosing 111.3 Est GFR ( Amer) 109.5 Est GFR (Non-Af Amer) 94.5 BUN/Creatinine Ratio 32.7 H Glucose 87 Calcium 8.6 10/15/18 10/16/18 10/16/18 15:53 05:28 05:28 WBC RBC Hgb Hct MCV MCH MCHC RDW Std Deviation RDW Coeff of Nic Plt Count MPV PT 19.1 H INR 2.0 H Sodium 132 L 131 L Potassium 3.4 L D 3.8 Chloride 95 L 98 Carbon Dioxide 30 28 Anion Gap 7.0 5.0 BUN 27 H 25 H Creatinine 0.77 0.70 Est Cr Clr Drug Dosing 121.4 133.6 Est GFR ( Amer) 113.5 118.1 Est GFR (Non-Af Amer) 97.9 101.9 BUN/Creatinine Ratio 34.7 H 35.7 H Glucose 83 107 H Calcium 8.0 L 8.2 L Diagnostic Findings chest x-ray 10/16/2018: As per Radiology, mild improvement in right pleural effusion. Medications Administered Current Inpatient Medications Albuterol (Combivent Respimat) 1 puffs INH QID [facility] Stop: 11/03/18 22:59 Last Admin: 10/15/18 21:51 Dose: 1 puffs Documented by: Allopurinol (Zyloprim) 100 mg PO BID [facility] Stop: 11/03/18 21:59 Last Admin: 10/15/18 21:55 Dose: 100 mg Documented by: Amoxicillin/Clavulanate Potassium (Augmentin 875mg) 1 tab PO BIDM [facility]; Protocol Stop: 10/19/18 16:59 Last Admin: 10/15/18 16:49 Dose: 1 tab Documented by: Aspirin (Ecotrin Ectab) 81 mg PO QAM [facility] Stop: 11/04/18 08:59 Last Admin: 10/15/18 07:36 Dose: 81 mg Documented by: Gabapentin (Neurontin) 100 mg PO TIDM [facility] Stop: 11/04/18 07:59 Last Admin: 10/15/18 16:49 Dose: 100 mg Documented by: Bumetanide 4 mg/ Syringe 16 mls @ 4 mls/min IV DAILY@0900,1700 [facility] Stop: 11/04/18 08:59 Last Admin: 10/12/18 16:31 Dose: Not Given Documented by: Chlorothiazide Sodium 250 mg/ (Dextrose) 59 mls @ 200 mls/hr IV DAILY@0830 [facility] Stop: 11/04/18 14:29 Last Infusion: 10/15/18 08:44 Dose: Infused Documented by: Bumetanide 10 mg/ Dextrose 50 mls @ 5 mls/hr IV .Q10H [facility] Stop: 11/14/18 10:14 Last Infusion: 10/16/18 08:28 Dose: 1 mg/hr, 5 mls/hr Documented by: Lactobacillus Acidophilus (Floranex) 4 tab PO QIDM [facility] Stop: 11/04/18 07:59 Last Admin: 10/15/18 21:55 Dose: 4 tab Documented by: Magnesium Oxide (Mag-Ox) 200 mg PO DAILY [facility] Stop: 11/03/18 21:59 Last Admin: 10/15/18 07:37 Dose: 200 mg Documented by: Metoprolol Succinate (Toprol Xl) 50 mg PO BID [facility] Stop: 11/03/18 21:20 Last Admin: 10/15/18 21:58 Dose: 50 mg Documented by: Multivitamins (Multivitamin Tab) 1 tab PO QAM [facility] Stop: 11/04/18 08:59 Last Admin: 10/15/18 07:37 Dose: 1 tab Documented by: ~~Eplerenone~~Non- Formulary Patient's Own Med 2 ea PO BID [facility] Stop: 11/09/18 20:59 Last Admin: 10/15/18 21:54 Dose: 2 tabs Documented by: Ondansetron HCl (Zofran) 4 mg IV Q6H PRN PRN Reason: NAUSEA/VOMITING Stop: 11/03/18 21:20 Pantoprazole Sodium (Protonix) 40 mg PO QAM [facility] Stop: 11/04/18 08:59 Last Admin: 10/15/18 07:37 Dose: 40 mg Documented by: Potassium Chloride (Klor-Con M20) 60 meq PO TIDM [facility] Stop: 11/04/18 07:59 Last Admin: 10/15/18 16:49 Dose: 60 meq Documented by: Raspberry (Raspberry) 5 ml PO BID [facility] Stop: 10/18/18 22:59 Last Admin: 10/15/18 21:55 Dose: 5 ml Documented by: Sertraline HCl (Zoloft) 100 mg PO QAM [facility] Stop: 11/04/18 08:59 Last Admin: 10/15/18 07:37 Dose: 100 mg Documented by: Vancomycin HCl (Vancomycin Hcl) 125 mg PO BID [facility] Stop: 11/03/18 22:59 Last Admin: 10/15/18 21:55 Dose: 125 mg Documented by: Warfarin Sodium (Coumadin) 1 mg PO DAILY@1600 [facility] Stop: 11/04/18 15:59 Last Admin: 10/15/18 15:42 Dose: 1 mg Documented by: (1) Edema Edema type: unspecified Qualified Code(s): R60.9 - Edema, unspecified (2) Atrial fibrillation Atrial fibrillation type: chronic Qualified Code(s): I48.2 - Chronic atrial fibrillation
[2018-10-16] MEDS: MULTIVITAMIN TAB PO SCH (08:34)
[2018-10-16] MEDS: RASPBERRY SYRUP 5 ML UDP PO SCH ×2 (08:34→21:11)
[2018-10-16] MEDS: VANCOMYCIN HCL 125 MG/2.5ML SOLN PO SCH ×2 (08:34→21:11)
[2018-10-16] MEDS: EPLERENONE PO SCH ×2 (08:34→21:10)
[2018-10-16] MEDS: METOPROLOL SUCC 50MG EXT REL TAB PO SCH ×2 (08:35→21:11)
[2018-10-16] MEDS: SERTRALINE HCL 100 MG TABLET PO SCH (08:35)
[2018-10-16] MEDS: PANTOprazole 40 MG TAB PO SCH (08:35)
[2018-10-16] MEDS: GABAPENTIN 100 MG CAP PO SCH ×3 (08:35→17:09)
[2018-10-16] MEDS: MAGNESIUM OXIDE 400 MG TAB PO SCH (08:35)
[2018-10-16] MEDS: LACTOBACILLUS ACIDOPHILUS (FLORANEX) TAB PO SCH ×4 (08:35→21:10)
[2018-10-16] MEDS: IPRATROPIUM BROMIDE/ALBUTEROL respimat INH INH SCH ×4 (08:35→21:10)
[2018-10-16] MEDS: ALLOPURINOL 100 MG TAB PO SCH ×2 (08:35→21:11)
[2018-10-16] MEDS: AMOXICILLIN/CLAVULANATE 875 MG TAB PO SCH ×2 (08:35→17:09)
[2018-10-16] MEDS: POTASSIUM CHLORIDE 20 MEQ TABCR PO SCH ×3 (08:35→17:09)
[2018-10-16] MEDS: ASPIRIN 81 MG ECTAB PO SCH (08:35)
[2018-10-16] MEDS: CHLOROTHIAZIDE SODIUM 250 MG in DEXTROSE 5% 50 ML IV SCH (09:41)
[2018-10-16] MEDS: ALBUT/IPRATROP 3MG/0.5MG NEB 3 ML VIAL NEB PRN (10:39)
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
[2018-10-16] MEDS ORDERED: WARFARIN SOD 0.5 MG TAB PO SCH (16:00)
[2018-10-16] MEDS ORDERED: ALBUT/IPRATROP 3MG/0.5MG NEB 3 ML VIAL NEB PRN (16:00)
[2018-10-16] MEDS ORDERED: WARFARIN SOD 1 MG TAB PO SCH (16:00)
[2018-10-16 17:24] LABS: BUN Creatinine Ratio 30.6 (10-20); Calcium 8.4 mg/dl (8.5-10.1); Creatinine Clr Calc Pharmacy 121.2 ml/min; Est GFR (African American) 113.5; Est GFR (Non-African American) 97.9
[2018-10-17 06:51] LABS: Hematocrit (blood only) 32.6 % (42-52); Hemoglobin 10.8 g/dL (14.0-18.0); Mean Corpuscular Hgb Conc 33.1 g/dL (32-36); Mean Corpuscular Volume 96.4 fL (80-100); Mean Platelet Volume 8.4 fL (7.4-10.4); Platelet Count 160 K/uL (130-400); RDW Coefficient of Variation 18.4 % (11.5-14.5); RDW Standard Deviation 65.3 fL (36.4-46.3); Red Blood Count 3.38 M/uL (4.7-6.1); White Blood Count 7.14 K/uL (4.8-10.8)
[2018-10-17 06:56] LABS: INR 1.9 (0.9-1.1); Prothrombin Time 18.5 Seconds (9.0-12.0)
[2018-10-17 07:23] LABS: BUN Creatinine Ratio 33.4 (10-20); Calcium 8.3 mg/dl (8.5-10.1); Est GFR (African American) 118.1; Est GFR (Non-African American) 101.9; Potassium 3.8 mmol/L (3.5-5.1)
[2018-10-17] MEDS: PANTOprazole 40 MG TAB PO SCH (07:59)
[2018-10-17] MEDS: VANCOMYCIN HCL 125 MG/2.5ML SOLN PO SCH ×2 (07:59→22:06)
[2018-10-17] MEDS: ASPIRIN 81 MG ECTAB PO SCH (07:59)
[2018-10-17] MEDS: RASPBERRY SYRUP 5 ML UDP PO SCH ×2 (07:59→22:05)
[2018-10-17] MEDS: AMOXICILLIN/CLAVULANATE 875 MG TAB PO SCH ×2 (08:00→17:31)
[2018-10-17] MEDS: LACTOBACILLUS ACIDOPHILUS (FLORANEX) TAB PO SCH ×4 (08:00→22:00)
[2018-10-17] MEDS: MAGNESIUM OXIDE 400 MG TAB PO SCH (08:00)
[2018-10-17] MEDS: EPLERENONE PO SCH ×2 (08:00→22:01)
[2018-10-17] MEDS: POTASSIUM CHLORIDE 20 MEQ TABCR PO SCH ×3 (08:00→17:31)
[2018-10-17] MEDS: ALLOPURINOL 100 MG TAB PO SCH ×2 (08:00→22:02)
[2018-10-17] MEDS: SERTRALINE HCL 100 MG TABLET PO SCH (08:00)
[2018-10-17] MEDS: IPRATROPIUM BROMIDE/ALBUTEROL respimat INH INH SCH ×4 (08:00→22:06)
[2018-10-17] MEDS: METOPROLOL SUCC 50MG EXT REL TAB PO SCH ×2 (08:00→22:02)
[2018-10-17] MEDS: MULTIVITAMIN TAB PO SCH (08:00)
[2018-10-17] MEDS: GABAPENTIN 100 MG CAP PO SCH ×3 (08:00→17:33)
[2018-10-17] MEDS: CHLOROTHIAZIDE SODIUM 250 MG in DEXTROSE 5% 50 ML IV SCH (08:53)
[2018-10-17] MEDS: BUMETANIDE 10 MG in DEXTROSE 5% 10 ML IV SCH ×2 (10:05→22:00)
[2018-10-17] MEDS: ALBUT/IPRATROP 3MG/0.5MG NEB 3 ML VIAL NEB PRN (11:07)
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
--- NOTE | 2018-10-17 14:41 | Cardiology Progress Note ---
Date of Service October 17, 2018 Assessment & Plan (1) Acute on chronic diastolic CHF (congestive heart failure): He remains hypervolemic. He is diuresing but would like to have further improvement in his net negative fluid balance. Continue Bumex drip at 1 milligram/hour and increased Diuril to 500 mg twice daily from 250 mg once daily. If he does not have significant input, would consider Nephrology consultation for ultrafiltration either as inpatient or perhaps as outpatient as it has been more difficult to maintain euvolemic state with outpatient oral diuretic therapy, including issues with hypokalemia. LV systolic function is not significantly reduced. Monitor renal function and electrolytes closely. His heart failure has been much more difficult to control over the past several months , which may be due to his cirrhosis. Low-sodium diet. Fluid restriction recommended, less than 1.5 L per day. Strict I&Os and daily weights recommended. (2) Edema: He has chronic CHF but also has hypoalbuminemia in the setting of cirrh osis, which is likely playing a role to his edema. Would recommend aggressive diuretic therapy until he shows evidence of azotemia. (3) Atrial fibrillation: Heart rate remains reasonably controlled. Continue beta-olive. Continue anticoagulation for stroke risk reduction. (4) Mechanical heart valve present: Continue anticoagulation for stroke risk reduction. Continue aspirin 81 mg daily. INR was supratherapeutic for many days as an outpatient despite holding warfarin. This was likely secondary to antibiotic therapy and also underlying cirrhosis. He is now on a much lower dose of warfarin than he had been on in the past. INR is subtherapeutic. He has not been bridged with heparin, likely secondary to recent hematuria. Hematuria has improved/resolved. If he becomes more significantly subtherapeutic, would consider bridging with heparin drip. Coumadin was increased to 2 mg. Continues (5) Cirrhosis: He has been seen by GI . This may be playing a role in the fact that his volume status has been more difficult to control over the past few months as he has had hypoalbuminemia and worsening edema overall. (6) Pacemaker: Followed by EP. Disposition: He to express interest in being discharged soon. It is recommended that he remain hospitalized until he is euvolemic and we discussed the fact that that would likely take several more days. Cardiology will continue to follow. Subjective He feels better today than yesterday. He was able to walk around the hallway yesterday, improved from the day before. He has less shortness of breath but still has some degree of orthopnea. He denies chest pain, syncope, near- syncope. He continues to have edema. He has not had any further hematuria and states that his urine continues to improve in regards to coloration. Review of systems: As above. Physical Exam Vital Signs (Past 24 Hours): Last Vital Signs Temp 36.4 C L 10/17/18 07:09 Pulse 77 10/17/18 11:10 Resp 18 10/17/18 11:10 BP 126/63 10/17/18 07:55 Pulse Ox 97 10/17/18 11:10 Intake & Output 10/15/18 10/16/18 10/17/18 10/18/18 06:59 06:59 06:59 06:59 Intake Total 1179 / 1179 719.75 / 719.75 954.583 / 954.583 309 / 309 Output Total 1475 / 1475 2950 / 2950 3350 / 3350 2252 / 2252 Balance -296 / -296 -2230.25 / -2230.2 5 -2395.417 / -2395. 417 -1943 / -1943 Weight 107.7 kg 107 kg 106.1 kg Physical Exam: Gen.: No acute distress. Alert and oriented. HEENT: Anicteric sclera. Neck: Elevated JVD. Cardiac: Irregularly irregular. Normal S1. [place] S2. No audible murmurs, rubs, or gallops. Pulmonary: Decreased breath sounds base to mid right lung field, otherwise clear. Abdomen: Soft, nontender, nondistended, with normoactive bowel sounds. No bruits noted. 1+ abdominal wall edema. Extremities: 3+ bilateral lower extremity edema from the knee to the hips, 1 to 2+ edema below the knees. No cyanosis. Psychiatric: Affect appears appropriate. Results & Data Laboratory Results Laboratory Results - last 24 hr 10/16/18 10/16/18 10/17/18 16:22 17:43 06:23 WBC RBC Hgb Hct MCV MCH MCHC RDW Std Deviation RDW Coeff of Nic Plt Count MPV PT 18.5 H INR 1.9 H Sodium 131 L Potassium 3.8 Chloride 97 L Carbon Dioxide 28 Anion Gap 5.0 BUN 24 H Creatinine 0.77 Est Cr Clr Drug Dosing 121.2 Est GFR ( Amer) 113.5 Est GFR (Non-Af Amer) 97.9 BUN/Creatinine Ratio 30.6 H Glucose 82 Calcium 8.4 L 10/17/18 10/17/18 06:23 06:23 WBC 7.14 RBC 3.38 L Hgb 10.8 L Hct 32.6 L MCV 96.4 MCH 32.0 MCHC 33.1 RDW Std Deviation 65.3 H RDW Coeff of Nic 18.4 H Plt Count 160 MPV 8.4 PT INR Sodium 132 L Potassium 3.8 Chloride 97 L Carbon Dioxide 31 Anion Gap 4.0 BUN 23 H Creatinine 0.70 Est Cr Clr Drug Dosing 133.0 Est GFR ( Amer) 118.1 Est GFR (Non-Af Amer) 101.9 BUN/Creatinine Ratio 33.4 H Glucose 89 Calcium 8.3 L Medications Administered Current Inpatient Medications Albuterol (Combivent Respimat) 1 puffs INH QID [facility] Stop: 11/03/18 22:59 Last Admin: 10/17/18 13:28 Dose: 1 puffs Documented by: Albuterol (Duoneb) 3 ml NEB Q2H PRN PRN Reason: SOB/Wheezing Stop: 11/15/18 10:29 Last Admin: 10/17/18 11:07 Dose: 3 ml Documented by: Albuterol (Duoneb) 3 ml NEB Q2H PRN PRN Reason: SOB/WHEEZING Stop: 11/15/18 15:59 Allopurinol (Zyloprim) 100 mg PO BID [facility] Stop: 11/03/18 21:59 Last Admin: 10/17/18 08:00 Dose: 100 mg Documented by: Amoxicillin/Clavulanate Potassium (Augmentin 875mg) 1 tab PO BIDM [facility]; Protocol Stop: 10/19/18 16:59 Last Admin: 10/17/18 08:00 Dose: 1 tab Documented by: Aspirin (Ecotrin Ectab) 81 mg PO QAM [facility] Stop: 11/04/18 08:59 Last Admin: 10/17/18 07:59 Dose: 81 mg Documented by: Gabapentin (Neurontin) 100 mg PO TIDM [facility] Stop: 11/04/18 07:59 Last Admin: 10/17/18 13:28 Dose: 100 mg Documented by: Bumetanide 4 mg/ Syringe 16 mls @ 4 mls/min IV DAILY@0900,1700 [facility] Stop: 11/04/18 08:59 Last Admin: 10/12/18 16:31 Dose: Not Given Documented by: Bumetanide 10 mg/ Dextrose 50 mls @ 5 mls/hr IV .Q10H [facility] Stop: 11/14/18 10:14 Last Admin: 10/17/18 10:05 Dose: 1 mg/hr, 5 mls/hr Documented by: Chlorothiazide Sodium 500 mg/ (Dextrose) 68 mls @ 200 mls/hr IV BID [facility] Stop: 11/16/18 20:59 Lactobacillus Acidophilus (Floranex) 4 tab PO QIDM [facility] Stop: 11/04/18 07:59 Last Admin: 10/17/18 13:27 Dose: 4 tab Documented by: Magnesium Oxide (Mag-Ox) 200 mg PO DAILY [facility] Stop: 11/03/18 21:59 Last Admin: 10/17/18 08:00 Dose: 200 mg Documented by: Metoprolol Succinate (Toprol Xl) 50 mg PO BID [facility] Stop: 11/03/18 21:20 Last Admin: 10/17/18 08:00 Dose: 50 mg Documented by: Multivitamins (Multivitamin Tab) 1 tab PO QAM [facility] Stop: 11/04/18 08:59 Last Admin: 10/17/18 08:00 Dose: 1 tab Documented by: ~~Eplerenone~~Non- Formulary Patient's Own Med 2 ea PO BID [facility] Stop: 11/09/18 20:59 Last Admin: 10/17/18 08:00 Dose: 2 tabs Documented by: Ondansetron HCl (Zofran) 4 mg IV Q6H PRN PRN Reason: NAUSEA/VOMITING Stop: 11/03/18 21:20 Pantoprazole Sodium (Protonix) 40 mg PO QAM [facility] Stop: 11/04/18 08:59 Last Admin: 10/17/18 07:59 Dose: 40 mg Documented by: Potassium Chloride (Klor-Con M20) 60 meq PO TIDM [facility] Stop: 11/04/18 07:59 Last Admin: 10/17/18 13:28 Dose: 60 meq Documented by: Raspberry (Raspberry) 5 ml PO BID [facility] Stop: 10/18/18 22:59 Last Admin: 10/17/18 07:59 Dose: 5 ml Documented by: Sertraline HCl (Zoloft) 100 mg PO QAM [facility] Stop: 11/04/18 08:59 Last Admin: 10/17/18 08:00 Dose: 100 mg Documented by: Vancomycin HCl (Vancomycin Hcl) 125 mg PO BID [facility] Stop: 11/03/18 22:59 Last Admin: 10/17/18 07:59 Dose: 125 mg Documented by: Warfarin Sodium (Coumadin) 2 mg PO DAILY@1600 [facility] Stop: 11/16/18 15:59 (1) Edema Edema type: unspecified Qualified Code(s): R60.9 - Edema, unspecified (2) Atrial fibrillation Atrial fibrillation type: chronic Qualified Code(s): I48.2 - Chronic atrial fibrillation
[2018-10-17 17:04] LABS: Albumin Level 2.6 gm/dl (3.4-5.0); BUN Creatinine Ratio 33.5 (10-20); Est GFR (African American) 118.1; Est GFR (Non-African American) 101.9; Potassium 3.4 mmol/L (3.5-5.1)
[2018-10-17 17:07] LABS: Albumin Globulin Ratio 0.6 (0.9-2); Bilirubin,Total 1.1 mg/dl (0.2-1); Globulin 4.5 gm/dl (2.5-4.0); Total Protein 7.1 gm/dl (6.4-8.2)
[2018-10-17] MEDS: WARFARIN SOD 2 MG TAB PO SCH (17:31)
[2018-10-17] MEDS ORDERED: CHLOROTHIAZIDE SODIUM 250 MG in DEXTROSE 5% 50 ML IV SCH (21:00)
[2018-10-17] MEDS: CHLOROTHIAZIDE SODIUM 500 MG in DEXTROSE 5% 50 ML IV SCH (21:27)
[2018-10-18] MEDS ORDERED: Heparin Adult STANDARD Wt-Based Dextrose 5% 25,000 units/500 mL IV SCH (06:00)
[2018-10-18] MEDS: LACTOBACILLUS ACIDOPHILUS (FLORANEX) TAB PO SCH ×4 (07:53→20:45)
[2018-10-18] MEDS: VANCOMYCIN HCL 125 MG/2.5ML SOLN PO SCH ×2 (07:53→21:13)
[2018-10-18] MEDS: GABAPENTIN 100 MG CAP PO SCH ×3 (07:53→17:41)
[2018-10-18] MEDS: BUMETANIDE 10 MG in DEXTROSE 5% 10 ML IV SCH ×2 (07:53→16:27)
[2018-10-18] MEDS: SERTRALINE HCL 100 MG TABLET PO SCH (07:53)
[2018-10-18] MEDS: METOPROLOL SUCC 50MG EXT REL TAB PO SCH ×2 (07:53→21:13)
[2018-10-18] MEDS: MULTIVITAMIN TAB PO SCH (07:53)
[2018-10-18] MEDS: MAGNESIUM OXIDE 400 MG TAB PO SCH (07:54)
[2018-10-18] MEDS: ASPIRIN 81 MG ECTAB PO SCH (07:54)
[2018-10-18] MEDS: POTASSIUM CHLORIDE 20 MEQ TABCR PO SCH ×3 (07:54→17:41)
[2018-10-18] MEDS: RASPBERRY SYRUP 5 ML UDP PO SCH ×2 (07:54→20:46)
[2018-10-18] MEDS: EPLERENONE PO SCH ×2 (07:54→20:45)
[2018-10-18] MEDS: ALLOPURINOL 100 MG TAB PO SCH ×2 (07:54→21:14)
[2018-10-18] MEDS: AMOXICILLIN/CLAVULANATE 875 MG TAB PO SCH ×2 (07:54→17:41)
[2018-10-18] MEDS: PANTOprazole 40 MG TAB PO SCH (07:54)
[2018-10-18] MEDS: IPRATROPIUM BROMIDE/ALBUTEROL respimat INH INH SCH ×4 (07:55→20:46)
[2018-10-18] MEDS: CHLOROTHIAZIDE SODIUM 500 MG in DEXTROSE 5% 50 ML IV SCH ×2 (07:58→21:08)
[2018-10-18 08:10] LABS: INR 1.9 (0.9-1.1); Prothrombin Time 18.7 Seconds (9.0-12.0)
[2018-10-18 08:34] LABS: Calcium 8.6 mg/dl (8.5-10.1); Creatinine Clr Calc Pharmacy 160.2 ml/min; Est GFR (African American) 127.5; Potassium 2.7 mmol/L (3.5-5.1)
[2018-10-18] MEDS ORDERED: Heparin IV Standard *NO* Bolus IV ONE (08:48)
[2018-10-18] MEDS ORDERED: POTASSIUM CHLORIDE 20 MEQ TABCR PO STA (09:38)
[2018-10-18] MEDS: Heparin Adult STANDARD Wt-Based Dextrose 5% 25,000 units/500 mL IV SCH (10:34)
[2018-10-18] MEDS: WARFARIN SOD 2 MG TAB PO SCH (15:32)
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
[2018-10-18 16:57] LABS: Calcium 8.3 mg/dl (8.5-10.1); Creatinine Clr Calc Pharmacy 160.2 ml/min; Est GFR (African American) 127.5; Potassium 3.1 mmol/L (3.5-5.1)
--- NOTE | 2018-10-18 17:17 | Cardiology Progress Note ---
Date of Service October 18, 2018 Assessment & Plan (1) Acute on chronic diastolic CHF (congestive heart failure): He remains hypervolemic. Continue Bumex drip at 1 milligram/hour with Diuril 500 mg twice daily. We discussed potentially performing ultrafiltration, especially as an outpatient as it has been difficult to diurese him as an outpatient and he remains significantly hypervolemic here despite large doses of diuretic therapy. He also has had issues with hypokalemia as an outpatient while taking metolazone. Nephrology consultation. Case has been discussed with Dr. Kendrick of Nephrology. Continue eplerenone. LV systolic function is not significantly reduced. Monitor renal function and electrolytes closely. His heart failure has been much more difficult to control over the past several months , which may be due to his cirrhosis. Low-sodium diet. Fluid restriction recommended, less than 1.5 L per day. Strict I&Os and daily weights recommended. (2) Edema: He has chronic CHF but also has hypoalbuminemia in the setting of cirrhosis, which is likely playing a role to his edema. Would recommend aggressive diuretic therapy until he shows evidence of azotemia. (3) Atrial fibrillation: Heart rate remains reasonably controlled. Permanent atrial fibrillation. Continue beta-olive. Continue anticoagulation for stroke risk reduction. He is now on heparin drip. (4) Mechanical heart valve present: Continue anticoagulation for stroke risk reduction. Continue aspirin 81 mg daily. INR was supratherapeutic for many days as an outpatient despite holding warfarin. This was likely secondary to antibiotic therapy and also underlying cirrhosis. INR is subtherapeutic. He is now on a heparin drip in addition to Coumadin. (5) Cirrhosis: He has been seen by GI . This may be playing a role in the fact that his volume status has been more difficult to control over the past few months as he has had hypoalbuminemia and worsening edema overall. (6) Pacemaker: Followed by EP. Disposition: Plan of care discussed with Dr. Wilde of the primary hospitalist service. Cardiology will continue to follow. Subjective He feels a little better today than yesterday. Breathing has improved but he still has orthopnea. His and brother are present at the bedside. He denies chest pain, palpitations, syncope, near-syncope, or bleeding. Review of systems: As above. Physical Exam Vital Signs (Past 24 Hours): Last Vital Signs Temp 36.4 C L 10/18/18 15:37 Pulse 80 10/18/18 15:37 Resp 20 10/18/18 15:37 BP 113/64 10/18/18 15:37 Pulse Ox 100 10/18/18 15:37 Intake & Output 10/16/18 10/17/18 10/18/18 10/19/18 06:59 06:59 06:59 06:59 Intake Total 719.75 / 719.75 954.583 / 433.898 5585 / 1507 768.250 / 768.250 Output Total 2950 / 2950 3350 / 3350 4653 / 4653 1700 / 1700 Balance -2230.25 / -2230.2 5 -2395.417 / -2395. 417 -3146 / -3146 -931.750 / -931.75 0 Weight 107 kg 106.1 kg 105.7 kg Physical Exam: Gen.: No acute distress. Alert and oriented. HEENT: Anicteric sclera. Neck: JVD to the mandible . Cardiac: Irregularly irregular. Normal S1. [place] S2. No murmurs, rubs, or gallops. Pulmonary: Decreased breath sounds base to mid right lung field. Otherwise, mild occasional expiratory wheezing bilaterally. Abdomen: Soft, nontender, nondistended, with normoactive bowel sounds. Trace to 1+ body wall edema. Extremities: 1 to 2+ bilateral lower extremity edema to the knees and 3+ from the knees to the hips bilaterally. No cyanosis. Psychiatric: Affect appears appropriate. Results & Data Laboratory Results Laboratory Results - last 24 hr 10/18/18 10/18/18 10/18/18 07:33 07:33 16:30 PT 18.7 H INR 1.9 H Sodium 129 L 130 L Potassium 2.7 L D 3.1 L Chloride 93 L 93 L Carbon Dioxide 31 32 Anion Gap 5.0 5.0 BUN 22 H 23 H Creatinine 0.58 L 0.58 L Est Cr Clr Drug Dosing 160.2 160.2 Est GFR ( Amer) 127.5 127.5 Est GFR (Non-Af Amer) 110.0 110.0 BUN/Creatinine Ratio 39.0 H 39.0 H Glucose 85 88 Calcium 8.6 8.3 L Medications Administered Current Inpatient Medications Albuterol (Combivent Respimat) 1 puffs INH QID [facility] Stop: 11/03/18 22:59 Last Admin: 10/18/18 12:58 Dose: 1 puffs Documented by: Albuterol (Duoneb) 3 ml NEB Q2H PRN PRN Reason: SOB/Wheezing Stop: 11/15/18 10:29 Last Admin: 10/17/18 11:07 Dose: 3 ml Documented by: Albuterol (Duoneb) 3 ml NEB Q2H PRN PRN Reason: SOB/WHEEZING Stop: 11/15/18 15:59 Allopurinol (Zyloprim) 100 mg PO BID [facility] Stop: 11/03/18 21:59 Last Admin: 10/18/18 07:54 Dose: 100 mg Documented by: Amoxicillin/Clavulanate Potassium (Augmentin 875mg) 1 tab PO BIDM [facility]; Protocol Stop: 10/19/18 16:59 Last Admin: 10/18/18 07:54 Dose: 1 tab Documented by: Aspirin (Ecotrin Ectab) 81 mg PO QAM [facility] Stop: 11/04/18 08:59 Last Admin: 10/18/18 07:54 Dose: 81 mg Documented by: Gabapentin (Neurontin) 100 mg PO TIDM [facility] Stop: 11/04/18 07:59 Last Admin: 10/18/18 12:57 Dose: 100 mg Documented by: Bumetanide 4 mg/ Syringe 16 mls @ 4 mls/min IV DAILY@0900,1700 [facility] Stop: 11/04/18 08:59 Last Admin: 10/12/18 16:31 Dose: Not Given Documented by: Bumetanide 10 mg/ Dextrose 50 mls @ 5 mls/hr IV .Q10H [facility] Stop: 11/14/18 10:14 Last Admin: 10/18/18 16:27 Dose: 1 mg/hr, 5 mls/hr Documented by: Chlorothiazide Sodium 500 mg/ (Dextrose) 68 mls @ 200 mls/hr IV BID [facility] Stop: 11/16/18 20:59 Last Infusion: 10/18/18 08:19 Dose: Infused Documented by: Heparin Sodium/Dextrose (Heparin Sodium/Dextrose) 25,000 units in 500 mls @ 30 mls/hr IV .[id number] [facility]; Protocol Stop: 11/17/18 09:29 Last Titration: 10/18/18 14:50 Dose: 1,500 units/hr, 30 mls/hr Documented by: Lactobacillus Acidophilus (Floranex) 4 tab PO QIDM [facility] Stop: 11/04/18 07:59 Last Admin: 10/18/18 12:56 Dose: 4 tab Documented by: Magnesium Oxide (Mag-Ox) 200 mg PO DAILY [facility] Stop: 11/03/18 21:59 Last Admin: 10/18/18 07:54 Dose: 200 mg Documented by: Metoprolol Succinate (Toprol Xl) 50 mg PO BID [facility] Stop: 11/03/18 21:20 Last Admin: 10/18/18 07:53 Dose: 50 mg Documented by: Multivitamins (Multivitamin Tab) 1 tab PO QAM [facility] Stop: 11/04/18 08:59 Last Admin: 10/18/18 07:53 Dose: 1 tab Documented by: ~~Eplerenone~~Non- Formulary Patient's Own Med 2 ea PO BID [facility] Stop: 11/09/18 20:59 Last Admin: 10/18/18 07:54 Dose: 2 tabs Documented by: Ondansetron HCl (Zofran) 4 mg IV Q6H PRN PRN Reason: NAUSEA/VOMITING Stop: 11/03/18 21:20 Pantoprazole Sodium (Protonix) 40 mg PO QAM [facility] Stop: 11/04/18 08:59 Last Admin: 10/18/18 07:54 Dose: 40 mg Documented by: Potassium Chloride (Klor-Con M20) 60 meq PO TIDM [facility] Stop: 11/04/18 07:59 Last Admin: 10/18/18 12:57 Dose: 60 meq Documented by: Raspberry (Raspberry) 5 ml PO BID [facility] Stop: 10/18/18 22:59 Last Admin: 10/18/18 07:54 Dose: 5 ml Documented by: Sertraline HCl (Zoloft) 100 mg PO QAM [facility] Stop: 11/04/18 08:59 Last Admin: 10/18/18 07:53 Dose: 100 mg Documented by: Vancomycin HCl (Vancomycin Hcl) 125 mg PO BID [facility] Stop: 11/03/18 22:59 Last Admin: 10/18/18 07:53 Dose: 125 mg Documented by: Warfarin Sodium (Coumadin) 2 mg PO DAILY@1600 [facility] Stop: 11/16/18 15:59 Last Admin: 10/18/18 15:32 Dose: 2 mg Documented by: (1) Edema Edema type: unspecified Qualified Code(s): R60.9 - Edema, unspecified (2) Atrial fibrillation Atrial fibrillation type: chronic Qualified Code(s): I48.2 - Chronic atrial fibrillation
[2018-10-18 18:15] LABS: Partial Thromboplastin Time 80.4 Seconds (21.0-31.0)
[2018-10-18] MEDS: ALBUT/IPRATROP 3MG/0.5MG NEB 3 ML VIAL NEB PRN (19:29)
--- NOTE | 2018-10-18 22:36 | Progress Note ---
DATE: 10/18/2018 SUBJECTIVE: Mr. Maldonado was seen today. He seems a bit better. His INR today was 1.9. He has significant fluid and significantly decreased breath sounds on the right. I had a long talk with the patient, his and they have repeatedly asked if we would tap him again as he responds so well. Now that he seems to be compensated a bit more from his heart failure. I will offer him another thoracentesis in the hopes it will be longer lasting. I would not be too concerned about an INR of only 1.9. We did discuss this. We will get him set up for an ultrasound guided thoracentesis at bedside tomorrow. KATIE
[2018-10-19 00:44] LABS: Partial Thromboplastin Ratio 3.8
[2018-10-19 01:00] LABS: Partial Thromboplastin Time 101.9 Seconds (21.0-31.0)
[2018-10-19] MEDS: BUMETANIDE 10 MG in DEXTROSE 5% 10 ML IV SCH ×2 (02:38→13:23)
[2018-10-19] MEDS: Heparin Adult STANDARD Wt-Based Dextrose 5% 25,000 units/500 mL IV SCH (05:27)
[2018-10-19 07:04] LABS: Hematocrit (blood only) 31.8 % (42-52); Hemoglobin 10.8 g/dL (14.0-18.0); Mean Corpuscular Volume 95.2 fL (80-100); Mean Platelet Volume 8.8 fL (7.4-10.4); Platelet Count 159 K/uL (130-400); RDW Coefficient of Variation 18.3 % (11.5-14.5); RDW Standard Deviation 63.4 fL (36.4-46.3); Red Blood Count 3.34 M/uL (4.7-6.1); White Blood Count 6.35 K/uL (4.8-10.8)
[2018-10-19 07:23] LABS: Prothrombin Time 19.6 Seconds (9.0-12.0)
[2018-10-19 07:49] LABS: BUN Creatinine Ratio 39.9 (10-20); Calcium 8.3 mg/dl (8.5-10.1); Creatinine Clr Calc Pharmacy 157.1 ml/min; Est GFR (African American) 126.6; Est GFR (Non-African American) 109.3; Potassium 2.5 mmol/L (3.5-5.1)
[2018-10-19] MEDS ORDERED: POTASSIUM CHLORIDE 20 MEQ TABCR PO ONE ×2 (08:30→12:00)
[2018-10-19 08:36] LABS: Partial Thromboplastin Ratio 2.3
[2018-10-19] MEDS: CHLOROTHIAZIDE SODIUM 500 MG in DEXTROSE 5% 50 ML IV SCH ×2 (08:36→20:53)
[2018-10-19] MEDS: RASPBERRY SYRUP 5 ML UDP PO SCH (08:36)
[2018-10-19] MEDS: VANCOMYCIN HCL 125 MG/2.5ML SOLN PO SCH ×2 (08:36→23:59)
[2018-10-19] MEDS: LACTOBACILLUS ACIDOPHILUS (FLORANEX) TAB PO SCH ×3 (08:36→16:36)
[2018-10-19] MEDS: MAGNESIUM OXIDE 400 MG TAB PO SCH (08:37)
[2018-10-19] MEDS: ASPIRIN 81 MG ECTAB PO SCH (08:37)
[2018-10-19] MEDS: EPLERENONE PO SCH ×2 (08:37→20:55)
[2018-10-19] MEDS: AMOXICILLIN/CLAVULANATE 875 MG TAB PO SCH (08:37)
[2018-10-19] MEDS: METOPROLOL SUCC 50MG EXT REL TAB PO SCH (08:37)
[2018-10-19] MEDS: GABAPENTIN 100 MG CAP PO SCH ×3 (08:37→16:38)
[2018-10-19] MEDS: POTASSIUM CHLORIDE 20 MEQ TABCR PO SCH ×3 (08:37→18:06)
[2018-10-19] MEDS: SERTRALINE HCL 100 MG TABLET PO SCH (08:38)
[2018-10-19] MEDS: IPRATROPIUM BROMIDE/ALBUTEROL respimat INH INH SCH ×4 (08:38→20:53)
[2018-10-19] MEDS: MULTIVITAMIN TAB PO SCH (08:38)
[2018-10-19] MEDS: PANTOprazole 40 MG TAB PO SCH (08:38)
[2018-10-19] MEDS: ALLOPURINOL 100 MG TAB PO SCH (08:38)
[2018-10-19 08:41] LABS: Partial Thromboplastin Time 61.8 Seconds (21.0-31.0)
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
[2018-10-19 11:02] LABS: BUN Creatinine Ratio 37.9 (10-20); Calcium 8.5 mg/dl (8.5-10.1); Creatinine Clr Calc Pharmacy 162.7 ml/min; Est GFR (African American) 128.5; Est GFR (Non-African American) 110.8; Potassium 2.4 mmol/L (3.5-5.1)
--- NOTE | 2018-10-19 12:40 | XRay Report ---
XR chest 1V portable CLINICAL HISTORY: thoracentesis COMPARISON STUDY: 10/16/2018 FINDINGS: Small right basilar pneumothorax postthoracentesis. Maximum pleural separation is 1.6 cm. N o significant apical pneumothorax. IMPRESSION: Small right basilar pneumothorax postthoracentesis. The above report was generated using voice recognition software. It may contain grammatical, syntax or spelling errors. Electronically signed by: Pelon Mariano M.D. 10/19/2018 12:38 PM
[2018-10-19] MEDS: MAGNESIUM SULFATE / D5W 1 GM/100 ML BAG IV SCH ×2 (12:42→13:50)
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
[2018-10-19] MEDS ORDERED: CEFAZOLIN 2000MG 2,000 MG/15 ML SYR IV SCH (13:03)
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
[2018-10-19 13:55] LABS: Hepatitis B Surface Antibody Non-Immune
[2018-10-19 14:06] LABS: Hepatitis B Surface Antigen Neg (Neg)
--- NOTE | 2018-10-19 14:30 | Cardiology Progress Note ---
Date of Service October 19, 2018 Assessment & Plan (1) Acute on chronic diastolic CHF (congestive heart failure): He remains hypervolemic. Continue Bumex drip at 1 milligram/hour with Diuril 500 mg twice daily. Nephrology was consulted and ultrafiltration is being pursued, hopefully to improve his quality of life and allow him to manage his volume more so as an outpatient in the future. Patient care was discussed with Dr. Kendrick of Nephrology. Continue eplerenone. LV systolic function is not significantly reduced. Monitor renal function and electrolytes closely. His heart failure has been much more difficult to control over the past several months , which may be due to his cirrhosis. Low-sodium diet. Fluid restriction recommended, less than 1.5 L per day. Strict I&Os and daily weights recommended. (2) Edema: He has chronic CHF but also has hypoalbuminemia in the setting of cirrhosis, which is likely playing a role to his edema. Would recommend aggressive diuretic therapy until he shows evidence of azotemia. Ultrafiltr ation is also pending. (3) Atrial fibrillation: Heart rate remains reasonably controlled. Permanent atrial fibrillation. Continue beta-olive. Continue anticoagulation for stroke risk reduction. He is now on heparin drip. (4) Mechanical heart valve present: Continue anticoagulation for stroke risk reduction. Continue aspirin 81 mg daily. INR was supratherapeutic for many days as an outpatient despite holding warfarin. This was likely secondary to antibiotic therapy and also underlying cirrhosis. INR is subtherapeutic. He is now on a heparin drip. (5) Cirrhosis: He has been seen by GI . This may be playing a role in the fact that his volume status has been more difficult to control over the past few months as he has had hypoalbuminemia and worsening edema overall. (6) Pacemaker: Followed by EP. Disposition: Plan of care discussed with Dr. Wilde of the primary hospitalist service and Dr. Kendrick of Nephrology. I will be away from the hospital for the next 2 days. If any questions or concerns arise, please do not hesitate to contact the on-call processing archivist, Dr. Ny. Subjective He was seen today shortly after undergoing a right thoracentesis. With thoracentesis, his breathing has improved. He denies chest pain, syncope, near- syncope, palpitations, or bleeding. He has not ambulated in the hallway for the past day. His is present at the bedside. Dr. Kendrick of Nephrology and I discussed earlier today and also last evening, the utility for ultrafiltration. She was formally consulted and saw him today. She plans on pursuing ultrafiltration, possibly as soon as today if he is able to gain vascular access. Vascular surgery was consulted by Nephrology. Review of systems: As above. Physical Exam Vital Signs (Past 24 Hours): Last Vital Signs Temp 36.3 C L 10/19/18 07:58 Pulse 67 10/19/18 07:58 Resp 20 10/19/18 07:58 BP 105/63 10/19/18 07:58 Pulse Ox 92 10/19/18 07:58 Intake & Output 10/17/18 10/18/18 10/19/18 10/20/18 06:59 06:59 06:59 06:59 Intake Total 954.583 / 581.815 5596 / 1507 2206.350 / 2206.35 0 510 / 510 Output Total 3350 / 3350 4653 / 4653 3625 / 3625 1000 / 1000 Balance -2395.417 / -2395. 417 -3146 / -3146 -1418.650 / -1418. 650 -490 / -490 Weight 106.1 kg 105.7 kg 105.2 kg 105.2 kg Physical Exam: Gen.: No acute distress. Alert and oriented. HEENT: Anicteric sclera. Neck: Elevated JVD. Cardiac: Irregularly irregular. Normal S1. [place] S2. 1/6 systolic murmur. No rubs, or gallops. Pulmonary: Decreased breath sounds on the right, however improved following thoracentesis. Abdomen: Soft, nontender, nondistended, with normoactive bowel sounds. No bruits noted. Body wall edema. Extremities: 2 to 3+ bilateral lower extremity edema from knees to hips and 1 to 2+ distally. No cyanosis. Psychiatric: Affect appears appropriate. Results & Data Laboratory Results Laboratory Results - last 24 hr 10/18/18 10/18/18 10/19/18 16:30 16:30 00:10 WBC RBC Hgb Hct MCV MCH MCHC RDW Std Deviation RDW Coeff of Nic Plt Count MPV PT INR APTT 80.4 H* 101.9 H* PTT Ratio 3.0 3.8 Sodium 130 L Potassium 3.1 L Chloride 93 L Carbon Dioxide 32 Anion Gap 5.0 BUN 23 H Creatinine 0.58 L Est Cr Clr Drug Dosing 160.2 Est GFR ( Amer) 127.5 Est GFR (Non-Af Amer) 110.0 BUN/Creatinine Ratio 39.0 H Glucose 88 Calcium 8.3 L Magnesium Hep Bs Antigen Hep Bs Antibody Hep Bs Antibody, Quant 10/19/18 10/19/18 10/19/18 06:02 06:02 06:02 WBC 6.35 RBC 3.34 L Hgb 10.8 L Hct 31.8 L MCV 95.2 MCH 32.3 MCHC 34.0 RDW Std Deviation 63.4 H RDW Coeff of Nic 18.3 H Plt Count 159 MPV 8.8 PT 19.6 H INR 2.0 H APTT PTT Ratio Sodium 130 L Potassium 2.5 L* D Chloride 91 L Carbon Dioxide 31 Anion Gap 8.0 BUN 24 H Creatinine 0.59 L Est Cr Clr Drug Dosing 157.1 Est GFR ( Amer) 126.6 Est GFR (Non-Af Amer) 109.3 BUN/Creatinine Ratio 39.9 H Glucose 75 Calcium 8.3 L Magnesium Hep Bs Antigen Hep Bs Antibody Hep Bs Antibody, Quant 10/19/18 10/19/18 10/19/18 07:55 10:06 10:06 WBC RBC Hgb Hct MCV MCH MCHC RDW Std Deviation RDW Coeff of Nic Plt Count MPV PT INR APTT 61.8 H* PTT Ratio 2.3 Sodium 132 L Potassium 2.4 L* Chloride 92 L Carbon Dioxide 31 Anion Gap 9.0 BUN 22 H Creatinine 0.57 L Est Cr Clr Drug Dosing 162.7 Est GFR ( Amer) 128.5 Est GFR (Non-Af Amer) 110.8 BUN/Creatinine Ratio 37.9 H Glucose 90 Calcium 8.5 Magnesium 1.8 Hep Bs Antigen Hep Bs Antibody Hep Bs Antibody, Quant 10/19/18 12:52 WBC RBC Hgb Hct MCV MCH MCHC RDW Std Deviation RDW Coeff of Nic Plt Count MPV PT INR APTT PTT Ratio Sodium Potassium Chloride Carbon Dioxide Anion Gap BUN Creatinine Est Cr Clr Drug Dosing Est GFR ( Amer) Est GFR (Non-Af Amer) BUN/Creatinine Ratio Glucose Calcium Magnesium Hep Bs Antigen Neg Hep Bs Antibody Non-Immune Hep Bs Antibody, Quant < 3.10 L Diagnostic Findings ECG personally reviewed: ECG 10/19/2018 at 11:32 a.m.: AFib 76 bpm. LBBB. Medications Administered Current Inpatient Medications Albuterol (Combivent Respimat) 1 puffs INH QID [facility] Stop: 11/03/18 22:59 Last Admin: 10/19/18 12:43 Dose: 1 puffs Documented by: Albuterol (Duoneb) 3 ml NEB Q2H PRN PRN Reason: SOB/Wheezing Stop: 11/15/18 10:29 Last Admin: 10/18/18 19:29 Dose: 3 ml Documented by: Albuterol (Duoneb) 3 ml NEB Q2H PRN PRN Reason: SOB/WHEEZING Stop: 11/15/18 15:59 Allopurinol (Zyloprim) 100 mg PO BID [facility] Stop: 11/03/18 21:59 Last Admin: 10/19/18 08:38 Dose: 100 mg Documented by: Amoxicillin/Clavulanate Potassium (Augmentin 875mg) 1 tab PO BIDM [facility]; Protocol Stop: 10/19/18 16:59 Last Admin: 10/19/18 08:37 Dose: 1 tab Documented by: Aspirin (Ecotrin Ectab) 81 mg PO QAM [facility] Stop: 11/04/18 08:59 Last Admin: 10/19/18 08:37 Dose: 81 mg Documented by: Gabapentin (Neurontin) 100 mg PO TIDM [facility] Stop: 11/04/18 07:59 Last Admin: 10/19/18 12:43 Dose: Not Given Documented by: Bumetanide 4 mg/ Syringe 16 mls @ 4 mls/min IV DAILY@0900,1700 [facility] Stop: 11/04/18 08:59 Last Admin: 10/12/18 16:31 Dose: Not Given Documented by: Bumetanide 10 mg/ Dextrose 50 mls @ 5 mls/hr IV .Q10H [facility] Stop: 11/14/18 10:14 Last Admin: 10/19/18 13:23 Dose: 1 mg/hr, 5 mls/hr Documented by: Chlorothiazide Sodium 500 mg/ (Dextrose) 68 mls @ 200 mls/hr IV BID [facility] Stop: 11/16/18 20:59 Last Infusion: 10/19/18 08:57 Dose: Infused Documented by: Heparin Sodium/Dextrose (Heparin Sodium/Dextrose) 25,000 units in 500 mls @ 24 mls/hr IV .[id number] [facility]; Protocol Stop: 11/17/18 09:29 Last Titration: 10/19/18 09:03 Dose: Infused Documented by: Cefazolin Sodium (Ancef 1000mg) 1,000 mg in 7.5 mls @ 2.5 mls/min IV 1303 ONE Stop: 10/20/18 13:05 Lactobacillus Acidophilus (Floranex) 4 tab PO QIDM [facility] Stop: 11/04/18 07:59 Last Admin: 10/19/18 12:43 Dose: Not Given Documented by: Magnesium Oxide (Mag-Ox) 200 mg PO DAILY [facility] Stop: 11/03/18 21:59 Last Admin: 10/19/18 08:37 Dose: 200 mg Documented by: Metoprolol Succinate (Toprol Xl) 50 mg PO BID [facility] Stop: 11/03/18 21:20 Last Admin: 10/19/18 08:37 Dose: 50 mg Documented by: Multivitamins (Multivitamin Tab) 1 tab PO QAM [facility] Stop: 11/04/18 08:59 Last Admin: 10/19/18 08:38 Dose: 1 tab Documented by: ~~Eplerenone~~Non- Formulary Patient's Own Med 2 ea PO BID [facility] Stop: 11/09/18 20:59 Last Admin: 10/19/18 08:37 Dose: 2 tabs Documented by: Ondansetron HCl (Zofran) 4 mg IV Q6H PRN PRN Reason: NAUSEA/VOMITING Stop: 11/03/18 21:20 Pantoprazole Sodium (Protonix) 40 mg PO QAM [facility] Stop: 11/04/18 08:59 Last Admin: 10/19/18 08:38 Dose: 40 mg Documented by: Potassium Chloride (Klor-Con M20) 60 meq PO TIDM [facility] Stop: 11/04/18 07:59 Last Admin: 10/19/18 12:43 Dose: 60 meq Documented by: Raspberry (Raspberry) 5 ml PO BID [facility] Stop: 11/03/18 22:59 Last Admin: 10/19/18 08:36 Dose: 5 ml Documented by: Sertraline HCl (Zoloft) 100 mg PO QAM [facility] Stop: 11/04/18 08:59 Last Admin: 10/19/18 08:38 Dose: 100 mg Documented by: Vancomycin HCl (Vancomycin Hcl) 125 mg PO BID [facility] Stop: 11/03/18 22:59 Last Admin: 10/19/18 08:36 Dose: 125 mg Documented by: Warfarin Sodium (Coumadin) 2 mg PO DAILY@1600 [facility] Stop: 11/16/18 15:59 Last Admin: 10/18/18 15:32 Dose: 2 mg Documented by: (1) Edema Edema type: unspecified Qualified Code(s): R60.9 - Edema, unspecified (2) Atrial fibrillation Atrial fibrillation type: chronic Qualified Code(s): I48.2 - Chronic atrial fibrillation
[2018-10-19 14:32] LABS: Appearance Pleural Fluid BLOODY; Color Pleural Fluid RED; Mononuclear WBC Pleural 83.2 %; Polynuclear WBC Pleural 16.8 %; RBC Pleural Fluid (A) 562000 /uL; Source Pleural Fluid RIGHT LUNG; WBC Pleural Fluid (A) 1063 /uL
[2018-10-19 16:16] LABS: BUN Creatinine Ratio 41.1 (10-20); Calcium 8.7 mg/dl (8.5-10.1); Creatinine Clr Calc Pharmacy 174.9 ml/min; Est GFR (African American) 132.4; Est GFR (Non-African American) 114.2; Magnesium 2.2 mg/dl (1.8-2.4)
[2018-10-19 20:16] LABS: BUN Creatinine Ratio 39.9 (10-20); Calcium 8.5 mg/dl (8.5-10.1); Creatinine Clr Calc Pharmacy 171.7 ml/min; Est GFR (African American) 131.3; Est GFR (Non-African American) 113.3; Potassium 3.4 mmol/L (3.5-5.1)
[2018-10-19] MEDS ORDERED: ePHEDrine sulfate 50 MG/ML AMP IV PRN (22:19)
[2018-10-19] MEDS ORDERED: ATROPINE SULFATE 0.1 MG/ML 10ML SYR IV PRN (22:19)
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
[2018-10-19] MEDS ORDERED: HEPARIN SOD (PORCINE) 5,000 UNITS/ML VIAL ONE (22:30)
[2018-10-19] MEDS ORDERED: LIDOCAINE HCL 1% 20 ML VIAL ONE (22:30)
[2018-10-19] MEDS ORDERED: MIDAZOLAM HCL 1 MG/ML 2ML VIAL ONE (23:01)
--- NOTE | 2018-10-19 23:25 | Operative Report ---
Post Operative Report Pre & Post Diagnosis Operation Date: 10/19/18 11:55 Pre-Op Diagnosis: fluid overload Post-Op Diagnosis: fluid overload Operation Date: 10/22/18 09:20 <No data on this case meets the specified criteria> Procedure Operation Date: 10/19/18 11:55 Actual Procedures p Insertion Of Perm Catheter, Right Internal Jugular Approach, Ultrasound Localization Of Right Internal Jugular Vein, Fluoroscopy For Positioning(Right) - Alexis Monaco MD Operation Date: 10/22/18 09:20 <No data on this case meets the specified criteria> Surgeon Alexis Monaco MD Bridge Attacher none Estimated Blood Loss 5 Findings Consistent with Post-Op Diagnosis Specimens none Anesthesia Type MAC Complications none Disposition Accompanied Patient To Recovery: No Disposition: Recovery Room Indications Patient is a 62yo male who is fluid overload. He is not responding to diuretics. Ultrafiltration was recommended. Permcath insertion was recommended for this purpose. I have discussed the risks options and benefits of the procedure with the patient. The patient understands the risks options and benefits and agrees to the procedure. Description of Procedure Patient was taken to the angio suite and placed in the supine position. The right side of the neck and chest wall were prepped and draped in a sterile manner. Local anesthesia was then administered to the appropriate areas of the neck and chest wall. Ultrasound was then used to locate the right internal jugular vein. The vein compressed easily, had no filing defects, and was patent. The vein was then punctured under direct ultrasound imaging. A guidewire was then passed centrally under fluoroscopic imaging. A stab wound was then made in the anterior chest wall and a 19 cm permcath was passed from the stab wound on the chest wall to the puncture site on the neck. The puncture site was then dilated till the 14Fr peel away sheath was inserted. The permcath was then inserted through the sheath to a central position in the distal superior vena cava. The peel away sheath was then removed. The catheter was then sutured in place using nylon sutures. The puncture was then closed using a 4-0 Vicryl subcuticular suture. Dermabond was used for a dressing on the puncture site. Both ports aspirated and flushed easily and were then packed with heparin. A sterile dressing was applied to the catheter. The patient left the operation room in satisfactory condition and tolerated the procedure well. All needle and sponge counts were correct at the end of the procedure. I attest to the content of the Intraoperative Record and any orders documented therein. Any exceptions are noted below.
--- NOTE | 2018-10-19 23:48 | Anesthesiology Progress Note ---
Date of Service October 19, 2018 Anesthesia Post Procedure Vital Signs Vital Signs: Temp Pulse Resp BP BP Pulse Ox 10/19/18 20:10 36.7 C 74 20 111/53 L 91 10/19/18 19:45 105/63 10/19/18 15:53 36.9 C 72 20 100/52 L 92 10/19/18 07:58 36.3 C L 67 20 105/63 92 10/19/18 00:00 36.4 C L 84 18 113/51 L 91 Notes Mental Status: alert / awake / arousable and participated in evaluation Patient Amnestic to Procedure: Yes Nausea / Vomiting: adequately controlled Pain: adequately controlled Airway Patency, RR, SpO2: stable & adequate BP & HR: stable & adequate Hydration State: stable & adequate Anesthetic Complications: no major complications apparent and Pt Satisfied with anesthetic care
[2018-10-20] MEDS: BUMETANIDE 10 MG in DEXTROSE 5% 10 ML IV SCH ×2 (00:01→11:49)
[2018-10-20 05:52] LABS: Hematocrit (blood only) 28.7 % (42-52); Hemoglobin 9.6 g/dL (14.0-18.0); Mean Corpuscular Hgb Conc 33.4 g/dL (32-36); Mean Corpuscular Volume 94.1 fL (80-100); Mean Platelet Volume 8.3 fL (7.4-10.4); Platelet Count 163 K/uL (130-400); RDW Coefficient of Variation 17.8 % (11.5-14.5); RDW Standard Deviation 61.1 fL (36.4-46.3); Red Blood Count 3.05 M/uL (4.7-6.1); White Blood Count 6.31 K/uL (4.8-10.8)
[2018-10-20 06:00] LABS: INR 2.1 (0.9-1.1); Prothrombin Time 20.3 Seconds (9.0-12.0)
[2018-10-20 06:37] LABS: BUN Creatinine Ratio 37.2 (10-20); Creatinine Clr Calc Pharmacy 157.1 ml/min; Est GFR (African American) 126.6; Est GFR (Non-African American) 109.3; Potassium 2.7 mmol/L (3.5-5.1)
[2018-10-20] MEDS ORDERED: SODIUM CHLORIDE 0.9% 1000ML 1,000 ML IV PRN (07:00)
--- NOTE | 2018-10-20 07:51 | XRay Report ---
XR chest 1V portable HISTORY: Status post thoracentesis. effusion COMPARISON: Chest 10/19/2018. FINDINGS: Small right basilar pneumothorax persists. There is progressive small right pleural effusio n and right basilar densities. The left lung is clear. Cardiomegaly, cardiac valve prosthesis, postop erative changes, left-sided dual-chamber pacemaker again noted. There is mild interstitial and vascul ar thickening consistent with pulmonary vascular congestion. This is slightly progressed. Right jugul ar dual-lumen catheter terminates at the proximal SVC. IMPRESSION: 1. No change in the small right basilar pneumothorax. 2. Interval progression of the right pleural effusion and right basilar densities. 3. Cardiomegaly and mild pulmonary congestion are noted. Electronically signed by: Choco Villavicencio M.D. 10/20/2018 7:50 AM
[2018-10-20] MEDS: LACTOBACILLUS ACIDOPHILUS (FLORANEX) TAB PO SCH ×5 (08:30→20:28)
[2018-10-20] MEDS: RASPBERRY SYRUP 5 ML UDP PO SCH ×3 (08:30→20:27)
[2018-10-20] MEDS: PANTOprazole 40 MG TAB PO SCH (08:31)
[2018-10-20] MEDS: ASPIRIN 81 MG ECTAB PO SCH (08:31)
[2018-10-20] MEDS: VANCOMYCIN HCL 125 MG/2.5ML SOLN PO SCH ×2 (08:31→20:36)
[2018-10-20] MEDS: GABAPENTIN 100 MG CAP PO SCH ×3 (08:31→16:37)
[2018-10-20] MEDS: SERTRALINE HCL 100 MG TABLET PO SCH (08:32)
[2018-10-20] MEDS: MAGNESIUM OXIDE 400 MG TAB PO SCH (08:32)
[2018-10-20] MEDS: ALLOPURINOL 100 MG TAB PO SCH ×3 (08:33→20:28)
[2018-10-20] MEDS: IPRATROPIUM BROMIDE/ALBUTEROL respimat INH INH SCH ×4 (08:35→20:26)
[2018-10-20] MEDS: POTASSIUM CHLORIDE 20 MEQ TABCR PO SCH ×3 (08:35→16:39)
--- NOTE | 2018-10-20 10:19 | Progress Note ---
DATE: 10/20/2018 Mr. Maldonado was seen today on 10/20/2018. He underwent insertion of a left Perm-A-Cath yesterday. This is an internal jugular Perm-A-Cath. We drained him yesterday for 2300 mL of fluid. We collected a small amount of fluid today and he has a very small right basilar pneumothorax, it I believe is due to his incomplete expansion of his lung. At this point, we will continue to follow along. I am hopeful that with the ultrafiltration, this will decrease the fluid coming back. We did send off some of this fluid for cytology as it was bloody and it was nonbloody before. The cell count showed 562,000 red cells as opposed to 40,000 before. The LDH was 361. The cytology is pending, but I do not suspect this is going to be malignant.
--- NOTE | 2018-10-20 11:06 | Nephrology Progress Note ---
Date of Service October 20, 2018 Assessment & Plan (1) Acute on chronic diastolic CHF (congestive heart failure): Semaj has diuretics resistant volume overload with recurrent right- sided pleural effusion. Failed outpatient diuretic therapy, required frequent hospital admission and currently admitted for almost 15 days with no significant improvement in lower extremity edema. Has right-sided pleural effusion which re accumulated after pleural tap. Although he has been responding somewhat to the Bumex drip and Diuril however continues to have significant lower extremity edema and diuretic therapy is complicated by critical electrolyte abnormality. Lower extremities edema seems to be multifactorial including diastolic dysfunction, cirrhosis, hypoalbuminemia as well as venous insufficiency. After detailed discussion about options including ultra filtration to improve volume status as even with maximum dose of combined IV diuretics is showing only suboptimal response but complicated by critical electrolyte abnormality. Explained the risks associated with ultrafiltration including risk of infection with tunnel catheter, risk of acute kidney injury and worsening renal function needing dialysis as a long-term. After disease detailed discussion with patient and , patient decided to consider ultrafiltration. Had right IJ tunnel dialysis catheter placed on 10/19/2018. --getting 1st ultrafiltration today, aim for 4 liters, will do do daily ultrafiltration for few days and then continue 3 times a week for 4-5 hours. Plan to continue ultrafiltration for 4-6 weeks to see improvement. If volume status is normalized, will consider discontinuing ultra filtration and continue on diuretics. --discontinue Bumex drip, start back on Bumex 4 milligram IV twice a day and metolazone 10 milligrams daily --continue low-salt diet, keep leg elevated, consider stockings in lower extremity --will set up outpatient ultrafiltration at [place] [facility], conducted community service manager car damian was looking at the options Will follow (2) Cirrhosis: (3) Hypertension: (4) Hypokalemia: (5) Venous insufficiency: Subjective Semaj was seen and examined this morning. His getting 1st ultrafiltration today, tolerating well, blood pressure remained stable. Review of Systems Detailed review of system was otherwise unremarkable. Physical Exam Vital Signs (Past 24 Hours): Last Vital Signs Temp 36.6 C 10/20/18 08:56 Pulse 72 10/20/18 10:45 Resp 16 10/20/18 07:34 BP 103/54 L 10/20/18 10:45 Pulse Ox 94 10/20/18 07:34 Constitutional: WD/WN, vitals as above + ill appearing Neck: Supple Respiratory: normal respiratory effort, lungs clear to auscultation Cardiovascular: Rate/Rhythm: regular rate and regular rhythm Heart Sounds: normal S1 and normal S2 Extremities: + edema Neurologic: moves all extremities and awake Psychiatric: A+Ox3, euthymic affect (1) Cirrhosis Hepatic cirrhosis type: unspecified hepatic cirrhosis Ascites presence: without ascites Qualified Code(s): K74.60 - Unspecified cirrhosis of liver (2) Hypertension Hypertension type: essential hypertension Qualified Code(s): I10 - Essential (primary) hypertension
[2018-10-20] MEDS: CHLOROTHIAZIDE SODIUM 500 MG in DEXTROSE 5% 50 ML IV SCH (12:50)
[2018-10-20] MEDS ORDERED: CEFAZOLIN 1000MG 1,000 MG/7.5 ML SYR IV ONE (13:03)
[2018-10-20] MEDS: EPLERENONE PO SCH ×2 (13:25→20:29)
[2018-10-20] MEDS: METOPROLOL SUCC 50MG EXT REL TAB PO SCH ×3 (13:27→20:28)
--- NOTE | 2018-10-20 13:29 | Anesthesiology Progress Note ---
Date of Service October 20, 2018 Anesthesia Post Procedure Vital Signs Vital Signs: Temp Pulse Pulse Pulse Resp BP BP 10/20/18 12:45 78 111/55 L 10/20/18 12:30 78 111/46 L 10/20/18 12:15 73 112/51 L 10/20/18 12:00 80 101/50 L 10/20/18 11:45 75 111/51 L 10/20/18 11:30 73 110/47 L 10/20/18 11:15 82 112/59 L 10/20/18 11:00 82 96/56 L 10/20/18 10:45 72 103/54 L 10/20/18 10:30 76 108/51 L 10/20/18 10:15 76 105/51 L 10/20/18 10:00 74 114/58 L 10/20/18 09:45 78 117/66 10/20/18 09:30 77 107/56 L 10/20/18 09:15 81 116/55 L 10/20/18 08:56 36.6 C 81 10/20/18 07:34 36.2 C L 80 16 111/53 L 10/20/18 05:34 76 18 119/55 L 10/20/18 04:12 36.4 C L 78 18 106/54 L 10/20/18 02:21 75 20 105/52 L 10/20/18 01:36 36.8 C 83 18 104/59 L 10/20/18 01:06 79 20 118/58 L 10/20/18 00:38 36.9 C 84 20 102/64 10/20/18 00:20 36.8 C 78 20 96/49 L 10/19/18 23:54 36.8 C 86 20 105/59 L 10/19/18 23:48 36.8 C 80 18 116/76 10/19/18 20:10 36.7 C 74 20 10/19/18 19:45 105/63 10/19/18 15:53 36.9 C 72 20 BP Pulse Ox 10/20/18 12:45 10/20/18 12:30 10/20/18 12:15 10/20/18 12:00 10/20/18 11:45 10/20/18 11:30 10/20/18 11:15 10/20/18 11:00 10/20/18 10:45 10/20/18 10:30 10/20/18 10:15 10/20/18 10:00 10/20/18 09:45 10/20/18 09:30 10/20/18 09:15 10/20/18 08:56 10/20/18 07:34 94 10/20/18 05:34 96 10/20/18 04:12 94 10/20/18 02:21 96 10/20/18 01:36 100 10/20/18 01:06 97 10/20/18 00:38 98 10/20/18 00:20 95 10/19/18 23:54 95 10/19/18 23:48 93 10/19/18 20:10 111/53 L 91 10/19/18 19:45 10/19/18 15:53 100/52 L 92 Notes Mental Status: alert / awake / arousable and participated in evaluation Patient Amnestic to Procedure: Yes Nausea / Vomiting: adequately controlled Pain: adequately controlled Airway Patency, RR, SpO2: stable & adequate BP & HR: stable & adequate Hydration State: stable & adequate Anesthetic Complications: no major complications apparent and Pt Satisfied with anesthetic care
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
[2018-10-20] MEDS: MULTIVITAMIN TAB PO SCH (16:19)
[2018-10-20] MEDS: BUMETANIDE 4 MG in SYRINGE 0 ML IV SCH (16:38)
[2018-10-20] MEDS: WARFARIN SOD 2 MG TAB PO SCH (16:38)
[2018-10-20] MEDS ORDERED: Nursing to Pharmacy Communication ONE (17:41)
[2018-10-20] MEDS ORDERED: TRAMADOL HCL 50 MG TABLET PO STA (21:08)
[2018-10-21 06:27] LABS: Hematocrit (blood only) 29.5 % (42-52); Hemoglobin 9.8 g/dL (14.0-18.0); Mean Corpuscular Hgb Conc 33.2 g/dL (32-36); Mean Corpuscular Volume 95.2 fL (80-100); Mean Platelet Volume 8.4 fL (7.4-10.4); Platelet Count 169 K/uL (130-400); RDW Coefficient of Variation 17.5 % (11.5-14.5); RDW Standard Deviation 61.2 fL (36.4-46.3); White Blood Count 6.97 K/uL (4.8-10.8)
[2018-10-21 06:37] LABS: INR 2.5 (0.9-1.1); Prothrombin Time 23.7 Seconds (9.0-12.0)
[2018-10-21 07:04] LABS: Albumin Level 2.6 gm/dl (3.4-5.0); BUN Creatinine Ratio 37.7 (10-20); Calcium 8.4 mg/dl (8.5-10.1); Creatinine Clr Calc Pharmacy 140.3 ml/min; Est GFR (African American) 122.5; Est GFR (Non-African American) 105.7; Magnesium 1.8 mg/dl (1.8-2.4); Phosphorus 2.6 mg/dl (2.5-4.9); Potassium 4.7 mmol/L (3.5-5.1)
[2018-10-21] MEDS: LACTOBACILLUS ACIDOPHILUS (FLORANEX) TAB PO SCH ×4 (07:46→21:26)
[2018-10-21] MEDS: IPRATROPIUM BROMIDE/ALBUTEROL respimat INH INH SCH ×4 (07:47→21:25)
[2018-10-21] MEDS: RASPBERRY SYRUP 5 ML UDP PO SCH ×2 (07:48→21:25)
[2018-10-21] MEDS: VANCOMYCIN HCL 125 MG/2.5ML SOLN PO SCH ×2 (07:48→21:25)
[2018-10-21] MEDS: EPLERENONE PO SCH ×2 (07:49→21:26)
[2018-10-21] MEDS: ALLOPURINOL 100 MG TAB PO SCH ×2 (07:50→21:26)
[2018-10-21] MEDS: SERTRALINE HCL 100 MG TABLET PO SCH (07:51)
[2018-10-21] MEDS: ASPIRIN 81 MG ECTAB PO SCH (07:52)
[2018-10-21] MEDS: metOLazone 5 MG TABLET PO SCH (07:53)
[2018-10-21] MEDS: GABAPENTIN 100 MG CAP PO SCH ×3 (07:54→16:43)
[2018-10-21] MEDS: MAGNESIUM OXIDE 400 MG TAB PO SCH (07:55)
[2018-10-21] MEDS: MULTIVITAMIN TAB PO SCH (07:58)
[2018-10-21] MEDS: PANTOprazole 40 MG TAB PO SCH (07:58)
[2018-10-21] MEDS: BUMETANIDE 4 MG in SYRINGE 0 ML IV SCH ×2 (08:54→16:42)
[2018-10-21] MEDS: POTASSIUM CHLORIDE 20 MEQ TABCR PO SCH (09:47)
[2018-10-21] MEDS: METOPROLOL SUCC 50MG EXT REL TAB PO SCH ×2 (10:20→21:27)
--- NOTE | 2018-10-21 12:08 | Nephrology Progress Note ---
Date of Service October 21, 2018 Assessment & Plan (1) Acute on chronic diastolic CHF (congestive heart failure): Semaj has diuretics resistant volume overload with recurrent right- sided pleural effusion. Failed outpatient diuretic therapy, required frequent hospital admission and currently admitted for almost 15 days with no significant improvement in lower extremity edema. Has right-sided pleural effusion which re accumulated after pleural tap. Although he has been responding somewhat to the Bumex drip and Diuril however continues to have significant lower extremity edema and diuretic therapy is complicated by critical electrolyte abnormality. Lower extremities edema seems to be multifactorial including diastolic dysfunction, cirrhosis, hypoalbuminemia as well as venous insufficiency. After detailed discussion about options including ultra filtration to improve volume status as even with maximum dose of combined IV diuretics is showing only suboptimal response but complicated by critical electrolyte abnormality. Explained the risks associated with ultrafiltration including risk of infection with tunnel catheter, risk of acute kidney injury and worsening renal function needing dialysis as a long-term. After disease detailed discussion with patient and , patient decided to consider ultrafiltration. Had right IJ tunnel dialysis catheter placed on 10/19/2018 and had 1st ultrafiltration on 10/20/2018. --will do daily ultrafiltration for few days and then continue 3 times a week for 4-5 hours. Plan to continue ultrafiltration for 4-6 weeks to see improvement. If volume status is normalized, will consider discontinuing ultra filtration and continue on diuretics. --change Bumex to 4 milligram p.o. twice a day and metolazone 10 milligrams daily --discontinue potassium supplement as potassium normalized 1st time, 4.7 --continue low-salt diet, keep leg elevated, consider stockings in lower extremity --waiting on outpatient ultrafiltration at [place] dialysis unit Will follow (2) Cirrhosis: (3) Hypertension: (4) Hypokalemia: (5) Venous insufficiency: Subjective Semaj was seen and examined this morning. He had 1st ultrafiltration yesterday, had 4 L UF, tolerated well, blood pressure remained stable. Physical Exam Vital Signs (Past 24 Hours): Last Vital Signs Temp 36.6 C 10/21/18 11:02 Pulse 82 10/21/18 11:02 Resp 18 10/21/18 11:02 BP 105/48 L 10/21/18 11:02 Pulse Ox 95 10/21/18 11:02 Constitutional: WD/WN, vitals as above + ill appearing Respiratory: normal respiratory effort, lungs clear to auscultation Cardiovascular: Rate/Rhythm: regular rate and regular rhythm Heart Sounds: normal S1 and normal S2 Extremities: + edema Neurologic: moves all extremities and awake Psychiatric: A+Ox3, euthymic affect (1) Cirrhosis Hepatic cirrhosis type: unspecified hepatic cirrhosis Ascites presence: without ascites Qualified Code(s): K74.60 - Unspecified cirrhosis of liver (2) Hypertension Hypertension type: essential hypertension Qualified Code(s): I10 - Essential (primary) hypertension
[2018-10-21] MEDS: WARFARIN SOD 2 MG TAB PO SCH (16:44)
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
[2018-10-22 06:47] LABS: INR 2.2 (0.9-1.1); Prothrombin Time 21.7 Seconds (9.0-12.0)
[2018-10-22 07:11] LABS: Albumin Level 2.5 gm/dl (3.4-5.0); BUN Creatinine Ratio 38.5 (10-20); Calcium 8.4 mg/dl (8.5-10.1); Creatinine Clr Calc Pharmacy 133.9 ml/min; Est GFR (African American) 120.2; Est GFR (Non-African American) 103.7; Magnesium 1.9 mg/dl (1.8-2.4); Potassium 3.1 mmol/L (3.5-5.1)
[2018-10-22 07:27] LABS: Phosphorus 4.5 mg/dl (2.5-4.9)
[2018-10-22] MEDS ORDERED: POTASSIUM CHLORIDE 20 MEQ TABCR PO STA (08:04)
--- NOTE | 2018-10-22 08:04 | Operative Report ---
DATE OF OPERATION: 10/19/2018 PREOPERATIVE DIAGNOSIS: Persistent right large pleural effusion. POSTOPERATIVE DIAGNOSIS: Persistent right large pleural effusion. PROCEDURE: Right thoracentesis under ultrasound guidance. SURGEON: Ernie Castellanos MD FLOW NURSE: None ANESTHESIA: Local. SPECIFICS OF PROCEDURE: The patient was seated in upright position. His right back was evaluated with an ultrasound, which showed good window to get into the chest cavity without injuring the lung. The patient was prepped and draped in usual sterile fashion. After appropriate timeout had been called, 25 gauge needle 1% Xylocaine used to raise a skin wheal. A large bore needle was used to anesthetize deeper subcutaneous tissues, muscle and pleura. We got free flowing non-clotting bloody fluid. A guidewire was easily inserted and removed. A triple lumen catheter slid over the guidewire and the guidewire removed. 2300 mL of a non-clotting bloody fluid was drained. He had some reexpansion coughing. We removed the catheter and placed an antimicrobial dressing over this. He had no bleeding. The x-ray looked very right base. He had a small pneumothorax with incomplete expansion of his lung. He tolerated it quite well. We will follow up with an x-ray tomorrow. I attest to the content of the Intraoperative Record and any orders documented therein. Any exceptions are noted below. KATIE
[2018-10-22] MEDS ORDERED: MAGNESIUM SULFATE / D5W 1 GM/100 ML BAG IV ONE (08:30)
--- NOTE | 2018-10-22 09:12 | Cardiology Progress Note ---
Date of Service October 22, 2018 Assessment & Plan (1) Acute on chronic diastolic CHF (congestive heart failure): He remains hypervolemic, but improving. He is now on oral Bumex and metolazone as per Nephrology once ultrafiltration has begun. Continue ultrafiltration as outlined by Nephrology. He continues to make urine. Continue eplerenone. LV systolic function is not significantly reduced. Monitor renal function and electrolytes closely. His heart failure has been much more difficu lt to control over the past several months , which may be due to his cirrhosis. Low-sodium diet. Fluid restriction recommended, less than 1.5 L per day. Strict I&Os and daily weights recommended. (2) Edema: He has chronic CHF but also has hypoalbuminemia in the setting of cirrhosis, which is likely playing a role to his edema. Continue diuretics and ultrafiltration. (3) Atrial fibrillation: Heart rate remains reasonably controlled. Permanent atrial fibrillation. Continue beta-olive. Continue anticoagulation for stroke risk reduction. (4) Mechanical heart valve present: Continue anticoagulation for stroke risk reduction. Continue aspirin 81 mg daily. INR was supratherapeutic for many days as an outpatient despite holding warfarin. This was likely secondary to antibiotic therapy and also underlying cirrhosis. (5) Cirrhosis: He has been seen by GI . This may be playing a role in the fact that his volume status has been more difficult to control over the past few months as he has had hypoalbuminemia and worsening edema overall. (6) Pacemaker: Followed by EP. Disposition: Cardiology will continue to follow but I will be away from the hospital tomorrow. Close follow-up with heart failure program strongly recommended. Subjective He underwent ultrafiltration over the weekend. He feels much better. He denies orthopnea. Breathing has improved. He denies chest pain, palpitations, syncope, near-syncope. He believes that his edema has improved. He denies bleeding. His was present via speaker phone. Review of systems: As above. Physical Exam Vital Signs (Past 24 Hours): Last Vital Signs Temp 36.7 C 10/22/18 07:11 Pulse 62 10/22/18 07:11 Resp 18 10/22/18 07:11 BP 103/48 L 10/22/18 07:11 Pulse Ox 99 10/22/18 07:11 Intake & Output 10/20/18 10/21/18 10/22/18 10/23/18 06:59 06:59 06:59 06:59 Intake Total 1568 / 1568 300 / 300 750 / 750 Output Total 2800 / 2800 725 / 725 1700 / 1700 Balance -1232 / -1232 -425 / -425 -950 / -950 Weight 106 kg 98.6 kg 98.4 kg Physical Exam: Gen.: No acute distress. Alert and oriented. HEENT: Anicteric sclera. Neck: JVD has improved but remains elevated. Cardiac: Irregularly irregular. Normal S1. [place] S2. 1/6 systolic murmur. Pulmonary: Decreased breath sounds in the right lung field, but otherwise clear. Abdomen: Soft, nontender, nondistended, with normoactive bowel sounds. No bruits noted. Trace body wall edema. Extremities: 2+ bilateral lower extremity edema to the hips. No cyanosis. Psychiatric: Affect appears appropriate. Results & Data Laboratory Results Laboratory Results - last 24 hr 10/22/18 10/22/18 06:04 06:04 PT 21.7 H INR 2.2 H Sodium 128 L Potassium 3.1 L D Chloride 91 L Carbon Dioxide 30 Anion Gap 7.0 BUN 26 H Creatinine 0.67 Est Cr Clr Drug Dosing 133.9 Est GFR ( Amer) 120.2 Est GFR (Non-Af Amer) 103.7 BUN/Creatinine Ratio 38.5 H Glucose 88 Calcium 8.4 L Phosphorus 4.5 D Magnesium 1.9 Albumin 2.5 L Diagnostic Findings Telemetry personally reviewed: Atrial fibrillation. Medications Administered Current Inpatient Medications Albuterol (Combivent Respimat) 1 puffs INH QID [facility] Stop: 11/03/18 22:59 Last Admin: 10/21/18 21:25 Dose: 1 puffs Documented by: Albuterol (Duoneb) 3 ml NEB Q2H PRN PRN Reason: SOB/Wheezing Stop: 11/15/18 10:29 Last Admin: 10/18/18 19:29 Dose: 3 ml Documented by: Albuterol (Duoneb) 3 ml NEB Q2H PRN PRN Reason: SOB/WHEEZING Stop: 11/15/18 15:59 Allopurinol (Zyloprim) 100 mg PO BID [facility] Stop: 11/03/18 21:59 Last Admin: 10/21/18 21:26 Dose: 100 mg Documented by: Aspirin (Ecotrin Ectab) 81 mg PO QAM [facility] Stop: 11/04/18 08:59 Last Admin: 10/21/18 07:52 Dose: 81 mg Documented by: Bumetanide (Bumex) 4 mg PO BID17 [facility] Stop: 11/21/18 08:59 Gabapentin (Neurontin) 100 mg PO TIDM [facility] Stop: 11/04/18 07:59 Last Admin: 10/21/18 16:43 Dose: 100 mg Documented by: Magnesium Sulfate/Dextrose (Magnesium Sulfate / D5w) 1 gm in 100 mls @ 100 mls/hr IV 0830 [facility] Stop: 10/22/18 09:29 Lactobacillus Acidophilus (Floranex) 4 tab PO QIDM [facility] Stop: 11/04/18 07:59 Last Admin: 10/21/18 21:26 Dose: 4 tab Documented by: Magnesium Oxide (Mag-Ox) 200 mg PO DAILY [facility] Stop: 11/03/18 21:59 Last Admin: 10/21/18 07:55 Dose: 200 mg Documented by: Metolazone (Zaroxolyn) 10 mg PO DAILY@0830 [facility] Stop: 11/20/18 08:29 Last Admin: 10/21/18 07:53 Dose: 10 mg Documented by: Metoprolol Succinate (Toprol Xl) 50 mg PO BID [facility] Stop: 11/03/18 21:20 Last Admin: 10/21/18 21:27 Dose: 50 mg Documented by: Multivitamins (Multivitamin Tab) 1 tab PO QAM [facility] Stop: 11/04/18 08:59 Last Admin: 10/21/18 07:58 Dose: 1 tab Documented by: ~~Eplerenone~~Non- Formulary Patient's Own Med 2 ea PO BID [facility] Stop: 11/09/18 20:59 Last Admin: 10/21/18 21:26 Dose: 2 tabs Documented by: Ondansetron HCl (Zofran) 4 mg IV Q6H PRN PRN Reason: NAUSEA/VOMITING Stop: 11/03/18 21:20 Pantoprazole Sodium (Protonix) 40 mg PO QAM [facility] Stop: 11/04/18 08:59 Last Admin: 10/21/18 07:58 Dose: 40 mg Documented by: Raspberry (Raspberry) 5 ml PO BID [facility] Stop: 11/03/18 22:59 Last Admin: 10/21/18 21:25 Dose: 5 ml Documented by: Sertraline HCl (Zoloft) 100 mg PO QAM [facility] Stop: 11/04/18 08:59 Last Admin: 10/21/18 07:51 Dose: 100 mg Documented by: Vancomycin HCl (Vancomycin Hcl) 125 mg PO BID [facility] Stop: 11/03/18 22:59 Last Admin: 10/21/18 21:25 Dose: 125 mg Documented by: Warfarin Sodium (Coumadin) 2 mg PO DAILY@1600 [facility] Stop: 11/16/18 15:59 Last Admin: 10/21/18 16:44 Dose: 2 mg Documented by: (1) Edema Edema type: unspecified Qualified Code(s): R60.9 - Edema, unspecified (2) Atrial fibrillation Atrial fibrillation type: chronic Qualified Code(s): I48.2 - Chronic atrial fibrillation
[2018-10-22] MEDS: LACTOBACILLUS ACIDOPHILUS (FLORANEX) TAB PO SCH ×4 (09:15→20:59)
[2018-10-22] MEDS: GABAPENTIN 100 MG CAP PO SCH ×3 (09:16→16:50)
[2018-10-22] MEDS: MAGNESIUM OXIDE 400 MG TAB PO SCH (09:17)
[2018-10-22] MEDS: ASPIRIN 81 MG ECTAB PO SCH (09:17)
[2018-10-22] MEDS: SERTRALINE HCL 100 MG TABLET PO SCH (09:17)
[2018-10-22] MEDS: IPRATROPIUM BROMIDE/ALBUTEROL respimat INH INH SCH ×4 (09:18→20:58)
[2018-10-22] MEDS: MULTIVITAMIN TAB PO SCH (09:19)
[2018-10-22] MEDS: PANTOprazole 40 MG TAB PO SCH (09:19)
[2018-10-22] MEDS: RASPBERRY SYRUP 5 ML UDP PO SCH ×2 (09:20→21:02)
[2018-10-22] MEDS: ALLOPURINOL 100 MG TAB PO SCH ×2 (09:20→21:02)
[2018-10-22] MEDS: VANCOMYCIN HCL 125 MG/2.5ML SOLN PO SCH ×2 (09:20→21:05)
[2018-10-22] MEDS: EPLERENONE PO SCH ×2 (09:20→21:00)
--- NOTE | 2018-10-22 11:25 | Nephrology Progress Note ---
Date of Service October 22, 2018 Assessment & Plan (1) Acute on chronic diastolic CHF (congestive heart failure): Semaj has diuretic resistant volume overload with recurrent right-sided pleural effusion. Failed outpatient diuretic therapy and required frequent hospital admission. He was admitted for over 2 weeks without significant improvement in edema. Right-sided pleural effusion re accumulated after pleural tap. Edema is multifactorial including diastolic dysfunction, cirrhosis, h ypoalbuminemia as well as venous insufficiency. He was started on UF to improve volume status. Had right IJ tunnel dialysis catheter placed on 10/19/2018 and had 1st ultrafiltration on 10/20/2018. Continued treatment to be arranged at discharge in the [facility] [place] unit with Dr. Kendrick. Orders for UF entered into the EMR today and discussed with the nurse garment alteration examiner. Will attempt an additional 3-4 L. Continue Bumex to encourage urine output. Consider holding metolazone. 1 HR of HD to be provided with treatment to assist with electrolyte abnormalities including hypokalemia. Document I/O's and monitor metabolic profile daily. Medications are appropriately dosed for IHD. (2) Cirrhosis: (3) Hypertension: (4) Hypokalemia: (5) Venous insufficiency: Subjective No acute events overnight. Patient was resting comfortably in bed this morning. Semaj feels well. He denies dyspnea or chest pain. Appetite is good. Edema improving. Pressure dressing intact to TDC. No active bleeding at this time. No fevers or chills. Review of Systems All systems reviewed & are unremarkable except as noted in HPI & below Physical Exam Vital Signs (Past 24 Hours): Last Vital Signs Temp 36.5 C 10/22/18 09:30 Pulse 70 10/22/18 11:00 Resp 18 10/22/18 07:11 BP 113/48 L 10/22/18 11:00 Pulse Ox 99 10/22/18 07:11 Constitutional: well nourished and + obese; not in distress Eyes: + anicteric sclerae; no corneal abnormality ENMT: Mouth: no oral mucosal abnormality and oral mucous membranes not dry Neck: normal visual inspection, trachea midline and + thick neck Respiratory: normal respiratory effort; no respiratory distress and does not use accessory muscles Auscultation: + diminished lung sounds (bases b/l with improving aeration into the low/mid lung and clear upwards) and + rales Cardiovascular: Rate/Rhythm: regular rate; + abnormal rhythm (irregular) Heart Sounds: normal S1, normal S2 and + murmur; no gallop and no cardiac rub Extremities: + edema and + varicosities Chest (Breasts): Chest: + vascular access device or port (in R upper chest with no active bleeding pressure dressing applied) Gastrointestinal (Abdomen): Inspection/Auscultation: + abdomen distended and + abdominal edema Percussion/Palpation: abdomen soft; abdomen nontender, no guarding and abdomen not rigid Musculoskeletal: Extremities: extremities normal to inspection and + chronic stasis changes Skin: normal turgor and + wound (lle) Neurologic: moves all extremities and awake; no focal motor deficits Motor/Sensory: no tremor Psychiatric: Orientation: alert, oriented to person and oriented to place Affect: euthymic affect Results & Data Laboratory Results Laboratory Results - last 24 hr 10/22/18 10/22/18 06:04 06:04 PT 21.7 H INR 2.2 H Sodium 128 L Potassium 3.1 L D Chloride 91 L Carbon Dioxide 30 Anion Gap 7.0 BUN 26 H Creatinine 0.67 Est Cr Clr Drug Dosing 133.9 Est GFR ( Amer) 120.2 Est GFR (Non-Af Amer) 103.7 BUN/Creatinine Ratio 38.5 H Glucose 88 Calcium 8.4 L Phosphorus 4.5 D Magnesium 1.9 Albumin 2.5 L (1) Cirrhosis Hepatic cirrhosis type: unspecified hepatic cirrhosis Ascites presence: without ascites Qualified Code(s): K74.60 - Unspecified cirrhosis of liver (2) Hypertension Hypertension type: essential hypertension Qualified Code(s): I10 - Essential (primary) hypertension
[2018-10-22] MEDS: metOLazone 5 MG TABLET PO SCH (14:32)
[2018-10-22] MEDS: BUMETANIDE 1 MG TAB PO SCH ×2 (14:32→16:48)
[2018-10-22] MEDS: METOPROLOL SUCC 50MG EXT REL TAB PO SCH ×2 (14:33→21:02)
[2018-10-22] MEDS: WARFARIN SOD 2 MG TAB PO SCH (16:47)
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
[2018-10-23] MEDS ORDERED: TRAMADOL HCL 50 MG TABLET PO STA (00:02)
[2018-10-23 06:57] LABS: Basophils # (auto) 0.04 K/uL (0-0.2); Basophils % (auto) 0.6 %; Eosinophils # (auto) 0.38 K/uL (0-0.5); Eosinophils % (auto) 5.5 %; Hematocrit (blood only) 24.9 % (42-52); Hemoglobin 8.4 g/dL (14.0-18.0); Immature Granulocytes # (auto) 0.07 K/uL (0.00-0.02); Lymphocytes % (auto) 11.5 %; Mean Corpuscular Hgb Conc 33.7 g/dL (32-36); Mean Platelet Volume 8.5 fL (7.4-10.4); Monocytes # (auto) 0.74 K/uL (0.11-0.59); Monocytes % (auto) 10.6 %; Neutrophils # (auto) 4.94 K/uL (1.4-6.5); Neutrophils % (auto) 70.8 %; Platelet Count 165 K/uL (130-400); RDW Coefficient of Variation 17.2 % (11.5-14.5); Red Blood Count 2.65 M/uL (4.7-6.1); White Blood Count 6.97 K/uL (4.8-10.8)
[2018-10-23 07:15] LABS: INR 2.5 (0.9-1.1); Prothrombin Time 23.9 Seconds (9.0-12.0)
[2018-10-23 07:19] LABS: RBC Morphology Unremarkable
[2018-10-23 07:28] LABS: BUN Creatinine Ratio 28.2 (10-20); Calcium 8.1 mg/dl (8.5-10.1); Creatinine Clr Calc Pharmacy 98.8 ml/min; Est GFR (African American) 106.5; Est GFR (Non-African American) 91.9; Magnesium 1.8 mg/dl (1.8-2.4); Potassium 3.1 mmol/L (3.5-5.1)
--- NOTE | 2018-10-23 09:14 | Nephrology Progress Note ---
Date of Service October 23, 2018 Assessment & Plan (1) Acute on chronic diastolic CHF (congestive heart failure): Semaj has diuretic resistant volume overload with recurrent right-sided pleural effusion. He failed outpatient diuretic therapy and has required frequent hospitalizations. He was admitted for over 2 weeks without significant improvement in edema. Right-sided pleural effusion re accumulated after pleural tap. Edema is multifactorial including diastolic dysfunction, cirrhosis, h ypoalbuminemia as well as venous insufficiency. He was started on UF to improve volume status. A right IJ tunnel dialysis catheter was placed on 10/19/2018 and had 1st ultrafiltration on 10/20/2018. The plan is to continue 2-3 x weekly HD[facility] with Dr. Kendrick post discharge. Tolerated 4 L UF yesterday. Urine output acceptable. Will hold HD/UF today. Plan next treatment for tomorrow. Maintain dietary fluid and sodium restriction. Continue diuretics as Rx. 80 mEq PO KCl provided for hypokalemia this morning. Document I/O's and monitor metabolic profile with Mg+ daily. Medications are appropriately dosed for IHD. (2) Cirrhosis: (3) Hypertension: (4) Hypokalemia: (5) Venous insufficiency: Subjective No acute events overnight. Patient was resting comfortably in bedside chair this morning. Semaj feels well. He tolerated IUF/HD for a net UF of 4 kg yesterday. He denies dyspnea or chest pain. Edema improving. Mr. Maldonado is waiting to hear about his discharge plan. Review of Systems All systems reviewed & are unremarkable except as noted in HPI & below Physical Exam Vital Signs (Past 24 Hours): Last Vital Signs Temp 36.5 C 10/23/18 07:04 Pulse 71 10/23/18 07:04 Resp 18 10/23/18 07:04 BP 96/48 L 10/23/18 07:04 Pulse Ox 96 10/23/18 07:04 Constitutional: well nourished and + obese; not in distress Eyes: + anicteric sclerae; no corneal abnormality ENMT: Mouth: no oral mucosal abnormality and oral mucous membranes not dry Neck: normal visual inspection, trachea midline and + thick neck Respiratory: normal respiratory effort; no respiratory distress and does not use accessory muscles Auscultation: + diminished lung sounds (bases b/l with improving aeration into the low/mid lung and clear upwards) and + rales Cardiovascular: Rate/Rhythm: regular rate; + abnormal rhythm (irregular) Heart Sounds: normal S1, normal S2 and + murmur; no gallop and no cardiac rub Extremities: + edema and + varicosities Chest (Breasts): Chest: + vascular access device or port (in R upper chest with no active bleeding pressure dressing applied) Gastrointestinal (Abdomen): Inspection/Auscultation: + abdomen distended and + abdominal edema Percussion/Palpation: abdomen soft; abdomen nontender, no guarding and abdomen not rigid Musculoskeletal: Extremities: extremities normal to inspection and + chronic stasis changes Skin: normal turgor and + wound (lle) Neurologic: moves all extremities and awake; no focal motor deficits Motor/Sensory: no tremor Psychiatric: Orientation: alert, oriented to person and oriented to place Affect: euthymic affect Results & Data Laboratory Results Laboratory Results - last 24 hr 10/23/18 10/23/18 10/23/18 06:47 06:47 06:47 WBC 6.97 RBC 2.65 L Hgb 8.4 L Hct 24.9 L MCV 94.0 MCH 31.7 MCHC 33.7 RDW Std Deviation 59.0 H RDW Coeff of Nic 17.2 H Plt Count 165 MPV 8.5 Immature Gran % (Auto) 1.0 Neut % (Auto) 70.8 Lymph % (Auto) 11.5 [place] % (Auto) 10.6 Eos % (Auto) 5.5 Baso % (Auto) 0.6 Immature Gran # (Auto) 0.07 H Neut # (Auto) 4.94 Lymph # (Auto) 0.80 L [place] # (Auto) 0.74 H Eos # (Auto) 0.38 Baso # (Auto) 0.04 RBC Morphology Unremarkable PT 23.9 H INR 2.5 H Sodium 127 L Potassium 3.1 L Chloride 91 L Carbon Dioxide 28 Anion Gap 7.0 BUN 25 H Creatinine 0.90 Est Cr Clr Drug Dosing 98.8 Est GFR ( Amer) 106.5 Est GFR (Non-Af Amer) 91.9 BUN/Creatinine Ratio 28.2 H Glucose 95 Calcium 8.1 L Magnesium 1.8 (1) Cirrhosis Hepatic cirrhosis type: unspecified hepatic cirrhosis Ascites presence: without ascites Qualified Code(s): K74.60 - Unspecified cirrhosis of liver (2) Hypertension Hypertension type: essential hypertension Qualified Code(s): I10 - Essential (primary) hypertension
[2018-10-23] MEDS ORDERED: POTASSIUM CHLORIDE 20 MEQ TABCR PO STA (09:15)
[2018-10-23] MEDS: PANTOprazole 40 MG TAB PO SCH (09:44)
[2018-10-23] MEDS: SERTRALINE HCL 100 MG TABLET PO SCH (09:44)
[2018-10-23] MEDS: ALLOPURINOL 100 MG TAB PO SCH ×2 (09:44→20:17)
[2018-10-23] MEDS: LACTOBACILLUS ACIDOPHILUS (FLORANEX) TAB PO SCH ×4 (09:44→20:16)
[2018-10-23] MEDS: MULTIVITAMIN TAB PO SCH (09:45)
[2018-10-23] MEDS: IPRATROPIUM BROMIDE/ALBUTEROL respimat INH INH SCH ×4 (09:45→20:16)
[2018-10-23] MEDS: VANCOMYCIN HCL 125 MG/2.5ML SOLN PO SCH ×2 (09:45→20:15)
[2018-10-23] MEDS: GABAPENTIN 100 MG CAP PO SCH ×3 (09:45→17:15)
[2018-10-23] MEDS: RASPBERRY SYRUP 5 ML UDP PO SCH ×2 (09:46→20:17)
[2018-10-23] MEDS: MAGNESIUM OXIDE 400 MG TAB PO SCH (09:46)
[2018-10-23] MEDS: ASPIRIN 81 MG ECTAB PO SCH (09:47)
[2018-10-23] MEDS: METOPROLOL SUCC 50MG EXT REL TAB PO SCH ×2 (10:05→20:15)
[2018-10-23] MEDS: metOLazone 5 MG TABLET PO SCH (10:05)
[2018-10-23] MEDS: EPLERENONE PO SCH ×2 (10:05→20:15)
[2018-10-23] MEDS: BUMETANIDE 1 MG TAB PO SCH ×2 (10:05→17:15)
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
[2018-10-23] MEDS ORDERED: Nursing to Pharmacy Communication ONE (11:01)
--- NOTE | 2018-10-23 11:09 | Communication Note ---
Date of Service: October 23, 2018 Was asked to see pt regarding continuing oozing from permcath exit site. INR noted to be therapeutic. Pressure dressing noted to be over exit site only. Removed. Large clot noted under dressing, so dressing was changed by RN. Minimal oozing from exit site noted after dressing change. New pressure dressing placed over IJ and tunnel. Discussed with RN that NO DRESSING REMOVAL OR CHANGES are to be made until tomorrow. May reinforce dressing beneath exit site if needed. Keep pt HOB elevated when in bed. Will reeval tomorrow.
[2018-10-23] MEDS: TRAMADOL HCL 50 MG TABLET PO PRN (11:44)
--- NOTE | 2018-10-23 13:56 | Cardiology Progress Note ---
Date of Service October 23, 2018 Assessment & Plan (1) Acute on chronic diastolic CHF (congestive heart failure): He remains hypervolemic, but improving. He is now on oral Bumex and metolazone as per Nephrology once ultrafiltration has begun. Continue ultrafiltration as outlined by Nephrology. Plan for repeat UF tomorrow. Arrangements are being made for outpatient UF in [place] with Dr. Kendrick. He continues to make urine. Continue eplerenone. LV systolic function is not significantly reduced. Monitor renal function and electrolytes closely. Potassium replacement as per nephrology. His heart failure has been much more difficult to control over the past several months , which may be due to his cirrhosis. Low-sodium diet. Fluid restriction recommended, less than 1.5 L per day. Strict I&Os and daily weights recommended. (2) Cardiomyopathy: He may have developed a mild cardiomyopathy. He has had low normal function for some time, his current echocardiogram (45-50%) is read that way but the number is slightly less than his prior echocardiograms (50-55%). It is very unlikely this is due to ischemic heart disease with a normal catheterization in 2014 (he did not have any coronary disease identified). He denies any current chest pain or anginal symptoms. More likely if he has developed a cardiomyopathy is nonischemic due to atrial fibrillation and dyssynchrony from left bundle branch block. I would not be inclined to evaluate him for ischemia at this time. Supervising Physician Co-Signing Physician Notes LV systolic function is not significantly reduced and appears similar to prior echocardiograms. Subjective He underwent first ultrafiltration on 10/20/18 and again yesterday. He has been responding well to treatment. He reports he feels much better. He is sitting up in bed visiting with his brother and a friend. He denies orthopnea. Breathing has improved. He is tolerating RA. He denies chest pain, palpitations, syncope, near-syncope. He believes that his edema has improved. He had some oozing from his permacath exit site. This was addressed by vascular surgery earlier today. Pressure dressing applied. Review of systems: As above. Physical Exam Vital Signs (Past 24 Hours): Last Vital Signs Temp 36.5 C 10/23/18 12:17 Pulse 73 10/23/18 12:17 Resp 18 10/23/18 12:17 BP 99/50 L 10/23/18 12:17 Pulse Ox 94 10/23/18 12:17 Gen.: No acute distress. Alert and oriented. HEENT: Anicteric sclera. Neck: JVD has improved but remains elevated. Cardiac: Irregularly irregular. Normal S1. [place] S2. 1/6 systolic murmur. Pulmonary: Decreased breath sounds in the right lung field, but otherwise clear. Abdomen: Soft, nontender, nondistended, with normoactive bowel sounds. No bruits noted. Trace body wall edema. Extremities: 2+ bilateral lower extremity edema to the hips. No cyanosis. Psychiatric: Affect appears appropriate.
[2018-10-23] MEDS: WARFARIN SOD 2 MG TAB PO SCH (15:37)
[2018-10-23] MEDS: ALBUT/IPRATROP 3MG/0.5MG NEB 3 ML VIAL NEB PRN (19:08)
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
[2018-10-24] MEDS: TRAMADOL HCL 50 MG TABLET PO PRN ×2 (05:17→11:14)
[2018-10-24 05:51] LABS: Basophils # (auto) 0.04 K/uL (0-0.2); Basophils % (auto) 0.6 %; Eosinophils # (auto) 0.37 K/uL (0-0.5); Eosinophils % (auto) 5.5 %; Hematocrit (blood only) 25.2 % (42-52); Hemoglobin 8.5 g/dL (14.0-18.0); Immature Granulocytes # (auto) 0.14 K/uL (0.00-0.02); Immature Granulocytes % (auto) 2.1 %; Lymphocytes # (auto) 0.78 K/uL (1.2-3.4); Lymphocytes % (auto) 11.6 %; Mean Corpuscular Hgb Conc 33.7 g/dL (32-36); Mean Platelet Volume 8.3 fL (7.4-10.4); Monocytes % (auto) 10.4 %; Neutrophils # (auto) 4.67 K/uL (1.4-6.5); Neutrophils % (auto) 69.8 %; Platelet Count 172 K/uL (130-400); RDW Coefficient of Variation 17.3 % (11.5-14.5); RDW Standard Deviation 59.1 fL (36.4-46.3); Red Blood Count 2.71 M/uL (4.7-6.1)
[2018-10-24 06:04] LABS: INR 2.4 (0.9-1.1); Prothrombin Time 22.8 Seconds (9.0-12.0)
[2018-10-24 06:21] LABS: RBC Morphology Unremarkable
[2018-10-24 06:22] LABS: Albumin Level 2.4 gm/dl (3.4-5.0); BUN Creatinine Ratio 32.6 (10-20); Calcium 8.3 mg/dl (8.5-10.1); Creatinine Clr Calc Pharmacy 95.1 ml/min; Est GFR (Non-African American) 87.2; Magnesium 1.9 mg/dl (1.8-2.4); Phosphorus 4.3 mg/dl (2.5-4.9)
[2018-10-24] MEDS ORDERED: SODIUM CHLORIDE 0.9% 1000ML 1,000 ML IV PRN (07:00)
--- NOTE | 2018-10-24 07:19 | XRay Report ---
XR chest 1V portable CLINICAL HISTORY: f/u pleural effusion and PTX COMPARISON STUDY: Chest radiograph October 20, 2018. FINDINGS: A right internal jugular dual-lumen catheter, left subclavian pacemaker, median sternotomy wires and prosthetic cardiac valve are noted. There is moderate cardiomegaly. Small right apical pneu mothorax with pleural separation of 1 cm is noted. Overall, the amount of right pleural gas is likely diminished when compared to exam of October 20, 2018. There is a persistent right pleural effusion and extensive right basilar airspace opacity. Mild pulmonary edema persists. IMPRESSION: 1. Small right pneumothorax, likely decreased since prior exam. 2. Persistent pulmonary edema. 3. Increase in a right pleural effusion and extensive right basilar opacity which may reflect consoli dation or atelectasis. Radiographic follow-up is recommended. Electronically signed by: Carlos Ngo M.D. 10/24/2018 7:18 AM
--- NOTE | 2018-10-24 07:54 | Cardiology Progress Note ---
Date of Service October 24, 2018 Assessment & Plan (1) Acute on chronic diastolic CHF (congestive heart failure): Volume status continues to improve. He remains hypervolemic currently but with ultrafiltration, he is improving more quickly. Nephrology has adjusted his intravenous diuretics to oral Bumex 4 mg twice daily with metolazone 10 mg daily. As an outpatient, he had profound hypokalemia on smaller doses of metolazone. Currently potassium is being managed both with supplementation and with dialysis, but will have to monitor very closely as an outpatient. Supplementation has been very challenging. Continue ultrafiltration as outlined by Nephrology. It now appears as though outpatient ultrafiltration is not an option. Hopefully, euvolemic state will be obtained prior to discharge and then can attempt to maintain acceptable volume status with oral diuretics and perhaps intermittent intravenous diuretics as an outpatient. Urine output has significantly reduced with ultrafiltration. Continue eplerenone. LV systolic function is not significantly reduced. His heart failure has been much more difficult to control over the past several months , which may be due to his cirrhosis. Low-sodium diet. Fluid restriction recommended, less than 1.5 L per day. Strict I&Os and daily weights recommended. (2) Edema: He has chronic CHF but also has hypoalbuminemia in the setting of cirrhosis, which is likely playing a role to his edema. Continue diuretics and ultrafiltration. (3) Atrial fibrillation: Heart rate remains reasonably controlled. Permanent atrial fibrillation. Continue beta-olive. Continue anticoagulation for stroke risk reduction. (4) Mechanical heart valve present: Continue anticoagulation for stroke risk reduction. Continue aspirin 81 mg daily. INR was supratherapeutic for many days as an outpatient despite holding warfarin. This was likely secondary to antibiotic therapy and also underlying cirrhosis. He has developed worsening anemia however hemoglobin has stabilized in the mid 8 range. Monitor. He had hematuria earlier this hospitalization but no obvious bleeding currently. (5) Cirrhosis: He has been seen by GI . This may be playing a role in the fact that his volume status has been more difficult to control over the past few months as he has had hypoalbuminemia and worsening edema overall. (6) Pacemaker: Followed by EP. Disposition: Cardiology will continue to follow. Patient care has been discussed with nephrology, Dr. Lerma. Subjective He denies shortness of breath, orthopnea, palpitations, syncope, near syncope, or bleeding. He feels as though his edema has improved. He is scheduled to undergo further ultrafiltration today. He has noted that his urine output has decreased. Discussed with Dr. Obrien and also Dr. Lerma yesterday the fact that it now appears that ultrafiltration will not be possible as an outpatient. We discussed this briefly today and he plans on discussing it further with nephrology. Review of systems: As above. Physical Exam Vital Signs (Past 24 Hours): Last Vital Signs Temp 36.7 C 10/24/18 03:52 Pulse 74 10/24/18 03:52 Resp 17 10/24/18 03:52 BP 113/63 10/24/18 03:52 Pulse Ox 97 10/24/18 03:52 Intake & Output 10/22/18 10/23/18 10/24/18 10/25/18 06:59 06:59 06:59 06:59 Intake Total 750 / 750 1242 / 1242 770 / 770 Output Total 1700 / 1700 651 / 651 600 / 600 Balance -950 / -950 591 / 591 170 / 170 Weight 98.4 kg 96.615 kg 97.6 kg Physical Exam: Gen.: No acute distress. Alert and oriented. HEENT: Anicteric sclera. Neck: No significant JVD appreciated while sitting upright. Cardiac: Irregularly irregular. Normal S1. [place] S2. 1/6 systolic murmur. No rubs, or gallops. Pulmonary: Decreased breath sounds at base the right mid lung field, otherwise clear to auscultation bilaterally without wheezes, rales, or rhonchi. Abdomen: Soft, nontender, nondistended, with normoactive bowel sounds. No bruits noted. Trace body wall edema. Extremities: 2+ pitting edema bilateral. 1+ bilateral lower extremity below the knees. No cyanosis. Psychiatric: Affect appears appropriate. Results & Data Laboratory Results Laboratory Results - last 24 hr 10/24/18 10/24/18 10/24/18 05:32 05:32 05:32 WBC 6.70 RBC 2.71 L Hgb 8.5 L Hct 25.2 L MCV 93.0 MCH 31.4 MCHC 33.7 RDW Std Deviation 59.1 H RDW Coeff of Nic 17.3 H Plt Count 172 MPV 8.3 Immature Gran % (Auto) 2.1 Neut % (Auto) 69.8 Lymph % (Auto) 11.6 [place] % (Auto) 10.4 Eos % (Auto) 5.5 Baso % (Auto) 0.6 Immature Gran # (Auto) 0.14 H Neut # (Auto) 4.67 Lymph # (Auto) 0.78 L [place] # (Auto) 0.70 H Eos # (Auto) 0.37 Baso # (Auto) 0.04 RBC Morphology Unremarkable PT 22.8 H INR 2.4 H Sodium 125 L Potassium 4.0 D Chloride 91 L Carbon Dioxide 29 Anion Gap 5.0 BUN 31 H Creatinine 0.94 Est Cr Clr Drug Dosing 95.1 Est GFR ( Amer) 101.0 Est GFR (Non-Af Amer) 87.2 BUN/Creatinine Ratio 32.6 H Glucose 91 Calcium 8.3 L Phosphorus 4.3 Magnesium 1.9 Albumin 2.4 L Diagnostic Findings Telemetry personally reviewed: Atrial fibrillation. Medications Administered Current Inpatient Medications Albuterol (Combivent Respimat) 1 puffs INH QID [facility] Stop: 11/03/18 22:59 Last Admin: 10/23/18 20:16 Dose: 1 puffs Documented by: Albuterol (Duoneb) 3 ml NEB Q2H PRN PRN Reason: SOB/Wheezing Stop: 11/15/18 10:29 Last Admin: 10/23/18 19:08 Dose: 3 ml Documented by: Albuterol (Duoneb) 3 ml NEB Q2H PRN PRN Reason: SOB/WHEEZING Stop: 11/15/18 15:59 Allopurinol (Zyloprim) 100 mg PO BID [facility] Stop: 11/03/18 21:59 Last Admin: 10/23/18 20:17 Dose: 100 mg Documented by: Aspirin (Ecotrin Ectab) 81 mg PO QAM [facility] Stop: 11/04/18 08:59 Last Admin: 10/23/18 09:47 Dose: 81 mg Documented by: Bumetanide (Bumex) 4 mg PO BID17 [facility] Stop: 11/21/18 08:59 Last Admin: 10/23/18 17:15 Dose: 4 mg Documented by: Gabapentin (Neurontin) 100 mg PO TIDM [facility] Stop: 11/04/18 07:59 Last Admin: 10/23/18 17:15 Dose: 100 mg Documented by: Sodium Chloride (Nss 1000ml) 1,000 mls @ 0 mls/hr IV .Q0M PRN PRN Reason: For Hemodialysis Use ONLY Stop: 10/24/18 12:59 Lactobacillus Acidophilus (Floranex) 4 tab PO QIDM [facility] Stop: 11/04/18 07:59 Last Admin: 10/23/18 20:16 Dose: 4 tab Documented by: Magnesium Oxide (Mag-Ox) 200 mg PO DAILY [facility] Stop: 11/03/18 21:59 Last Admin: 10/23/18 09:46 Dose: 200 mg Documented by: Metolazone (Zaroxolyn) 10 mg PO DAILY@0830 [facility] Stop: 11/20/18 08:29 Last Admin: 10/23/18 10:05 Dose: Not Given Documented by: Metoprolol Succinate (Toprol Xl) 50 mg PO BID [facility] Stop: 11/03/18 21:20 Last Admin: 10/23/18 20:15 Dose: Not Given Documented by: Multivitamins (Multivitamin Tab) 1 tab PO QAM [facility] Stop: 11/04/18 08:59 Last Admin: 10/23/18 09:45 Dose: 1 tab Documented by: ~~Eplerenone~~Non- Formulary Patient's Own Med 2 ea PO BID [facility] Stop: 11/09/18 20:59 Last Admin: 10/23/18 20:15 Dose: 2 tabs Documented by: Ondansetron HCl (Zofran) 4 mg IV Q6H PRN PRN Reason: NAUSEA/VOMITING Stop: 11/03/18 21:20 Pantoprazole Sodium (Protonix) 40 mg PO QAM [facility] Stop: 11/04/18 08:59 Last Admin: 10/23/18 09:44 Dose: 40 mg Documented by: Raspberry (Raspberry) 5 ml PO BID [facility] Stop: 11/03/18 22:59 Last Admin: 10/23/18 20:17 Dose: 5 ml Documented by: Sertraline HCl (Zoloft) 100 mg PO QAM [facility] Stop: 11/04/18 08:59 Last Admin: 10/23/18 09:44 Dose: 100 mg Documented by: Tramadol HCl (Ultram) 50 mg PO Q6H PRN PRN Reason: Pain Stop: 11/22/18 11:28 Last Admin: 10/24/18 05:17 Dose: 50 mg Documented by: Vancomycin HCl (Vancomycin Hcl) 125 mg PO BID [facility] Stop: 11/03/18 22:59 Last Admin: 10/23/18 20:15 Dose: 125 mg Documented by: Warfarin Sodium (Coumadin) 2.5 mg PO DAILY@1600 [facility] Stop: 11/23/18 15:59 (1) Edema Edema type: unspecified Qualified Code(s): R60.9 - Edema, unspecified (2) Atrial fibrillation Atrial fibrillation type: chronic Qualified Code(s): I48.2 - Chronic atrial fibrillation
[2018-10-24] MEDS: LACTOBACILLUS ACIDOPHILUS (FLORANEX) TAB PO SCH ×4 (09:09→20:21)
[2018-10-24] MEDS: GABAPENTIN 100 MG CAP PO SCH ×3 (09:10→16:42)
[2018-10-24] MEDS: ASPIRIN 81 MG ECTAB PO SCH (09:10)
[2018-10-24] MEDS: MAGNESIUM OXIDE 400 MG TAB PO SCH (09:10)
[2018-10-24] MEDS: IPRATROPIUM BROMIDE/ALBUTEROL respimat INH INH SCH ×4 (09:11→20:21)
[2018-10-24] MEDS: PANTOprazole 40 MG TAB PO SCH (09:13)
[2018-10-24] MEDS: VANCOMYCIN HCL 125 MG/2.5ML SOLN PO SCH ×2 (09:13→20:27)
[2018-10-24] MEDS: ALLOPURINOL 100 MG TAB PO SCH ×2 (09:13→20:23)
[2018-10-24] MEDS: metOLazone 5 MG TABLET PO SCH (09:14)
[2018-10-24] MEDS: SERTRALINE HCL 100 MG TABLET PO SCH (09:14)
[2018-10-24] MEDS: EPLERENONE PO SCH ×2 (09:15→20:24)
[2018-10-24] MEDS: RASPBERRY SYRUP 5 ML UDP PO SCH ×2 (09:25→20:23)
[2018-10-24] MEDS: BUMETANIDE 1 MG TAB PO SCH ×2 (10:06→16:42)
[2018-10-24] MEDS: MULTIVITAMIN TAB PO SCH (10:08)
[2018-10-24] MEDS: METOPROLOL SUCC 50MG EXT REL TAB PO SCH ×2 (10:23→20:22)
--- NOTE | 2018-10-24 12:14 | Nephrology Progress Note ---
Date of Service October 24, 2018 Assessment & Plan (1) Acute on chronic diastolic CHF (congestive heart failure): Semaj has diuretic resistant volume overload with recurrent right-sided pleural effusion. He failed outpatient diuretic therapy and has required frequent hospitalizations. He was admitted for over 2 weeks without significant improvement in edema. Right-sided pleural effusion re accumulated after pleural tap. Edema is multifactorial including diastolic dysfunction, cirrhosis, h ypoalbuminemia as well as venous insufficiency. He was started on UF to improve volume status. A right IJ tunnel dialysis catheter was placed on 10/19/2018 and had 1st ultrafiltration on 10/20/2018. Unfortunately, with a diagnosis of acute CHF, we cannot continue IUF as an outpatient. We will continue inpatient UF to achieve fluid goal and remove TDC prior to hospital discharge. Orders for IUF with 1 hr HD entered today. Patient was seen during treatment. UF goal 4+ L as tolerated. Document I/O's and monitor metabolic profile with Mg+ daily. Medications are appropriately dosed for IHD. (2) Cirrhosis: (3) Hypertension: (4) Hypokalemia: (5) Venous insufficiency: Subjective No acute events overnight. Mr. Maldonado was seen and evaluated during hemodialysis this morning. He feels reasonably well. He denies dyspnea or chest pain. He is tolerating HD. Edema improving. Bleeding from TDC exit site improved. Pressure dressing remains intact. Review of Systems All systems reviewed & are unremarkable except as noted in HPI & below Physical Exam Vital Signs (Past 24 Hours): Last Vital Signs Temp 36.3 C L 10/24/18 11:17 Pulse 81 10/24/18 12:00 Resp 18 10/24/18 11:17 BP 114/62 10/24/18 12:00 Pulse Ox 93 10/24/18 11:17 Constitutional: well nourished and + obese; not in distress Eyes: + anicteric sclerae; no corneal abnormality ENMT: Mouth: no oral mucosal abnormality and oral mucous membranes not dry Neck: normal visual inspection, trachea midline and + thick neck Respiratory: normal respiratory effort; no respiratory distress and does not use accessory muscles Auscultation: + diminished lung sounds (bases b/l with improving aeration into the low/mid lung and clear upwards) and + rales Cardiovascular: Rate/Rhythm: regular rate; + abnormal rhythm (irregular) Heart Sounds: normal S1, normal S2 and + murmur; no gallop and no cardiac rub Extremities: + edema and + varicosities Chest (Breasts): Chest: + vascular access device or port (in R upper chest with no active bleeding pressure dressing applied) Gastrointestinal (Abdomen): Inspection/Auscultation: + abdomen distended and + abdominal edema Percussion/Palpation: abdomen soft; abdomen nontender, no guarding and abdomen not rigid Musculoskeletal: Extremities: extremities normal to inspection and + chronic stasis changes Skin: normal turgor and + wound (lle) Neurologic: moves all extremities and awake; no focal motor deficits Motor/Sensory: no tremor Psychiatric: Orientation: alert, oriented to person and oriented to place Affect: euthymic affect Results & Data Laboratory Results Laboratory Results - last 24 hr 10/24/18 10/24/18 10/24/18 05:32 05:32 05:32 WBC 6.70 RBC 2.71 L Hgb 8.5 L Hct 25.2 L MCV 93.0 MCH 31.4 MCHC 33.7 RDW Std Deviation 59.1 H RDW Coeff of Nic 17.3 H Plt Count 172 MPV 8.3 Immature Gran % (Auto) 2.1 Neut % (Auto) 69.8 Lymph % (Auto) 11.6 [place] % (Auto) 10.4 Eos % (Auto) 5.5 Baso % (Auto) 0.6 Immature Gran # (Auto) 0.14 H Neut # (Auto) 4.67 Lymph # (Auto) 0.78 L [place] # (Auto) 0.70 H Eos # (Auto) 0.37 Baso # (Auto) 0.04 RBC Morphology Unremarkable PT 22.8 H INR 2.4 H Sodium 125 L Potassium 4.0 D Chloride 91 L Carbon Dioxide 29 Anion Gap 5.0 BUN 31 H Creatinine 0.94 Est Cr Clr Drug Dosing 95.1 Est GFR ( Amer) 101.0 Est GFR (Non-Af Amer) 87.2 BUN/Creatinine Ratio 32.6 H Glucose 91 Calcium 8.3 L Phosphorus 4.3 Magnesium 1.9 Albumin 2.4 L (1) Cirrhosis Hepatic cirrhosis type: unspecified hepatic cirrhosis Ascites presence: without ascites Qualified Code(s): K74.60 - Unspecified cirrhosis of liver (2) Hypertension Hypertension type: essential hypertension Qualified Code(s): I10 - Essential (primary) hypertension
[2018-10-24] MEDS ORDERED: WARFARIN SOD 2.5 MG TAB PO SCH (16:00)
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
[2018-10-25 05:36] LABS: Basophils # (auto) 0.06 K/uL (0-0.2); Basophils % (auto) 0.8 %; Eosinophils # (auto) 0.44 K/uL (0-0.5); Eosinophils % (auto) 5.6 %; Hemoglobin 8.2 g/dL (14.0-18.0); Immature Granulocytes % (auto) 1.3 %; Lymphocytes # (auto) 0.82 K/uL (1.2-3.4); Lymphocytes % (auto) 10.4 %; Mean Corpuscular Hgb Conc 34.2 g/dL (32-36); Mean Corpuscular Volume 92.7 fL (80-100); Mean Platelet Volume 8.1 fL (7.4-10.4); Monocytes # (auto) 0.99 K/uL (0.11-0.59); Monocytes % (auto) 12.5 %; Neutrophils # (auto) 5.51 K/uL (1.4-6.5); Neutrophils % (auto) 69.4 %; Platelet Count 165 K/uL (130-400); RDW Coefficient of Variation 16.9 % (11.5-14.5); RDW Standard Deviation 57.4 fL (36.4-46.3); Red Blood Count 2.59 M/uL (4.7-6.1); White Blood Count 7.92 K/uL (4.8-10.8)
[2018-10-25 06:00] LABS: INR 2.1 (0.9-1.1); Prothrombin Time 20.5 Seconds (9.0-12.0)
[2018-10-25 06:01] LABS: Albumin Level 2.4 gm/dl (3.4-5.0); BUN Creatinine Ratio 31.2 (10-20); Calcium 8.4 mg/dl (8.5-10.1); Creatinine Clr Calc Pharmacy 103.9 ml/min; Est GFR (African American) 108.5; Est GFR (Non-African American) 93.6; Magnesium 1.7 mg/dl (1.8-2.4); Potassium 3.5 mmol/L (3.5-5.1)
[2018-10-25 06:02] LABS: Phosphorus 4.1 mg/dl (2.5-4.9)
[2018-10-25 06:10] LABS: RBC Morphology Unremarkable
[2018-10-25] MEDS ORDERED: SODIUM CHLORIDE 0.9% 1000ML 1,000 ML IV PRN (07:00)
[2018-10-25] MEDS: VANCOMYCIN HCL 125 MG/2.5ML SOLN PO SCH ×2 (09:08→21:54)
[2018-10-25] MEDS: RASPBERRY SYRUP 5 ML UDP PO SCH ×2 (09:08→21:39)
[2018-10-25] MEDS: SERTRALINE HCL 100 MG TABLET PO SCH ×2 (09:09→09:17)
[2018-10-25] MEDS: EPLERENONE PO SCH ×2 (09:09→20:55)
[2018-10-25] MEDS: LACTOBACILLUS ACIDOPHILUS (FLORANEX) TAB PO SCH ×4 (09:09→20:57)
[2018-10-25] MEDS: PANTOprazole 40 MG TAB PO SCH (09:09)
[2018-10-25] MEDS: ASPIRIN 81 MG ECTAB PO SCH (09:10)
[2018-10-25] MEDS: IPRATROPIUM BROMIDE/ALBUTEROL respimat INH INH SCH ×4 (09:10→20:54)
[2018-10-25] MEDS: ALLOPURINOL 100 MG TAB PO SCH ×2 (09:11→21:02)
[2018-10-25] MEDS: GABAPENTIN 100 MG CAP PO SCH ×3 (09:12→16:32)
[2018-10-25] MEDS: MAGNESIUM OXIDE 400 MG TAB PO SCH (09:12)
[2018-10-25] MEDS: metOLazone 5 MG TABLET PO SCH (09:14)
[2018-10-25] MEDS ORDERED: MAGNESIUM SULFATE / D5W 1 GM/100 ML BAG IV ONE (09:30)
--- NOTE | 2018-10-25 09:35 | Progress Note ---
DATE: 10/25/2018 Mr. Maldonado was seen today on 10/25/2018. He has recollecting fluid on the right side which is no surprise. I do not really think he has much of a pneumothorax, I am not concerned about that. Having said that, the patient does look better. He is on room air but this may have been due to his ultrafiltration. Unfortunately, he still has marked edema of his lower extremities, but his lungs sound much better to me. At this point, I would probably hold off performing a repeat thoracentesis unless his clinical status dictates otherwise. KATIE
--- NOTE | 2018-10-25 09:37 | Cardiology Progress Note ---
Date of Service October 25, 2018 Assessment & Plan (1) Acute on chronic diastolic CHF (congestive heart failure): He remains hypervolemic but continues to improve with ultrafiltration and diuretic therapy. Nephrology has adjusted his intravenous diuretics to oral Bumex 4 mg twice daily with metolazone 10 mg daily. As an outpatient, he had profound hypokalemia on smaller doses of metolazone. Currently potassium is being managed both with supplementation and with dialysis, but will have to monitor very closely as an outpatient. Supplementation has been very challenging. Continue ultrafiltration as outlined by Nephrology. It now appears as though outpatient ultrafiltration is not an option. Hopefully, euvolemic state will be obtained prior to discharge and then can attempt to maintain acceptable volume status with oral diuretics and perhaps intermittent intravenous diuretics as an outpatient. Urine output has significantly reduced with ultrafiltration. Continue eplerenone. LV systolic function is not significantly reduced. His heart failure has been much more difficult to control over the past several months , which may be due to his cirrhosis. Low- sodium diet. Fluid restriction recommended, less than 1.5 L per day. Strict I&Os and daily weights recommended. (2) Edema: Likely multifactorial with diastolic CHF, hypoalbuminemia, and cirrhotic liver. Continue plan as above. (3) Atrial fibrillation: Continue rate controlling medications. Continue anticoagulation if no contraindications. He is developing worsening anemia once more. Please evaluate for bleeding. (4) Pleural effusion: He has undergone thoracentesis on the right side on 2 occasions. He continues to have decreased breath sounds. (5) Mechanical heart valve present: Anticoagulation and aspirin therapy are indicated if no contraindications. (6) Anemia: Despite large amount of volume being removed by ultrafiltration and also with diuresis, his hemoglobinHas decreased from a high of 13.5 down to 8.2 today. He had hematuria earlier during this hospitalization but alissa hematuria has since subsided. Recommend evaluation. Will defer anemia workup to hospitalist service. Disposition: Cardiology will continue to follow while hospitalized. Patient care discussed with Dr. Lerma of Nephrology. Follow-up with heart failure program on discharge. Subjective He denies shortness of breath, orthopnea, chest pain, syncope, near-syncope. His edema continues to improve. He is scheduled for another round of ultrafiltration today. Review of systems: As above. Physical Exam Vital Signs (Past 24 Hours): Last Vital Signs Temp 36.7 C 10/25/18 07:36 Pulse 74 10/25/18 07:36 Resp 20 10/25/18 07:36 BP 91/39 L 10/25/18 07:36 Pulse Ox 95 10/25/18 07:36 Intake & Output 10/23/18 10/24/18 10/25/18 10/26/18 06:59 06:59 06:59 06:59 Intake Total 1242 / 1242 770 / 770 742 / 742 Output Total 651 / 651 600 / 600 1625 / 1625 Balance 591 / 591 170 / 170 -883 / -883 Weight 96.615 kg 97.6 kg 94.5 kg Physical Exam: Gen.: No acute distress. Alert and oriented. HEENT: Anicteric sclera. Neck: Mild JVD. Cardiac: Irregularly irregular. Normal S1. [place] S2. 1/6 systolic murmur. Pulmonary: Decreased breath sounds base to mid right lung field, otherwise clear. Abdomen: Soft, nontender, nondistended, with normoactive bowel sounds. No bruits noted. Extremities: 1+ bilateral lower extremity edema, mostly knees to hips. No cyanosis. Psychiatric: Affect appears appropriate. Results & Data Laboratory Results Laboratory Results - last 24 hr 10/25/18 10/25/18 10/25/18 05:16 05:16 05:16 WBC 7.92 RBC 2.59 L Hgb 8.2 L Hct 24.0 L MCV 92.7 MCH 31.7 MCHC 34.2 RDW Std Deviation 57.4 H RDW Coeff of Nic 16.9 H Plt Count 165 MPV 8.1 Immature Gran % (Auto) 1.3 Neut % (Auto) 69.4 Lymph % (Auto) 10.4 [place] % (Auto) 12.5 Eos % (Auto) 5.6 Baso % (Auto) 0.8 Immature Gran # (Auto) 0.10 H Neut # (Auto) 5.51 Lymph # (Auto) 0.82 L [place] # (Auto) 0.99 H Eos # (Auto) 0.44 Baso # (Auto) 0.06 RBC Morphology Unremarkable PT 20.5 H INR 2.1 H Sodium 126 L Potassium 3.5 Chloride 93 L Carbon Dioxide 27 Anion Gap 7.0 BUN 27 H Creatinine 0.86 Est Cr Clr Drug Dosing 103.9 Est GFR ( Amer) 108.5 Est GFR (Non-Af Amer) 93.6 BUN/Creatinine Ratio 31.2 H Glucose 83 Calcium 8.4 L Phosphorus 4.1 Magnesium 1.7 L Albumin 2.4 L Diagnostic Findings Telemetry personally reviewed: Atrial fibrillation. Medications Administered Current Inpatient Medications Albuterol (Combivent Respimat) 1 puffs INH QID [facility] Stop: 11/03/18 22:59 Last Admin: 10/25/18 09:10 Dose: 1 puffs Documented by: Albuterol (Duoneb) 3 ml NEB Q2H PRN PRN Reason: SOB/Wheezing Stop: 11/15/18 10:29 Last Admin: 10/23/18 19:08 Dose: 3 ml Documented by: Albuterol (Duoneb) 3 ml NEB Q2H PRN PRN Reason: SOB/WHEEZING Stop: 11/15/18 15:59 Allopurinol (Zyloprim) 100 mg PO BID [facility] Stop: 11/03/18 21:59 Last Admin: 10/25/18 09:11 Dose: 100 mg Documented by: Aspirin (Ecotrin Ectab) 81 mg PO QAM [facility] Stop: 11/04/18 08:59 Last Admin: 10/25/18 09:10 Dose: 81 mg Documented by: Bumetanide (Bumex) 4 mg PO BID17 [facility] Stop: 11/21/18 08:59 Last Admin: 10/24/18 16:42 Dose: 4 mg Documented by: Gabapentin (Neurontin) 100 mg PO TIDM [facility] Stop: 11/04/18 07:59 Last Admin: 10/25/18 09:12 Dose: 100 mg Documented by: Sodium Chloride (Nss 1000ml) 1,000 mls @ 0 mls/hr IV .Q0M PRN PRN Reason: For Hemodialysis Use ONLY Stop: 10/25/18 12:59 Magnesium Sulfate/Dextrose (Magnesium Sulfate / D5w) 1 gm in 100 mls @ 100 mls/hr IV ONE ONE Stop: 10/25/18 10:29 Lactobacillus Acidophilus (Floranex) 4 tab PO QIDM [facility] Stop: 11/04/18 07:59 Last Admin: 10/25/18 09:09 Dose: 4 tab Documented by: Magnesium Oxide (Mag-Ox) 200 mg PO DAILY [facility] Stop: 11/03/18 21:59 Last Admin: 10/25/18 09:12 Dose: 200 mg Documented by: Metolazone (Zaroxolyn) 10 mg PO DAILY@0830 [facility] Stop: 11/20/18 08:29 Last Admin: 10/25/18 09:14 Dose: 10 mg Documented by: Metoprolol Succinate (Toprol Xl) 50 mg PO BID [facility] Stop: 11/03/18 21:20 Last Admin: 10/24/18 20:22 Dose: 50 mg Documented by: Multivitamins ([facility]ivitamin Tab) [facility] [place] Stop: 11/04/18 08:59 Last Admin: 10/24/18 10:08 Dose: 1 tab Documented by: ~~Eplerenone~~Non- Formulary Patient's Own Med 2 ea PO BID [facility] Stop: 11/09/18 20:59 Last Admin: 10/25/18 09:09 Dose: 2 tabs Documented by: Ondansetron HCl (Zofran) 4 mg IV Q6H PRN PRN Reason: NAUSEA/VOMITING Stop: 11/03/18 21:20 Pantoprazole Sodium (Protonix) [facility] [place] Stop: 11/04/18 08:59 Last Admin: 10/25/18 09:09 Dose: 40 mg Documented by: Raspberry (Raspberry) 5 ml PO BID [facility] Stop: 11/03/18 22:59 Last Admin: 10/25/18 09:08 Dose: 5 ml Documented by: Sertraline HCl (Zoloft) 100 mg PO QAM [facility] Stop: 11/04/18 08:59 Last Admin: 10/25/18 09:17 Dose: 100 mg Documented by: Tramadol HCl (Ultram) 50 mg PO Q6H PRN PRN Reason: Pain Stop: 11/22/18 11:28 Last Admin: 10/24/18 11:14 Dose: 50 mg Documented by: Vancomycin HCl (Vancomycin Hcl) 125 mg PO BID [facility] Stop: 11/03/18 22:59 Last Admin: 10/25/18 09:08 Dose: 125 mg Documented by: Warfarin Sodium (Coumadin) 3 mg PO DAILY@1600 [facility] Stop: 11/24/18 15:59 (1) Edema Edema type: unspecified Qualified Code(s): R60.9 - Edema, unspecified (2) Atrial fibrillation Atrial fibrillation type: chronic Qualified Code(s): I48.2 - Chronic atrial fibrillation
[2018-10-25] MEDS: BUMETANIDE 1 MG TAB PO SCH ×2 (09:48→16:34)
[2018-10-25] MEDS: METOPROLOL SUCC 50MG EXT REL TAB PO SCH ×2 (10:14→20:12)
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
[2018-10-25] MEDS: MULTIVITAMIN TAB PO SCH (11:30)
[2018-10-25 11:43] LABS: Ferritin 159.9 ng/ml (8-388)
--- NOTE | 2018-10-25 12:21 | Nephrology Progress Note ---
Date of Service October 25, 2018 Assessment & Plan (1) Acute on chronic diastolic CHF (congestive heart failure): Semaj has diuretic resistant volume overload with recurrent right-sided pleural effusion. He failed outpatient diuretic therapy and has required frequent hospitalizations. He was admitted for over 2 weeks without significant improvement in edema. Right-sided pleural effusion re accumulated after pleural tap. Edema is multifactorial including diastolic dysfunction, cirrhosis, h ypoalbuminemia as well as venous insufficiency. He was started on UF to improve volume status. A right IJ tunnel dialysis catheter was placed on 10/19/2018 and had 1st ultrafiltration on 10/20/2018. Unfortunately, with a diagnosis of acute CHF, we cannot continue IUF as an outpatient. We will continue inpatient UF to achieve fluid goal and remove TDC prior to hospital discharge. Orders for IUF with 1 hr HD entered today. We will plan an additional treatment tomorrow. If volume status acceptable following UF tomorrow, permcath can be removed by vascular surgery. Plan of care was discussed with Dr. Velázquez and Dr. Anne. Document I/O's and monitor metabolic profile with Mg+ daily. Medications are appropriately dosed for IHD. (2) Cirrhosis: (3) Hypertension: (4) Hypokalemia: (5) Venous insufficiency: Subjective No acute events overnight. Mr. Maldonado felt well this morning. He is breathing comfortably. Edema continues to improve. He denies any lightheadedness or dizziness. He continues to have some bleeding from his TDC exit site. He is tolerating HD/IUF well. Review of Systems All systems reviewed & are unremarkable except as noted in HPI & below Physical Exam Vital Signs (Past 24 Hours): Last Vital Signs Temp 36.3 C L 10/25/18 10:16 Pulse 76 10/25/18 10:16 Resp 18 10/25/18 10:16 BP 90/47 L 10/25/18 10:16 Pulse Ox 97 10/25/18 10:16 Constitutional: well nourished and + obese; not in distress Eyes: + anicteric sclerae; no corneal abnormality ENMT: Mouth: no oral mucosal abnormality and oral mucous membranes not dry Neck: normal visual inspection, trachea midline and + thick neck Respiratory: normal respiratory effort; no respiratory distress and does not use accessory muscles Auscultation: + diminished lung sounds (bases b/l with improving aeration into the low/mid lung and clear upwards) and + rales Cardiovascular: Rate/Rhythm: regular rate; + abnormal rhythm (irregular) Heart Sounds: normal S1, normal S2 and + murmur; no gallop and no cardiac rub Extremities: + edema and + varicosities Chest (Breasts): Chest: + vascular access device or port (in R upper chest with no active bleeding pressure dressing applied) Gastrointestinal (Abdomen): Inspection/Auscultation: + abdomen distended and + abdominal edema Percussion/Palpation: abdomen soft; abdomen nontender, no guarding and abdomen not rigid Musculoskeletal: Extremities: extremities normal to inspection and + chronic stasis changes Skin: normal turgor and + wound (lle) Neurologic: moves all extremities and awake; no focal motor deficits Motor/Sensory: no tremor Psychiatric: Orientation: alert, oriented to person and oriented to place Affect: euthymic affect Results & Data Laboratory Results Laboratory Results - last 24 hr 10/25/18 10/25/18 10/25/18 05:16 05:16 05:16 WBC 7.92 RBC 2.59 L Hgb 8.2 L Hct 24.0 L MCV 92.7 MCH 31.7 MCHC 34.2 RDW Std Deviation 57.4 H RDW Coeff of Nic 16.9 H Plt Count 165 MPV 8.1 Immature Gran % (Auto) 1.3 Neut % (Auto) 69.4 Lymph % (Auto) 10.4 [place] % (Auto) 12.5 Eos % (Auto) 5.6 Baso % (Auto) 0.8 Immature Gran # (Auto) 0.10 H Neut # (Auto) 5.51 Lymph # (Auto) 0.82 L [place] # (Auto) 0.99 H Eos # (Auto) 0.44 Baso # (Auto) 0.06 RBC Morphology Unremarkable PT 20.5 H INR 2.1 H Sodium 126 L Potassium 3.5 Chloride 93 L Carbon Dioxide 27 Anion Gap 7.0 BUN 27 H Creatinine 0.86 Est Cr Clr Drug Dosing 103.9 Est GFR ( Amer) 108.5 Est GFR (Non-Af Amer) 93.6 BUN/Creatinine Ratio 31.2 H Glucose 83 Calcium 8.4 L Phosphorus 4.1 Magnesium 1.7 L Iron TIBC Transferrin Transferrin % Sat Ferritin Albumin 2.4 L Folate 10/25/18 10/25/18 10:35 10:35 WBC RBC Hgb Hct MCV MCH MCHC RDW Std Deviation RDW Coeff of Nic Plt Count MPV Immature Gran % (Auto) Neut % (Auto) Lymph % (Auto) [place] % (Auto) Eos % (Auto) Baso % (Auto) Immature Gran # (Auto) Neut # (Auto) Lymph # (Auto) [place] # (Auto) Eos # (Auto) Baso # (Auto) RBC Morphology PT INR Sodium Potassium Chloride Carbon Dioxide Anion Gap BUN Creatinine Est Cr Clr Drug Dosing Est GFR ( Amer) Est GFR (Non-Af Amer) BUN/Creatinine Ratio Glucose Calcium Phosphorus Magnesium Iron 30 L TIBC 347 Transferrin 267 Transferrin % Sat 8 L Ferritin 159.9 Albumin Folate 12.14 (1) Cirrhosis Hepatic cirrhosis type: unspecified hepatic cirrhosis Ascites presence: without ascites Qualified Code(s): K74.60 - Unspecified cirrhosis of liver (2) Hypertension Hypertension type: essential hypertension Qualified Code(s): I10 - Essential (primary) hypertension
--- NOTE | 2018-10-25 14:38 | Communication Note ---
Date of Service: October 25, 2018 Pt scheduled for permcath removal tomorrow afternoon by Dr Monaco, at nephrology's request. Pt agreeable.
[2018-10-25] MEDS: WARFARIN SOD 3 MG TAB PO SCH (16:33)
[2018-10-25] MEDS: TRAMADOL HCL 50 MG TABLET PO PRN (20:00)
[2018-10-26] MEDS ORDERED: SODIUM CHLORIDE 0.9% 1000ML 1,000 ML IV PRN (07:00)
[2018-10-26 07:47] LABS: Basophils # (auto) 0.04 K/uL (0-0.2); Basophils % (auto) 0.6 %; Eosinophils # (auto) 0.45 K/uL (0-0.5); Eosinophils % (auto) 6.5 %; Hematocrit (blood only) 23.4 % (42-52); Hemoglobin 8.1 g/dL (14.0-18.0); Immature Granulocytes # (auto) 0.19 K/uL (0.00-0.02); Immature Granulocytes % (auto) 2.8 %; Lymphocytes # (auto) 0.81 K/uL (1.2-3.4); Lymphocytes % (auto) 11.7 %; Mean Corpuscular Hgb Conc 34.6 g/dL (32-36); Mean Corpuscular Volume 90.3 fL (80-100); Mean Platelet Volume 8.4 fL (7.4-10.4); Monocytes # (auto) 0.84 K/uL (0.11-0.59); Monocytes % (auto) 12.2 %; Neutrophils # (auto) 4.57 K/uL (1.4-6.5); Neutrophils % (auto) 66.2 %; Platelet Count 183 K/uL (130-400); RDW Coefficient of Variation 16.8 % (11.5-14.5); Red Blood Count 2.59 M/uL (4.7-6.1)
[2018-10-26 08:05] LABS: INR 2.1 (0.9-1.1); Prothrombin Time 20.3 Seconds (9.0-12.0)
[2018-10-26 08:13] LABS: RBC Morphology Unremarkable
[2018-10-26 08:22] LABS: Albumin Level 2.4 gm/dl (3.4-5.0); BUN Creatinine Ratio 30.8 (10-20); Calcium 8.7 mg/dl (8.5-10.1); Est GFR (African American) 93.7; Est GFR (Non-African American) 80.9; Potassium 3.4 mmol/L (3.5-5.1)
--- NOTE | 2018-10-26 08:40 | History & Physical Bridge Note ---
Date of Service October 26, 2018 History & Physical Bridge Note Patient for removal of permcath today. I have discussed the risks options and benefits of the procedure with the patient. The patient understands the risks options and benefits and agrees to the procedure. I have examined the patient, reviewed the History & Physical and in the interval since the performance of the History & Physical I have noted the following changes of clinical significance: no changes noted
[2018-10-26] MEDS: MULTIVITAMIN TAB PO SCH (08:47)
[2018-10-26] MEDS: LACTOBACILLUS ACIDOPHILUS (FLORANEX) TAB PO SCH ×4 (08:47→20:58)
[2018-10-26] MEDS: BUMETANIDE 1 MG TAB PO SCH ×3 (08:47→20:57)
[2018-10-26] MEDS: PANTOprazole 40 MG TAB PO SCH (08:47)
[2018-10-26] MEDS: MAGNESIUM OXIDE 400 MG TAB PO SCH (08:47)
[2018-10-26] MEDS: EPLERENONE PO SCH ×2 (08:48→20:59)
[2018-10-26] MEDS: GABAPENTIN 100 MG CAP PO SCH ×3 (08:48→15:56)
[2018-10-26] MEDS: IPRATROPIUM BROMIDE/ALBUTEROL respimat INH INH SCH ×4 (08:49→20:57)
[2018-10-26] MEDS: ASPIRIN 81 MG ECTAB PO SCH (08:49)
[2018-10-26] MEDS: ALLOPURINOL 100 MG TAB PO SCH ×2 (08:50→20:58)
[2018-10-26] MEDS: metOLazone 5 MG TABLET PO SCH (08:50)
[2018-10-26] MEDS ORDERED: IRON SUCROSE 200 MG in SYRINGE 0 ML IV SCH (09:00)
--- NOTE | 2018-10-26 09:09 | Cardiology Progress Note ---
Date of Service October 26, 2018 Assessment & Plan (1) Acute on chronic diastolic CHF (congestive heart failure): He continues to improve with his hypervolemia. He is still mildly hypervolemic. Ultrafiltration scheduled for later this morning. Nephrology has adjusted his intravenous diuretics to oral Bumex 4 mg twice daily with metolazone 10 mg daily. As an outpatient, he had profound hypokalemia on smaller doses of metolazone. Currently potassium is being managed both with supplementation and with dialysis, but will have to monitor very closely as an outpatient. Supplementation has been very challenging. Continue ultrafiltration as outlined by Nephrology. Hopefully, euvolemic state will be obtained prior to discharge and then can attempt to maintain acceptable volume status with oral diuretics and perhaps intermittent intravenous diuretics as an outpatient. Urine output has significantly reduced with ultrafiltration. Continue eplerenone. LV systolic function is not significantly reduced. His heart failure has been much more difficult to control over the past several months , which may be due to his cirrhosis. Low-sodium diet. Fluid restriction recommended, less than 1.5 L per day. Strict I&Os and daily weights recommended. (2) Edema: Likely multifactorial with diastolic CHF, hypoalbuminemia, and cirrhotic liver. Continue plan as above. (3) Atrial fibrillation: Continue rate controlling medications. Continue anticoagulation if no contraindications. Anemia has worsened, which is being evaluated by primary service. Continue rate-controlling medication as blood pressure allows with ultrafiltration/dialysis. (4) Pleural effusion: He has undergone thoracentesis on the right side on 2 occasions. He continues to have decreased breath sounds with fluid reaccumulation. (5) Mechanical heart valve present: Anticoagulation and aspirin therapy are indicated if no contraindications. (6) Anemia: He has trended from 13.5 to 8.1 with his hemoglobin. This is being evaluated by primary service. Disposition: Cardiology will continue to follow while hospitalized. Very close follow-up with heart failure program on discharge. Plan of care discussed with heart failure program PA, Ms. Gilliam. She will communicate plan with Dr. Elo nielsen. Subjective He denies shortness of breath, chest pain, syncope, near-syncope, palpitations. His edema continues to improve. He denies bleeding. He is scheduled for ultrafiltration later this morning. Review of systems: As above. Physical Exam Vital Signs (Past 24 Hours): Last Vital Signs Temp 36.7 C 10/26/18 08:02 Pulse 75 03/29/19 08:02 Resp 20 10/26/18 08:02 BP 105/49 L 10/26/18 08:02 Pulse Ox 93 10/26/18 08:02 Intake & Output 10/24/18 10/25/18 10/26/18 10/27/18 06:59 06:59 06:59 06:59 Intake Total 770 / 770 742 / 742 340 / 340 Output Total 600 / 600 1625 / 1625 Balance 170 / 170 -883 / -883 340 / 340 Weight 97.6 kg 94.5 kg Physical Exam: Gen.: No acute distress. Alert and oriented. HEENT: Anicteric sclera. Neck: Mild JVD. Cardiac: Irregularly irregular. Normal S1. [place] S2. 1/6 systolic murmur. Pulmonary: Decreased breath sounds base to mid right lung field, otherwise clear. Abdomen: Soft, nontender, nondistended, with normoactive bowel sounds. No bruits noted. Extremities: 1+ bilateral lower extremity edema proximal lower extremities from knee to mid thigh. Trace to 1+ distal bilateral lower extremity edema. No cyanosis. Psychiatric: Affect appears appropriate. Results & Data Laboratory Results Laboratory Results - last 24 hr 10/25/18 10/25/18 10/25/18 10:35 10:35 19:00 WBC RBC Hgb Hct MCV MCH MCHC RDW Std Deviation RDW Coeff of Nic Plt Count MPV Immature Gran % (Auto) Neut % (Auto) Lymph % (Auto) [place] % (Auto) Eos % (Auto) Baso % (Auto) Immature Gran # (Auto) Neut # (Auto) Lymph # (Auto) [place] # (Auto) Eos # (Auto) Baso # (Auto) RBC Morphology PT INR Sodium Potassium Chloride Carbon Dioxide Anion Gap BUN Creatinine Est Cr Clr Drug Dosing Est GFR ( Amer) Est GFR (Non-Af Amer) BUN/Creatinine Ratio Glucose Calcium Phosphorus Iron 30 L TIBC 347 Transferrin 267 Transferrin % Sat 8 L Ferritin 159.9 Albumin Vitamin B12 Folate 12.14 Stool Occult Bld Scrn Negative 10/26/18 10/26/18 10/26/18 07:25 07:25 07:25 WBC RBC Hgb Hct MCV MCH MCHC RDW Std Deviation RDW Coeff of Nic Plt Count MPV Immature Gran % (Auto) Neut % (Auto) Lymph % (Auto) [place] % (Auto) Eos % (Auto) Baso % (Auto) Immature Gran # (Auto) Neut # (Auto) Lymph # (Auto) [place] # (Auto) Eos # (Auto) Baso # (Auto) RBC Morphology PT 20.3 H INR 2.1 H Sodium 125 L Potassium 3.4 L Chloride 90 L Carbon Dioxide 26 Anion Gap 9.0 BUN 31 H Creatinine 1.00 Est Cr Clr Drug Dosing 88.0 Est GFR ( Amer) 93.7 Est GFR (Non-Af Amer) 80.9 BUN/Creatinine Ratio 30.8 H Glucose 80 Calcium 8.7 Phosphorus 4.0 Iron TIBC Transferrin Transferrin % Sat Ferritin Albumin 2.4 L Vitamin B12 1444 H Folate Stool Occult Bld Scrn 10/26/18 07:25 WBC 6.90 RBC 2.59 L Hgb 8.1 L Hct 23.4 L MCV 90.3 MCH 31.3 MCHC 34.6 RDW Std Deviation 55.0 H RDW Coeff of Nic 16.8 H Plt Count 183 MPV 8.4 Immature Gran % (Auto) 2.8 Neut % (Auto) 66.2 Lymph % (Auto) 11.7 [place] % (Auto) 12.2 Eos % (Auto) 6.5 Baso % (Auto) 0.6 Immature Gran # (Auto) 0.19 H Neut # (Auto) 4.57 Lymph # (Auto) 0.81 L [place] # (Auto) 0.84 H Eos # (Auto) 0.45 Baso # (Auto) 0.04 RBC Morphology Unremarkable PT INR Sodium Potassium Chloride Carbon Dioxide Anion Gap BUN Creatinine Est Cr Clr Drug Dosing Est GFR ( Amer) Est GFR (Non-Af Amer) BUN/Creatinine Ratio Glucose Calcium Phosphorus Iron TIBC Transferrin Transferrin % Sat Ferritin Albumin Vitamin B12 Folate Stool Occult Bld Scrn Medications Administered Current Inpatient Medications Albuterol (Combivent Respimat) 1 puffs INH QID DERICK Stop: 11/03/18 22:59 Last Admin: 10/26/18 08:49 Dose: 1 puffs Documented by: Albuterol (Duoneb) 3 ml NEB Q2H PRN PRN Reason: SOB/Wheezing Stop: 11/15/18 10:29 Last Admin: 10/23/18 19:08 Dose: 3 ml Documented by: Albuterol (Duoneb) 3 ml NEB Q2H PRN PRN Reason: SOB/WHEEZING Stop: 11/15/18 15:59 Allopurinol (Zyloprim) 100 mg PO BID [facility] Stop: 11/03/18 21:59 Last Admin: 10/26/18 08:50 Dose: 100 mg Documented by: Aspirin (Ecotrin Ectab) 81 mg PO QAM [facility] Stop: 11/04/18 08:59 Last Admin: 10/26/18 08:49 Dose: 81 mg Documented by: Bumetanide (Bumex) 4 mg PO BID17 [facility] Stop: 11/21/18 08:59 Last Admin: 10/26/18 08:47 Dose: 4 mg Documented by: Gabapentin (Neurontin) 100 mg PO TIDM [facility] Stop: 11/04/18 07:59 Last Admin: 10/26/18 08:48 Dose: 100 mg Documented by: Sodium Chloride (Nss 1000ml) 1,000 mls @ 0 mls/hr IV .Q0M PRN PRN Reason: For Hemodialysis Use ONLY Stop: 10/26/18 12:59 Iron Sucrose 200 mg/ Syringe 10 mls @ 10 mls/min IV TODAY@0900 [facility] Stop: 10/26/18 23:59 Lactobacillus Acidophilus (Floranex) 4 tab PO QIDM [facility] Stop: 11/04/18 07:59 Last Admin: 10/26/18 08:47 Dose: 4 tab Documented by: Magnesium Oxide (Mag-Ox) 200 mg PO DAILY [facility] Stop: 11/03/18 21:59 Last Admin: 10/26/18 08:47 Dose: 200 mg Documented by: Metolazone (Zaroxolyn) 10 mg PO DAILY@0830 [facility] Stop: 11/20/18 08:29 Last Admin: 10/26/18 08:50 Dose: 10 mg Documented by: Metoprolol Succinate (Toprol Xl) 50 mg PO BID [facility] Stop: 11/03/18 21:20 Last Admin: 10/25/18 20:12 Dose: Not Given Documented by: Multivitamins (Multivitamin Tab) 1 tab PO QAM [facility] Stop: 11/04/18 08:59 Last Admin: 10/26/18 08:47 Dose: 1 tab Documented by: ~~Eplerenone~~Non- Formulary Patient's Own Med 2 ea PO BID [facility] Stop: 11/09/18 20:59 Last Admin: 10/26/18 08:48 Dose: 1 tab Documented by: Ondansetron HCl (Zofran) 4 mg IV Q6H PRN PRN Reason: NAUSEA/VOMITING Stop: 11/03/18 21:20 Pantoprazole Sodium (Protonix) 40 mg PO QAM [facility] Stop: 11/04/18 08:59 Last Admin: 10/26/18 08:47 Dose: 40 mg Documented by: Raspberry (Raspberry) 5 ml PO BID [facility] Stop: 11/03/18 22:59 Last Admin: 10/25/18 21:39 Dose: 5 ml Documented by: Sertraline HCl (Zoloft) 100 mg PO QAM [facility] Stop: 11/04/18 08:59 Last Admin: 10/25/18 09:17 Dose: 100 mg Documented by: Tramadol HCl (Ultram) 50 mg PO Q6H PRN PRN Reason: Pain Stop: 11/22/18 11:28 Last Admin: 10/25/18 20:00 Dose: 50 mg Documented by: Vancomycin HCl (Vancomycin Hcl) 125 mg PO BID [facility] Stop: 11/03/18 22:59 Last Admin: 10/25/18 21:54 Dose: 125 mg Documented by: Warfarin Sodium (Coumadin) 3 mg PO DAILY@1600 [facility] Stop: 11/24/18 15:59 Last Admin: 10/25/18 16:33 Dose: 3 mg Documented by: (1) Edema Edema type: unspecified Qualified Code(s): R60.9 - Edema, unspecified (2) Atrial fibrillation Atrial fibrillation type: chronic Qualified Code(s): I48.2 - Chronic atrial fibrillation
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
[2018-10-26] MEDS: RASPBERRY SYRUP 5 ML UDP PO SCH ×2 (13:30→20:58)
[2018-10-26] MEDS: VANCOMYCIN HCL 125 MG/2.5ML SOLN PO SCH ×2 (13:30→20:58)
[2018-10-26] MEDS: METOPROLOL SUCC 50MG EXT REL TAB PO SCH ×2 (13:31→20:58)
[2018-10-26] MEDS ORDERED: LIDOCAINE HCL 1% 20 ML VIAL ONE (14:55)
--- NOTE | 2018-10-26 15:25 | Nephrology Progress Note ---
Date of Service October 26, 2018 Assessment & Plan (1) Acute on chronic diastolic CHF (congestive heart failure): Semaj has diuretic resistant volume overload with recurrent right-sided pleural effusion. He failed outpatient diuretic therapy and has required frequent hospitalizations. He was admitted for over 2 weeks without significant improvement in edema. Right-sided pleural effusion re accumulated after pleural tap. Edema is multifactorial including diastolic dysfunction, cirrhosis, h ypoalbuminemia as well as venous insufficiency. He was started on UF to improve volume status. A right IJ tunnel dialysis catheter was placed on 10/19/2018 and had 1st ultrafiltration on 10/20/2018. His volume status following HD today was found to be acceptable. Plan is to remove TDC at this time. Continued aggressive management with diuretics and close outpatient follow up is planned. If the ephraim gutierrez develops severe diuretic resistance in the future requiring additional RN TESTING, he understands that this would be consistent with a diagnosis of ESRD. A follow up visit with Dr. Kendrick in the outpatient clinic will be arranged within 2 weeks of hospital discharge. Please have a metabolic profile drawn early next week with results sent to Dr. Kendrick and myself ([phone]). Discharge diuretics to include Bumex 8-9 mg daily (either 4 mg twice daily or 3 mg TID), eplerenone 50 mg BID, and metolazone 5 mg QAM 30 minutes prior to morning dialysis. I would discharge home on magnesium oxide 200 mg daily and at least 80 mEq of KCl daily. Plan of care was discussed with Dr. Velázquez this morning. (2) Cirrhosis: (3) Hypertension: (4) Hypokalemia: (5) Venous insufficiency: Subjective No acute events overnight. Mr. Maldonado felt well this morning. He was seen and evaluated during hemodialysis. He tolerated 4 L of UF with appropriate BP and Qb. He is breathing comfortably. Edema has significantly improved. He denies any lightheadedness or dizziness. Review of Systems All systems reviewed & are unremarkable except as noted in HPI & below Physical Exam Vital Signs (Past 24 Hours): Last Vital Signs Temp 37.1 C 10/26/18 14:40 Pulse 79 10/26/18 14:40 Resp 20 10/26/18 14:40 BP 112/44 L 10/26/18 14:40 Pulse Ox 97 10/26/18 14:40 Constitutional: well nourished and + obese; not in distress Eyes: + anicteric sclerae; no corneal abnormality ENMT: Mouth: no oral mucosal abnormality and oral mucous membranes not dry Neck: normal visual inspection, trachea midline and + thick neck Respiratory: normal respiratory effort; no respiratory distress and does not use accessory muscles Auscultation: lungs clear to auscultation bilaterally and + diminished lung sounds Cardiovascular: Rate/Rhythm: regular rate; + abnormal rhythm (irregular) Heart Sounds: normal S1, normal S2 and + murmur; no gallop and no cardiac rub Extremities: + edema (significantly improved. persistent dependent edema in LE BL noted) and + varicosities Chest (Breasts): Chest: + vascular access device or port (in R upper chest wi th no active bleeding pressure dressing applied) Gastrointestinal (Abdomen): Inspection/Auscultation: + abdomen distended and + abdominal edema Percussion/Palpation: abdomen soft; abdomen nontender, no guarding and abdomen not rigid Musculoskeletal: Extremities: extremities normal to inspection and + chronic stasis changes Skin: normal turgor and + wound (lle) Neurologic: moves all extremities and awake; no focal motor deficits Motor/Sensory: no tremor Psychiatric: Orientation: alert, oriented to person and oriented to place Affect: euthymic affect Results & Data Laboratory Results Laboratory Results - last 24 hr 10/25/18 10/26/18 10/26/18 19:00 07:25 07:25 WBC RBC Hgb Hct MCV MCH MCHC RDW Std Deviation RDW Coeff of Nic Plt Count MPV Immature Gran % (Auto) Neut % (Auto) Lymph % (Auto) [place] % (Auto) Eos % (Auto) Baso % (Auto) Immature Gran # (Auto) Neut # (Auto) Lymph # (Auto) [place] # (Auto) Eos # (Auto) Baso # (Auto) RBC Morphology PT 20.3 H INR 2.1 H Sodium Potassium Chloride Carbon Dioxide Anion Gap BUN Creatinine Est Cr Clr Drug Dosing Est GFR ( Amer) Est GFR (Non-Af Amer) BUN/Creatinine Ratio Glucose Calcium Phosphorus Albumin Vitamin B12 1444 H Stool Occult Bld Scrn Negative 10/26/18 10/26/18 07:25 07:25 WBC 6.90 RBC 2.59 L Hgb 8.1 L Hct 23.4 L MCV 90.3 MCH 31.3 MCHC 34.6 RDW Std Deviation 55.0 H RDW Coeff of Nic 16.8 H Plt Count 183 MPV 8.4 Immature Gran % (Auto) 2.8 Neut % (Auto) 66.2 Lymph % (Auto) 11.7 [place] % (Auto) 12.2 Eos % (Auto) 6.5 Baso % (Auto) 0.6 Immature Gran # (Auto) 0.19 H Neut # (Auto) 4.57 Lymph # (Auto) 0.81 L [place] # (Auto) 0.84 H Eos # (Auto) 0.45 Baso # (Auto) 0.04 RBC Morphology Unremarkable PT INR Sodium 125 L Potassium 3.4 L Chloride 90 L Carbon Dioxide 26 Anion Gap 9.0 BUN 31 H Creatinine 1.00 Est Cr Clr Drug Dosing 88.0 Est GFR ( Amer) 93.7 Est GFR (Non-Af Amer) 80.9 BUN/Creatinine Ratio 30.8 H Glucose 80 Calcium 8.7 Phosphorus 4.0 Albumin 2.4 L Vitamin B12 Stool Occult Bld Scrn (1) Cirrhosis Hepatic cirrhosis type: unspecified hepatic cirrhosis Ascites presence: without ascites Qualified Code(s): K74.60 - Unspecified cirrhosis of liver (2) Hypertension Hypertension type: essential hypertension Qualified Code(s): I10 - Essential (primary) hypertension
--- NOTE | 2018-10-26 15:32 | Post Operative Brief Note ---
Immediate Post Op Note v1 Date of Surgery October 26, 2018 Pre & Post Diagnosis Operation Date: 10/19/18 11:55 Pre-Op Diagnosis: fluid overload Post-Op Diagnosis: fluid overload Operation Date: 10/26/18 13:00 Pre-Op Diagnosis: Ultra Filtration for CHF Post-Op Diagnosis: Ultra Filtration for CHF Procedure Operation Date: 10/19/18 11:55 Actual Procedures p Insertion Of Perm Catheter, Right Internal Jugular Approach, Ultrasound Localization Of Right Internal Jugular Vein, Fluoroscopy For Positioning(Right) - Alexis Monaco MD Operation Date: 10/26/18 13:00 Actual Procedures p Removal of Perm Catheter(Right) - Alexis Monaco MD Surgeon Alexis Monaco MD [facility] MD August Estimated Blood Loss 0 Findings Consistent with Post-Op Diagnosis Anesthesia Type Local Complications none Disposition Accompanied Patient To Recovery: No Disposition: Recovery Room
[2018-10-26] MEDS: WARFARIN SOD 3 MG TAB PO SCH (15:55)
--- NOTE | 2018-10-26 16:46 | Progress Note ---
DATE: 10/26/2018 The patient continued to undergo ultrafiltration on for his congestive heart failure. I actually saw him today with Dr. Colmenares. He is a very complicated patient and there is not an easy answer. His legs look much better to me. He underwent a chest x-ray 2 days ago which shows reaccumulation of the fluid in his right chest. I really do not see much of a pneumothorax. He apparently is getting ready to be going home. Noncompliance has been a big issue with Mr. Maldonado. At this point, I would not address his right pleural fluid unless it has a major impact with him clinically.
[2018-10-26] MEDS: TRAMADOL HCL 50 MG TABLET PO PRN (19:17)
--- NOTE | 2018-10-26 22:52 | Operative Report ---
DATE OF OPERATION: 10/26/2018 PREOPERATIVE DIAGNOSIS: Congestive heart failure, need for ultrafiltration. POSTOPERATIVE DIAGNOSIS: Congestive heart failure, need for ultrafiltration. PROCEDURE: PermCath removal. SURGEON: Alexis Monaco MD UNCLAIMED PROPERTY MANAGER: Tata Jimenez MD ANESTHESIA: Local. ESTIMATED BLOOD LOSS: Zero. COMPLICATIONS: None. INDICATIONS: Mr. Semaj Maldonado is a 62-year-old gentleman with history of CHF. He was hospitalized for CHF exacerbation. He required ultrafiltration and had a PermCath placed. He no longer requires the PermCath and was recommended to undergo removal. The risks, benefits and alternatives were discussed with the patient and he consents to the procedure. DESCRIPTION OF PROCEDURE: The patient was taken to the endovascular suite and placed in supine position. The right neck and chest were prepped and draped in the usual sterile fashion. A safety timeout was performed and the patient, procedure, and sidedness were correctly identified. Local anesthesia was used to anesthetize the skin surrounding the existing catheter. The 2 nylon sutures securing the catheter to the chest wall were removed. Gentle traction was applied to the catheter and the catheter removed without difficulty. Manual pressure was held over the IJ access site and the catheter tract for several minutes with good hemostasis. Sterile dressing was applied. The patient tolerated the procedure well and there were no immediate complications. Dr. Alexis Monaco was present for the entire procedure. I attest to the content of the Intraoperative Record and any orders documented therein. Any exception s are noted below.
[2018-10-27 06:31] LABS: Albumin Level 2.7 gm/dl (3.4-5.0); BUN Creatinine Ratio 25.1 (10-20); Calcium 8.4 mg/dl (8.5-10.1); Creatinine Clr Calc Pharmacy 71.3 ml/min; Est GFR (African American) 75.2; Est GFR (Non-African American) 64.9; Phosphorus 4.4 mg/dl (2.5-4.9); Potassium 3.1 mmol/L (3.5-5.1)
[2018-10-27] MEDS ORDERED: POTASSIUM CHLORIDE 20 MEQ TABCR PO STA ×2 (08:00→16:27)
[2018-10-27] MEDS ORDERED: metOLazone 5 MG TABLET PO SCH (08:30)
[2018-10-27] MEDS ORDERED: IRON SUCROSE 200 MG in 0.9 % SODIUM CHLORIDE 100 ML IV SCH (09:00)
[2018-10-27] MEDS: LACTOBACILLUS ACIDOPHILUS (FLORANEX) TAB PO SCH ×4 (09:06→20:33)
[2018-10-27] MEDS: BUMETANIDE 1 MG TAB PO SCH ×2 (09:07→17:21)
[2018-10-27] MEDS: GABAPENTIN 100 MG CAP PO SCH ×3 (09:08→17:35)
[2018-10-27] MEDS: MULTIVITAMIN TAB PO SCH (09:08)
[2018-10-27] MEDS: SERTRALINE HCL 100 MG TABLET PO SCH (09:08)
[2018-10-27] MEDS: MAGNESIUM OXIDE 400 MG TAB PO SCH (09:08)
[2018-10-27] MEDS: PANTOprazole 40 MG TAB PO SCH (09:08)
[2018-10-27] MEDS: METOPROLOL SUCC 50MG EXT REL TAB PO SCH ×2 (09:08→20:37)
[2018-10-27] MEDS: EPLERENONE PO SCH ×2 (09:09→20:34)
[2018-10-27] MEDS: IPRATROPIUM BROMIDE/ALBUTEROL respimat INH INH SCH ×4 (09:09→20:32)
[2018-10-27] MEDS: ASPIRIN 81 MG ECTAB PO SCH (09:09)
[2018-10-27] MEDS: RASPBERRY SYRUP 5 ML UDP PO SCH ×2 (09:10→20:32)
[2018-10-27] MEDS: ALLOPURINOL 100 MG TAB PO SCH ×2 (09:10→20:35)
[2018-10-27] MEDS: VANCOMYCIN HCL 125 MG/2.5ML SOLN PO SCH ×2 (09:11→20:31)
[2018-10-27 09:12] LABS: Basophils # (auto) 0.04 K/uL (0-0.2); Basophils % (auto) 0.6 %; Eosinophils # (auto) 0.27 K/uL (0-0.5); Eosinophils % (auto) 3.9 %; Hematocrit (blood only) 26.7 % (42-52); Hemoglobin 9.1 g/dL (14.0-18.0); Immature Granulocytes # (auto) 0.19 K/uL (0.00-0.02); Immature Granulocytes % (auto) 2.7 %; Lymphocytes # (auto) 0.64 K/uL (1.2-3.4); Lymphocytes % (auto) 9.2 %; Mean Corpuscular Hgb Conc 34.1 g/dL (32-36); Mean Corpuscular Volume 90.5 fL (80-100); Mean Platelet Volume 8.5 fL (7.4-10.4); Monocytes # (auto) 0.83 K/uL (0.11-0.59); Monocytes % (auto) 11.9 %; Neutrophils # (auto) 4.98 K/uL (1.4-6.5); Neutrophils % (auto) 71.7 %; Platelet Count 222 K/uL (130-400); RDW Coefficient of Variation 16.3 % (11.5-14.5); RDW Standard Deviation 54.3 fL (36.4-46.3); Red Blood Count 2.95 M/uL (4.7-6.1); White Blood Count 6.95 K/uL (4.8-10.8)
[2018-10-27 09:21] LABS: INR 2.9 (0.9-1.1)
--- NOTE | 2018-10-27 13:19 | Nephrology Progress Note ---
Date of Service October 27, 2018 Assessment & Plan (1) Acute on chronic diastolic CHF (congestive heart failure): Semaj has diuretic resistant volume overload with recurrent right-sided pleural effusion. He failed outpatient diuretic therapy and has required frequent hospitalizations. He was admitted for over 2 weeks without significant improvement in edema. Right-sided pleural effusion re accumulated after pleural tap. Edema is multifactorial including diastolic dysfunction, cirrhosis, h ypoalbuminemia as well as venous insufficiency. He was started on HD/IUF to improve volume status. Net negative fluid balance > 40 L since admission. A right IJ tunnel dialysis catheter was placed on 10/19/2018 and had 1st ultrafiltration treatment on 10/20/2018. The dialysis catheter was removed yesterday after appropriate volume status was attained. He is non oliguric. Semaj is receiving potassium replacement today for hypokalemia. A repeat CXR was reviewed this morning. There has not been signficiant interval change in pleural effusion. He is on home diuretic dosing with the exception of eplerenone at this time. A follow up visit in the outpatient nephrology clinic with Dr. Kendrick on October 30 has been scheduled for post hospital discharge. Please have a metabolic profile drawn early next week with results sent to Dr. Kendrick and myself ([phone]). Discharge diuretics to include Bumex 4 mg BID, eplerenone 50 mg BID, and metolazone 5 mg QAM. I would discharge home on magnesium oxide 200 mg daily and at least 80 mEq of KCl daily. Plan of care was discussed with Dr. Velázquez this morning. (2) Cirrhosis: (3) Hypertension: (4) Hypokalemia: An additional 80 mEq oral KCl was provided today. A repeat metabolic profile has been ordered for tomorrow. (5) Venous insufficiency: Subjective No acute events overnight. Mr. Maldonado was seen and examined with his at the bedside today. He is resting comfortably and feels ready for discharge. He has not had bleeding from TDC site. Edema is minimal. He is breathing comfortably. His did ask about a hospital bed for home. Mr. Maldonado' bedroom is on the second floor but they hope to transfer him to the first floor. The hospital bed has been much more comfortably and easier for him to transfer from than his bed at home. Review of Systems All systems reviewed & are unremarkable except as noted in HPI & below Physical Exam Vital Signs (Past 24 Hours): Last Vital Signs Temp 36.7 C 10/27/18 08:12 Pulse 66 10/27/18 08:12 Resp 20 10/27/18 08:12 BP 96/51 L 10/27/18 08:12 Pulse Ox 98 10/27/18 08:12 Constitutional: well developed and + obese; not in distress Eyes: + anicteric sclerae; no corneal abnormality ENMT: Mouth: no oral mucosal abnormality and oral mucous membranes not dry Neck: normal visual inspection, trachea midline and + thick neck Respiratory: normal respiratory effort; no respiratory distress and does not use accessory muscles Auscultation: lungs clear to auscultation bilaterally and + diminished lung sounds Cardiovascular: Rate/Rhythm: regular rate; + abnormal rhythm (irregular) Heart Sounds: normal S1, normal S2 and + murmur; no gallop and no cardiac rub Extremities: + edema (significantly improved. persistent dependent edema in LE BL noted) and + varicosities Chest (Breasts): Chest: + vascular access device or port (in R upper chest with no active bleeding pressure dressing applied) Gastrointestinal (Abdomen): Inspection/Auscultation: + abdomen distended and + abdominal edema Percussion/Palpation: abdomen soft; abdomen nontender, no guarding and abdomen not rigid Musculoskeletal: Extremities: extremities normal to inspection and + chronic stasis changes Skin: normal turgor and + wound (lle) sallow complexion Neurologic: moves all extremities and awake; no focal motor deficits Motor/Sensory: no tremor Psychiatric: Orientation: alert, oriented to person and oriented to place Affect: euthymic affect Results & Data Laboratory Results Laboratory Results - last 24 hr 10/27/18 10/27/18 10/27/18 05:39 08:45 08:45 WBC 6.95 RBC 2.95 L Hgb 9.1 L Hct 26.7 L MCV 90.5 MCH 30.8 MCHC 34.1 RDW Std Deviation 54.3 H RDW Coeff of Nic 16.3 H Plt Count 222 MPV 8.5 Immature Gran % (Auto) 2.7 Neut % (Auto) 71.7 Lymph % (Auto) 9.2 [place] % (Auto) 11.9 Eos % (Auto) 3.9 Baso % (Auto) 0.6 Immature Gran # (Auto) 0.19 H Neut # (Auto) 4.98 Lymph # (Auto) 0.64 L [place] # (Auto) 0.83 H Eos # (Auto) 0.27 Baso # (Auto) 0.04 PT 28.0 H INR 2.9 H Sodium 124 L Potassium 3.1 L Chloride 89 L Carbon Dioxide 27 Anion Gap 8.0 BUN 30 H Creatinine 1.20 Est Cr Clr Drug Dosing 71.3 Est GFR ( Amer) 75.2 Est GFR (Non-Af Amer) 64.9 BUN/Creatinine Ratio 25.1 H Glucose 86 Calcium 8.4 L Phosphorus 4.4 Albumin 2.7 L Specimen Hemolysis (1) Cirrhosis Hepatic cirrhosis type: unspecified hepatic cirrhosis Ascites presence: without ascites Qualified Code(s): K74.60 - Unspecified cirrhosis of liver (2) Hypertension Hypertension type: essential hypertension Qualified Code(s): I10 - Essential (primary) hypertension
--- NOTE | 2018-10-27 13:22 | XRay Report ---
XR chest 1V portable CLINICAL HISTORY: f/u pneumothorax and effusion COMPARISON STUDY: Chest radiograph October 24, 2018. FINDINGS: A dual lead left subclavian pacemaker, median sternotomy wires and prosthetic cardiac valve are noted. Cardiomegaly is again noted. A small right apical pneumothorax has decreased in size. Rig ht pleural effusion and right basilar opacity have slightly improved. Interstitial thickening suggest s mild pulmonary edema. IMPRESSION: 1. Small right pneumothorax, decreased in size since prior exam. 2. Slight decrease in a small right pleural effusion with improvement in right lower lung aeration. 3. Persistent mild pulmonary edema. Electronically signed by: Carlos Ngo M.D. 10/27/2018 1:20 PM
[2018-10-27 15:06] LABS: BUN Creatinine Ratio 26.8 (10-20); Calcium 8.7 mg/dl (8.5-10.1); Creatinine Clr Calc Pharmacy 65.9 ml/min; Est GFR (African American) 68.3; Est GFR (Non-African American) 58.9; Potassium 3.4 mmol/L (3.5-5.1)
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
[2018-10-27] MEDS: WARFARIN SOD 2.5 MG TAB PO SCH (17:32)
[2018-10-27] MEDS: TRAMADOL HCL 50 MG TABLET PO PRN (19:35)
[2018-10-28 07:26] LABS: Basophils # (auto) 0.04 K/uL (0-0.2); Basophils % (auto) 0.5 %; Eosinophils # (auto) 0.43 K/uL (0-0.5); Eosinophils % (auto) 5.3 %; Hematocrit (blood only) 26.5 % (42-52); Immature Granulocytes % (auto) 2.5 %; Lymphocytes # (auto) 0.82 K/uL (1.2-3.4); Lymphocytes % (auto) 10.1 %; Mean Corpuscular Volume 89.2 fL (80-100); Mean Platelet Volume 8.4 fL (7.4-10.4); Monocytes % (auto) 12.3 %; Neutrophils # (auto) 5.63 K/uL (1.4-6.5); Neutrophils % (auto) 69.3 %; Platelet Count 232 K/uL (130-400); RDW Coefficient of Variation 16.4 % (11.5-14.5); RDW Standard Deviation 53.1 fL (36.4-46.3); Red Blood Count 2.97 M/uL (4.7-6.1); White Blood Count 8.12 K/uL (4.8-10.8)
[2018-10-28 07:53] LABS: Albumin Level 2.5 gm/dl (3.4-5.0); BUN Creatinine Ratio 32.6 (10-20); Creatinine Clr Calc Pharmacy 77.2 ml/min; Est GFR (African American) 81.7; Est GFR (Non-African American) 70.5; Phosphorus 4.4 mg/dl (2.5-4.9)
[2018-10-28] MEDS: RASPBERRY SYRUP 5 ML UDP PO SCH ×2 (09:09→19:26)
[2018-10-28] MEDS: VANCOMYCIN HCL 125 MG/2.5ML SOLN PO SCH ×2 (09:09→19:26)
[2018-10-28] MEDS: POTASSIUM CHLORIDE 20 MEQ TABCR PO SCH ×2 (09:09→19:21)
[2018-10-28] MEDS: PANTOprazole 40 MG TAB PO SCH (09:10)
[2018-10-28] MEDS: LACTOBACILLUS ACIDOPHILUS (FLORANEX) TAB PO SCH ×4 (09:10→19:18)
[2018-10-28] MEDS: MULTIVITAMIN TAB PO SCH (09:10)
[2018-10-28] MEDS: SERTRALINE HCL 100 MG TABLET PO SCH (09:10)
[2018-10-28] MEDS: BUMETANIDE 1 MG TAB PO SCH ×2 (09:11→17:01)
[2018-10-28] MEDS: ALLOPURINOL 100 MG TAB PO SCH ×2 (09:11→19:29)
[2018-10-28] MEDS: GABAPENTIN 100 MG CAP PO SCH ×3 (09:12→17:01)
[2018-10-28] MEDS: MAGNESIUM OXIDE 400 MG TAB PO SCH (09:13)
[2018-10-28] MEDS: METOPROLOL SUCC 50MG EXT REL TAB PO SCH ×2 (09:13→19:52)
[2018-10-28] MEDS: ASPIRIN 81 MG ECTAB PO SCH (09:13)
[2018-10-28] MEDS: EPLERENONE PO SCH ×2 (09:14→19:23)
[2018-10-28] MEDS: IPRATROPIUM BROMIDE/ALBUTEROL respimat INH INH SCH ×4 (09:14→19:17)
--- NOTE | 2018-10-28 14:17 | Nephrology Progress Note ---
Date of Service October 28, 2018 Assessment & Plan (1) Acute on chronic diastolic CHF (congestive heart failure): Semaj has diuretic resistant volume overload with recurrent right-sided pleural effusion. He failed outpatient diuretic therapy and required frequent hospitalizations. Right-sided pleural effusion re accumulated after pleural tap. Edema is multifactorial including diastolic dysfunction, cirrhosis, hypoalbuminemia as well as venous insufficiency. He was started on HD/IUF to imp rove volume status. Net negative fluid balance > 40 L since admission. A right IJ tunnel dialysis catheter was placed on 10/19/2018 and had 1st ultrafiltration treatment on 10/20/2018. The dialysis catheter was removed on October 26. A follow up visit in the outpatient nephrology clinic with Dr. Kendrick is scheduled for October 30. Please have a metabolic profile drawn prior. Discharge diuretics to include Bumex 4 mg BID, eplerenone 50 mg BID, and metolazone 5 mg QAM. I would discharge home on magnesium oxide 200 mg daily and at least 80 mEq of KCl daily. Plan of care was discussed with Dr. Perla this morning. (2) Cirrhosis: (3) Hypertension: (4) Hypokalemia: Improved with replacement. (5) Venous insufficiency: Subjective No acute events overnight. Mr. Maldonado was seen and examined with his at the bedside today. He is resting comfortably and feels ready for discharge. Edema is minimal. He is breathing comfortably. He is ambulating in the room without difficulty. Weight stable at 89-90 kg. Review of Systems All systems reviewed & are unremarkable except as noted in HPI & below Physical Exam Vital Signs (Past 24 Hours): Last Vital Signs Temp 36.6 C 10/28/18 08:05 Pulse 75 10/28/18 08:05 Resp 20 10/28/18 08:05 BP 93/49 L 10/28/18 08:05 Pulse Ox 95 10/28/18 08:05 Constitutional: well developed and + obese; not in distress Eyes: + anicteric sclerae; no corneal abnormality sallow complexion ENMT: Mouth: no oral mucosal abnormality and oral mucous membranes not dry Neck: normal visual inspection, trachea midline and + thick neck Respiratory: normal respiratory effort; no respiratory distress and does not use accessory muscles Auscultation: lungs clear to auscultation bilaterally and + diminished lung sounds Cardiovascular: Rate/Rhythm: regular rate; + abnormal rhythm (irregular) Heart Sounds: normal S1, normal S2 and + murmur; no gallop and no cardiac rub Extremities: + edema (significantly improved. persistent dependent edema in LE BL noted) and + varicosities Chest (Breasts): Chest: + vascular access device or port (in R upper chest with no active bleeding pressure dressing applied) Gastrointestinal (Abdomen): Inspection/Auscultation: + abdomen distended and + abdominal edema Percussion/Palpation: abdomen soft; abdomen nontender, no guarding and abdomen not rigid Musculoskeletal: Extremities: extremities normal to inspection and + chronic stasis changes Skin: normal turgor and + wound (lle) Neurologic: moves all extremities and awake; no focal motor deficits Motor/Sensory: no tremor Psychiatric: Orientation: alert, oriented to person and oriented to place Affect: euthymic affect Results & Data Laboratory Results Laboratory Results - last 24 hr 10/27/18 10/28/18 10/28/18 14:21 06:54 06:54 WBC 8.12 RBC 2.97 L Hgb 9.0 L Hct 26.5 L MCV 89.2 MCH 30.3 MCHC 34.0 RDW Std Deviation 53.1 H RDW Coeff of Nic 16.4 H Plt Count 232 MPV 8.4 Immature Gran % (Auto) 2.5 Neut % (Auto) 69.3 Lymph % (Auto) 10.1 Saline % (Auto) 12.3 Eos % (Auto) 5.3 Baso % (Auto) 0.5 Immature Gran # (Auto) 0.20 H Neut # (Auto) 5.63 Lymph # (Auto) 0.82 L Saline # (Auto) 1.00 H Eos # (Auto) 0.43 Baso # (Auto) 0.04 Sodium 122 L 125 L Potassium 3.4 L 4.0 D Chloride 90 L 92 L Carbon Dioxide 22 25 Anion Gap 10.0 7.0 BUN 35 H 37 H Creatinine 1.30 1.12 Est Cr Clr Drug Dosing 65.9 77.2 Est GFR ( Amer) 68.3 81.7 Est GFR (Non-Af Amer) 58.9 70.5 BUN/Creatinine Ratio 26.8 H 32.6 H Glucose 91 88 Calcium 8.7 9.0 Phosphorus 4.4 Albumin 2.5 L Specimen Hemolysis (1) Cirrhosis Hepatic cirrhosis type: unspecified hepatic cirrhosis Ascites presence: without ascites Qualified Code(s): K74.60 - Unspecified cirrhosis of liver (2) Hypertension Hypertension type: essential hypertension Qualified Code(s): I10 - Essential (primary) hypertension
[2018-10-28 15:43] VITALS: O2SAT 96
[2018-10-28 15:53] LABS: INR 3.1 (0.9-1.1); Prothrombin Time 28.9 Seconds (9.0-12.0)
[2018-10-28] MEDS ORDERED: LACTULOSE SYRUP 30 GM/45 ML UDP PO STA (16:29)
[2018-10-28] MEDS: WARFARIN SOD 2.5 MG TAB PO SCH (17:00)
[2018-10-28] MEDS: TRAMADOL HCL 50 MG TABLET PO PRN (17:05)
--- NOTE | 2018-10-28 19:19 | Hospitalist Progress Note ---
Date of Service October 28, 2018 Assessment & Plan (1) Hepatic encephalopathy: mild, due to cirrhosis. lactulose 30gm po x 1 now. probable cause of his confusion today. Present on Admission?: No (2) Acute on chronic combined systolic and diastolic congestive heart failure: Weight today is about 200 pounds. He looks euvolemic or slightly dry intravascularly. Holding metolazone for now. Cont bumex 4mg BID. Cont beta olive. Present on Admission?: Yes (3) Cirrhosis: REED? "cardiac" cirrhosis? other? no h/o etoh abuse. Likely heavily contributing to volume overloaded state. Now w/ mild hepatic encephalopathy. GI f/u after discharge. Lactulose. Present on Admission?: Yes (4) Sleep apnea: CPAP HS. (5) Atrial fibrillation: Rates are controlled. INR today therapeutic on coumadin. Cont metoprolol. (6) Hypertension: Controlled. (7) Hyponatremia: Due to diuretic therapy in setting of cirrhosis & CHF. Doubt the cause of his mild altered mental state. BMP in am. (8) H/O aortic valve repair: noted. INR goal 2.5 to 3.5. valve with good mechanical closure sound on exam. (9) Anemia: H/H mildly low but stable. (10) DVT prophylaxis: coumadin. extensively updated at bedside. hypomagnesemia - resolved. patient with unsteadiness on feet today - could be due to hepatic encephalopathy. will need re-evals with PT, OT. Subjective pt's states that Mr. Maldonado was confused earlier today. He was seeing people on the roof of the hospital. He has been walking but he has been unsteady on his feet. reports falls at home. Denies any dyspnea. asks about his weights. Constitutional: no fever Respiratory: no cough Cardiovascular: no chest pain Gastrointestinal: no abdominal pain Physical Exam Vital Signs (Past 24 Hours): Last Vital Signs Temp 36.8 C 10/28/18 15:39 Pulse 77 10/28/18 15:39 Resp 20 10/28/18 15:39 BP 104/61 10/28/18 15:39 Pulse Ox 96 10/28/18 15:39 Constitutional: well developed and well nourished; no acute distress and not ill appearing ENMT: external ear and nose normal, oropharynx normal Respiratory: Auscultation: + diminished lung sounds (bases) and + rales (scant - bases) Cardiovascular: Rate/Rhythm: regular rate; + abnormal rhythm (irregular) Heart Sounds: normal S1 and normal S2; no murmur Vessels: posterior tibial pulses present and dorsalis pedis pulses present; no JVD Extremities: + pedal edema and + edema (1+ b/l) Gastrointestinal (Abdomen): normal bowel sounds, soft, nontender, no hepatosplenomegaly Skin: hyperpigmentation of legs to the knees Neurologic: mild asterixis Psychiatric: Orientation: alert; + not oriented x 3 (thought it was Monday) Results & Data Laboratory Results Laboratory Results - last 24 hr 10/28/18 10/28/18 10/28/18 06:54 06:54 15:36 WBC 8.12 RBC 2.97 L Hgb 9.0 L Hct 26.5 L MCV 89.2 MCH 30.3 MCHC 34.0 RDW Std Deviation 53.1 H RDW Coeff of Nic 16.4 H Plt Count 232 MPV 8.4 Immature Gran % (Auto) 2.5 Neut % (Auto) 69.3 Lymph % (Auto) 10.1 [place] % (Auto) 12.3 Eos % (Auto) 5.3 Baso % (Auto) 0.5 Immature Gran # (Auto) 0.20 H Neut # (Auto) 5.63 Lymph # (Auto) 0.82 L [place] # (Auto) 1.00 H Eos # (Auto) 0.43 Baso # (Auto) 0.04 PT 28.9 H INR 3.1 H Sodium 125 L Potassium 4.0 D Chloride 92 L Carbon Dioxide 25 Anion Gap 7.0 BUN 37 H Creatinine 1.12 Est Cr Clr Drug Dosing 77.2 Est GFR ( Amer) 81.7 Est GFR (Non-Af Amer) 70.5 BUN/Creatinine Ratio 32.6 H Glucose 88 Calcium 9.0 Phosphorus 4.4 Magnesium Ammonia Albumin 2.5 L 10/28/18 10/28/18 15:36 15:36 WBC RBC Hgb Hct MCV MCH MCHC RDW Std Deviation RDW Coeff of Nic Plt Count MPV Immature Gran % (Auto) Neut % (Auto) Lymph % (Auto) [place] % (Auto) Eos % (Auto) Baso % (Auto) Immature Gran # (Auto) Neut # (Auto) Lymph # (Auto) [place] # (Auto) Eos # (Auto) Baso # (Auto) PT INR Sodium Potassium Chloride Carbon Dioxide Anion Gap BUN Creatinine Est Cr Clr Drug Dosing Est GFR ( Amer) Est GFR (Non-Af Amer) BUN/Creatinine Ratio Glucose Calcium Phosphorus Magnesium 2.0 Ammonia 46.0 H Albumin (1) Cirrhosis Hepatic cirrhosis type: other cirrhosis Qualified Code(s): K74.69 - Other cirrhosis of liver (2) Sleep apnea Sleep apnea type: other type Qualified Code(s): G47.39 - Other sleep apnea (3) Atrial fibrillation Atrial fibrillation type: chronic Qualified Code(s): I48.2 - Chronic atrial fibrillation (4) Hypertension Hypertension type: essential hypertension Qualified Code(s): I10 - Essential (primary) hypertension (5) Anemia Anemia type: other cause Other causes of anemia: other cause, not classified Qualified Code(s): D64.89 - Other specified anemias
[2018-10-28 23:33] VITALS: PULSE 84; TEMP 98.2
[2018-10-29 07:28] LABS: INR 3.4 (0.9-1.1); Prothrombin Time 31.9 Seconds (9.0-12.0)
[2018-10-29 07:33] LABS: BUN Creatinine Ratio 31.6 (10-20); Creatinine Clr Calc Pharmacy 68.3 ml/min; Est GFR (African American) 70.9; Est GFR (Non-African American) 61.2; Potassium 4.1 mmol/L (3.5-5.1)
[2018-10-29] MEDS: BUMETANIDE 1 MG TAB PO SCH ×2 (08:30→16:44)
[2018-10-29] MEDS: METOPROLOL SUCC 50MG EXT REL TAB PO SCH (08:31)
[2018-10-29] MEDS: LACTOBACILLUS ACIDOPHILUS (FLORANEX) TAB PO SCH ×3 (08:31→16:47)
[2018-10-29] MEDS: PANTOprazole 40 MG TAB PO SCH (08:32)
[2018-10-29] MEDS: SERTRALINE HCL 100 MG TABLET PO SCH (08:32)
[2018-10-29] MEDS: IPRATROPIUM BROMIDE/ALBUTEROL respimat INH INH SCH ×3 (08:33→16:45)
[2018-10-29] MEDS: EPLERENONE PO SCH (08:33)
[2018-10-29] MEDS: ALLOPURINOL 100 MG TAB PO SCH (08:34)
[2018-10-29] MEDS: RASPBERRY SYRUP 5 ML UDP PO SCH (08:34)
[2018-10-29] MEDS: VANCOMYCIN HCL 125 MG/2.5ML SOLN PO SCH (08:36)
[2018-10-29] MEDS: MAGNESIUM OXIDE 400 MG TAB PO SCH (08:37)
[2018-10-29] MEDS: POTASSIUM CHLORIDE 20 MEQ TABCR PO SCH (08:37)
[2018-10-29] MEDS: GABAPENTIN 100 MG CAP PO SCH ×3 (08:38→16:49)
[2018-10-29] MEDS: MULTIVITAMIN TAB PO SCH (08:38)
[2018-10-29] MEDS: ASPIRIN 81 MG ECTAB PO SCH (08:39)
[2018-10-29] MEDS ORDERED: LACTULOSE SYRUP 10 GM/15 ML BTL 473 ML PO SCH (09:00)
--- NOTE | 2018-10-29 10:36 | Cardiology Progress Note ---
Date of Service October 29, 2018 Assessment & Plan (1) Acute on chronic diastolic CHF (congestive heart failure): His volume status has significantly improved throughout his hospitalization. He has completed ultrafiltration as an inpatient. His BUN and creatinine are more elevated than before, and he may be becoming a bit pre renal. Metolazone has been held by the primary service. Continue Bumex for now. Monitor renal function and electrolytes closely. Low-sodium diet. Fluid restriction recommended, less than 1.5 L per day. Strict I&Os and daily weights recommended. (2) Edema: Likely multifactorial with diastolic CHF, hypoalbuminemia, and cirrhotic liver. Continue plan as above. (3) Atrial fibrillation: Continue rate controlling medications. Continue anticoagulation if no contraindications. Anemia is being followed by the primary service. Continue rate-controlling medication as blood pressure allows with ultrafiltration/dialysis. (4) Pleural effusion: He has undergone thoracentesis on the right side on 2 occasions, but has had reaccumulation of the fluid. He has been followed by Dr. Castellanos. (5) Mechanical heart valve present: Anticoagulation and aspirin therapy are indicated if no contraindications. (6) Anemia: Hemoglobin has trended from 13.5-8.1 during this hospitalization but has since increased. This is being followed by primary service. Disposition: Cardiology will continue to follow while hospitalized. Very close follow-up with heart failure program on discharge. He can be discharged home from a cardiac perspective when okay with other services with his other comorbidities. I will be away from the hospital tomorrow, but if assistance is needed, please do not hesitate to call Mayra Gilliam PA-C. Subjective He denies chest pain, shortness of breath, syncope, near-syncope, palpitations. He believes that his edema has remained stable. He admits that he was unsteady yesterday and almost fell. For this reason and also documented confusion by the hospitalist service he was not discharged over the weekend. He is hoping to go home soon. Review of systems: As above. Physical Exam Vital Signs (Past 24 Hours): Last Vital Signs Temp 36.8 C 10/28/18 23:00 Pulse 84 10/28/18 23:00 Resp 18 10/28/18 23:00 BP 114/63 10/28/18 23:00 Pulse Ox 96 10/28/18 23:00 Intake & Output 10/27/18 10/28/18 10/29/18 10/30/18 06:59 06:59 06:59 06:59 Intake Total 600 / 600 1015 / 1015 820 / 820 Output Total 800 / 800 1050 / 1050 990 / 990 Balance -200 / -200 -35 / -35 -170 / -170 Weight 89.1 kg 90.9 kg 89.9 kg Physical Exam: Gen.: No acute distress. Alert and oriented X 3. HEENT: Anicteric sclera. Neck: No significant JVD . Cardiac: Irregularly irregular. Normal S1. [place] S2. 1/6 systolic murmur. No rubs or gallops. Pulmonary: Decreased breath sounds throughout base to mid right lung field, otherwise clear. Abdomen: Soft, nontender, nondistended, with normoactive bowel sounds. No bruits noted. Extremities: Trace to 1+ bilateral lower extremity edema, including above the knees. No cyanosis. Psychiatric: Affect appears appropriate. Results & Data Laboratory Results Laboratory Results - last 24 hr 10/28/18 10/28/18 10/28/18 15:36 15:36 15:36 PT 28.9 H INR 3.1 H Sodium Potassium Chloride Carbon Dioxide Anion Gap BUN Creatinine Est Cr Clr Drug Dosing Est GFR ( Amer) Est GFR (Non-Af Amer) BUN/Creatinine Ratio Glucose Calcium Magnesium 2.0 Ammonia 46.0 H 10/29/18 10/29/18 10/29/18 07:03 07:03 07:03 PT 31.9 H INR 3.4 H Sodium 128 L Potassium 4.1 Chloride 95 L Carbon Dioxide 24 Anion Gap 9.0 BUN 40 H Creatinine 1.26 Est Cr Clr Drug Dosing 68.3 Est GFR ( Amer) 70.9 Est GFR (Non-Af Amer) 61.2 BUN/Creatinine Ratio 31.6 H Glucose 83 Calcium 9.0 Magnesium Ammonia 32.0 Medications Administered Current Inpatient Medications Albuterol (Combivent Respimat) 1 puffs INH QID DERICK Stop: 11/03/18 22:59 Last Admin: 10/29/18 08:33 Dose: 1 puffs Documented by: Albuterol (Duoneb) 3 ml NEB Q2H PRN PRN Reason: SOB/Wheezing Stop: 11/15/18 10:29 Last Admin: 10/23/18 19:08 Dose: 3 ml Documented by: Albuterol (Duoneb) 3 ml NEB Q2H PRN PRN Reason: SOB/WHEEZING Stop: 11/15/18 15:59 Allopurinol (Zyloprim) 100 mg PO BID DERICK Stop: 11/03/18 21:59 Last Admin: 10/29/18 08:34 Dose: 100 mg Documented by: Aspirin (Ecotrin Ectab) 81 mg PO QAM [facility] Stop: 11/04/18 08:59 Last Admin: 10/29/18 08:39 Dose: 81 mg Documented by: Bumetanide (Bumex) 4 mg PO BID17 [facility] Stop: 11/26/18 16:59 Last Admin: 10/29/18 08:30 Dose: 4 mg Documented by: Gabapentin (Neurontin) 100 mg PO TIDM DERICK Stop: 11/04/18 07:59 Last Admin: 10/29/18 08:38 Dose: 100 mg Documented by: Lactobacillus Acidophilus (Floranex) 4 tab PO QIDM [facility] Stop: 11/04/18 07:59 Last Admin: 10/29/18 08:31 Dose: 4 tab Documented by: Lactulose (Chronulac) 15 gm PO DAILY [facility] Stop: 11/28/18 08:59 Last Admin: 10/29/18 10:26 Dose: 15 gm Documented by: Magnesium Oxide (Mag-Ox) 200 mg PO DAILY [facility]ER[facility] Stop: 11/03/18 21:59 Last Admin: 10/29/18 08:37 Dose: 200 mg Documented by: Metolazone (Zaroxolyn) 5 mg PO DAILY@0830 [facility] Stop: 11/26/18 08:29 Last Admin: 10/27/18 09:07 Dose: 5 mg Documented by: Metoprolol Succinate (Toprol Xl) 50 mg PO BID [facility] Stop: 11/03/18 21:20 Last Admin: 10/29/18 08:31 Dose: 50 mg Documented by: Multivitamins (Multivitamin Tab) 1 tab PO QAM [facility] Stop: 11/04/18 08:59 Last Admin: 10/29/18 08:38 Dose: 1 tab Documented by: ~~Eplerenone~~Non- Formulary Patient's Own Med 2 ea PO BID [facility] Stop: 11/09/18 20:59 Last Admin: 10/29/18 08:33 Dose: 50 mg Documented by: Ondansetron HCl (Zofran) 4 mg IV Q6H PRN PRN Reason: NAUSEA/VOMITING Stop: 11/03/18 21:20 Pantoprazole Sodium (Protonix) 40 mg PO QAM [facility] Stop: 11/04/18 08:59 Last Admin: 10/29/18 08:32 Dose: 40 mg Documented by: Potassium Chloride (Klor-Con M20) 80 meq PO BID [facility] Stop: 11/27/18 08:59 Last Admin: 10/29/18 08:37 Dose: 80 meq Documented by: Raspberry (Raspberry) 5 ml PO BID [facility] Stop: 11/03/18 22:59 Last Admin: 10/29/18 08:34 Dose: 5 ml Documented by: Sertraline HCl (Zoloft) 100 mg PO QAM [facility] Stop: 11/04/18 08:59 Last Admin: 10/29/18 08:32 Dose: 100 mg Documented by: Tramadol HCl (Ultram) 50 mg PO Q6H PRN PRN Reason: Pain Stop: 11/22/18 11:28 Last Admin: 10/28/18 17:05 Dose: 50 mg Documented by: Vancomycin HCl (Vancomycin Hcl) 125 mg PO BID [facility] Stop: 11/03/18 22:59 Last Admin: 10/29/18 08:36 Dose: 125 mg Documented by: Warfarin Sodium (Coumadin) 2.5 mg PO DAILY@1600 [facility] Stop: 11/26/18 15:59 Last Admin: 10/28/18 17:00 Dose: 2.5 mg Documented by: (1) Edema Edema type: unspecified Qualified Code(s): R60.9 - Edema, unspecified (2) Atrial fibrillation Atrial fibrillation type: chronic Qualified Code(s): I48.2 - Chronic atrial fibrillation (3) Anemia Anemia type: other cause Other causes of anemia: other cause, not classified Qualified Code(s): D64.89 - Other specified anemias
--- NOTE | 2018-10-29 11:19 | Nephrology Progress Note ---
Date of Service October 29, 2018 Assessment & Plan (1) Acute on chronic diastolic CHF (congestive heart failure): -- Mr. Maldonado has diuretic resistant volume overload with recurrent right-sided pleural effusion. He failed outpatient diuretic therapy and required frequent hospitalizations. Right-sided pleural effusion reaccumulated after pleural tap. Edema is multifactorial including diastolic dysfunction, cirrhosis, hypoalbuminemia as well as venous insufficiency. He was started on HD/IUF to improve volume status. Net negative fluid balance > 40 L since admission. A right IJ tunneled dialysis catheter was placed on 10/19/2018 and had 1st ultrafiltration treatment on 10/20/2018. The dialysis catheter was removed on October 26. -- A follow up visit in the outpatient nephrology clinic with Dr. Kendrick is scheduled for October 30. Please have a metabolic profile drawn prior. -- Discharge diuretics to include Bumex 4 mg BID, eplerenone 50 mg BID and metolazone 5 mg daily. I would discharge home on magnesium oxide 200 mg daily and at least 80 mEq of KCl daily (2) Hyponatremia: -- Correcting with loop diuretic therapy. Will need close outpatient monitoring while on metolazone therapy (3) Hypertension: -- Blood pressure is acceptable. No change to current medical regimen (4) Cirrhosis: Subjective Mr. Maldonado was seen & examined in his hospital room this morning. He reports near syncope yesterday but was able to ambulate this morning without difficulty. Mr. Maldonado notes that his peripheral edema is markedly improved and his weight remains stable at ~ 90 kg. Physical Exam Vital Signs (Past 24 Hours): Last Vital Signs Temp 36.8 C 10/28/18 23:00 Pulse 84 10/28/18 23:00 Resp 18 10/28/18 23:00 BP 114/63 10/28/18 23:00 Pulse Ox 96 10/28/18 23:00 Constitutional: + frail appearing Eyes: PERRL, conjunctivae normal, anicteric sclerae Neck: trachea midline, no thyromegaly Respiratory: normal respiratory effort, lungs clear to auscultation Cardiovascular: Rate/Rhythm: regular rate and regular rhythm trace pretibial edema Gastrointestinal (Abdomen): normal bowel sounds, soft, nontender, no hepatosplenomegaly Results & Data Laboratory Results Laboratory Tests 10/29/18 07:03 Sodium 128 L Potassium 4.1 Chloride 95 L Carbon Dioxide 24 BUN 40 H Creatinine 1.26 (1) Cirrhosis Hepatic cirrhosis type: unspecified hepatic cirrhosis Ascites presence: without ascites Qualified Code(s): K74.60 - Unspecified cirrhosis of liver (2) Hypertension Hypertension type: essential hypertension Qualified Code(s): I10 - Essential (primary) hypertension
[2018-10-29] MEDS: WARFARIN SOD 2.5 MG TAB PO SCH (16:48)
[2018-10-29 17:33] VITALS: BP 102/43
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
--- NOTE | 2018-11-29 19:06 | Discharge Summary ---
Date of Service November 29, 2018 Admission HPI Per Admitting Provider The patient is a 62-year-old male with history of chronic systolic/diastolic CHF and cirrhosis of the liver who was seen in the outpatient office today with worsening leg discoloration and edema with leakage, and then referred to the emergency department for evaluation. He presently is undergoing treatment by infectious disease Dr. Yun,and wound care for several skin rai, for which he is taking Levaquin orally. He is also taking vancomycin orally to prevent recurrence of C. difficile. He has chronic shortness of breath, which has been worse during this interval as well, and has had his Bumex increased in the outpatient setting by his manager urgent care Dr. Colmenares with some mild improvement. Principal Diagnosis acute on chronic systoilc heart failure Discharge Data Allergies Allergy/AdvReac Type Severity Reaction Status Date / Time bee venom protein (honey bee) Allergy Severe ANAPHYLAXIS Verified 11/28/18 17:26 Consultations 10/04/18 18:14 ED Decision to Admit Stat 10/04/18 18:49 ED Decision to Admit Stat 10/04/18 21:21 Consult Cardiology Routine Consult Case Management - Discharge Planning Routine Consult Infectious Diseases Routine 10/05/18 01:29 Consult Thoracic Surgery Routine 10/07/18 12:04 Consult Urology Routine 10/10/18 16:25 Consult Wound Care Provider Routine 10/19/18 08:00 Consult Nephrology Routine 10/19/18 09:03 Consult Vascular Surgery Routine 10/21/18 12:03 Consult Case Management - Discharge Planning Routine Procedures Performed Operation Date: 10/19/18 11:55 Actual Procedures p Insertion Of Perm Catheter, Right Internal Jugular Approach, Ultrasound Localization Of Right Internal Jugular Vein, Fluoroscopy For Positioning(Right) - Alexis Monaco MD Operation Date: 10/26/18 13:00 Actual Procedures p Removal of Perm Catheter(Right) - Alexis Monaco MD Ordered Studies 10/04/18 16:26 US venous doppler LE BI Stat 10/19/18 15:05 EV cvc insert non tunnel Routine 10/19/18 15:07 US guide vascular access Routine Hospital Course (1) Acute on chronic combined systolic and diastolic congestive heart failure: (2) Cardiac arrest: Discharge Plan Discharge Items Patient Disposition: Home - Home Health Services Reason For Visit: ACUTE ON CHRONIC Congestive heart failure Discharge Diagnosis: Massive fluid overload from congestive heart failure and cirrhosis - improved. Hepatic encephalopathy (elevated ammonia levels) - improved. Discharge Goals: Diagnostic testing Activity: Resume your previous activity Activity Comment: as tolerated Non-emergency contact: Primary Care Provider, Electric Clock Mechanic and Computer Software Engineer Call non-emergency contact if: you have any medication questions, your symptoms worsen and your temperature is above 100.5 Follow-up/Referrals: Arely Michael PA-C [Physician Build Technician] - 11/08/18 11:15 am (Please, follow up at [facility] Gastroenterology Office with Arely Michael PA-C on November 08 at 11:15 am. *This office is located at [facility] in [facility]). If you need to change this appointment, call the office at [phone].) Sharon Winkler MD [Primary Care Provider] - 11/01/18 11:20 am (Please, follow up with Dr. Winkler on November 01 at 11:20 am. *If you need to change this appointment, call the office at [phone].) Donnell Lerma DO [Physician Build Technician] - 11/02/18 10:00 am (Please, follow up at [facility] Nephrology Office with Dr. Lerma on MondayNovember 02 at 10:00 am. *This office is located in [address] of The [facility] building next to this [facility]. Nephrology and Cardiology share an office. If you need to change this appointment, call the office at [phone].) Comfort Gilliam PA-C [Physician Build Technician] - 11/02/18 9:00 am (Please bring documented daily weights and all medication bottles to your appointment. ) Diet: Low Sodium (2gm) Fluids: 1500ml (6 cups) Addtl Provider Instructions: From Prince Wynn - [facility] - 1. Congestive Heart Failure Instructions - Call your Primary Care doctor, Electric Clock Mechanic, or Computer Software Engineer if any of the following symptoms or problems start or get worse: * Shortness of breath or difficulty breathing * Wake up at night short of breath * Chest pain * Cough * Swelling of your hands, feet, or legs * More fatigued or tired with your normal activity * Palpitations - sudden fast heart beats WEIGHT * Weigh yourself every morning after using the bathroom. * Use the same scale. * Wear the same amount of clothing. * Write your weight down on a chart. * Call your doctors if you gain more than 3 pounds in 1-2 days. MEDICATIONS * Use this discharge instruction sheet for medication instructions. * Take your medications at the time your doctor ordered. * Do not skip a dose of your medicines. * If you miss a dose of medicine, take it as soon as possible, but DO NOT DOUBLE A DOSE. * Read your medicine information when you get home. * Know all of the side effects of your medicine. If in doubt, ask your pharmacist * Call your Primary Care doctor's office if you have any side effects. * Be sure all of your doctors know what medicine and herbs you take (including cold, flu, and herbal medicine). Take the following with you to your follow-up doctor appointments: * Weight Chart * Medication List * List of questions Do not drink excessive alcohol, beer or wine. 2. Medications for your fluid - * bumex (bumetanide) --- take 4mg twice a day every day. Take your first dose about 8am and your evening dose about 5pm. * for now please HOLD your metolazone; only restart this if your heart or kidney doctors tell you to. * potassium supplementation --- take 80meq every morning and 80meq every evening (8am and 5pm). 3. Limit fluid intake to 1500 cc each day. 4. Limit your salt intake to less than 2000 mg each day. Avoid fried foods, fast foods, frozen TV dinners, soups, etc. 5. For prevention of high ammonia levels please take lactulose syrup --- take 15 ml (10 grams) once a day. This should give you 2-3 bowel movements each day. If you are having less than 2-3 BMs/day then INCREASE the lactulose to 30 ml (20 grams). 6. Follow-up --- see separate section. 7. Please bring the PT/OT script to [facility] to start physical therapy. 8. Return to [facility] if --- * you have fevers over 100.5 degrees * you are having worsening shortness of breath despite taking all of your usual medications * you have chest pain * you are very sleepy/lethargic or have confusion * any other concerns 9. YOUR INR TODAY IS 3.4. PLEASE RECHECK YOUR INR TOMORROW AT HOME AND CALL THIS NUMBER IN TO YOUR COUMADIN PROVIDER. 10. YOUR WEIGHT TODAY IS 89.9 KG (198 POUNDS). Prescriptions: New lactulose 10 gram/15 mL (15 mL) solution 10 gm PO DAILY Qty: 750 RF: 2 Continued allopurinol 100 mg tablet 100 mg PO BID RF: 0 epinephrine 0.3 mg/0.3 mL auto-injector 0.3 mg IM Q10M PRN (Reason: Allergic Reaction) RF: 0 multivitamin [Daily Multi-Vitamin] tablet 1 tab PO QAM RF: 0 pantoprazole 40 mg tablet,delayed release (DR/EC) 40 mg PO QAM RF: 0 sertraline 100 mg tablet 100 mg PO QAM RF: 0 vancomycin 125 mg capsule 125 mg PO BID Qty: 60 RF: 1 ipratropium-albuterol 20-100 mcg/actuation mist 1 puff Inhalation QID RF: 0 aspirin [Ecotrin Low Strength] 81 mg Tablet,Delayed Release (Dr/Ec) 81 mg PO QAM Qty: 0 RF: 0 gabapentin 100 mg capsule 100 mg PO TIDM RF: 0 metoprolol succinate 25 mg tablet extended release 24 hr 50 mg PO BID RF: 0 warfarin 2.5 mg tablet 2.5 mg PO DIRECTED RF: 0 magnesium 250 mg Tablet 250 mg PO DAILY RF: 0 Probiotic 10 billion cell Capsule 2 cap PO QDL RF: 0 Changed bumetanide 2 mg tablet 4 mg PO BID Qty: 120 RF: 2 Discontinued potassium chloride 20 mEq tablet extended release 60 meq PO TIDM RF: 0 metolazone 2.5 mg tablet 2.5 mg PO 3XWK RF: 0 Combivent Respimat 20-100 mcg/actuation Mist 1 puff INHALATION QID PRN (Reason: SHORT OF BREATH) RF: 0 No Action levofloxacin [Levaquin] 500 mg tablet 500 mg PO DAILY RF: 0 eplerenone 25 mg Tablet 50 mg PO BID RF: 0 potassium chloride 20 mEq tablet extended release 80 meq PO TID RF: 0 torsemide 100 mg Tablet 100 mg PO BID RF: 0 Stand-Alone Forms: [facility] Discharge Orders: Discharge Order (Routine); Ordered 10/29/18 Ordered By: Prince Wynn Admission Data Admit Date/Time: 10/04/18 20:02 Attending Provider: Prince Wynn Admit Provider: Jake Bustillos Primary Care Provider: Sharon Winkler Other Providers: Steven Tenorio ; Jake Bustillos ; Huber Colmenares ; Jonathan Yun ; Ernie Castellanos ; Greg French I. ; Steven Ocampo ; Caitlin Joseph ; Geneva Giraldo ; Jg Alomnte ; Meaghan Persaud ; Alex Nash ; Hanna Kendrick ; Alexis Monaco Service: Medical Other Interventions: Discharge Summary Assessment (RN) Last Done: 10/29/18 17:29 DC Date/Time DO NOT enter until pt leaves facility: 10/29/18 18:35
== END 2018-10-29 18:35 | disposition home health service (06) | DRG 291 ==
LOC: ED 16:06 → SUATTDRO 20:02 → 2E 20:02 → 4W 10-08 18:29 → 2E 10-19 14:11 → 4W 10-25 17:43
DX: K76.1 Chronic passive congestion of liver; E87.1 Hypo-osmolality and hyponatremia; J90 Pleural effusion, not elsewhere classified; M10.9 Gout, unspecified; Z95.0 Presence of cardiac pacemaker; T46.2X5A Adverse effect of other antidysrhythmic drugs, initial encounter; G62.9 Polyneuropathy, unspecified; L02.416 Cutaneous abscess of left lower limb; I87.2 Venous insufficiency (chronic) (peripheral); G47.30 Sleep apnea, unspecified; K75.81 Nonalcoholic steatohepatitis (NASH); I50.43 Acute on chronic combined systolic (congestive) and diastolic (congestive) heart failure; X58.XXXA Exposure to other specified factors, initial encounter; I48.91 Unspecified atrial fibrillation; I11.0 Hypertensive heart disease with heart failure; L03.116 Cellulitis of left lower limb; J44.9 Chronic obstructive pulmonary disease, unspecified; Z79.82 Long term (current) use of aspirin; L97.322 Non-pressure chronic ulcer of left ankle with fat layer exposed; D64.9 Anemia, unspecified; T21.22XA Burn of second degree of abdominal wall, initial encounter; T23.239A Burn of second degree of unspecified multiple fingers (nail), not including thumb, initial encounter; F32.9 Major depressive disorder, single episode, unspecified; F41.9 Anxiety disorder, unspecified; K72.00 Acute and subacute hepatic failure without coma; Z79.01 Long term (current) use of anticoagulants; T23.252A Burn of second degree of left palm, initial encounter; Z95.2 Presence of prosthetic heart valve

== ENCOUNTER 2018-11-28 16:26 | Inpatient (IN) ==
[2018-11-28 16:50] LABS: iSTAT Creatinine 2.1 mg/dl (0.6-1.3); iSTAT Hemoglobin 12.6 g/dl (14.0-18.0); iSTAT Ionized Calcium 1.1 mmol/l (1.12-1.32); iSTAT Potassium 8.8 mEq/L (3.3-5.0)
[2018-11-28 16:51] LABS: Hematocrit (blood only) 37.1 % (42-52); Hemoglobin 11.7 g/dL (14.0-18.0); Mean Corpuscular Hgb Conc 31.5 g/dL (32-36); Mean Corpuscular Volume 90.9 fL (80-100); Mean Platelet Volume 9.5 fL (7.4-10.4); Nucleated RBC # (auto) 0.61 K/uL (0-0); Nucleated RBC % (auto) 3.5 %; Platelet Count 214 K/uL (130-400); RDW Standard Deviation 55.8 fL (36.4-46.3); Red Blood Count 4.08 M/uL (4.7-6.1); White Blood Count 17.56 K/uL (4.8-10.8)
[2018-11-28 17:10] LABS: INR 3.8 (0.9-1.1); Prothrombin Time 35.3 Seconds (9.0-12.0)
[2018-11-28 17:16] LABS: Alanine Aminotransferase 25 U/L (12-78); Albumin Globulin Ratio 0.6 (0.9-2); Albumin Level 2.6 gm/dl (3.4-5.0); Alkaline Phosphatase 155 U/L (45-117); BUN Creatinine Ratio 23.9 (10-20); Bilirubin,Total 1.2 mg/dl (0.2-1); Blood Urea Nitrogen 52 mg/dl (7-18); Calcium 9.1 mg/dl (8.5-10.1); Carbon Dioxide 18 mmol/L (21-32); Chloride 97 mmol/L (98-107); Est GFR (African American) 36.3; Est GFR (Non-African American) 31.3; Globulin 4.7 gm/dl (2.5-4.0); Glucose 82 mg/dl (70-99); Sodium 122 mmol/L (136-145); Total Protein 7.3 gm/dl (6.4-8.2); Troponin I 0.045 ng/ml (0-0.045)
[2018-11-28] MEDS ORDERED: ALBUT/IPRATROP 3MG/0.5MG NEB 3 ML VIAL NEB ONE (17:20)
[2018-11-28] MEDS: EPINEPHrine 2 MG in DEXTROSE 5% 250 ML IV SCH ×4 (17:20→20:32)
[2018-11-28 17:33] LABS: Basophils # (auto) 0.11 K/uL (0-0.2); Basophils % (auto) 0.6 %; Echinocytes 2+; Eosinophils # (auto) 0.14 K/uL (0-0.5); Eosinophils % (auto) 0.8 %; Immature Granulocytes # (auto) 1.64 K/uL (0.00-0.02); Immature Granulocytes % (auto) 9.3 %; Lymphocytes # (auto) 2.99 K/uL (1.2-3.4); Monocytes # (auto) 1.36 K/uL (0.11-0.59); Monocytes % (auto) 7.7 %; Neutrophils # (auto) 11.32 K/uL (1.4-6.5); Neutrophils % (auto) 64.6 %; Polychromasia 1+
[2018-11-28 17:47] LABS: T4 Free Thyroxine 0.77 ng/dl (0.8-1.6)
[2018-11-28] MEDS ORDERED: CALCIUM CHLORIDE 10% 10 ML SYR IV ONE (17:55)
[2018-11-28] MEDS ORDERED: SODIUM BICARB 8.4% INJ 50 MEQ/50 ML SYR ONE (17:58)
--- NOTE | 2018-11-28 18:04 | XRay Report ---
XR chest 1V portable HISTORY: 62 years-old Male CARDIAC ARREST, INTUBATION acute respiratory failure COMPARISON: Chest radiograph 10/27/2018 TECHNIQUE: Portable supine AP view of the chest FINDINGS: Cardiac silhouette is enlarged, unchanged. Prior median sternotomy. The superiormost sternotomy wires fractured. Endotracheal tube overlies the midline, 7.4 cm superior to the henry. Left subclavian pa cer redemonstrated. The previously noted tiny right apical pneumothorax is not definitively seen. Tra ce left and small right pleural effusions appear unchanged. Pulmonary vascular congestion with inters titial coarsening and bibasilar opacities. Degenerative changes of the shoulders and spine. IMPRESSION: 1. Endotracheal tube terminates 7.4 cm superior to the henry. 2. Cardiomegaly with pulmonary edema. 3. Trace left and small right pleural effusions with right greater than left bibasilar opacities. 4. The previously described tiny right apical pneumothorax is not definitively seen. The above report was generated using voice recognition software. It may contain grammatical, syntax o r spelling errors. Electronically signed by: Guevara Georges M.D. 11/28/2018 6:02 PM
[2018-11-28] MEDS ORDERED: ICU ELECTROLYTE REPLACEMENT PROTOCOL PRN (18:54)
[2018-11-28] MEDS ORDERED: ICU PROTOCOL FOR HYPERGLYCEMIA PRN (18:54)
[2018-11-28 18:56] VITALS: TEMP 96.8
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
[2018-11-28] MEDS ORDERED: NovoLIN-R INSULIN PER UNIT CHARGE IV STA (19:27)
[2018-11-28] MEDS ORDERED: SODIUM BICARBONATE 8.4% 75 MEQ in SODIUM CHLORIDE 0.45 % 1,000 ML IV SCH (19:30)
[2018-11-28] MEDS ORDERED: INSULIN HUMAN REGULAR PER UNIT 10 UNITS in SYRINGE 9.9 ML IV STA (19:40)
[2018-11-28] MEDS ORDERED: VASOPRESSIN 20 UNITS in 0.9 % SODIUM CHLORIDE 100 ML IV SCH (19:41)
[2018-11-28] MEDS ORDERED: DEXTROSE 50% 50 ML SYRINGE IV ONE (19:45)
[2018-11-28] MEDS ORDERED: SODIUM BICARBONATE 8.4% 150 MEQ in DEXTROSE 5% 1,000 ML IV SCH (19:45)
[2018-11-28 20:02] LABS: BUN Creatinine Ratio 24.5 (10-20); Calcium 14.3 mg/dl (8.5-10.1); Est GFR (African American) 39.6; Est GFR (Non-African American) 34.2
--- NOTE | 2018-11-28 20:25 | Procedure Note ---
Procedure Note Date of Service November 28, 2018 Note R subclavian central line: after informed consent full sterile precautions used area anesthetized using lidocaine using landmarks R subclavian vein was accessed and triple lumen catheter placed using Seldinger technique. good flow in all ports sutured in place and Tegaderm placed CXR confirmed placement Coding
[2018-11-28 20:34] LABS: Potassium 7.2 mmol/L (3.5-5.1)
--- NOTE | 2018-11-28 20:36 | XRay Report ---
XR chest 1V portable HISTORY: 62 years-old Male central line R subclavian status post placement of a central venous louann ter. Acute respiratory failure COMPARISON: Chest radiograph of same day at 5:52 PM TECHNIQUE: Portable AP view of the chest FINDINGS: Cardiac silhouette is enlarged, unchanged. Prior median sternotomy. The superiormost sternotomy wires fractured. Endotracheal tube overlies the midline, 5.7 cm superior to the henry. Right subclavian c entral venous catheter is noted, distal tip terminating in the expected location of the mid SVC. No p ostprocedural pneumothorax identified. Left subclavian pacer redemonstrated. Trace left and small rig ht pleural effusions appear unchanged. Pulmonary vascular congestion with interstitial coarsening and bibasilar opacities. Degenerative changes of the shoulders and spine. IMPRESSION: 1. Status post placement of a right subclavian central venous catheter. No definite associated pneumo thorax identified. 2. Endotracheal tube terminates 5.7 cm superior to the henry. 3. Cardiomegaly with pulmonary edema. 4. Bilateral pleural effusions, right greater than left with bibasilar opacities redemonstrated. The above report was generated using voice recognition software. It may contain grammatical, syntax o r spelling errors. Electronically signed by: Guevara Georges M.D. 11/28/2018 8:34 PM
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
--- NOTE | 2018-11-28 20:40 | CT Scan Report ---
CT head/brain wo con CLINICAL HISTORY: 62 years-old Male with cardiac arrest. Acute cardiac arrest with altered mental st atus TECHNIQUE: Multiple axial CT images of the head were obtained without contrast. A dose lowering tech nique was utilized adhering to the principles of ALARA. CT DOSE: 1277.12 mGycm COMPARISON: CT head 08/16/2018. FINDINGS: Motion degraded exam. No acute intracranial hemorrhage, midline shift, intracranial mass, hydrocephal us, territorial ischemia or abnormal extra-axial collection. Age-related involutional changes. Senesc ent calcifications about the right lentiform nucleus. Mild degree of ill-defined white matter hypoden sities suggest chronic microvascular ischemic disease. Cerebral vascular calcifications are noted. The calvarium is intact. Mastoid air cells are clear. Moderate mucosal thickening of the ethmoid air cells with secretions seen about the nasopharynx. Mild mucosal thickening with small air-fluid level about the right maxillary sinus. Soft tissues and orbits are unremarkable. IMPRESSION: Motion degraded exam without acute intracranial abnormality identified. The above report was generated using voice recognition software. It may contain grammatical, syntax o r spelling errors. Electronically signed by: Guevara Georges M.D. 11/28/2018 8:39 PM
[2018-11-28] MEDS ORDERED: NOREPINEPHRINE BIT INJ 8 MG in DEXTROSE 5% 500 ML IV SCH (21:00)
[2018-11-28] MEDS ORDERED: FAMOTIDINE 20 MG in SYRINGE 3 ML IV SCH (21:00)
[2018-11-28] MEDS ORDERED: DEXTROSE 5% IV SCH ×2 (21:15→21:30)
[2018-11-28] MEDS ORDERED: EPINEPHRINE IV SCH ×2 (21:15→21:30)
[2018-11-28 21:30] VITALS: O2SAT 74
[2018-11-28] MEDS ORDERED: MIDAZOLAM HCL 5 MG/ML 1 ML VIAL IV STA (22:09)
[2018-11-28] MEDS ORDERED: MoRPHine SULFATE 4 MG/ML 1 ML CARP\\VIAL IV PRN (22:09)
[2018-11-28 22:14] VITALS: BP 107/48; PULSE 54
[2018-11-28] MEDS ORDERED: MIDAZOLAM HCL 5 MG/ML 1 ML VIAL IV PRN (22:17)
[2018-11-28] MEDS ORDERED: MIDAZOLAM HCL 1 MG/ML 2ML VIAL ONE (22:17)
[2018-11-28] MEDS ORDERED: DEXTROSE 5% 100 ML BAG IV ONE (23:14)
[2018-11-28] MEDS ORDERED: SODIUM BICARB 8.4% INJ 50 MEQ/50 ML SYR IV ONE (23:14)
[2018-11-29 09:35] LABS: iSTAT Allen Test Pass; iSTAT Arterial Blood Gas HCO3 20 meg/L (19-24); iSTAT Arterial Blood Gas pCO2 66 mmHg (35-46); iSTAT Arterial Blood Gas pH 7.09 (7.35-7.45); iSTAT Carbon Dioxide 22 mEq/l (24-31); iSTAT FiO2 100 %; iSTAT Hematocrit 34 % (42-52); iSTAT Hemoglobin 11.6 g/dl (14.0-18.0); iSTAT Potassium 7.1 mEq/L (3.3-5.0); iSTAT Site L Radial; iSTAT Sodium 127 mEq/L (135-144)
== END 2018-11-28 23:15 | disposition expired | DRG 296 ==
LOC: ED 16:26 → 1E 16:45